=== PATIENT | female | born 1940 | race Caucasian/White ===

== ENCOUNTER 2019-07-28 22:29 | Inpatient (IN) | payer OTHER, SELFPAY ==
--- NOTE | 2019-07-28 | RAD_ITS ---
STUDY: X-RAY CHEST REASON FOR EXAM: Female, 79 years old. CHEST PAIN TECHNIQUE: Single AP portable view of the chest. COMPARISON: None. FINDINGS: Low lung volumes. No definite infiltrates. Probable mild scarring of the lung bases. No gross effusions. There is mild cardiac enlargement. Normal mediastinum and sue. Normal visualized pulmonary arteries. There is atherosclerotic tortuosity of the aortic arch and descending thoracic aorta. Normal visualized thoracic spine. There is degenerative osteoarthritis of the bilateral shoulders. There is no demonstrated abnormality of the visualized soft tissue structures of the upper abdomen. RAD/Chest 1 View (Portable) IMPRESSION: Low lung volumes. No definite acute chest disease. Electronically Signed: Donell Calderón MD at 23:21 EDT , Service support ,
[2019-07-28 22:35] VITALS: BP 165/97; PULSE 85; RESP 16; TEMP 37.1; O2SAT 93; BMI 26.4
--- NOTE | 2019-07-28 22:43 | CT_ITS ---
STUDY: CT BRAIN WITHOUT CONTRAST REASON FOR EXAM: Female, 79 years old. DROWSINESS, ALTERED MENTAL STATUS RADIATION DOSAGE (If Supplied By Facility): CTDIvol = ( 44.99 ) mGy, DLP = ( 779.24 ) mGycm TECHNIQUE: Transaxial CT imaging of the brain was performed without administration of intravenous contrast material. Individualized dose optimization techniques were used for this CT. COMPARISON: No relevant priors. FINDINGS: Normal soft tissue structures. Normal calvarium. Normal size ventricles and extra-axial spaces for the patient''s age. There are areas of decreased attenuation within the white matter tracts of the supratentorial brain, consistent with microvascular disease changes. Normal basal ganglia and thalami. Normal brainstem. Normal cerebellum. There is no intracranial hemorrhage. There are no findings of an acute ischemic infarction. Normal visualized paranasal sinuses. CT/Brain/Head without Contrast IMPRESSION: Chronic involutional changes of the brain. Electronically Signed: Kaden Luz, at 0:10 EDT Tel , Service support ,
--- NOTE | 2019-07-28 22:43 | EKG12_ITS ---
Test Reason : CP Blood Pressure : / mmHG Vent. Rate : 076 BPM Atrial Rate : 076 BPM P-R Int : 174 ms QRS Dur : 106 ms QT Int : 388 ms P-R-T Axes : 026 -03 063 degrees QTc Int : 436 ms Normal sinus rhythm with sinus arrhythmia Minimal voltage criteria for LVH, may be normal variant Nonspecific T wave abnormality Abnormal ECG Confirmed by SILVIA DOSHI, NILSON ([id number]), supervising editor trailer FEDERICO SAN ([id number] on 08/01/2019 1:08:01 PM Referred By: YORDY Confirmed By:RYAN VEGA MD
--- NOTE | 2019-07-28 22:45 | ED.VISSUMM ---
- ER Visit Summary Date of Service: 07/28/19 Chief Complaint: Chest pain, altered mental status History of Present Illness: The patient is a 79 F who presents by EMS with the complaints of chest pain. states that she was complaining of chest pain earlier. He gave her 1 of his metoprolol pills at that time. He does not know anything about her medical history but brings a pill bottle shows that she is on Remeron at night. The patient denies any pain. She is only alert to herself only. This is not normal for her cording to the . No fevers recently. Physical Examination: Vital signs reviewed. HEENT exam unremarkable. Heart is regular rate and rhythm without murmurs. Lungs are clear to auscultation. Abdomen is soft and nontender. Extremities reveal no edema. Skin exam normal. Neurologic exam shows that she is alert to herself only. She thinks it is 2000 and that she is in [place]. She has diffuse overall weakness. No lateralizing weakness or facial droop. Test Results: EKG is sinus rhythm with a rate of 76. No ST changes. Chest x-ray shows low volumes with no pneumonia. CAT scan of the head reveals chronic findings. White blood cell count normal. Hemoglobin 11.7. Sodium 135, potassium 3.3. ALT 116, AST 366. Alkaline phosphatase 412. Total bilirubin 1.4. Urinalysis has trace blood but no other findings. Carboxyhemoglobin 1.5. Right upper quadrant ultrasound shows cholelithiasis with gallbladder wall thickening and pericholecystic fluid. Emergency Department Course and Treatment: My concern is that this patient does have acute cholecystitis. She is not exquisitely tender in this area but could be causing her delirium. I spoke with Dr. Zuñiga, who will see the patient in the morning and will likely order a HIDA scan. I discussed with the hospitalist for admission. I will give her a dose of IV Zosyn. Treatment Plan: [] Disposition: Admit Impression: Acute cholecystitis, delirium This note was generated with [employer] dictation software. It may contain incorrect words, spelling, and punctuation that were not noted in review of the chart prior to signing
[2019-07-28 22:51] LABS: Absolute Lymphocyte Count 0.41 X10^3/uL (0.83-4.51); Absolute Neutrophil Count 8.1 X10^3/uL (2.0-7.7); Basophil# 0.03 X10^3/uL; Basophil% 0.3 % (0-1); Eosinophil# 0.05 X10^3/uL; Eosinophils% 0.5 % (0-5); Hemoglobin 11.7 g/dL (12.0-15.0); Lymphocyte # 0.41 X10^3/ul (4.0); Lymphocyte % 4.4 % (19-41); Mean Corp Hgb Conc 32.5 g/dL (32-36); Mean Corpuscular Hgb 28.3 pg (27.0-32.0); Mean Corpuscular Volume 87.2 fL (81-99); Mean Platelet Vol. 9.2 fl (6.2-12.0); Monocyte# 0.78 X10^3/uL; Monocyte% 8.3 % (0-10); NRBC Flagged by Analyzer 0 % (0-5); Neutrophil # 8.06 X10^3/uL (2.7-7.7); Neutrophil % 86.2 % (47-70); POSITIVE DIFFERENTIAL YES; Platelet Count 203 K/mm3 (150-450); RBC Distribution Width CV 13.8 % (11.6-14.6); RBC Distribution Width SD 43.9 fl (35.1-43.9); Red Blood Count 4.13 M/mm3 (4.2-5.4); White Blood Count 9.4 K/mm3 (4.4-11.0)
[2019-07-28 22:55] LABS: Differential Indicated SCAN CRITERIA MET
[2019-07-28 23:11] LABS: ALB/GLOB Ratio 0.9 RATIO (0.9-2.4); AST(SGOT) 366 U/L (15-37); Alanine Aminotransfer ALT/SGPT 116 U/L (13-56); Albumin, Serum 3.5 g/dL (3.2-5.0); Alkaline Phosphatase 412 U/L (45-117); Anion Gap 8 (5-15); BUN 23 mg/dL (7-18); BUN/Creat Ratio 27.6 RATIO (10-20); Calcium,Total 8.7 mg/dL (8.5-10.1); Chloride 102 mmol/L (98-107); Creatinine, Serum 0.83 mg/dL (0.55-1.02); EST Glomerular Filtration Rate 70 mL/min (>60); Est Glom Filt Rate - Afr Amer 85 mL/min (>60); Estimated Creatinine Clearance 46.21 ml/min; Globulin 3.8 g/dL (2.2-4.2); Glucose 135 mg/dL (74-106); Potassium 3.3 mmol/L (3.5-5.1); Protein, Total 7.3 g/dL (6.4-8.2); Sodium Level 135 mmol/L (136-145)
[2019-07-28 23:16] LABS: Mucous, Urine 0 SEEN /hpf (<or=2+); Squamous Epithelial Cells - UA 0 SEEN /hpf (5-10); White Blood Cells 0 SEEN /hpf (0-5)
--- NOTE | 2019-07-28 23:19 | US_ITS ---
STUDY: ABDOMINAL ULTRASOUND - RIGHT UPPER QUADRANT REASON FOR VISIT: Female, 79 years old ELEV LIVER ENZ TECHNIQUE: Ultrasound evaluation of the right upper quadrant was performed with real-time and static [place]-scale imaging. TECHNICAL QUALITY: Adequate. COMPARISON: None. FINDINGS: Liver: The liver measures 18.1 cm. There is normal echogenicity of the liver. The bile ducts are within normal limits. There is hepatic color flow. The direction of portal flow is hepatopetal. There is no demonstrated mass lesion. Gallbladder: Distended gallbladder measuring 12.5 cm in long axis. The gallbladder wall measures 4 mm. There is a negative sonographic Mcdonnell''s sign. There is trace pericholecystic fluid. There are multiple echogenic structures within the gallbladder, consistent with multiple gallstones. Common Bile Duct (C.B.D.): The common bile duct measures 6 mm. Pancreas: Normal size of the head, body of the pancreas. There is normal echogenicity of the pancreas. There is no demonstrated pancreatic mass or cyst. The pancreatic tail is not visualized. Right Kidney: Normal size of the right kidney. The right kidney measures 10.5 x 3.2 x 3.4 cm. Normal renal cortex. The right cortex measures 1.3 cm. There is no demonstrated renal mass or cyst. There is no right hydronephrosis. US/Gallbladder IMPRESSION: Cholelithiasis and mild gallbladder wall thickening and trace pericholecystic fluid however negative sonographic Mcdonnell''s sign. The gallbladder is distended. Findings are indeterminate and remain concerning for possible cholecystitis. Further evaluation with HIDA scan may be of value. Electronically Signed: Kaden Luz, at 0:05 EDT Tel , Service support ,
[2019-07-28 23:21] LABS: Platelet Estimate ADEQUATE (ADEQ); Red Cell Morphology NORM C+C NORMAL (NORM C&C)
[2019-07-28 23:28] LABS: Carboxyhemoglobin Frac (CO) 1.5 % (0.0-1.5)
[2019-07-28 23:34] LABS: Color, Urine Yellow (Yellow); Glucose, Dipstick 50 mg/dl (Normal); Ketone-Dipstick Negative (Negative); Leukocyte Esterase-Dipstick Negative /ul (Negative); Nitrite-Dipstick Negative (Negative); Occult Blood-Urine 25 /ul (Negative); Protein-Dipstick 30 mg/dl (Negative); Specific Gravity, Urine 1.015 (1.002-1.030); Urine Bilirubin Dipstick Negative (Negative); Urine Clarity Sl. Cloudy (Clear); Urine Urobilinogen Normal (Normal); Urine pH 6.5 (5.0 - 8.0)
[2019-07-28 23:41] LABS: Lactic Acid 1.6 mmol/L (0.4-1.9)
[2019-07-28 23:55] VITALS: BP 156/91; PULSE 82; RESP 17; O2SAT 92
[2019-07-29] VITALS (16 sets, daily range): BP systolic 141–177; BP diastolic 68–102; PULSE 59–89; RESP 16–24; TEMP 36.5–37.3; O2SAT 91–99; BMI 25.7
--- NOTE | 2019-07-29 00:24 | HP.PCM_ITS ---
Problem List (1) Elevated bilirubin Status: Acute (2) Elevated liver function tests Status: Acute (3) Cholecystitis Status: Suspected (4) Encephalopathy acute Status: Acute (5) Hyperglycemia Status: Acute (6) Elevated BP without diagnosis of hypertension Status: Acute (7) Normocytic anemia Status: Acute (8) Hyponatremia Status: Acute (9) Hypokalemia Status: Acute (10) Depression Status: Chronic Qualifiers: Depression Type: unspecified Qualified Code(s): F32.9 - Major depressive disorder, single episode, unspecified History of Present Illness Date of Admission: 07/29/19 Chief Complaint: Abdominal, chest pain The patient is a 79 y/o F, Orthodoxy w/ PMHx: Depression who presents to the [facility] ED on 07/29/19 with history of onset of epigastric discomfort, middle of the upper abdomen/lower chest, unclear if radiation with no dyspnea, diaphoresis with new onset confusion prompting to eventually bring her to the ED. Unclear if associated with oral intake discussions with patient and . Patient in the ED noted to be only oriented to self however during evaluation was able to give some detailed history. Patient is very vague with her discomfort, described as more of a dull ache, 2-5 out of 10 in severity when occurring with waxing and waning with no specific nausea or emesis associated nor any recent changes in her bowel movements. Patient also denies any fevers or chills. Work-up in the ED included T 98.8, heart rate 85, BP 165/97, respiratory rate 16, 93% on room air, CBC with WBC 9.4, hemoglobin 11.7, platelet 203 with left shift, VBG carboxyhemoglobin 1.5, CMP with sodium 135, potassium 3.3, BUN/c reatinine 23/0.83, glucose 135, lactic acid 1.6, total bilirubin 1.4, AST/ALT 366/116, alk phos of 412, troponin less than 0.015, urinalysis with specific gravity 1.015, protein 30, glucose 50, negative ketones, occult blood 25, negative nitrite, negative leukocyte Estrace, chest x-ray with no acute cardiopulmonary findings, CT head with no acute intracranial findings, gallbladder ultrasound with cholelithiasis and mild gallbladder wall thickening and trace pericholecystic fluid with a negative sonographic Mcdonnell sign but noted distended gallbladder with findings indeterminate and ongoing possibility of cholecystitis. In the ED patient administered aspirin therapy. Past Medical History Past Medical History (Chronic Problems): Chronic Problems Depression (Chronic) Allergies No Known Allergies Allergy (Verified 07/28/19 22:42) Home Medications: Ambulatory Orders Medication Instructions Recorded Mirtazapine 15 mg PO QHS 07/28/19 Surgical History: - - Total knee replacement. 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 Denies: Chills, Fever, Weight Change HEENT: Denies: Head Aches, Sinus Congestion, Sinus Drainage Cardiovascular: Reports: Chest Pain. Denies: Chest Pressure, Chest Tightness, Light Headedness, Orthopnea, Palpitations, Syncope Respiratory: Denies: Cough, Shortness of breath at rest, Sputum production Gastrointestinal: Reports: Abdominal Pain. Denies: Constipation, Diarrhea, Nausea, Vomiting Genitourinary: Denies: Dysuria Musculoskeletal: Reports: Back Pain, Joint Pain. Denies: Joint Tenderness Skin: Denies: Rash, Wounds Neurological: Reports: Confusion. Denies: Focal weakness, Numbness, Tingling Psychiatric: Reports: Depression. Denies: Anxiety, Homicidal Ideations, Suicidal Ideations Hematologic/ Lymphatic: Reports: Anemia. Denies: Easy Bruising, Easy Bleeding VTE Information - Inpt Only VTE Present on Admission: No VTE Mechan Device Prophylaxis: SCD's VTE Pharm Prophylaxis ordered?: Yes Patient Problems: Active and Suspected Problems Elevated bilirubin (Acute) Elevated liver function tests (Acute) Cholecystitis (Suspected) Encephalopathy acute (Acute) Hyperglycemia (Acute) Elevated BP without diagnosis of hypertension (Acute) Normocytic anemia (Acute) Hyponatremia (Acute) Hypokalemia (Acute) Subjective: Seated upright in bed, fatigued appearance, no acute obvious distress, answering some questions. Objective: Physical Examination: General: awake, alert, oriented to self and some detail but decreased from baseline, remains cooperative, seated upright in bed in no apparent distress. Skin: normal color, turgor, no icterus, cyanosis. HEENT: AT/NC, EOMI, PERRLA, dry MM, no carotid bruits or JVD noted. Lungs: CTA bilaterally, moderate effort, moderate decrease BL bases, no rales, ronchi or wheezing. Heart: Regular rate and rhythm; no gallop, rub audible. Abdomen: soft, obese, no specific TTP nor obvious epigastric or RUQ pain, no rebound or guarding, ND, normal BS, no HSM. Extremities: no cyanosis, clubbing, or edema. Neurological: patient awake, alert, oriented as noted; cognitive function per discussions with spouse not baseline intact; pupils equally reactive to light and accomodation; cranial nerves II-XII grossly normal, moving all 4 extremities, no focal deficits, strength moderately global decrease secondary to acute presentation. Psychiatric: affect appears fatigued, mildly flat, no acute evidence of dep ressive or anxiety feelings. - Physical Exam Vitals/I&O's: Vital Signs Temp Pulse Resp BP Pulse Ox 98.8 F 82 17 156/91 H 92 07/28/19 22:35 07/28/19 23:55 07/28/19 23:55 07/28/19 23:55 07/28/19 23:55 Oxygen Delivery Method Room Air Weight: 149 lb 7.574 oz Body Mass Index (BMI) 26.4 Laboratory Results 07/28/19 22:40: WBC 9.4, RBC 4.13 L, Hgb 11.7 L, Hct 36.0 L, MCV 87.2, MCH 28.3, MCHC 32.5, RDW Std Deviation 43.9, RDW Coeff of [place] 13.8, Plt Count 203, MPV 9.2, Immature Gran % (Auto) 0.300, Neut % (Auto) 86.2 H, Lymph % (Auto) 4.4 L, [place] % (Auto) 8.3, Eos % (Auto) 0.5, Baso % (Auto) 0.3, Absolute Neuts (auto) 8.1 H, Absolute Lymphs (auto) 0.41 L, Nucleated RBC % 0, Differential Comment SEE COMMENT, Platelet Estimate ADEQUATE, RBC Morphology NORM C+C 07/28/19 22:40: Sodium 135 L, Potassium 3.3 L, Chloride 102, Carbon Dioxide 25.0, Anion Gap 8, BUN 23 H, Creatinine 0.83, Estim Creat Clear Calc 46.21, Est GFR (MDRD) Af Amer 85, Est GFR (MDRD) Non-Af 70, BUN/Creatinine Ratio 27.6 H, Glucose 135 H, Calcium 8.7, Total Bilirubin 1.40 H, AST 366 H, ALT 116 H, Alkaline Phosphatase 412 H, Troponin I < 0.015, Total Protein 7.3, Albumin 3.5, Globulin 3.8, Albumin/Globulin Ratio 0.9 07/28/19 22:50: Urine Color Yellow, Urine Clarity Sl. Cloudy, Urine pH 6.5, Ur Specific [place] 1.015, Urine Protein 30 H, Urine Glucose (UA) 50 H, Urine Ketones Negative, Urine Occult Blood 25 H, Urine Nitrite Negative, Urine Bilirubin Negative, Urine Urobilinogen Normal, Ur Leukocyte Esterase Negative, Urine RBC Pending, Urine WBC Pending, Ur Squamous Epith Cells Pending, Urine Bacteria Pending, Urine Mucus Pending 07/28/19 23:05: Lactic Acid 1.6 07/28/19 23:05: VBG Carboxyhemoglobin 1.5 Current Medications Piperacillin Sod/Tazobactam (Sod 4.5 gm/ Sodium Chloride) 100 mls @ 200 mls/hr IV X1 ONE Stop: 07/29/19 00:50 Assessment/Plan All Active Problems Elevated bilirubin (Acute) Elevated liver function tests (Acute) Encephalopathy acute (Acute) Hyperglycemia (Acute) Elevated BP without diagnosis of hypertension (Acute) Normocytic anemia (Acute) Hyponatremia (Acute) Hypokalemia (Acute) The patient is a 79 y/o F, Orthodoxy w/ PMHx: Depression who presents to the [facility] ED on 07/29/19 with history of onset of epigastric discomfort, middle of the upper abdomen/lower chest, unclear if radiation with no dyspnea, diaphoresis with new onset confusion prompting to eventually bring her to the ED. Unclear if associated with oral intake discussions with patient and . 1. Acute Encephalopathy secondary to Elevated bilirubin and liver function studies with epigastric/chest discomfort and gallbladder ultrasound findings concerning for possible cholecystitis, acute: We will admit to the medical surgi shikha floor, maintain on telemetry given unclear specific etiology, trend cardiac enzymes, trend CBC as well as CMP, obtain surgical evaluation, obtain HIDA scan, maintain n.p.o. status, maintain on IV famotidine in interim, obtain hepatitis panel, initiate Zosyn therapy pending surgery evaluation, fall precautions. 2. Hypokalemia: Admission K+ 3.3, supplementation given, repeat level in AM. 3. Hyponatremia, mild: Unclear if chronic or acute, will continue to gently hydrate as given acute presentation may be mild hypokalemia, repeat CMP in a.m. 4. Hyperglycemia: Admission glucose 135, will obtain hemoglobin A1c and add Accu-Cheks with sliding scale if appropriate. 5. Elevated BP without hypertensive history: Unclear if associate with acute presentation with pain, will continue to monitor and if appropriate add oral regimen, in interim PRN IV hydralazine. 6. Normocytic anemia: Unclear if chronic or acute, admission hemoglobin 11.7, MCV normal range, will obtain iron panel, ferritin, folic acid and vitamin B12 level. 7. Depression: Will continue home mirtazapine regimen. 8. DVT prophylaxis: SCDs, Lovenox. Inpatient E&M: 39073 Init Hosp L3
[2019-07-29 00:25] LABS: Amorphous Sediment 1+; Bacteria RARE /hpf (None Seen); Red Blood Cells-Urine 0-5 SEEN /hpf (0-5)
[2019-07-29] MEDS: 0.9% Normal Saline 1,000 ML 125 ML IV ×2 (01:10→10:36)
[2019-07-29] MEDS: Famotidine 200 MG/20 ML MDV 20 MG in 0.9% Normal Saline (Pres. free 8 ML 300 MG IV ×3 (01:36→21:16)
[2019-07-29 03:25] LABS: Ammonia < 10.0 umol/L (11-32)
--- NOTE | 2019-07-29 03:59 | CT_ITS ---
STUDY: CT ABDOMEN AND PELVIS WITHOUT CONTRAST REASON FOR EXAM: Female, 79 years old. POSS CHOLECYSTITIS ON US, ABDOMINAL/CHEST PAIN RADIATION DOSAGE (If Supplied By Facility): CTDIvol = ( 21.38 ) mGy, DLP = ( 1032.88 ) mGycm TECHNIQUE: Transaxial images were obtained from the dome of the diaphragm to the symphysis pubis without oral contrast, and without intravenous contrast. Sagittal and coronal images were reconstructed. Individualized dose optimization techniques were used for this CT. COMPARISON: Abdominal ultrasound from 07/28/2019 FINDINGS: The visualized lung bases demonstrate bibasilar atelectasis. The visualized portions of the heart are within normal limits. There is mild intrahepatic biliary ductal dilatation. The gallbladder is dilated with pericholecystic fluid and multiple gallstones. The common bile duct is also dilated and demonstrates several faint internal hyperdensities, series 2 image 44. Normal spleen. Normal pancreas. Normal bilateral adrenal glands. Normal right kidney. Normal left kidney. Normal visualized stomach. Normal small intestine. There are multiple colonic diverticula consistent with diverticulosis. The appendix is visualized and appears normal. Normal abdominal aorta. Normal inferior vena cava. Normal retroperitoneum. Normal urinary bladder. Normal abdominal wall. There are diffuse degenerative changes of the visualized lumbar spine. CT/Abdomen/Pelvis W IV Cont ONLY IMPRESSION: Dilated gallbladder with multiple gallstones and small amount of pericholecystic fluid. The common bile duct is also dilated with questionable subcentimeter small stones involving the distal common bile duct, series 2 image 44. Findings remain concerning for cholecystitis and possible choledocholithiasis involving the distal common bile duct. Mild intrahepatic biliary ductal dilatation. Electronically Signed: Kaden Luz, at 5:46 EDT Tel , Service support ,
[2019-07-29] MEDS: 0.9% Saline Lock 10 ML Syringe IV ×2 (04:16→16:51)
[2019-07-29 05:10] LABS: Absolute Lymphocyte Count 0.99 X10^3/uL (0.83-4.51); Absolute Neutrophil Count 8.7 X10^3/uL (2.0-7.7); Basophil# 0.03 X10^3/uL; Basophil% 0.3 % (0-1); Eosinophil# 0.01 X10^3/uL; Eosinophils% 0.1 % (0-5); Hemoglobin 11.7 g/dL (12.0-15.0); Lymphocyte # 0.99 X10^3/ul (4.0); Lymphocyte % 9.2 % (19-41); Mean Corp Hgb Conc 32.5 g/dL (32-36); Mean Corpuscular Hgb 28.5 pg (27.0-32.0); Mean Corpuscular Volume 87.8 fL (81-99); Mean Platelet Vol. 9.1 fl (6.2-12.0); Monocyte# 0.91 X10^3/uL; Monocyte% 8.5 % (0-10); NRBC Flagged by Analyzer 0 % (0-5); Neutrophil # 8.72 X10^3/uL (2.7-7.7); Neutrophil % 81.4 % (47-70); Platelet Count 200 K/mm3 (150-450); RBC Distribution Width CV 13.9 % (11.6-14.6); RBC Distribution Width SD 44.5 fl (35.1-43.9); White Blood Count 10.7 K/mm3 (4.4-11.0)
[2019-07-29 06:18] LABS: ALB/GLOB Ratio 0.8 RATIO (0.9-2.4); AST(SGOT) 400 U/L (15-37); Alanine Aminotransfer ALT/SGPT 156 U/L (13-56); Albumin, Serum 3.2 g/dL (3.2-5.0); Alkaline Phosphatase 379 U/L (45-117); Anion Gap 7 (5-15); BUN 20 mg/dL (7-18); Calcium,Total 8.4 mg/dL (8.5-10.1); Chloride 104 mmol/L (98-107); Creatinine, Serum 0.91 mg/dL (0.55-1.02); EST Glomerular Filtration Rate 64 mL/min (>60); Est Glom Filt Rate - Afr Amer 77 mL/min (>60); Ferritin 119 ng/mL (8-252); Globulin 3.9 g/dL (2.2-4.2); Glucose 122 mg/dL (74-106); Iron 31 ug/dL (50-170); Iron Binding Capacity,Total 328 ug/dL (250-450); PERCENT IRON SATURATION 9.5 % (15.0-55.0); Potassium 3.5 mmol/L (3.5-5.1); Protein, Total 7.1 g/dL (6.4-8.2); Sodium Level 137 mmol/L (136-145)
--- NOTE | 2019-07-29 06:56 | CON.PCM_ITS ---
Problem List (1) Obstructive jaundice Status: Acute (2) Choledocholithiasis Status: Acute (3) Acute cholecystitis Status: Acute Reason for Consult Date of Consultation: 07/29/19 Reason for Consultation: Acute cholecystitis and choledocholithiasis History of Present Illness: The patient is a 79 year old F presents with epigastric and right upper quadrant pain and acute confusion. The patient has not been having any nausea vomiting only describes pain. No fevers or chills. Past Medical History Past Medical History (Chronic Problems): Chronic Problems Depression (Chronic) Allergies No Known Allergies Allergy (Verified 07/28/19 22:42) Home Medications: Ambulatory Orders Medication Instructions Recorded Mirtazapine 7.5 mg PO QHS 07/28/19 Aspirin 325 mg PO DAILY 07/29/19 Surgical History: - - Total knee replacement. 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 Denies: Constipation, Diarrhea, Nausea, Vomiting Musculoskeletal: Denies: Back Pain Skin: Denies: Rash Neurological: Reports: Confusion. Denies: Balance problems Patient Problems: Active and Suspected Problems Elevated bilirubin (Acute) Elevated liver function tests (Acute) Cholecystitis (Suspected) Encephalopathy acute (Acute) Hyperglycemia (Acute) Elevated BP without diagnosis of hypertension (Acute) Normocytic anemia (Acute) Hyponatremia (Acute) Hypokalemia (Acute) Obstructive jaundice (Acute) Choledocholithiasis (Acute) Acute cholecystitis (Acute) - Physical Exam Vitals/I&O's: Vital Signs Temp Pulse Resp BP Pulse Ox 97.9 F 88 18 141/100 H 94 07/29/19 02:02 07/29/19 02:25 07/29/19 02:25 07/29/19 02:02 07/29/19 02:25 Oxygen Delivery Method Room Air Weight: 145 lb 1.027 oz Body Mass Index (BMI) 25.7 Intake and Output for Last 24 Hours 07/27/19 07/28/19 07/29/19 23:59 23:59 23:59 Intake Total 498.0 / 498.0 Output Total 550 / 550 Balance -52.0 / -52.0 General: Cooperative, No apparent distress Neck: No JVD Lungs: Normal air movement Cardiovascular: Regular rate, Regular Rhythm Abdomen: Soft, Non-Distended, Tender Neurological: Cranial nerves II-XII grossly intact Psych/Mental Status: Normal Affect Laboratory Results 07/28/19 22:40: WBC 9.4, RBC 4.13 L, Hgb 11.7 L, Hct 36.0 L, MCV 87.2, MCH 28.3, MCHC 32.5, RDW Std Deviation 43.9, RDW Coeff of [place] 13.8, Plt Count 203, MPV 9.2, Immature Gran % (Auto) 0.300, Neut % (Auto) 86.2 H, Lymph % (Auto) 4.4 L, Noble % (Auto) 8.3, Eos % (Auto) 0.5, Baso % (Auto) 0.3, Absolute Neuts (auto) 8.1 H, Absolute Lymphs (auto) 0.41 L, Nucleated RBC % 0, Differential Comment SEE COMMENT, Platelet Estimate ADEQUATE, RBC Morphology NORM C+C 07/28/19 22:40: Sodium 135 L, Potassium 3.3 L, Chloride 102, Carbon Dioxide 25.0, Anion Gap 8, BUN 23 H, Creatinine 0.83, Estim Creat Clear Calc 46.21, Est GFR (MDRD) Af Amer 85, Est GFR (MDRD) Non-Af 70, BUN/Creatinine Ratio 27.6 H, Glucose 135 H, Calcium 8.7, Total Bilirubin 1.40 H, AST 366 H, ALT 116 H, Alkaline Phosphatase 412 H, Troponin I < 0.015, Total Protein 7.3, Albumin 3.5, Globulin 3.8, Albumin/Globulin Ratio 0.9 07/28/19 22:40: Magnesium 2.0 07/28/19 22:50: Urine Color Yellow, Urine Clarity Sl. Cloudy, Urine pH 6.5, Ur S pecific [place] 1.015, Urine Protein 30 H, Urine Glucose (UA) 50 H, Urine Ketones Negative, Urine Occult Blood 25 H, Urine Nitrite Negative, Urine Bilirubin Negative, Urine Urobilinogen Normal, Ur Leukocyte Esterase Negative, Urine RBC 0-5 SEEN, Urine WBC 0 SEEN, Ur Squamous Epith Cells 0 SEEN, Amorphous Sediment 1+, Urine Bacteria RARE, Urine Mucus 0 SEEN 07/28/19 23:05: Lactic Acid 1.6 07/28/19 23:05: VBG Carboxyhemoglobin 1.5 07/29/19 02:12: Ammonia < 10.0 L 07/29/19 02:12: Hepatitis A IgM Ab Pending, Hepatitis A Ab Total Pending, Hep Bs Antigen Pending, Hep B Core Total Ab Pending, Hep B Core IgM Ab Pending 07/29/19 02:12: Troponin I < 0.015 07/29/19 05:00: WBC 10.7, RBC 4.10 L, Hgb 11.7 L, Hct 36.0 L, MCV 87.8, MCH 28.5, MCHC 32.5, RDW Std Deviation 44.5 H, RDW Coeff of [place] 13.9, Plt Count 200, MPV 9.1, Immature Gran % (Auto) 0.500, Neut % (Auto) 81.4 H, Lymph % (Auto) 9.2 L, Noble % (Auto) 8.5, Eos % (Auto) 0.1, Baso % (Auto) 0.3, Absolute Neuts (auto) 8.7 H, Absolute Lymphs (auto) 0.99, Nucleated RBC % 0 07/29/19 05:00: Hemoglobin A1c Pending 07/29/19 05:00: Vitamin B12 Pending 07/29/19 05:00: Sodium 137, Potassium 3.5, Chloride 104, Carbon Dioxide 26.0, Anion Gap 7, BUN 20 H, Creatinine 0.91, Estim Creat Clear Calc 40.30, Est GFR (MDRD) Af Amer 77, Est GFR (MDRD) Non-Af 64, BUN/Creatinine Ratio 22.0 H, Glucose 122 H, Calcium 8.4 L, Iron 31 L, TIBC 328, Iron Saturation 9.5 L, Ferritin 119, Total Bilirubin 2.40 H, AST 400 H, ALT 156 H, Alkaline Phosphatase 379 H, Troponin I < 0.015, Total Protein 7.1, Albumin 3.2, Globulin 3.9, Albumin/Globulin Ratio 0.8 L, Folate 18.10 Clinical Impression(s) from Imaging Studies Chest X-Ray 07/28/19 00:00 IMPRESSION: Low lung volumes. No definite acute chest disease. Electronically Signed: Donell Calderón MD at 23:21 EDT , Service support , Brain CT 07/28/19 22:43 IMPRESSION: Chronic involutional changes of the brain. Electronically Signed: Kaden Luz, at 0:10 EDT Tel , Service support , Gallbladder Ultrasound 07/28/19 23:19 IMPRESSION: Cholelithiasis and mild gallbladder wall thickening and trace pericholecystic fluid however negative sonographic Mcdonnell''s sign. The gallbladder is distended. Findings are indeterminate and remain concerning for possible cholecystitis. Further evaluation with HIDA scan may be of value. Electronically Signed: Kaden Luz, at 0:05 EDT Tel , Service support , Abdomen/Pelvis CT 07/29/19 03:59 IMPRESSION: Dilated gallbladder with multiple gallstones and small amount of pericholecystic fluid. The common bile duct is also dilated with questionable subcentimeter small stones involving the distal common bile duct, series 2 image 44. Findings remain concerning for cholecystitis and possible choledocholithiasis involving the distal common bile duct. Mild intrahepatic biliary ductal dilatation. Electronically Signed: Kaden Luz, at 5:46 EDT Tel , Service support , Current Medications Acetaminophen (Tylenol) 650 mg PO Q6H PRN PRN PRN Reason: Pain Score 1-10/Temp > 100.7 F Al Hydroxide/Mg Hydroxide (Mylanta Ii) 30 ml PO Q6H PRN PRN PRN Reason: Gastric Burning Albuterol Sulfate (Ventolin Aerosols) 2.5 mg INHALATION Q2H PRN PRN PRN Reason: Shortness of Breath/Wheezing Enoxaparin Sodium (Lovenox) 40 mg SC DAILY [facility] Glucagon () 1 mg IM .X1 PRN PRN Reason: Hypoglycemia Guaifenesin (Robitussin) 20 ml PO Q4H PRN PRN PRN Reason: COUGH Hydralazine HCl (Apresoline Iv) 10 mg IV Q4H PRN PRN PRN Reason: SBP > 160 Sodium Chloride () 1,000 mls @ 125 mls/hr IV .Q8H [facility] Last Infusion: 07/29/19 05:12 Dose: 125 mls/hr Documented by: Famotidine 20 mg/ Sodium (Chloride) 10 mls @ 300 mls/hr IV Q12 [facility] Last Infusion: 07/29/19 01:38 Dose: Infused Documented by: Piperacillin Sod/Tazobactam (Sod 3.375 gm/ Sodium Chloride) 50 mls @ 12.5 mls/hr IV Q8 [facility] Last Admin: 07/29/19 05:40 Dose: 12.5 mls/hr Documented by: Dextrose (Dextrose 10%-Water) 250 mls @ 999 mls/hr IV .Q16M PRN; Protocol PRN Reason: HYPOGLYCEMIA Sodium Chloride () 250 mls @ 15 mls/hr IV .[id number] PRN PRN Reason: Saline Flush Last Infusion: 07/29/19 05:40 Dose: 0 mls/hr Documented by: Sodium Chloride () 250 mls @ 15 mls/hr IV .[id number] PRN PRN Reason: Additional IVPB Infusion Magnesium Hydroxide (Milk Of Magnesia) 30 ml PO DAILY PRN PRN PRN Reason: Constipation Melatonin (Melatonin) 3 mg PO QHS PRN PRN PRN Reason: INSOMNIA Mirtazapine (Remeron) 15 mg PO QHS [facility] Morphine Sulfate () 2 mg IV Q3H PRN PRN PRN Reason: Pain Score 6-10/10 Nitroglycerin (Nitrostat) 0.4 mg SUBLINGUAL Q5M PRN PRN Reason: CARDIAC/CHEST PAIN Ondansetron HCl (Zofran) 4 mg IV Q8H PRN PRN PRN Reason: NAUSEA/VOMITING Oxycodone HCl (Oxyir) 5 mg PO Q4H PRN PRN PRN Reason: Pain Score 4-5/10 Prochlorperazine Edisylate (Compazine Iv) 5 mg IV Q4H PRN PRN PRN Reason: Breakthrough nausea/vomiting Psyllium Hydrophilic Mucilloid (Metamucil) 1 packet PO DAILY PRN PRN PRN Reason: Constipation Senna/Docusate Sodium (Senokot-S, Breonna-Colace) 2 tablet PO BID PRN PRN PRN Reason: Constipation Sodium Chloride () 10 - 40 ml IV UD PRN PRN Reason: SALINE FLUSH Last Admin: 07/29/19 04:16 Dose: 20 ml Documented by: Throat Lozenges (Cepacol Sore Throat Lozenge) 1 lozenge MUCOUS MEM Q2H PRN PRN PRN Reason: SORE THROAT Assessment/Plan All Active Problems Elevated bilirubin (Acute) Elevated liver function tests (Acute) Encephalopathy acute (Acute) Hyperglycemia (Acute) Elevated BP without diagnosis of hypertension (Acute) Normocytic anemia (Acute) Hyponatremia (Acute) Hypokalemia (Acute) Obstructive jaundice (Acute) Choledocholithiasis (Acute) Acute cholecystitis (Acute) 79-year-old female with obstructive jaundice, acute cholecystitis, choledocholithiasis 1. Patient was admitted with elevated LFTs. LFTs have continued to rise today. CT scan was obtained which showed 2 large gallstones in the gallbladder but also several stones in the common bile duct causing obstruction and dilation of the common bile duct. I recommend ERCP today and laparoscopic cholecystectomy subsequently. I discussed this with the patient and her but they are both confused and not able to give consent. I will discuss with the son today and try to obtain informed consent for the procedure for this afternoon. 2. Continue n.p.o. and antibiotics Mauricio Zuñiga MD Pager: [facility] [address] [place] [address], [address] [place] [address] Office:
[2019-07-29 08:11] LABS: Hemoglobin A1c 6.3 % (4.2-6.3)
[2019-07-29 09:19] LABS: Vitamin B12 862 pg/mL (211-911)
--- NOTE | 2019-07-29 11:40 | CASEMGMT ---
RN NGUYEN TAX SERVICES SPECIALIST CM to room to meet with patient for initial transition planning/care coordination assessment. RN NGUYEN introduced self and role at [facility]. Pt voices understanding and consents to assessment at this time. Pt resting in bed/sleeping. @ bedside and answered the following assessment questions. oriented and able to answer questions appropriately. Care providers, pharmacy, and demographics verified/updated at this time. PCP: Dr Homer Roberts Specialists: none Preferred Pharmacy: [facility] in [place] Insurance: No insurance. Jamar Hernandez Liaison, came into room to talk w/pt and . as RN NGUYEN finishing assessment. Prescription Benefit: None Living Will/HPOA: Pt does not currently have LW/HCPOA and declines info at this time. LNOK: , Kennedy Collins. 11 children Living Arrangements: Lives in 2-story home w/basment. FFSU. Pt lives w/her , son, Ilan, and his and their 7 children. Pt's son Yaw, who is W/C bound also lives with them. Pt has difficulty w/the stairs and rarely goes up/down them. Ramp entrance into the home. Pt is independent w/ADL's and family/pt share home mgmt tasks. Transportation: Hire drivers DME: States has the following DME: BSC, walker, and cane. Has a hospital bed and W/C but does not use these. states pt stands in the tub to wash off and states does not feel like pt needs a shower chair. Shower chair encouraged for pt's safety and provided with [facility] DME warehouse information. He states no need for further DME at this time. HHC/SNF: No history of either. Denies needs for SNF or HHC. Family very supportive. wishes for pt to return home and states has no concerns with going home at time of discharge. CM to follow for any further discharge planning/needs. voices no further concerns/needs at this time. Advised him to ask for CM if any further questions/concerns/needs arise. Voices understanding. PLAN: Home w/family support and discharge plans in place. Celina JARVIS RN, CM
[2019-07-29 12:23] LABS: International Normalized Ratio 1.2; Prothrombin Time (Protime)PT. 14.8 SECONDS (11.7-14.9)
[2019-07-29 12:24] LABS: Partial Thromboplast Time 30.2 Seconds (24.1-36.2)
--- NOTE | 2019-07-29 14:14 | RAD_ITS ---
STUDY: FLUOROSCOPIC ERCP BILIARY DUCTAL SYSTEM REASON FOR EXAM: Female, 79 years old. Stone, abd pain, stent placement FLUOROSCOPY TIME (if supplied): ( 3:49 ) minutes/seconds TECHNIQUE: 5 fluoroscopic images COMPARISON: Abdomen and pelvic CT exam of July 29, 2019 FINDINGS: Fluoroscopic imaging demonstrates cannulation of a dilated common bile duct with multiple filling defects consistent with ductal stones. At the completion of the procedure a common bile duct stent is placed terminating in the lumen of the duodenum. RAD/ERCP Biliary Only IMPRESSION: Fluoroscopic demonstration of dilated common bile duct with ductal stones followed by placement of a common bile duct stent terminating in the duodenum. Electronically Signed: Tamika Betancourt MD at 15:45 EDT , Service support ,
--- NOTE | 2019-07-29 15:13 | OP.CCLET_ITS ---
07/29/2019 Homer Roberts Re : ERCP procedure for Damaris Collins Dear Armando This procedure was performed on Monday, July 29, 2019. 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 - A biliary sphincterotomy was performed. - The biliary tree was swept and sludge and pus were found. - One plastic stent was placed into the common bile duct. - Ascending cholangitis was found. - Choledocholithiasis with an obstruction was found. Partial removal was accomplished with biliary sphincterotomy; a stent was inserted. Recommendations : - [facility]. - Clear liquid diet. My findings are described in the full procedure note, which is enclosed. If I can be of further assistance, please feel free to contact me at Doctor phone number(s): , Work: . Sincerely, Mauricio Zuñiga MD 07/29/2019 3:12:26 PM This report has been signed electronically.
--- NOTE | 2019-07-29 15:13 | OP.ERCP_ITS ---
Patient Name: Damaris Collins Procedure Date: 07/29/2019 12:35 PM Date of : 1940 Age: 79 Procedure: ERCP Indications: Common bile duct stone(s) Providers: Mauricio Zuñiga MD Medicines: General Anesthesia Patient Profile: This is a 79 year old female. Refer to note in patient chart for documentation of history and physical. Complications: No immediate complications. Estimated blood loss: Minimal. Procedure: Pre-Anesthesia Assessment: - Prior to the procedure, a History and Physical was performed, and patient medications and allergies were reviewed. The patient's tolerance of previous anesthesia was also reviewed. The risks and benefits of the procedure and the sedation options and risks were discussed with the patient. All questions were answered, and informed consent was obtained. Prior Anticoagulants: The patient has taken no previous anticoagulant or antiplatelet agents. After reviewing the risks and benefits, the patient was deemed in satisfactory condition to undergo the procedure. After obtaining informed consent, the scope was passed under direct vision. Throughout the procedure, the patient's blood pressure, pulse, and oxygen saturations were monitored continuously. The duodenoscope was introduced through the mouth, and advanced to the duodenum and used to inject contrast into the bile duct. The patient tolerated the procedure well. The ERCP was performed with difficulty due to challenging cannulation because of peridiverticular papilla. 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 A 0.035 inch x 260 cm straight Dreamwire was passed into the biliary tree. The sphincterotome was passed over the guidewire and the bile duct was then deeply cannulated. Contrast was injected. Biliary sphincterotomy was made with a monofilament sphincterotome using ERBE electrocautery. There was no post-sphincterotomy bleeding. The biliary tree was swept with a 12 mm balloon starting at the bifurcation. Sludge was swept from the duct. Pus was swept from the duct. One 10 Fr by 5 cm plastic stent with a single external flap and a single internal flap was placed into the common bile duct. Pus flowed through the stent. The stent was in good position. 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 - A biliary sphincterotomy was performed. - The biliary tree was swept and sludge and pus were found. - One plastic stent was placed into the common bile duct. - Ascending cholangitis was found. - Choledocholithiasis with an obstruction was found. Partial removal was accomplished with biliary sphincterotomy; a stent was inserted. Recommendation: - [facility]. - Clear liquid diet. Procedure Code(s): --- Professional --- 67807, Endoscopic retrograde cholangiopancreatography (ERCP); with placement of endoscopic stent into biliary or pancreatic duct, including pre- and post-dilation and guide wire passage, when performed, including sphincterotomy, when performed, each stent 19642, 51, Endoscopic retrograde cholangiopancreatography (ERCP); with removal of calculi/debris from biliary/pancreatic duct(s) Diagnosis Code(s): --- Professional --- K80.31, Calculus of bile duct with cholangitis, unspecified, with obstruction K80.30, Calculus of bile duct with cholangitis, unspecified, without obstruction K83.0, Cholangitis CPT copyright 2017 [employer]. All rights reserved. The codes documented in this report are preliminary and upon garment presser review may be revised to meet current compliance requirements. Mauricio Zuñiga MD 07/29/2019 3:12:26 PM This report has been signed electronically. Number of Addenda: 0 Note Initiated On: 07/29/2019 12:35 PM
--- NOTE | 2019-07-29 17:08 | PCM.HOSP.N ---
Hospitalist Note Patient was seen and examined briefly today, she underwent an ERCP today with sphincterotomy and stent placement in the common bile duct, sludge was removed from the common bile duct and there is also noted to be pus coming from the common bile duct- general surgery called me to go over her medical plan, patient has cholecystitis and cholangitis and general surgery recommends a cholecystectomy tomorrow. Patient will remain on antibiotics and will receive fluids. She will still be n.p.o.
[2019-07-29] MEDS: Acetaminophen 325 MG Tablet 650 MG PO (21:17)
[2019-07-29] MEDS: Mirtazapine 15 MG Tablet PO (21:17)
[2019-07-30] VITALS (8 sets, daily range): BP systolic 143–177; BP diastolic 64–90; PULSE 71–74; RESP 18; TEMP 36.7–37.2; O2SAT 92–96
[2019-07-30] MEDS: 0.9% Saline Lock 10 ML Syringe IV ×3 (01:24→20:46)
[2019-07-30] MEDS: 0.9% Normal Saline 1,000 ML 125 ML IV ×3 (01:24→20:46)
[2019-07-30] MEDS: hydrALAZINE 20 MG/ML Vial 10 MG IV (01:30)
[2019-07-30 05:06] LABS: HEPATITIS B SURFACE AG Negative (Negative); Hepatitis A AB, Total Negative (Negative); Hepatitis A IgM Antibody Negative (Negative); Hepatitis B Core AB IgM Negative (Negative); Hepatitis B Core Ab Total Negative (Negative); Hepatitis C Ab <0.1 s/co ratio (0.0-0.9)
[2019-07-30 07:12] LABS: Absolute Lymphocyte Count 1.64 X10^3/uL (0.83-4.51); Basophil# 0.04 X10^3/uL; Basophil% 0.5 % (0-1); Eosinophil# 0.11 X10^3/uL; Eosinophils% 1.3 % (0-5); Hematocrit 35.2 % (37-47); Hemoglobin 11.2 g/dL (12.0-15.0); Lymphocyte # 1.64 X10^3/ul (4.0); Lymphocyte % 19.2 % (19-41); Mean Corp Hgb Conc 31.8 g/dL (32-36); Mean Corpuscular Hgb 28.6 pg (27.0-32.0); Mean Corpuscular Volume 89.8 fL (81-99); Mean Platelet Vol. 9.9 fl (6.2-12.0); Monocyte# 0.66 X10^3/uL; Monocyte% 7.7 % (0-10); NRBC Flagged by Analyzer 0 % (0-5); Neutrophil # 6.04 X10^3/uL (2.7-7.7); Neutrophil % 70.9 % (47-70); Platelet Count 195 K/mm3 (150-450); RBC Distribution Width CV 14.5 % (11.6-14.6); RBC Distribution Width SD 47.1 fl (35.1-43.9); Red Blood Count 3.92 M/mm3 (4.2-5.4); White Blood Count 8.5 K/mm3 (4.4-11.0)
[2019-07-30 07:39] LABS: ALB/GLOB Ratio 0.8 RATIO (0.9-2.4); AST(SGOT) 199 U/L (15-37); Alanine Aminotransfer ALT/SGPT 105 U/L (13-56); Albumin, Serum 2.8 g/dL (3.2-5.0); Alkaline Phosphatase 323 U/L (45-117); Anion Gap 8 (5-15); BUN 14 mg/dL (7-18); BUN/Creat Ratio 19.2 RATIO (10-20); Calcium,Total 8.3 mg/dL (8.5-10.1); Chloride 115 mmol/L (98-107); Creatinine, Serum 0.73 mg/dL (0.55-1.02); EST Glomerular Filtration Rate 82 mL/min (>60); Est Glom Filt Rate - Afr Amer 99 mL/min (>60); Estimated Creatinine Clearance 38.35 ml/min; Globulin 3.5 g/dL (2.2-4.2); Glucose 59 mg/dL (74-106); Potassium 2.8 mmol/L (3.5-5.1); Protein, Total 6.3 g/dL (6.4-8.2); Sodium Level 145 mmol/L (136-145)
--- NOTE | 2019-07-30 09:02 | PCM.PN.SRG ---
Patient Problems: Active and Suspected Problems Elevated bilirubin (Acute) Elevated liver function tests (Acute) Cholecystitis (Suspected) Encephalopathy acute (Acute) Hyperglycemia (Acute) Elevated BP without diagnosis of hypertension (Acute) Normocytic anemia (Acute) Hyponatremia (Acute) Hypokalemia (Acute) Obstructive jaundice (Acute) Choledocholithiasis (Acute) Acute cholecystitis (Acute) Subjective: Patient is not complaining of any abdominal pain whatsoever. She feels hungry. Objective: Her abdomen is completely soft nontender nondistended normal active bowel sounds - Physical Exam Vitals/I&O's: Vital Signs Temp Pulse Resp BP Pulse Ox 98.9 F 74 18 143/76 H 95 07/30/19 07:26 07/30/19 07:26 07/30/19 07:26 07/30/19 07:26 07/30/19 07:26 Oxygen Delivery Method Room Air Weight: 145 lb 1.027 oz Body Mass Index (BMI) 25.7 Intake and Output for Last 24 Hours 07/28/19 07/29/19 07/30/19 23:59 23:59 23:59 Intake Total 2494.75 / 2694.75 298.75 / 298.75 Output Total 850 / 1100 1000 / 1000 Balance 1644.75 / 1594.75 -701.25 / -701.25 Laboratory Results 07/29/19 05:00: Vitamin B12 862 07/29/19 11:59: PT 14.8, INR 1.2, APTT 30.2 07/30/19 06:35: WBC 8.5, RBC 3.92 L, Hgb 11.2 L, Hct 35.2 L, MCV 89.8, MCH 28.6, MCHC 31.8 L, RDW Std Deviation 47.1 H, RDW Coeff of [place] 14.5, Plt Count 195, MPV 9.9, Immature Gran % (Auto) 0.400, Neut % (Auto) 70.9 H, Lymph % (Auto) 19.2, [place] % (Auto) 7.7, Eos % (Auto) 1.3, Baso % (Auto) 0.5, Absolute Neuts (auto) 6.0, Absolute Lymphs (auto) 1.64, Nucleated RBC % 0 07/30/19 06:35: Sodium 145, Potassium 2.8 L, Chloride 115 H, Carbon Dioxide 22.0, Anion Gap 8, BUN 14, Creatinine 0.73, Estim Creat Clear Calc 38.35, Est GFR (MDRD) Af Amer 99, Est GFR (MDRD) Non-Af 82, BUN/Creatinine Ratio 19.2, Glucose 59 L, Calcium 8.3 L, Total Bilirubin 3.50 H, AST 199 H, ALT 105 H, Alkaline Phosphatase 323 H, Total Protein 6.3 L, Albumin 2.8 L, Globulin 3.5, Albumin/Globulin Ratio 0.8 L Current Medications Acetaminophen (Tylenol) 650 mg PO Q6H PRN PRN PRN Reason: Pain Score 1-10/Temp > 100.7 F Last Admin: 07/29/19 21:17 Dose: 650 mg Documented by: Al Hydroxide/Mg Hydroxide (Mylanta Ii) 30 ml PO Q6H PRN PRN PRN Reason: Gastric Burning Albuterol Sulfate (Ventolin Aerosols) 2.5 mg INHALATION Q2H PRN PRN PRN Reason: Shortness of Breath/Wheezing Glucagon () 1 mg IM .X1 PRN PRN Reason: Hypoglycemia Guaifenesin (Robitussin) 20 ml PO Q4H PRN PRN PRN Reason: COUGH Hydralazine HCl (Apresoline Iv) 10 mg IV Q4H PRN PRN PRN Reason: SBP > 160 Last Admin: 07/30/19 01:30 Dose: 10 mg Documented by: Sodium Chloride () 1,000 mls @ 125 mls/hr IV .Q8H [facility] Last Admin: 07/30/19 01:24 Dose: 125 mls/hr Documented by: Famotidine 20 mg/ Sodium (Chloride) 10 mls @ 300 mls/hr IV Q12 [facility] Last Infusion: 07/29/19 21:18 Dose: Infused Documented by: Piperacillin Sod/Tazobactam (Sod 3.375 gm/ Sodium Chloride) 50 mls @ 12.5 mls/hr IV Q8 [facility] Last Admin: 07/30/19 06:21 Dose: 12.5 mls/hr Documented by: Dextrose (Dextrose 10%-Water) 250 mls @ 999 mls/hr IV .Q16M PRN; Protocol PRN Reason: HYPOGLYCEMIA Sodium Chloride () 250 mls @ 15 mls/hr IV .[id number] PRN PRN Reason: Saline Flush Last Infusion: 07/30/19 06:20 Dose: 0 mls/hr Documented by: Sodium Chloride () 250 mls @ 15 mls/hr IV .[id number] PRN PRN Reason: Additional IVPB Infusion Magnesium Hydroxide (Milk Of Magnesia) 30 ml PO DAILY PRN PRN PRN Reason: Constipation Melatonin (Melatonin) 3 mg PO QHS PRN PRN PRN Reason: INSOMNIA Mirtazapine (Remeron) 15 mg PO QHS [facility] Last Admin: 07/29/19 21:17 Dose: 15 mg Documented by: Morphine Sulfate () 2 mg IV Q3H PRN PRN PRN Reason: Pain Score 6-10/10 Nitroglycerin (Nitrostat) 0.4 mg SUBLINGUAL Q5M PRN PRN Reason: CARDIAC/CHEST PAIN Ondansetron HCl (Zofran) 4 mg IV Q8H PRN PRN PRN Reason: NAUSEA/VOMITING Oxycodone HCl (Oxyir) 5 mg PO Q4H PRN PRN PRN Reason: Pain Score 4-5/10 Prochlorperazine Edisylate (Compazine Iv) 5 mg IV Q4H PRN PRN PRN Reason: Breakthrough nausea/vomiting Psyllium Hydrophilic Mucilloid (Metamucil) 1 packet PO DAILY PRN PRN PRN Reason: Constipation Senna/Docusate Sodium (Senokot-S, Breonna-Colace) 2 tablet PO BID PRN PRN PRN Reason: Constipation Sodium Chloride () 10 - 40 ml IV UD PRN PRN Reason: SALINE FLUSH Last Admin: 07/30/19 01:24 Dose: 10 ml Documented by: Throat Lozenges (Cepacol Sore Throat Lozenge) 1 lozenge MUCOUS MEM Q2H PRN PRN PRN Reason: SORE THROAT Medical Necessity - Tobacco Use Smoking Status: Never smoker Tobacco Use: Non-smoker Assessment/Plan All Active Problems Elevated bilirubin (Acute) Elevated liver function tests (Acute) Encephalopathy acute (Acute) Hyperglycemia (Acute) Elevated BP without diagnosis of hypertension (Acute) Normocytic anemia (Acute) Hyponatremia (Acute) Hypokalemia (Acute) Obstructive jaundice (Acute) Choledocholithiasis (Acute) Acute cholecystitis (Acute) Assessment cholangitis Plan at this point I think is best we just allow the patient to get better from her cholangitis prior to taking her to surgery. She is more likely going to need to have her gallbladder taken out but at the present time I think it is best with just the hip she can continue to improve prior to the surgery.
--- NOTE | 2019-07-30 09:52 | PN_ITS ---
Patient Problems: Active and Suspected Problems Elevated bilirubin (Acute) Elevated liver function tests (Acute) Cholecystitis (Suspected) Encephalopathy acute (Acute) Hyperglycemia (Acute) Elevated BP without diagnosis of hypertension (Acute) Normocytic anemia (Acute) Hyponatremia (Acute) Hypokalemia (Acute) Obstructive jaundice (Acute) Choledocholithiasis (Acute) Acute cholecystitis (Acute) Subjective: Patient seen and examined this morning. She had an uneventful night and had no complaints. Abdominal pain has improved and she denies any fever or chills, nausea vomiting. Review of systems otherwise negative. Labs and vitals reviewed. She has remained hemodynamically stable. Potassium is 2.8 today. Bilirubin has trended up to 3.5 though AST and ALT have trended down as well as ALP. WBC is 8.5. Vitals/I&O's: Vital Signs Temp Pulse Resp BP Pulse Ox 98.9 F 74 18 143/76 H 95 07/30/19 07:26 07/30/19 07:26 07/30/19 07:26 07/30/19 07:26 07/30/19 07:26 Oxygen Delivery Method Room Air Weight: 145 lb 1.027 oz Body Mass Index (BMI) 25.7 Intake and Output for Last 24 Hours 07/28/19 07/29/19 07/30/19 23:59 23:59 23:59 Intake Total 2494.75 / 2694.75 298.75 / 298.75 Output Total 850 / 1100 1000 / 1000 Balance 1644.75 / 1594.75 -701.25 / -701.25 General: Alert, Oriented x3, Cooperative, No apparent distress HEENT: Atraumatic, PERRLA, EOMI, Normocephalic Oral: Dry Mucosa Neck: Supple, No JVD, Negative Carotid Bruits Lungs: Clear to auscultation, Normal air movement, No rhonchi, No wheeze, No rales Cardiovascular: Regular rate, Regular Rhythm, Normal S1, Normal S2, No murmurs Abdomen: Bowel Sounds Present, Soft, Non Tender, Non-Distended, No Hepato- splenomegaly, - - Mcdonnell's sign is negative. Extremities: No clubbing, No cyanosis, No edema, Capillary Refill Less than 3 Seconds Skin: No rashes, No breakdown Musculoskeletal: No Tenderness to Palpation of Joints or Extremities Lymphatic: No Cervical, Supraclavicular, or Inguinal Adenopathy Neurological: Cranial nerves II-XII grossly intact, Neuro grossly intact, Motor Exam 5/5 strength throughout Psych/Mental Status: Normal Affect, Appropriate, Alert and oriented to time, place, person, mood and affect Laboratory Results 07/29/19 11:59: PT 14.8, INR 1.2, APTT 30.2 07/30/19 06:35: WBC 8.5, RBC 3.92 L, Hgb 11.2 L, Hct 35.2 L, MCV 89.8, MCH 28.6, MCHC 31.8 L, RDW Std Deviation 47.1 H, RDW Coeff of [place] 14.5, Plt Count 195, MPV 9.9, Immature Gran % (Auto) 0.400, Neut % (Auto) 70.9 H, Lymph % (Auto) 19.2, [place] % (Auto) 7.7, Eos % (Auto) 1.3, Baso % (Auto) 0.5, Absolute Neuts (auto) 6.0, Absolute Lymphs (auto) 1.64, Nucleated RBC % 0 07/30/19 06:35: Sodium 145, Potassium 2.8 L, Chloride 115 H, Carbon Dioxide 22.0, Anion Gap 8, BUN 14, Creatinine 0.73, Estim Creat Clear Calc 38.35, Est GFR (MDRD) Af Amer 99, Est GFR (MDRD) Non-Af 82, BUN/Creatinine Ratio 19.2, Glucose 59 L, Calcium 8.3 L, Total Bilirubin 3.50 H, AST 199 H, ALT 105 H, Alkaline Phosphatase 323 H, Total Protein 6.3 L, Albumin 2.8 L, Globulin 3.5, Albumin/Globulin Ratio 0.8 L Diagnostic Data Chest X-Ray 07/28/19 00:00 IMPRESSION: Low lung volumes. No definite acute chest disease. Electronically Signed: Donell Calderón MD at 23:21 EDT , Service support , Brain CT 07/28/19 22:43 IMPRESSION: Chronic involutional changes of the brain. Electronically Signed: Kaden Luz at 0:10 EDT Tel , Service support , Gallbladder Ultrasound 07/28/19 23:19 IMPRESSION: Cholelithiasis and mild gallbladder wall thickening and trace pericholecystic fluid however negative sonographic Mcdonnell''s sign. The gallbladder is distended. Findings are indeterminate and remain concerning for possible cholecystitis. Further evaluation with HIDA scan may be of value. Electronically Signed: Kaden Luz, at 0:05 EDT Tel , Service support , Abdomen/Pelvis CT 07/29/19 03:59 IMPRESSION: Dilated gallbladder with multiple gallstones and small amount of pericholecystic fluid. The common bile duct is also dilated with questionable subcentimeter small stones involving the distal common bile duct, series 2 image 44. Findings remain concerning for cholecystitis and possible choledocholithiasis involving the distal common bile duct. Mild intrahepatic biliary ductal dilatation. Electronically Signed: Kaden Luz, at 5:46 EDT Tel , Service support , ERCP X-Ray 07/29/19 14:14 IMPRESSION: Fluoroscopic demonstration of dilated common bile duct with ductal stones followed by placement of a common bile duct stent terminating in the duodenum. Electronically Signed: Tamika Betancourt MD at 15:45 EDT , Service support , Current Medications Acetaminophen (Tylenol) 650 mg PO Q6H PRN PRN PRN Reason: Pain Score 1-10/Temp > 100.7 F Last Admin: 07/29/19 21:17 Dose: 650 mg Documented by: Al Hydroxide/Mg Hydroxide (Mylanta Ii) 30 ml PO Q6H PRN PRN PRN Reason: Gastric Burning Albuterol Sulfate (Ventolin Aerosols) 2.5 mg INHALATION Q2H PRN PRN PRN Reason: Shortness of Breath/Wheezing Glucagon () 1 mg IM .X1 PRN PRN Reason: Hypoglycemia Guaifenesin (Robitussin) 20 ml PO Q4H PRN PRN PRN Reason: COUGH Hydralazine HCl (Apresoline Iv) 10 mg IV Q4H PRN PRN PRN Reason: SBP > 160 Last Admin: 07/30/19 01:30 Dose: 10 mg Documented by: Sodium Chloride () 1,000 mls @ 125 mls/hr IV .Q8H [facility] [place] Last Admin: 07/30/19 01:24 Dose: 125 mls/hr Documented by: Famotidine 20 mg/ Sodium (Chloride) 10 mls @ 300 mls/hr IV Q12 [facility] [place] Last Infusion: 07/29/19 21:18 Dose: Infused Documented by: Piperacillin Sod/Tazobactam (Sod 3.375 gm/ Sodium Chloride) 50 mls @ 12.5 mls/hr IV Q8 [facility] [place] Last Admin: 07/30/19 06:21 Dose: 12.5 mls/hr Documented by: Dextrose (Dextrose 10%-Water) 250 mls @ 999 mls/hr IV .Q16M PRN; Protocol PRN Reason: HYPOGLYCEMIA Sodium Chloride () 250 mls @ 15 mls/hr IV .[id number] PRN PRN Reason: Saline Flush Last Infusion: 07/30/19 06:20 Dose: 0 mls/hr Documented by: Sodium Chloride () 250 mls @ 15 mls/hr IV .[id number] PRN PRN Reason: Additional IVPB Infusion Magnesium Hydroxide (Milk Of Magnesia) 30 ml PO DAILY PRN PRN PRN Reason: Constipation Melatonin (Melatonin) 3 mg PO QHS PRN PRN PRN Reason: INSOMNIA Mirtazapine (Remeron) 15 mg PO QHS [facility] [place] Last Admin: 07/29/19 21:17 Dose: 15 mg Documented by: Morphine Sulfate () 2 mg IV Q3H PRN PRN PRN Reason: Pain Score 6-10/10 Nitroglycerin (Nitrostat) 0.4 mg SUBLINGUAL Q5M PRN PRN Reason: CARDIAC/CHEST PAIN Ondansetron HCl (Zofran) 4 mg IV Q8H PRN PRN PRN Reason: NAUSEA/VOMITING Oxycodone HCl (Oxyir) 5 mg PO Q4H PRN PRN PRN Reason: Pain Score 4-5/10 Prochlorperazine Edisylate (Compazine Iv) 5 mg IV Q4H PRN PRN PRN Reason: Breakthrough nausea/vomiting Psyllium Hydrophilic Mucilloid (Metamucil) 1 packet PO DAILY PRN PRN PRN Reason: Constipation Senna/Docusate Sodium (Senokot-S, Breonna-Colace) 2 tablet PO BID PRN PRN PRN Reason: Constipation Sodium Chloride () 10 - 40 ml IV UD PRN PRN Reason: SALINE FLUSH Last Admin: 07/30/19 01:24 Dose: 10 ml Documented by: Throat Lozenges (Cepacol Sore Throat Lozenge) 1 lozenge MUCOUS MEM Q2H PRN PRN PRN Reason: SORE THROAT STROKE Vital Signs/Narrative: Vital Signs Temp Pulse Resp BP Pulse Ox 07/30/19 07:26 98.9 F 74 18 143/76 H 95 07/30/19 07:09 93 Medical Necessity - Tobacco Use Smoking Status: Never smoker Tobacco Use: Non-smoker Assessment/Plan All Active Problems Elevated bilirubin (Acute) Elevated liver function tests (Acute) Encephalopathy acute (Acute) Hyperglycemia (Acute) Elevated BP without diagnosis of hypertension (Acute) Normocytic anemia (Acute) Hyponatremia (Acute) Hypokalemia (Acute) Obstructive jaundice (Acute) Choledocholithiasis (Acute) Acute cholecystitis (Acute) 1. Acute cholecystitis * bilirubin has trended up, though AST,ALT and ALP are trending down' * had ERCP yesterday which showed dilated common bile duct with ductal stones followed by placement of a common bile duct stent terminating in duodenum * abdominal pain is much improved today * on IV zosyn; surgery wants to defer laparoscopic cholecystectomy, and think she may need to get it done at a later time. * started on clear liquid diet * 2, Hypokalemia: K is 2.8. Will replace and monitor 4. Hyponatremia: resolved. 5. Depression: on mirtazapine DVT prophylaxis: SCDs Inpatient E&M: [id number] Subs Hosp L2
[2019-07-30] MEDS: Famotidine 200 MG/20 ML MDV 20 MG in 0.9% Normal Saline (Pres. free 8 ML 300 MG IV ×2 (10:19→20:46)
[2019-07-30 11:04] LABS: Amylase 1042 U/L (25-115); Lipase 8442 U/L (73-393)
[2019-07-30] MEDS: Potassium Chloride 10mEq/100mL 10 MEQ/100 ML IV.SOLN. 100 MEQ IV BOLUS ×4 (11:35→15:35)
--- NOTE | 2019-07-30 13:16 | CASEMGMT ---
Social Work Consult: Self-Pay Informant: Self-Referral Met with patient and patient spouse about self-pay status. Patient spouse stating that Jamar Hernandez Liaison has already met with patient and patient family and there are no further questions/concerns. Brandie Walker MSW, ALISSA
[2019-07-30 15:12] LABS: Hep B Surface Antibodies Non Reactive (.)
[2019-07-30] MEDS: Mirtazapine 15 MG Tablet PO (20:46)
[2019-07-31 03:24] VITALS: BP 172/90; PULSE 78; RESP 18; TEMP 36.9; O2SAT 96
[2019-07-31] MEDS: 0.9% Normal Saline 1,000 ML 125 ML IV (05:02)
[2019-07-31 06:18] LABS: Absolute Lymphocyte Count 1.63 X10^3/uL (0.83-4.51); Absolute Neutrophil Count 4.5 X10^3/uL (2.0-7.7); Basophil# 0.06 X10^3/uL; Basophil% 0.8 % (0-1); Eosinophil# 0.21 X10^3/uL; Hematocrit 34.4 % (37-47); Hemoglobin 11.2 g/dL (12.0-15.0); Lymphocyte # 1.63 X10^3/ul (4.0); Lymphocyte % 23.1 % (19-41); Mean Corp Hgb Conc 32.6 g/dL (32-36); Mean Corpuscular Hgb 28.8 pg (27.0-32.0); Mean Corpuscular Volume 88.4 fL (81-99); Mean Platelet Vol. 9.3 fl (6.2-12.0); Monocyte# 0.67 X10^3/uL; Monocyte% 9.5 % (0-10); NRBC Flagged by Analyzer 0 % (0-5); Neutrophil # 4.46 X10^3/uL (2.7-7.7); Platelet Count 198 K/mm3 (150-450); RBC Distribution Width CV 14.7 % (11.6-14.6); RBC Distribution Width SD 47.2 fl (35.1-43.9); Red Blood Count 3.89 M/mm3 (4.2-5.4); White Blood Count 7.1 K/mm3 (4.4-11.0)
[2019-07-31 06:39] LABS: Anion Gap 6 (5-15); BUN 9 mg/dL (7-18); BUN/Creat Ratio 13.9 RATIO (10-20); Calcium,Total 8.4 mg/dL (8.5-10.1); Chloride 112 mmol/L (98-107); Creatinine, Serum 0.65 mg/dL (0.55-1.02); EST Glomerular Filtration Rate 94 mL/min (>60); Est Glom Filt Rate - Afr Amer 114 mL/min (>60); Estimated Creatinine Clearance 38.35 ml/min; Glucose 86 mg/dL (74-106); Potassium 3.1 mmol/L (3.5-5.1); Sodium Level 143 mmol/L (136-145)
[2019-07-31 07:42] LABS: Magnesium 1.8 mg/dL (1.6-2.6)
[2019-07-31 08:07] VITALS: O2SAT 95
[2019-07-31 09:24] VITALS: BP 145/70; PULSE 90; RESP 20; TEMP 37.1; O2SAT 93
[2019-07-31] MEDS: amLODIPine 10 MG Tablet PO (09:49)
[2019-07-31] MEDS: 0.9% Saline Lock 10 ML Syringe IV ×3 (09:49→21:10)
[2019-07-31] MEDS: Famotidine 200 MG/20 ML MDV 20 MG in 0.9% Normal Saline (Pres. free 8 ML 300 MG IV ×2 (09:50→21:10)
--- NOTE | 2019-07-31 09:54 | PN.SURG_ITS ---
Patient Problems: Active and Suspected Problems Elevated bilirubin (Acute) Elevated liver function tests (Acute) Cholecystitis (Suspected) Encephalopathy acute (Acute) Hyperglycemia (Acute) Elevated BP without diagnosis of hypertension (Acute) Normocytic anemia (Acute) Hyponatremia (Acute) Hypokalemia (Acute) Obstructive jaundice (Acute) Choledocholithiasis (Acute) Acute cholecystitis (Acute) Subjective: Patient is not complaining of any abdominal pain this morning. Objective: Abdomen is soft however she does look slightly yellow - Physical Exam Vitals/I&O's: Vital Signs Temp Pulse Resp BP Pulse Ox 98.7 F 90 20 H 145/70 H 93 07/31/19 09:24 07/31/19 09:24 07/31/19 09:24 07/31/19 09:24 07/31/19 09:24 Oxygen Delivery Method Room Air Weight: 145 lb 1.027 oz Body Mass Index (BMI) 25.7 Intake and Output for Last 24 Hours 07/29/19 07/30/19 07/31/19 23:59 23:59 23:59 Intake Total 2494.75 / 2694.75 4333.75 / 4333.75 1450 / 1450 Output Total 850 / 1100 3000 / 3000 1900 / 1900 Balance 1644.75 / 1594.75 1333.75 / 1333.75 -450 / -450 Laboratory Results 07/29/19 02:12: Hepatitis A IgM Ab Negative, Hepatitis A Ab Total Negative, Hep Bs Antigen Negative, Hep B Core Total Ab Negative, Hep B Core IgM Ab Negative, Hepatitis C Ab Confirm <0.1, Hep C Confirm Com 1 Comment 07/30/19 06:35: Amylase 1042 H, Lipase 8442 H 07/31/19 06:00: WBC 7.1, RBC 3.89 L, Hgb 11.2 L, Hct 34.4 L, MCV 88.4, MCH 28.8, MCHC 32.6, RDW Std Deviation 47.2 H, RDW Coeff of [place] 14.7 H, Plt Count 198, MPV 9.3, Immature Gran % (Auto) 0.600, Neut % (Auto) 63.0, Lymph % (Auto) 23.1, [place] % (Auto) 9.5, Eos % (Auto) 3.0, Baso % (Auto) 0.8, Absolute Neuts (auto) 4.5, Absolute Lymphs (auto) 1.63, Nucleated RBC % 0 07/31/19 06:00: Sodium 143, Potassium 3.1 L, Chloride 112 H, Carbon Dioxide 25.0, Anion Gap 6, BUN 9, Creatinine 0.65, Estim Creat Clear Calc 38.35, Est GFR (MDRD) Af Amer 114, Est GFR (MDRD) Non-Af 94, BUN/Creatinine Ratio 13.9, Glucose 86, Calcium 8.4 L 07/31/19 06:00: Magnesium 1.8 Current Medications Acetaminophen (Tylenol) 650 mg PO Q6H PRN PRN PRN Reason: Pain Score 1-10/Temp > 100.7 F Last Admin: 07/29/19 21:17 Dose: 650 mg Documented by: Al Hydroxide/Mg Hydroxide (Mylanta Ii) 30 ml PO Q6H PRN PRN PRN Reason: Gastric Burning Albuterol Sulfate (Ventolin Aerosols) 2.5 mg INHALATION Q2H PRN PRN PRN Reason: Shortness of Breath/Wheezing Amlodipine Besylate (Norvasc) 10 mg PO DAILY [facility] Last Admin: 07/31/19 09:49 Dose: 10 mg Documented by: Glucagon () 1 mg IM .X1 PRN PRN Reason: Hypoglycemia Guaifenesin (Robitussin) 20 ml PO Q4H PRN PRN PRN Reason: COUGH Hydralazine HCl (Apresoline Iv) 10 mg IV Q4H PRN PRN PRN Reason: SBP > 160 Last Admin: 07/30/19 01:30 Dose: 10 mg Documented by: Sodium Chloride () 1,000 mls @ 125 mls/hr IV .Q8H [facility] Last Admin: 07/31/19 05:02 Dose: 125 mls/hr Documented by: Famotidine 20 mg/ Sodium (Chloride) 10 mls @ 300 mls/hr IV Q12 [facility] Last Admin: 07/31/19 09:50 Dose: 300 mls/hr Documented by: Piperacillin Sod/Tazobactam (Sod 3.375 gm/ Sodium Chloride) 50 mls @ 12.5 mls/hr IV Q8 [facility] Last Admin: 07/31/19 05:02 Dose: 12.5 mls/hr Documented by: Dextrose (Dextrose 10%-Water) 250 mls @ 999 mls/hr IV .Q16M PRN; Protocol PRN Reason: HYPOGLYCEMIA Sodium Chloride () 250 mls @ 15 mls/hr IV .[id number] PRN PRN Reason: Saline Flush Last Infusion: 07/30/19 06:20 Dose: 0 mls/hr Documented by: Sodium Chloride () 250 mls @ 15 mls/hr IV .[id number] PRN PRN Reason: Additional IVPB Infusion Magnesium Hydroxide (Milk Of Magnesia) 30 ml PO DAILY PRN PRN PRN Reason: Constipation Melatonin (Melatonin) 3 mg PO QHS PRN PRN PRN Reason: INSOMNIA Mirtazapine (Remeron) 15 mg PO QHS [facility] Last Admin: 07/30/19 20:46 Dose: 15 mg Documented by: Morphine Sulfate () 2 mg IV Q3H PRN PRN PRN Reason: Pain Score 6-10/10 Nitroglycerin (Nitrostat) 0.4 mg SUBLINGUAL Q5M PRN PRN Reason: CARDIAC/CHEST PAIN Ondansetron HCl (Zofran) 4 mg IV Q8H PRN PRN PRN Reason: NAUSEA/VOMITING Oxycodone HCl (Oxyir) 5 mg PO Q4H PRN PRN PRN Reason: Pain Score 4-5/10 Prochlorperazine Edisylate (Compazine Iv) 5 mg IV Q4H PRN PRN PRN Reason: Breakthrough nausea/vomiting Psyllium Hydrophilic Mucilloid (Metamucil) 1 packet PO DAILY PRN PRN PRN Reason: Constipation Senna/Docusate Sodium (Senokot-S, Breonna-Colace) 2 tablet PO BID PRN PRN PRN Reason: Constipation Sodium Chloride () 10 - 40 ml IV UD PRN PRN Reason: SALINE FLUSH Last Admin: 07/31/19 09:49 Dose: 10 ml Documented by: Throat Lozenges (Cepacol Sore Throat Lozenge) 1 lozenge MUCOUS MEM Q2H PRN PRN PRN Reason: SORE THROAT Medical Necessity - Tobacco Use Smoking Status: Never smoker Tobacco Use: Non-smoker Assessment/Plan All Active Problems Elevated bilirubin (Acute) Elevated liver function tests (Acute) Encephalopathy acute (Acute) Hyperglycemia (Acute) Elevated BP without diagnosis of hypertension (Acute) Normocytic anemia (Acute) Hyponatremia (Acute) Hypokalemia (Acute) Obstructive jaundice (Acute) Choledocholithiasis (Acute) Acute cholecystitis (Acute) We will need to check her liver function test today. If we show some form of improvement I anticipate hopefully being able to discharge her tomorrow. I believe it would be best for her to have her duct cleared completely prior to her undergoing a laparoscopic cholecystectomy so that she would only need to have one abdominal procedure.
[2019-07-31 10:22] LABS: AST(SGOT) 116 U/L (15-37); Alanine Aminotransfer ALT/SGPT 81 U/L (13-56); Albumin, Serum 2.8 g/dL (3.2-5.0); Alkaline Phosphatase 298 U/L (45-117); Bilirubin, Direct 0.76 mg/dL (0.00-0.30); Globulin 3.7 g/dL (2.2-4.2); Protein, Total 6.5 g/dL (6.4-8.2)
--- NOTE | 2019-07-31 13:10 | PCM.PN.HOSP ---
Patient Problems: Active and Suspected Problems Elevated bilirubin (Acute) Elevated liver function tests (Acute) Cholecystitis (Suspected) Encephalopathy acute (Acute) Hyperglycemia (Acute) Elevated BP without diagnosis of hypertension (Acute) Normocytic anemia (Acute) Hyponatremia (Acute) Hypokalemia (Acute) Obstructive jaundice (Acute) Choledocholithiasis (Acute) Acute cholecystitis (Acute) Subjective: Patient seen and examined. She feels better today. Pain has resolved. She denies any nausea, vomiting, fever or chills or abdominal pain. Review of systems is otherwise negative. labs and vitals reviewed. Vitals/I&O's: Vital Signs Temp Pulse Resp BP Pulse Ox 98.7 F 90 20 H 145/70 H 93 07/31/19 09:24 07/31/19 09:24 07/31/19 09:24 07/31/19 09:24 07/31/19 09:24 Oxygen Delivery Method Room Air Weight: 145 lb 1.027 oz Body Mass Index (BMI) 25.7 Intake and Output for Last 24 Hours 07/29/19 07/30/19 07/31/19 23:59 23:59 23:59 Intake Total 2494.75 / 2694.75 4333.75 / 4333.75 2316.25 / 2316.25 Output Total 850 / 1100 3000 / 3000 1900 / 1900 Balance 1644.75 / 1594.75 1333.75 / 1333.75 416.25 / 416.25 General: Alert, Oriented x3, Cooperative, No apparent distress HEENT: Atraumatic, PERRLA, EOMI, Normocephalic Oral: Dry Mucosa Neck: Supple, No JVD, Negative Carotid Bruits Lungs: Clear to auscultation, Normal air movement, No rhonchi, No wheeze, No rales Cardiovascular: Regular rate, Regular Rhythm, Normal S1, Normal S2, No murmurs Abdomen: Bowel Sounds Present, Soft, Non Tender, Non-Distended, No Hepato-splenomegaly, Extremities: No clubbing, No cyanosis, No edema, Capillary Refill Less than 3 Seconds Skin: No rashes, No breakdown Musculoskeletal: No Tenderness to Palpation of Joints or Extremities Lymphatic: No Cervical, Supraclavicular, or Inguinal Adenopathy Neurological: Cranial nerves II-XII grossly intact, Neuro grossly intact, Motor Exam 5/5 strength throughout Psych/Mental Status: Normal Affect, Appropriate, Alert and oriented to time, place, person, mood and affect Laboratory Results 07/29/19 02:12: Hepatitis A IgM Ab Negative, Hepatitis A Ab Total Negative, Hep Bs Antigen Negative, Hep B Core Total Ab Negative, Hep B Core IgM Ab Negative, Hepatitis C Ab Confirm <0.1, Hep C Confirm Com 1 Comment 07/31/19 06:00: WBC 7.1, RBC 3.89 L, Hgb 11.2 L, Hct 34.4 L, MCV 88.4, MCH 28.8, MCHC 32.6, RDW Std Deviation 47.2 H, RDW Coeff of [place] 14.7 H, Plt Count 198, MPV 9.3, Immature Gran % (Auto) 0.600, Neut % (Auto) 63.0, Lymph % (Auto) 23.1, [place] % (Auto) 9.5, Eos % (Auto) 3.0, Baso % (Auto) 0.8, Absolute Neuts (auto) 4.5, Absolute Lymphs (auto) 1.63, Nucleated RBC % 0 07/31/19 06:00: Sodium 143, Potassium 3.1 L, Chloride 112 H, Carbon Dioxide 25.0, Anion Gap 6, BUN 9, Creatinine 0.65, Estim Creat Clear Calc 38.35, Est GFR (MDRD) Af Amer 114, Est GFR (MDRD) Non-Af 94, BUN/Creatinine Ratio 13.9, Glucose 86, Calcium 8.4 L 07/31/19 06:00: Magnesium 1.8 07/31/19 06:00: Total Bilirubin 1.30 H, Direct Bilirubin 0.76 H, AST 116 H, ALT 81 H, Alkaline Phosphatase 298 H, Total Protein 6.5, Albumin 2.8 L, Globulin 3.7 Current Medications Acetaminophen (Tylenol) 650 mg PO Q6H PRN PRN PRN Reason: Pain Score 1-10/Temp > 100.7 F Last Admin: 07/29/19 21:17 Dose: 650 mg Documented by: Al Hydroxide/Mg Hydroxide (Mylanta Ii) 30 ml PO Q6H PRN PRN PRN Reason: Gastric Burning Albuterol Sulfate (Ventolin Aerosols) 2.5 mg INHALATION Q2H PRN PRN PRN Reason: Shortness of Breath/Wheezing Amlodipine Besylate (Norvasc) 10 mg PO DAILY [facility] Last Admin: 07/31/19 09:49 Dose: 10 mg Documented by: Glucagon () 1 mg IM .X1 PRN PRN Reason: Hypoglycemia Guaifenesin (Robitussin) 20 ml PO Q4H PRN PRN PRN Reason: COUGH Hydralazine HCl (Apresoline Iv) 10 mg IV Q4H PRN PRN PRN Reason: SBP > 160 Last Admin: 07/30/19 01:30 Dose: 10 mg Documented by: Famotidine 20 mg/ Sodium (Chloride) 10 mls @ 300 mls/hr IV Q12 [facility] Last Infusion: 07/31/19 09:52 Dose: Infused Documented by: Piperacillin Sod/Tazobactam (Sod 3.375 gm/ Sodium Chloride) 50 mls @ 12.5 mls/hr IV Q8 [facility] Last Infusion: 07/31/19 09:02 Dose: Infused Documented by: Dextrose (Dextrose 10%-Water) 250 mls @ 999 mls/hr IV .Q16M PRN; Protocol PRN Reason: HYPOGLYCEMIA Sodium Chloride () 250 mls @ 15 mls/hr IV .[id number] PRN PRN Reason: Saline Flush Last Infusion: 07/31/19 11:30 Dose: Infused Documented by: Sodium Chloride () 250 mls @ 15 mls/hr IV .[id number] PRN PRN Reason: Additional IVPB Infusion Magnesium Hydroxide (Milk Of Magnesia) 30 ml PO DAILY PRN PRN PRN Reason: Constipation Melatonin (Melatonin) 3 mg PO QHS PRN PRN PRN Reason: INSOMNIA Mirtazapine (Remeron) 15 mg PO QHS [facility] Last Admin: 07/30/19 20:46 Dose: 15 mg Documented by: Morphine Sulfate () 2 mg IV Q3H PRN PRN PRN Reason: Pain Score 6-10/10 Nitroglycerin (Nitrostat) 0.4 mg SUBLINGUAL Q5M PRN PRN Reason: CARDIAC/CHEST PAIN Ondansetron HCl (Zofran) 4 mg IV Q8H PRN PRN PRN Reason: NAUSEA/VOMITING Oxycodone HCl (Oxyir) 5 mg PO Q4H PRN PRN PRN Reason: Pain Score 4-5/10 Prochlorperazine Edisylate (Compazine Iv) 5 mg IV Q4H PRN PRN PRN Reason: Breakthrough nausea/vomiting Psyllium Hydrophilic Mucilloid (Metamucil) 1 packet PO DAILY PRN PRN PRN Reason: Constipation Senna/Docusate Sodium (Senokot-S, Breonna-Colace) 2 tablet PO BID PRN PRN PRN Reason: Constipation Sodium Chloride () 10 - 40 ml IV UD PRN PRN Reason: SALINE FLUSH Last Admin: 07/31/19 09:49 Dose: 10 ml Documented by: Throat Lozenges (Cepacol Sore Throat Lozenge) 1 lozenge MUCOUS MEM Q2H PRN PRN PRN Reason: SORE THROAT STROKE Vital Signs/Narrative: Vital Signs Temp Pulse Resp BP Pulse Ox 07/31/19 09:24 98.7 F 90 20 H 145/70 H 93 Medical Necessity - Tobacco Use Smoking Status: Never smoker Tobacco Use: Non-smoker Assessment/Plan All Active Problems Elevated bilirubin (Acute) Elevated liver function tests (Acute) Encephalopathy acute (Acute) Hyperglycemia (Acute) Elevated BP without diagnosis of hypertension (Acute) Normocytic anemia (Acute) Hyponatremia (Acute) Hypokalemia (Acute) Obstructive jaundice (Acute) Choledocholithiasis (Acute) Acute cholecystitis (Acute) 1. Acute cholecystitis Bilirubin is trended down to 1.3 with AST and ALT also trending down. had ERCP which showed dilated common bile duct with ductal stones followed by placement of a common bile duct stent terminating in duodenum Abdominal pain has resolved her belly is soft. on IV zosyn; wbc is 7.1 Per general surgery, patient will benefit from interval cholecystectomy in order for her duct to be cleared completely prior to her undergoing a laparoscopic cholecystectomy 2, Hypokalemia: K is 3.1. Will replace and monitor 5. Depression: on mirtazapine DVT prophylaxis: SCDs Disposition: Patient says she did not feel ready to go home today and prefers to be discharged tomorrow. Plan is to discharge patient home with oral antibiotics x 1 week tomorrow. Inpatient E&M: [id number] [facility] Hosp L2
[2019-07-31 14:49] VITALS: BP 173/88; PULSE 86; RESP 18; TEMP 36.9; O2SAT 97
[2019-07-31 14:52] VITALS: BP 173/88; PULSE 86
[2019-07-31] MEDS: hydrALAZINE 20 MG/ML Vial 10 MG IV (14:52)
[2019-07-31 19:38] VITALS: BP 116/83; PULSE 92; RESP 17; TEMP 37.2; O2SAT 97
[2019-07-31] MEDS: Mirtazapine 15 MG Tablet PO (21:10)
[2019-08-01 02:36] VITALS: BP 139/84; PULSE 65; RESP 17; TEMP 36.8; O2SAT 94
[2019-08-01 05:35] LABS: Absolute Lymphocyte Count 1.49 X10^3/uL (0.83-4.51); Absolute Neutrophil Count 3.7 X10^3/uL (2.0-7.7); Basophil# 0.06 X10^3/uL; Eosinophil# 0.31 X10^3/uL; Hematocrit 37.5 % (37-47); Hemoglobin 12.1 g/dL (12.0-15.0); Lymphocyte # 1.49 X10^3/ul (4.0); Lymphocyte % 23.9 % (19-41); Mean Corp Hgb Conc 32.3 g/dL (32-36); Mean Corpuscular Hgb 28.6 pg (27.0-32.0); Mean Corpuscular Volume 88.7 fL (81-99); Mean Platelet Vol. 9.2 fl (6.2-12.0); Monocyte# 0.68 X10^3/uL; Monocyte% 10.9 % (0-10); NRBC Flagged by Analyzer 0 % (0-5); Neutrophil # 3.67 X10^3/uL (2.7-7.7); Neutrophil % 58.7 % (47-70); Platelet Count 220 K/mm3 (150-450); RBC Distribution Width CV 14.6 % (11.6-14.6); RBC Distribution Width SD 47.4 fl (35.1-43.9); Red Blood Count 4.23 M/mm3 (4.2-5.4); White Blood Count 6.2 K/mm3 (4.4-11.0)
[2019-08-01 06:00] LABS: Anion Gap 5 (5-15); BUN 11 mg/dL (7-18); BUN/Creat Ratio 14.6 RATIO (10-20); Calcium,Total 8.9 mg/dL (8.5-10.1); Chloride 111 mmol/L (98-107); Creatinine, Serum 0.76 mg/dL (0.55-1.02); EST Glomerular Filtration Rate 79 mL/min (>60); Est Glom Filt Rate - Afr Amer 95 mL/min (>60); Estimated Creatinine Clearance 38.35 ml/min; Glucose 88 mg/dL (74-106); Potassium 3.4 mmol/L (3.5-5.1); Sodium Level 142 mmol/L (136-145)
[2019-08-01 07:32] VITALS: O2SAT 94
[2019-08-01 09:23] VITALS: BP 109/72; PULSE 68; RESP 16; TEMP 37.1; O2SAT 97
[2019-08-01] MEDS: Famotidine 20 MG Tablet PO (09:33)
[2019-08-01] MEDS: Magnesium Hydroxide 30 ML UDC PO (09:38)
--- NOTE | 2019-08-01 09:45 | DCINST_ITS ---
- Discharge Diagnoses Current Active Problems: Current Active and Chronic Problems Elevated bilirubin (Acute) Elevated liver function tests (Acute) Encephalopathy acute (Acute) Hyperglycemia (Acute) Elevated BP without diagnosis of hypertension (Acute) Normocytic anemia (Acute) Hyponatremia (Acute) Hypokalemia (Acute) Depression (Chronic) Obstructive jaundice (Acute) Choledocholithiasis (Acute) Acute cholecystitis (Acute) Reason(s) for Visit for Discharge Instructions: Abdominal pain, confusion You will use the following diet at home:: Regular Your food should be the consistency of: Regular Your liquids should be the consistency of: Regular/Thin Discharge Activity: Return to Normal Activity Additional Instructions: Continue to take all your medications as prescribed. You are encouraged to remain active. Physical therapy recommended you use a straight cane, bedside commode and a wheeled walker. Follow-up with Dr. Zuñiga in 1 week. Allergies/Adverse Reactions: Allergies No Known Allergies Allergy (Verified 07/28/19 22:42) Medications to take at Discharge Mirtazapine 7.5 mg PO QHS 07/28/19 Aspirin 325 mg PO DAILY 07/29/19 Acetaminophen [Tylenol Tablet] 650 mg PO Q6H PRN PRN tablet 08/01/19 Amlodipine [Norvasc] 10 mg PO DAILY 30 Days #30 tab 08/01/19 Amoxicillin/Potassium Clav [Augmentin 875-125 Tablet] 1 ea PO BID 7 Days #14 tab 08/01/19 Primary Care Physician: Homer Roberts DO [Primary Care Provider] - Please follow up with your Primary Care Physician in: within 1-2 weeks Test Results: Test results from this visit will be discussed in further detail at your follow- up appointment, if applicable. Please Follow Up With: Mauricio Zuñiga MD When: in 1 week Proposed Discharge Date: 08/01/19
[2019-08-01 09:48] LABS: Magnesium 1.9 mg/dL (1.6-2.6)
--- NOTE | 2019-08-01 09:53 | PCM.DC.SUM ---
Discharge Date and Diagnosis - Problem List Patient Problems: Active and Suspected Problems Ascending cholangitis (Acute) Date of Admission: 07/29/19 Date of Discharge: 08/01/19 - Primary Discharge Diagnosis Active and Suspected Problems Acute ascending cholangitis Acute cholecystitis Choledocholithiasis Hypokalemia Hyponatremia - Secondary Discharge Diagnosis Chronic Problems Depression (Chronic) Hospital Course and Treatment Imaging Results: Clinical Impression(s) from Imaging Studies Chest X-Ray 07/28/19 00:00 IMPRESSION: Low lung volumes. No definite acute chest disease. Electronically Signed: Donell Calderón MD at 23:21 EDT , Service support , Brain CT 07/28/19 22:43 IMPRESSION: Chronic involutional changes of the brain. Electronically Signed: Kaden Luz, at 0:10 EDT Tel , Service support , Gallbladder Ultrasound 07/28/19 23:19 IMPRESSION: Cholelithiasis and mild gallbladder wall thickening and trace pericholecystic fluid however negative sonographic Mcdonnell''s sign. The gallbladder is distended. Findings are indeterminate and remain concerning for possible cholecystitis. Further evaluation with HIDA scan may be of value. Electronically Signed: Kaden Luz, at 0:05 EDT Tel , Service support , Abdomen/Pelvis CT 07/29/19 03:59 IMPRESSION: Dilated gallbladder with multiple gallstones and small amount of pericholecystic fluid. The common bile duct is also dilated with questionable subcentimeter small stones involving the distal common bile duct, series 2 image 44. Findings remain concerning for cholecystitis and possible choledocholithiasis involving the distal common bile duct. Mild intrahepatic biliary ductal dilatation. Electronically Signed: Kaden Luz, at 5:46 EDT Tel , Service support , ERCP X-Ray 07/29/19 14:14 IMPRESSION: Fluoroscopic demonstration of dilated common bile duct with ductal stones followed by placement of a common bile duct stent terminating in the duodenum. Electronically Signed: Tamika Betancourt MD at 15:45 EDT , Service support , General surgery Operations: ERCP Procedures: None Summary of Care Provided: The patient is a 79 year old F with past medical history of depression who was admitted with abdominal pain and confusion. Patient was found to have elevated gallbladder with multiple gallstones and small amount of pericholecystic. Common bile duct was dilated with small stones involving the distal common bile duct. There was also intrahepatic biliary duct dilatation. Admitting CT scan of the brain chronic involutional changes. Chest x-ray showed no acute abnormality. Her liver function test was elevated on admission. General surgery was consulted and patient underwent ERCP on 07/29/19. 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 Biliary sphincterectomy was made. Sludge, stones and pus was swept down from the biliary duct. Partial removal of gallstones were done. A plastic stent was put into the common bile duct. Patient was continued on IV antibiotics - Zosyn. She was monitored with no acute events. Postprocedure, patient had no more abdominal pain. She continued to be stable. Her electrolytes were replaced. She was discharged on 1 week of Augmentin. She will follow-up with Dr. Zuñiga in 1 week for repeat ERCP. she will need repeat blood work during that visit. He was seen by PT and OT. They refused home health. They were referred to an [facility] cardiac treatment supply facility. Patient was recommended to have a cane, bedside commode and wheeled walker. This was communicated to the patient. Patient Problems: Active and Suspected Problems Ascending cholangitis (Acute) Subjective: On the day of discharge, patient was seen and examined. Denied any new complaints. Objective: Physical exam: General: Alert, Oriented x3, Cooperative, No apparent distress HEENT: Atraumatic, PERRLA, EOMI, Normocephalic Oral: Dry Mucosa Neck: Supple, No JVD, Negative Carotid Bruits Lungs: Clear to auscultation, Normal air movement, No rhonchi, No wheeze, No rales Cardiovascular: Regular rate, Regular Rhythm, Normal S1, Normal S2, No murmurs Abdomen: Bowel Sounds Present, Soft, Non Tender, Non-Distended, No Hepato-splenomegaly, - - Mcdonnell's sign is negative. Extremities: No clubbing, No cyanosis, No edema, Capillary Refill Less than 3 Seconds Skin: No rashes, No breakdown Musculoskeletal: No Tenderness to Palpation of Joints or Extremities Lymphatic: No Cervical, Supraclavicular, or Inguinal Adenopathy Neurological: Cranial nerves II-XII grossly intact, Neuro grossly intact, Motor Exam 5/5 strength throughout Psych/Mental Status: Normal Affect, Appropriate, Alert and oriented to time, place, person, mood and affect - Physical Exam Vitals/I&O's: Vital Signs Temp Pulse Resp BP Pulse Ox 98.7 F 68 16 109/72 97 08/01/19 09:23 08/01/19 09:23 08/01/19 09:23 08/01/19 09:23 08/01/19 09:23 Oxygen Delivery Method Room Air Weight: 65.8 kg Body Mass Index (BMI) 25.7 Intake and Output for Last 24 Hours 07/30/19 07/31/19 08/01/19 23:59 23:59 23:59 Intake Total 4333.75 / 4333.75 3036.25 / 3036.25 670 / 670 Output Total 3000 / 3000 2750 / 2750 1250 / 1250 Balance 1333.75 / 1333.75 286.25 / 286.25 -580 / -580 Laboratory Results 07/31/19 06:00: Total Bilirubin 1.30 H, Direct Bilirubin 0.76 H, AST 116 H, ALT 81 H, Alkaline Phosphatase 298 H, Total Protein 6.5, Albumin 2.8 L, Globulin 3.7 08/01/19 05:26: WBC 6.2, RBC 4.23, Hgb 12.1, Hct 37.5, MCV 88.7, MCH 28.6, MCHC 32.3, RDW Std Deviation 47.4 H, RDW Coeff of [place] 14.6, Plt Count 220, MPV 9.2, Immature Gran % (Auto) 0.500, Neut % (Auto) 58.7, Lymph % (Auto) 23.9, [place] % (Auto) 10.9 H, Eos % (Auto) 5.0, Baso % (Auto) 1.0, Absolute Neuts (auto) 3.7, Absolute Lymphs (auto) 1.49, Nucleated RBC % 0 08/01/19 05:26: Sodium 142, Potassium 3.4 L, Chloride 111 H, Carbon Dioxide 26.0, Anion Gap 5, BUN 11, Creatinine 0.76, Estim Creat Clear Calc 38.35, Est GFR (MDRD) Af Amer 95, Est GFR (MDRD) Non-Af 79, BUN/Creatinine Ratio 14.6, Glucose 88, Calcium 8.9 08/01/19 05:26: Magnesium 1.9 Current Medications Acetaminophen (Tylenol) 650 mg PO Q6H PRN PRN PRN Reason: Pain Score 1-10/Temp > 100.7 F Last Admin: 07/29/19 21:17 Dose: 650 mg Documented by: Al Hydroxide/Mg Hydroxide (Mylanta Ii) 30 ml PO Q6H PRN PRN PRN Reason: Gastric Burning Albuterol Sulfate (Ventolin Aerosols) 2.5 mg INHALATION Q2H PRN PRN PRN Reason: Shortness of Breath/Wheezing Amlodipine Besylate (Norvasc) 10 mg PO DAILY [facility] Last Admin: 07/31/19 09:49 Dose: 10 mg Documented by: Famotidine (Pepcid) 20 mg PO DAILY [facility] Last Admin: 08/01/19 09:33 Dose: 20 mg Documented by: Glucagon () 1 mg IM .X1 PRN PRN Reason: Hypoglycemia Guaifenesin (Robitussin) 20 ml PO Q4H PRN PRN PRN Reason: COUGH Hydralazine HCl (Apresoline Iv) 10 mg IV Q4H PRN PRN PRN Reason: SBP > 160 Last Admin: 07/31/19 14:52 Dose: 10 mg Documented by: Piperacillin Sod/Tazobactam (Sod 3.375 gm/ Sodium Chloride) 50 mls @ 12.5 mls/hr IV Q8 [facility] Last Admin: 08/01/19 05:37 Dose: 12.5 mls/hr Documented by: Dextrose (Dextrose 10%-Water) 250 mls @ 999 mls/hr IV .Q16M PRN; Protocol PRN Reason: HYPOGLYCEMIA Sodium Chloride () 250 mls @ 15 mls/hr IV .[id number] PRN PRN Reason: Saline Flush Last Infusion: 07/31/19 11:30 Dose: Infused Documented by: Sodium Chloride () 250 mls @ 15 mls/hr IV .[id number] PRN PRN Reason: Additional IVPB Infusion Magnesium Hydroxide (Milk Of Magnesia) 30 ml PO DAILY PRN PRN PRN Reason: Constipation Last Admin: 08/01/19 09:38 Dose: 30 ml Documented by: Melatonin (Melatonin) 3 mg PO QHS PRN PRN PRN Reason: INSOMNIA Mirtazapine (Remeron) 15 mg PO QHS MARIBEL Last Admin: 07/31/19 21:10 Dose: 15 mg Documented by: Morphine Sulfate () 2 mg IV Q3H PRN PRN PRN Reason: Pain Score 6-10/10 Nitroglycerin (Nitrostat) 0.4 mg SUBLINGUAL Q5M PRN PRN Reason: CARDIAC/CHEST PAIN Ondansetron HCl (Zofran) 4 mg IV Q8H PRN PRN PRN Reason: NAUSEA/VOMITING Oxycodone HCl (Oxyir) 5 mg PO Q4H PRN PRN PRN Reason: Pain Score 4-5/10 Prochlorperazine Edisylate (Compazine Iv) 5 mg IV Q4H PRN PRN PRN Reason: Breakthrough nausea/vomiting Psyllium Hydrophilic Mucilloid (Metamucil) 1 packet PO DAILY PRN PRN PRN Reason: Constipation Senna/Docusate Sodium (Senokot-S, Breonna-Colace) 2 tablet PO BID PRN PRN PRN Reason: Constipation Sodium Chloride () 10 - 40 ml IV UD PRN PRN Reason: SALINE FLUSH Last Admin: 07/31/19 21:10 Dose: 10 ml Documented by: Throat Lozenges (Cepacol Sore Throat Lozenge) 1 lozenge MUCOUS MEM Q2H PRN PRN PRN Reason: SORE THROAT Discharge Diet: No Restrictions Discharge Activity: Return to Normal Activity Home Medications: Medications to take at Discharge Mirtazapine 7.5 mg PO QHS 07/28/19 Aspirin 325 mg PO DAILY 07/29/19 Acetaminophen [Tylenol Tablet] 650 mg PO Q6H PRN PRN tab 08/01/19 Amlodipine [Norvasc] 10 mg PO DAILY 30 Days #30 tab 08/01/19 Amoxicillin/Potassium Clav [Augmentin 875-125 Tablet] 1 ea PO BID 7 Days #14 tab 08/01/19 Following Prescrptions Were Given to Patient: Amoxicillin/Potassium Clav [Augmentin 875-125 Tablet] 1 ea PO BID 7 Days #14 tab Transmission Status: Received by [facility] Amlodipine [Norvasc] 10 mg PO DAILY 30 Days #30 tab Transmission Status: Received by [facility] Primary Care Physician: Homer Roberts DO [Primary Care Provider] - Please follow up with your Primary Care Physician in: within 1-2 weeks Please Follow Up With: Mauricio Zuñiga MD When: in 1 week Disposition: Home Minutes spent on discharge:: 40 Patient Condition:: Stable Medical Necessity - Tobacco Use Smoking Status: Never smoker Tobacco Use: Non-smoker Meaningful Use Info Meaningful Use Diagnoses (Choose all that apply): None applicable Inpatient E&M: [id number] [facility]
--- NOTE | 2019-08-01 09:59 | PN.SURG_ITS ---
Patient Problems: Active and Suspected Problems Ascending cholangitis (Acute) Elevated liver function tests (Acute) Encephalopathy acute (Acute) Hyperglycemia (Acute) Elevated BP without diagnosis of hypertension (Acute) Normocytic anemia (Acute) Hyponatremia (Acute) Hypokalemia (Acute) Obstructive jaundice (Acute) Choledocholithiasis (Acute) Subjective: Patient evaluated resting comfortably in the chair. She denies nausea, vomiting. She is tolerating a diet. She denies abdominal pain. - Physical Exam Vitals/I&O's: Vital Signs Temp Pulse Resp BP Pulse Ox 98.7 F 68 16 109/72 97 08/01/19 09:23 08/01/19 09:23 08/01/19 09:23 08/01/19 09:23 08/01/19 09:23 Oxygen Delivery Method Room Air Weight: 145 lb 1.027 oz Body Mass Index (BMI) 25.7 Intake and Output for Last 24 Hours 07/30/19 07/31/19 08/01/19 23:59 23:59 23:59 Intake Total 4333.75 / 4333.75 3036.25 / 3036.25 670 / 670 Output Total 3000 / 3000 2750 / 2750 1250 / 1250 Balance 1333.75 / 1333.75 286.25 / 286.25 -580 / -580 General: Alert, Oriented x3, Cooperative Abdomen: Bowel Sounds Present, Soft, Non Tender Laboratory Results 07/31/19 06:00: Total Bilirubin 1.30 H, Direct Bilirubin 0.76 H, AST 116 H, ALT 81 H, Alkaline Phosphatase 298 H, Total Protein 6.5, Albumin 2.8 L, Globulin 3.7 08/01/19 05:26: WBC 6.2, RBC 4.23, Hgb 12.1, Hct 37.5, MCV 88.7, MCH 28.6, MCHC 32.3, RDW Std Deviation 47.4 H, RDW Coeff of [place] 14.6, Plt Count 220, MPV 9.2, Immature Gran % (Auto) 0.500, Neut % (Auto) 58.7, Lymph % (Auto) 23.9, [place] % (Auto) 10.9 H, Eos % (Auto) 5.0, Baso % (Auto) 1.0, Absolute Neuts (auto) 3.7, Absolute Lymphs (auto) 1.49, Nucleated RBC % 0 08/01/19 05:26: Sodium 142, Potassium 3.4 L, Chloride 111 H, Carbon Dioxide 26.0, Anion Gap 5, BUN 11, Creatinine 0.76, Estim Creat Clear Calc 38.35, Est GFR (MDRD) Af Amer 95, Est GFR (MDRD) Non-Af 79, BUN/Creatinine Ratio 14.6, Glucose 88, Calcium 8.9 08/01/19 05:26: Magnesium 1.9 Current Medications Acetaminophen (Tylenol) 650 mg PO Q6H PRN PRN PRN Reason: Pain Score 1-10/Temp > 100.7 F Last Admin: 07/29/19 21:17 Dose: 650 mg Documented by: Al Hydroxide/Mg Hydroxide (Mylanta Ii) 30 ml PO Q6H PRN PRN PRN Reason: Gastric Burning Albuterol Sulfate (Ventolin Aerosols) 2.5 mg INHALATION Q2H PRN PRN PRN Reason: Shortness of Breath/Wheezing Amlodipine Besylate (Norvasc) 10 mg PO DAILY [facility] Last Admin: 07/31/19 09:49 Dose: 10 mg Documented by: Famotidine (Pepcid) 20 mg PO DAILY [facility] Last Admin: 08/01/19 09:33 Dose: 20 mg Documented by: Glucagon () 1 mg IM .X1 PRN PRN Reason: Hypoglycemia Guaifenesin (Robitussin) 20 ml PO Q4H PRN PRN PRN Reason: COUGH Hydralazine HCl (Apresoline Iv) 10 mg IV Q4H PRN PRN PRN Reason: SBP > 160 Last Admin: 07/31/19 14:52 Dose: 10 mg Documented by: Piperacillin Sod/Tazobactam (Sod 3.375 gm/ Sodium Chloride) 50 mls @ 12.5 mls/hr IV Q8 [facility] Last Admin: 08/01/19 05:37 Dose: 12.5 mls/hr Documented by: Dextrose (Dextrose 10%-Water) 250 mls @ 999 mls/hr IV .Q16M PRN; Protocol PRN Reason: HYPOGLYCEMIA Sodium Chloride () 250 mls @ 15 mls/hr IV .[id number] PRN PRN Reason: Saline Flush Last Infusion: 07/31/19 11:30 Dose: Infused Documented by: Sodium Chloride () 250 mls @ 15 mls/hr IV .[id number] PRN PRN Reason: Additional IVPB Infusion Magnesium Hydroxide (Milk Of Magnesia) 30 ml PO DAILY PRN PRN PRN Reason: Constipation Last Admin: 08/01/19 09:38 Dose: 30 ml Documented by: Melatonin (Melatonin) 3 mg PO QHS PRN PRN PRN Reason: INSOMNIA Mirtazapine (Remeron) 15 mg PO QHS [facility] Last Admin: 07/31/19 21:10 Dose: 15 mg Documented by: Morphine Sulfate () 2 mg IV Q3H PRN PRN PRN Reason: Pain Score 6-10/10 Nitroglycerin (Nitrostat) 0.4 mg SUBLINGUAL Q5M PRN PRN Reason: CARDIAC/CHEST PAIN Ondansetron HCl (Zofran) 4 mg IV Q8H PRN PRN PRN Reason: NAUSEA/VOMITING Oxycodone HCl (Oxyir) 5 mg PO Q4H PRN PRN PRN Reason: Pain Score 4-5/10 Prochlorperazine Edisylate (Compazine Iv) 5 mg IV Q4H PRN PRN PRN Reason: Breakthrough nausea/vomiting Psyllium Hydrophilic Mucilloid (Metamucil) 1 packet PO DAILY PRN PRN PRN Reason: Constipation Senna/Docusate Sodium (Senokot-S, Breonna-Colace) 2 tablet PO BID PRN PRN PRN Reason: Constipation Sodium Chloride () 10 - 40 ml IV UD PRN PRN Reason: SALINE FLUSH Last Admin: 07/31/19 21:10 Dose: 10 ml Documented by: Throat Lozenges (Cepacol Sore Throat Lozenge) 1 lozenge MUCOUS MEM Q2H PRN PRN PRN Reason: SORE THROAT Medical Necessity - Tobacco Use Smoking Status: Never smoker Tobacco Use: Non-smoker Assessment/Plan All Active Problems Ascending cholangitis (Acute) Elevated bilirubin (Acute) Elevated liver function tests (Acute) Encephalopathy acute (Acute) Hyperglycemia (Acute) Elevated BP without diagnosis of hypertension (Acute) Normocytic anemia (Acute) Hyponatremia (Acute) Hypokalemia (Acute) Obstructive jaundice (Acute) Choledocholithiasis (Acute) Acute cholecystitis (Acute) I am following this patient in conjunction with Dr. Samayoa S/p ERCP Follow-up with Dr. Zuñiga in 1 week to discuss future plan Ready for discharge Inpatient E&M: [id number] Subs Hosp L1 - No charge
[2019-08-01 11:10] VITALS: BP 144/87
[2019-08-01] MEDS: amLODIPine 10 MG Tablet PO (11:21)
--- NOTE | 2019-08-01 12:02 | NURSING ---
out to nurses' station- requesting transport home with hospital van for pt and himself. Scheduled time for 1330 for transport home.
[2019-08-01 13:02] VITALS: BP 148/99; PULSE 88; RESP 18; TEMP 36.6; O2SAT 99
== END 2019-08-01 13:28 | disposition home or self-care (01) | DRG 445 ==
LOC: ED 07-29 00:28 → MS3 07-29 00:35
PROVIDERS: Anesthesiology; Internal Medicine; Student in an Organized Health Care Education/Training Program; Surgery; Admitting Provider Family Medicine; Emergency Provider Emergency Medicine; PCP Family Medicine; Visit Provider Internal Medicine
PROC: 0FC98ZZ Extirpation of Matter from Common Bile Duct, Via Natural or Artificial Opening Endoscopic (ICD-10-PCS; CPT 43260; principal; 2019-07-29 13:00)
DX: K80.63 Calculus of gallbladder and bile duct with acute cholecystitis with obstruction (principal); E87.1 Hypo-osmolality and hyponatremia; G93.40 Encephalopathy, unspecified; E87.6 Hypokalemia; D64.9 Anemia, unspecified; F32.9 Major depressive disorder, single episode, unspecified; R03.0 Elevated blood-pressure reading, without diagnosis of hypertension
CPT/HCPCS: 36415; 70450; 71045; 74177; 74328; 76000; 76705; 80048; 80053; 80076; 81001; 82140; 82150; 82375; 82607; 82728; 82746; 83036; 83540; 83550; 83605; 83690; 83735; 84484; 85025; 85610; 85730; 86704; 86705; 86706; 86708; 86709; 86803; 87340; 93005; 97116; 97162; 97166; 97530; 97535; 99251; 99285; J1756; J7030; J7040; J7050; P9612; Q9967; A4216; G0463; J1610; J2405; J3490

== ENCOUNTER 2019-09-21 11:22 | Day surgery (SDC) | payer OTHER, SELFPAY ==
[2019-07-29 12:43] VITALS: BMI 25.7
[2019-09-21 11:55] VITALS: BMI 25.7
[2019-09-21 12:03] VITALS: BP 131/73; PULSE 73; RESP 16; TEMP 36.7; O2SAT 95; BMI 27.7
[2019-09-21] MEDS: Lactated Ringers 1,000 ML 100 ML IV (12:13)
--- NOTE | 2019-09-21 14:08 | US_ITS ---
STUDY: ABDOMINAL ULTRASOUND - RIGHT UPPER QUADRANT REASON FOR VISIT: Female, 79 years old cholelithiasis TECHNIQUE: Ultrasound evaluation of the right upper quadrant was performed with real-time and static [place]-scale imaging. TECHNICAL QUALITY: Adequate. COMPARISON: Comparison is made with prior examination dated July 28, 2019. FINDINGS: Liver: The liver measures 13.0 cm. There is normal echogenicity of the liver. Scattered calcified hepatic granulomas. The bile ducts are within normal limits. There is hepatic color flow. The direction of portal flow is hepatopetal. There is no demonstrated mass lesion. Gallbladder: Normal distended gallbladder. The gallbladder wall is slightly thickened and measures 3.2 mm. There is a negative sonographic Mcdonnell''s sign. There is no pericholecystic fluid. There are multiple echogenic structures within the gallbladder, consistent with multiple gallstones. Common Bile Duct (C.B.D.): The common bile duct measures 2.6 mm. Pancreas: Normal size of the head, body of the pancreas. The tail portion is obscured due to overlying bowel gas. There is normal echogenicity of the pancreas. There is no demonstrated pancreatic mass or cyst. Right Kidney: Normal size of the right kidney. The right kidney measures 10.2 cm x 5.6 cm x 3.6 cm. Normal renal cortex. The right cortex measures 1.4 cm. There is no demonstrated renal mass or cyst. Mildly dilated renal pelvis. US/Gallbladder IMPRESSION: Slightly thickened gallbladder wall with multiple gallstones. Electronically Signed: Reed Berry, at 15:19 EDT , Service support ,
--- NOTE | 2019-09-21 14:26 | PN_ITS ---
Progress Note Patient is now refusing ERCP. After I discussed ERCP with stent exchange to her and her and her decided that he would want a repeat ultrasound before proceeding with any operation as they believe that the gallstones have dissolved. They said they performed a medical treatment and that the gallstones should be gone. I discussed with them that this is very unlikely and it was much more likely that the gallstones are still there and her stent may be occluded and she would need stent exchange to prevent cholangitis. I also discussed the need for a laparoscopic cholecystectomy. They said they would not proceed with either operation until ultrasound showed the evidence of gallstones. I did discuss the risk of cholangitis as well as stent obstruction. The patient's were adamant that they not proceed with stent exchange today. They requested stent removal but I told him I did not feel comfortable removing the stent completely as there were likely still gallstones in the gallbladder that could cause repeat obstruction. Patient will be sent downstairs for ultrasound and will have to reschedule cholecystectomy with cholangiogram and subsequent ERCP with stent removal. Mauricio Zuñiga MD Pager: [facility] [address] [place] [address], [address] [place] [address] Office: [facility] Vital Signs/Narrative: Vital Signs Temp Pulse Resp BP Pulse Ox 09/21/19 12:03 98.0 F 73 16 131/73 H 95
== END 2019-09-21 16:19 | disposition home or self-care (01) ==
LOC: EN 11:27 → AC 11:27
PROVIDERS: PCP Family Medicine; Referring Provider Family Medicine; Visit Provider Surgery
DX: K80.20 Calculus of gallbladder without cholecystitis without obstruction (principal)
CPT/HCPCS: 76705; J7120; J2405

== ENCOUNTER → 2019-11-10 13:16 | Outpatient (CLI) | payer OTHER, SELFPAY | PROVIDERS: PCP Family Medicine; Visit Provider Surgery | DX: Z00.00 Encounter for general adult medical examination without abnormal findings (principal) ==

== ENCOUNTER 2022-03-03 11:20 | Emergency (ER) | payer OTHER, SELFPAY ==
[2022-03-03 11:21] VITALS: BP 151/81; PULSE 79; RESP 16; TEMP 36.6; O2SAT 98; BMI 29.8
--- NOTE | 2022-03-03 11:36 | RAD_ITS ---
STUDY: X-RAY - PELVIS REASON FOR EXAM: Female, 81 years old. Chronic low back pain. TECHNIQUE: One view of the pelvis was obtained. COMPARISON: None. FINDINGS: There is a non-specific bowel gas pattern. There are multiple calcified phleboliths. There is narrowing with cortical sclerosis and osteophyte formation of the sacroiliac joint consistent with degenerative osteoarthritic changes. Normal visualized bilateral superior and inferior pubic rami. There is widening of the symphysis pubis. Normal ischial tuberosities. Normal visualized right femoral head. Normal right acetabulum. There is moderate articular joint space narrowing of the right hip. Normal visualized left femoral head. Normal left acetabulum. There is moderate articular joint space narrowing of the left hip. RAD/Pelvis 1 or 2 Views IMPRESSION: Degenerative changes. No acute abnormality is seen. Electronically Signed: Reed Berry MD at 12:40 EDT ,
--- NOTE | 2022-03-03 11:39 | EX.ED.DYSGE1 ---
HPI History of Present Illness Chief Complaint: Back Informant: patient Onset/Context/Timing Onset: Month(s) Current Severity: Moderate Maximum Severity: Moderate Narrative Narrative: Patient presents with left low back pain that wraps around her left hip. Pain is been ongoing for months and started shortly after a fall. She reportedly saw her physician on Thursday who started her on prednisone and tramadol. She now has an upset stomach from these medications and feels the pain is not improved. Imaging studies were not performed. [facility] Medical History Depression Home Medications acetaminophen 500 mg tablet 1,000 mg PO Q6H PRN Pain 03/03/22 [History Last Taken Unknown] amlodipine 2.5 mg tablet 2.5 mg PO DAILY 03/03/22 [History Last Taken Unknown] furosemide 20 mg tablet (Lasix) 10 mg PO DAILY 03/03/22 [History Last Taken Unknown] prednisolone 5 mg tablet 5 mg PO DAILY 03/03/22 [History Last Taken Unknown] tramadol 50 mg tablet 50 mg PO Q8H PRN Pain 03/03/22 [History Last Taken Unknown] Allergy/AdvReac Type Severity Reaction Status Date / Time No Known Allergies Allergy Verified 09/21/19 11:53 Social History Smoking Status: Never smoker ROS ROS ED Constitutional Constitutional ED: Denies chills or fever(s) Eyes Eyes: Denies change in vision or discharge from eye(s) ENT ENT ED: Denies discharge from eye(s), rhinorrhea or sore throat Cardiovascular Cardiovascular: Denies chest pain or palpitations Respiratory/Chest Respiratory/Chest: Denies cough or dyspnea Gastrointestinal Gastrointestinal: Denies abdominal pain, diarrhea, nausea or vomiting Genitourinary Genitourinary ED: Denies difficulty urinating or dysuria Musculoskeletal Musculoskeletal: Reports back pain and extremity pain Integumentary Denies Abrasions or rash Neurologic Neurologic: Denies headache(s) or weakness Psychiatric Psychiatric: Denies anxiety or depression Allergic/Immunologic Allergic/Immunologic ED: Denies lip swelling or urticaria EXAM Physical Exam Const Vital Signs: 03/03/22 11:21 03/03/22 13:24 Temperature 97.9 F Temperature Source Oral Pulse Rate 79 90 Respiratory Rate 16 18 Blood Pressure 151/81 H 150/87 H Blood Pressure Mean 104 108 Pulse Ox 98 99 Oxygen Delivery Method Room Air Room Air Positive well nourished and well developed General Appearance ED: well developed HEENT Reports normocephalic and head/scalp atraumatic Eyes PERRL and EOMs intact bilaterally Neck supple Chest Wall inspection of chest normal and palpation of chest normal Resp normal respiratory effort and clear to auscultation bilaterally Cardio regular rate and regular rhythm GI normal to inspection, nondistended, normoactive bowel sounds Palpation: soft Back/Spine no CVA tenderness Back/Spine Narrative: Tenderness palpation left lower lumbar paraspinal muscles and left SI joint. Extremity normal to inspection Extremity Narrative: No pain with logroll of the left leg. No reproducible tenderness to palpation over the hip. Neuro oriented x3 and no sensory deficits noted Sensorium / Orientation: alert Psych mental status grossly normal Skin no rashes or lesions noted MDM MDM MDM Narrative Medical decision making narrative: Patient was given Lidoderm patch and p.o. Zofran. X-rays of the lumbar spine and pelvis obtained. Radiography Diagnostic Testing: Clinical Impression(s) from Imaging Studies Pelvis X-Ray 03/03/22 11:36 IMPRESSION: Degenerative changes. No acute abnormality is seen. Electronically Signed: Reed Berry MD at 12:40 EDT , Lumbar Spine X-Ray 03/03/22 12:15 IMPRESSION: Degenerative changes of the spine, as detailed above. Multilevel loss of height of the lumbar vertebrae as described. Anterior listhesis of L4 on L5. CBD stent is seen. Electronically Signed: Reed Berry MD at 12:39 EDT , Treatment and Re-Evaluation Narrative: X-rays per my interpretation reveal arthritic changes with no acute fractures. Radiology interpretation is reviewed. Repeat evaluation patient sitting at bedside chair eating. She is in no acute distress. Her doctor already put her on a prednisone taper as well as tramadol for pain. This is making her nauseated and I did encourage family to be sure to give it to her with food. Lidoderm patch was placed on her back. I advised family they can get these [id number]. Return instructions provided. Discharge Plan Triage Chief Complaint: Back ED Provider: Mireya Zurita Dx/Rx/DC Orders Clinical Impression: Musculoskeletal back pain Instructions: ED Back Pain (Acute or Chronic) Prescriptions: No Action amlodipine 2.5 mg Tablet 2.5 mg PO DAILY tramadol 50 mg Tablet 50 mg PO Q8H PRN (Reason: Pain) acetaminophen [Tylenol Ex Str Arthritis Pain] 500 mg Tablet 1,000 mg PO Q6H PRN (Reason: Pain) prednisolone 5 mg Tablet 5 mg PO DAILY furosemide [Lasix] 20 mg Tablet 10 mg PO DAILY Primary Care Provider: Homer Roberts Referrals: Homer Roberts DO [Primary Care Provider] - Activity Restrictions/Additional Instructions: You can get Lidoderm patches [id number] to place on the affected area to help with pain. Disposition Disposition: Home, Self Care
[2022-03-03] MEDS: Ondansetron ODT 4 MG Tablet PO (11:58)
[2022-03-03] MEDS: Lidocaine 5% Patch 1 PATCH TOPICAL (11:58)
--- NOTE | 2022-03-03 12:15 | RAD_ITS ---
STUDY: X-RAY - LUMBAR SPINE REASON FOR EXAM: Female, 81 years old. Pain TECHNIQUE: 2 view(s) of the lumbar spine were obtained. COMPARISON: None FINDINGS: There is an exaggerated lumbar lordosis. There is no substantial scoliosis. Grade 1 anterolisthesis of L4 on L5. There is multilevel endplate spondylosis of the lumbar vertebrae. There is multi-level degenerative disc disease with multi-level disc space narrowing. Loss of height of the T11, T12-L1, L2-L3 and L4 vertebral bodies. There is atherosclerotic calcification of the abdominal aorta without a demonstrated aneurysm. The common bile duct stent is seen. RAD/Lumbar Spine 2 or 3 Views IMPRESSION: Degenerative changes of the spine, as detailed above. Multilevel loss of height of the lumbar vertebrae as described. Anterior listhesis of L4 on L5. CBD stent is seen. Electronically Signed: Reed Berry MD at 12:39 EDT ,
[2022-03-03 13:24] VITALS: BP 150/87; PULSE 90; RESP 18; O2SAT 99
== END 2022-03-03 14:30 | disposition home or self-care (01) ==
PROVIDERS: Emergency Provider Emergency Medicine; PCP Family Medicine; Visit Provider Emergency Medicine
DX: M54.50 Low back pain, unspecified (principal); K30 Functional dyspepsia; Z79.52 Long term (current) use of systemic steroids
CPT/HCPCS: 72100; 72170; 99284

== ENCOUNTER 2022-11-01 18:18 | Inpatient (IN) | payer OTHER, SELFPAY ==
[2022-11-01] VITALS (10 sets, daily range): BP systolic 97–138; BP diastolic 64–110; PULSE 79–118; RESP 16–23; TEMP 36.6–38.2; O2SAT 88–98; BMI 28.6; BMI 28.0
--- NOTE | 2022-11-01 18:29 | EKG12_ITS ---
Test Reason : TACHYCARDIA Blood Pressure : / mmHG Vent. Rate : 110 BPM Atrial Rate : 110 BPM P-R Int : 174 ms QRS Dur : 076 ms QT Int : 338 ms P-R-T Axes : 049 -11 010 degrees QTc Int : 457 ms Sinus tachycardia Minimal voltage criteria for LVH, may be normal variant ( R in aVL ) Inferior infarct , age undetermined Abnormal ECG Confirmed by SILVIA DOSHI, NILSON ([id number]), editor house organ MARLENY CALDERÓN ([id number]) on 11/03/2022 11:01:19 A M Referred By: Confirmed By:RYAN VEGA MD
--- NOTE | 2022-11-01 18:38 | CT_ITS ---
STUDY: CTA CHEST REASON FOR EXAM: Female, 82 years old. SOB, hypoxia, chest pain RADIATION DOSAGE (If Supplied By Facility): CTDIvol = ( 24.64 ) mGy, DLP = ( 1642.19 ) mGycm TECHNIQUE: The examination was performed with the intravenous administration of IV 75mL Isovue-370. Post-processing of the angiographic images was performed, with multiplanar reformation and 3D reconstruction. Individualized dose optimization techniques were used for this CT. COMPARISON: None. FINDINGS: Normal enhancement of the main pulmonary artery and right and left pulmonary arteries. Normal enhancement of the bilateral peripheral pulmonary arteries. There is no demonstrated pulmonary embolism. There is atherosclerotic calcification of the aortic arch with tortuosity. There is no demonstrated aortic dissection. There is cardiomegaly. There are calcifications of the coronary arteries. Normal mediastinum. Normal hilar regions. Normal visualized trachea and bronchi. The lungs are under expanded. Bilateral lower lobe peribronchial consolidation. No cavitating process. Motion artifact limits exam. Granuloma left upper lobe. Normal pleura. Normal chest wall structures. Upper abdomen described on abdomen/pelvis CT report. Degenerative changes of the thoracic spine with exaggerated thoracic kyphosis. Chronic compression fracture of T10. CT/CTA Chest W/WO Contrast IMPRESSION: 1. No central or segmental pulmonary embolism. 2. Bilateral lower lobe peribronchial pneumonia or atelectasis. Electronically Signed: Dustin Ojeda ([place]), at 19:42 EDT ,
--- NOTE | 2022-11-01 18:40 | CT_ITS ---
STUDY: CT ABDOMEN AND PELVIS WITH CONTRAST REASON FOR EXAM: Female, 82 years old. abdominal pain RADIATION DOSAGE (If Supplied By Facility): CTDIvol = ( 24.64 ) mGy, DLP = ( 1642.19 ) mGycm TECHNIQUE: Transaxial images were obtained from the dome of the diaphragm to the symphysis pubis without oral contrast. IV 75mL Isovue-370 was administered. Sagittal and coronal images were reconstructed. Individualized dose optimization techniques were used for this CT. COMPARISON: CT 07/29/2019 FINDINGS: Lung bases described on CTA chest. No hepatic masses. Gallbladder is distended with increasing gallbladder wall thickening and pericholecystic fluid as compared to prior CT. A biliary stent extends from the right intrahepatic bile duct to the lower common duct near the ampulla. There is mild intrahepatic bile duct dilation and air. There is a benign calcified granuloma of the spleen. Normal pancreas. Normal bilateral adrenal glands. Normal right kidney. Normal left kidney. Normal visualized stomach. No dilated loops of small bowel. There are multiple colonic diverticula consistent with diverticulosis. There is non-visualization of the appendix. There is diffuse atherosclerotic calcification of the abdominal aorta, without a demonstrated aneurysm. Normal inferior vena cava. Normal retroperitoneum. Normal urinary bladder. Uterus is atrophic. Normal abdominal wall. Degenerative changes of the lumbar spine with compression fractures of L1, L2, L3 and L4, new since prior CT. Chronic T10 compression fracture stable. Pelvic fractures appear healed but new since 2019. CT/Abdomen/Pelvis W IV Cont ONLY IMPRESSION: 1. Gallbladder wall thickening, gallstone and pericholecystic fluid likely representing acute cholecystitis. 2. Biliary stent appears to terminate above the ampulla and the lower common duct. Mild intrahepatic bile duct dilation. 3. Multiple new lumbar spine fractures. Electronically Signed: Dustin Ojeda ([place]), at 19:46 EDT ,
[2022-11-01 18:41] LABS: Absolute Lymphocyte Count 0.42 X10^3/uL (0.83-4.51); Absolute Neutrophil Count 15.6 X10^3/uL (2.0-7.7); Basophil# 0.04 X10^3/uL; Basophil% 0.2 % (0-1); Hematocrit 37.3 % (37-47); Lymphocyte # 0.42 X10^3/ul (0.83-4.51); Lymphocyte % 2.5 % (19-41); Mean Corp Hgb Conc 32.2 g/dL (32-36); Mean Corpuscular Hgb 25.9 pg (27.0-32.0); Mean Corpuscular Volume 80.4 fL (81-99); Mean Platelet Vol. 8.7 fl (6.2-12.0); Monocyte# 0.65 X10^3/uL; Monocyte% 3.9 % (0-10); NRBC Flagged by Analyzer 0 % (0-5); Neutrophil # 15.63 X10^3/uL (2.7-7.7); Neutrophil % 92.6 % (47-70); POSITIVE DIFFERENTIAL YES; Platelet Count 327 K/mm3 (150-450); RBC Distribution Width CV 18.6 % (11.6-14.6); RBC Distribution Width SD 54.5 fl (35.1-43.9); Red Blood Count 4.64 M/mm3 (4.2-5.4); White Blood Count 16.9 K/mm3 (4.4-11.0)
--- NOTE | 2022-11-01 18:42 | EX.ED.DYSGE1 ---
HPI <JESSE Friend - Last Filed: 11/01/22 20:27> History of Present Illness Chief Complaint: Shortness of Breath Narrative Narrative: Patient presenting today with her due to chills, weakness, and feeling shaky that started this morning. Patient had 2 episodes of vomiting and reports pain to her generalized abdomen, midsternal chest, and back. She lives with her son who currently has the flu. She reports she feels short of breath. She is unsure if she has had a fever, she denies any hematemesis, blood in the stool, urinary symptoms. PMH includes hypertension. PFSH <JESSE Friend - Last Filed: 11/01/22 20:27> PFSH Medical History Depression Home Medications amlodipine 2.5 mg tablet 2.5 mg PO DAILY blood pressure 03/03/22 [History Last Taken 11/01/22 09:00] tramadol 50 mg tablet 50 mg PO Q8H PRN Pain 03/03/22 [History Last Taken Unknown] Allergy/AdvReac Type Severity Reaction Status Date / Time No Known Allergies Allergy Verified 09/21/19 11:53 Social History Smoking Status: Never smoker ROS <JESSE Friend - Last Filed: 11/01/22 20:27> ROS ED Constitutional Constitutional ED: Reports chills and fever(s) Cardiovascular Cardiovascular: Reports chest pain Respiratory/Chest Respiratory/Chest: Reports dyspnea and dyspnea on exertion; Denies cough Gastrointestinal Gastrointestinal: Reports abdominal pain, nausea and vomiting Genitourinary Genitourinary ED: Denies dysuria, hematuria or urinary urgency Musculoskeletal Musculoskeletal: Reports back pain; Denies arthralgias or myalgias Integumentary Denies abscess, Abrasions or rash Neurologic Neurologic: Reports weakness EXAM <JESSE Friend - Last Filed: 11/01/22 20:27> Physical Exam Const Vital Signs: 11/01/22 18:20 11/01/22 18:28 11/01/22 18:29 Temperature 100.7 F H 100.7 F H Temperature Source Oral Oral Pulse Rate 118 H 112 H Respiratory Rate 21 H Respiratory Effort Short of Breath Respiratory Pattern Tachypnea Blood Pressure 134/110 H 134/110 H Blood Pressure Mean 118 118 Pulse Ox 88 91 Oxygen Delivery Method Room Air Room Air Nasal Cannula Oxygen Flow Rate (L/min) 4 11/01/22 18:30 11/01/22 19:26 11/01/22 20:00 Temperature 98.8 F 98.3 F Temperature Source Oral Oral Pulse Rate 94 94 Respiratory Rate 20 H 19 H Respiratory Effort Respiratory Pattern Blood Pressure 97/64 134/75 H 136/87 H Blood Pressure Mean 75 94 103 Pulse Ox 92 97 97 Oxygen Delivery Method Nasal Cannula Nasal Cannula Nasal Cannula Oxygen Flow Rate (L/min) 4 4 4 Positive well nourished and well developed General Appearance ED: well developed HEENT Reports normocephalic and head/scalp atraumatic Mouth ED: Yes moist mucous membranes normal Eyes PERRL and EOMs intact bilaterally Neck full ROM and supple Chest Wall inspection of chest normal Resp Resp Narrative: Tachypneic. Auscultation examination is limited as patient is having a hard time sitting up in the bed. Cardio regular rhythm Rate: tachycardic GI non-distended and no masses GI Narrative: Generalized abdominal tenderness palpation, no rigidity or guarding, no pulsatile mass. Palpation: soft Back/Spine normal ROM and normal to inspection Extremity normal to inspection and full ROM Neuro oriented x3, CN's II-XII intact bilaterally, moves all extremities, no focal motor deficits and no sensory deficits noted Sensorium / Orientation: awake and alert Psych mental status grossly normal and thought process normal Skin no rashes or lesions noted and no wounds <Dr. Santana Velasquez, DO - Last Filed: 11/02/22 02:06> Physical Exam Const Vital Signs: 11/01/22 18:20 11/01/22 18:28 11/01/22 18:29 Temperature 100.7 F H 100.7 F H Temperature Source Oral Oral Pulse Rate 118 H 112 H Respiratory Rate 21 H Respiratory Effort Short of Breath Respiratory Pattern Tachypnea Blood Pressure 134/110 H 134/110 H Blood Pressure Mean 118 118 Pulse Ox 88 91 Oxygen Delivery Method Room Air Room Air Nasal Cannula Oxygen Flow Rate (L/min) 4 11/01/22 18:30 11/01/22 19:26 11/01/22 20:00 Temperature 98.8 F 98.3 F Temperature Source Oral Oral Pulse Rate 94 94 Respiratory Rate 20 H 19 H Respiratory Effort Respiratory Pattern Blood Pressure 97/64 134/75 H 136/87 H Blood Pressure Mean 75 94 103 Pulse Ox 92 97 97 Oxygen Delivery Method Nasal Cannula Nasal Cannula Nasal Cannula Oxygen Flow Rate (L/min) 4 4 4 [facility] <JESSE Friend - Last Filed: 11/01/22 20:27> [facility] Narrative Medical decision making narrative: Patient presenting today with her . They are both very vague when providing history, I had to really pry out what is going on with the patient. She arrived here tachycardic, tachypneic, febrile, hypoxic, with a stable BP. She was 88% on room air and is now is 92% with 4 L O2. reports that she has been feeling chilled all day, weak, and has been shaky. She had 2 episodes of vomiting and vague complaints of midsternal chest pain, back pain, and abdominal pain. She does have abdominal tenderness to palpation that is generalized. No prior history of blood clots, but she is not on any blood thinners. Given her new hypoxia, CTA of the chest will be obtained to rule out PE and infiltrate, CT of the abdomen and pelvis will be obtained to rule out pancreatitis, appendicitis, diverticulitis, SBO, cholecystitis. She does have a history of cholecystitis and I reviewed prior records that show she had an ERCP with stent placement in 2019, she never had her gallbladder removed. She has been given IV fluids. Labs obtained to rule out leukocytosis, anemia, electrolyte abnormality, hepatobiliary etiology, pancreatitis, ACS. Patient has leukocytosis, hyponatremia, slight hypokalemia. Patient does meet sepsis criteria. Blood cultures were obtained. Patient was started on Levaquin. CT scan of the abdomen pelvis suggests cholecystitis, her bilirubin and LFTs are unremarkable. CTA negative for PE but suggests either atelectasis or infiltrate bilaterally. I have spoke to general surgeon Dr. Parker who reports that she would see patient tomorrow for surgery. She recommended starting patient on Zosyn. I have spoke to hospitalist and he stated he would start her on Zosyn on the floor since we just started her on Levaquin. She will be admitted in stable condition. Patient is comfortable with plan. Lab Data Attestation: I reviewed the patient's lab results. Lab results narrative: WBC 16.9, sodium 130, potassium 3.3, alkaline phosphatase 131, UA negative for UTI Labs: Laboratory Results - last 24 hr 11/01/22 11/01/22 11/01/22 18:30 18:30 18:30 WBC 16.9 H RBC 4.64 Hgb 12.0 Hct 37.3 MCV 80.4 L MCH 25.9 L MCHC 32.2 RDW Std Deviation 54.5 H RDW Coeff of [place] 18.6 H Plt Count 327 MPV 8.7 Immature Gran % (Auto) 0.800 Neut % (Auto) 92.6 H Lymph % (Auto) 2.5 L [place] % (Auto) 3.9 Eos % (Auto) 0.0 Baso % (Auto) 0.2 Absolute Neuts (auto) 15.6 H Absolute Lymphs (auto) 0.42 L Nucleated RBC % 0 Differential Comment SCANNED Sodium 130 L Potassium 3.3 L Chloride 96 L Carbon Dioxide 25.0 Anion Gap 9 BUN 13 Creatinine 0.73 Estim Creat Clear Calc 31.69 Est GFR (MDRD) Af Amer 98 Est GFR (MDRD) Non-Af 81 BUN/Creatinine Ratio 17.8 Glucose 220 H Lactic Acid 2.0 Calcium 8.4 L Total Bilirubin 0.50 AST 30 ALT 15 Alkaline Phosphatase 131 H Troponin I High Sens 8 Total Protein 7.4 Albumin 3.1 L Globulin 4.3 H Albumin/Globulin Ratio 0.7 L Lipase 27 Urine Color Urine Clarity Urine pH Ur Specific [place] Urine Protein Urine Glucose (UA) Urine Ketones Urine Occult Blood Urine Nitrite Urine Bilirubin Urine Urobilinogen Ur Leukocyte Esterase Urine RBC Urine WBC Ur Squamous Epith Cells Urine Bacteria Urine Mucus 11/01/22 18:53 WBC RBC Hgb Hct MCV MCH MCHC RDW Std Deviation RDW Coeff of [place] Plt Count MPV Immature Gran % (Auto) Neut % (Auto) Lymph % (Auto) [place] % (Auto) Eos % (Auto) Baso % (Auto) Absolute Neuts (auto) Absolute Lymphs (auto) Nucleated RBC % Differential Comment Sodium Potassium Chloride Carbon Dioxide Anion Gap BUN Creatinine Estim Creat Clear Calc Est GFR (MDRD) Af Amer Est GFR (MDRD) Non-Af BUN/Creatinine Ratio Glucose Lactic Acid Calcium Total Bilirubin AST ALT Alkaline Phosphatase Troponin I High Sens Total Protein Albumin Globulin Albumin/Globulin Ratio Lipase Urine Color Yellow Urine Clarity Clear Urine pH 7.0 Ur Specific [place] 1.010 Urine Protein 500 H Urine Glucose (UA) 50 H Urine Ketones Negative Urine Occult Blood 10 H Urine Nitrite Negative Urine Bilirubin 1 H Urine Urobilinogen Normal Ur Leukocyte Esterase Negative Urine RBC 0 SEEN Urine WBC 0-5 SEEN Ur Squamous Epith Cells 0 SEEN Urine Bacteria 0 SEEN Urine Mucus 0 SEEN Radiography Diagnostic Testing: Clinical Impression(s) from Imaging Studies Chest CTA 11/01/22 18:38 IMPRESSION: 1. No central or segmental pulmonary embolism. 2. Bilateral lower lobe peribronchial pneumonia or atelectasis. Electronically Signed: Chan (Brooks) Rusty, at 19:42 EDT , Abdomen/Pelvis CT 11/01/22 18:40 IMPRESSION: 1. Gallbladder wall thickening, gallstone and pericholecystic fluid likely representing acute cholecystitis. 2. Biliary stent appears to terminate above the ampulla and the lower common duct. Mild intrahepatic bile duct dilation. 3. Multiple new lumbar spine fractures. Electronically Signed: Dustin ClarkVizcainoBriseida Ojeda, at 19:46 EDT , EKG Initial EKG: Comments: Sinus tachycardia, 110 bpm, no ST elevation, reviewed and interpreted by attending ED physician <Dr. Santana Velasquez, DO - Last Filed: 11/02/22 02:06> [facility] Narrative Medical decision making narrative: Patient presenting today with her . They are both very vague when providing history, I had to really pry out what is going on with the patient. She arrived here tachycardic, tachypneic, febrile, hypoxic, with a stable BP. She was 88% on room air and is now is 92% with 4 L O2. reports that she has been feeling chilled all day, weak, and has been shaky. She had 2 episodes of vomiting and vague complaints of midsternal chest pain, back pain, and abdominal pain. She does have abdominal tenderness to palpation that is generalized. No prior history of blood clots, but she is not on any blood thinners. Given her new hypoxia, CTA of the chest will be obtained to rule out PE and infiltrate, CT of the abdomen and pelvis will be obtained to rule out pancreatitis, appendicitis, diverticulitis, SBO, cholecystitis. She does have a history of cholecystitis and I reviewed prior records that show she had an ERCP with stent placement in 2019, she never had her gallbladder removed. She has been given IV fluids. Labs obtained to rule out leukocytosis, anemia, electrolyte abnormality, hepatobiliary etiology, pancreatitis, ACS. Patient has leukocytosis, hyponatremia, slight hypokalemia. Patient does meet sepsis criteria. Blood cultures were obtained. Patient was started on Levaquin. CT scan of the abdomen pelvis suggests cholecystitis, her bilirubin and LFTs are unremarkable. CTA negative for PE but suggests either atelectasis or infiltrate bilaterally. I have spoke to general surgeon Dr. Parker who reports that she would see patient tomorrow for surgery. She recommended starting patient on Zosyn. I have spoke to hospitalist Dr Murray and he stated he would start her on Zosyn on the floor since we just started her on Levaquin. She will be admitted in stable condition. Patient is comfortable with plan. Lab Data Labs: Laboratory Results - last 24 hr 11/01/22 11/01/22 11/01/22 18:30 18:30 18:30 WBC 16.9 H RBC 4.64 Hgb 12.0 Hct 37.3 MCV 80.4 L MCH 25.9 L MCHC 32.2 RDW Std Deviation 54.5 H RDW Coeff of [place] 18.6 H Plt Count 327 MPV 8.7 Immature Gran % (Auto) 0.800 Neut % (Auto) 92.6 H Lymph % (Auto) 2.5 L [place] % (Auto) 3.9 Eos % (Auto) 0.0 Baso % (Auto) 0.2 Absolute Neuts (auto) 15.6 H Absolute Lymphs (auto) 0.42 L Nucleated RBC % 0 Differential Comment SCANNED Sodium 130 L Potassium 3.3 L Chloride 96 L Carbon Dioxide 25.0 Anion Gap 9 BUN 13 Creatinine 0.73 Estim Creat Clear Calc 31.69 Est GFR (MDRD) Af Amer 98 Est GFR (MDRD) Non-Af 81 BUN/Creatinine Ratio 17.8 Glucose 220 H Lactic Acid 2.0 Calcium 8.4 L Total Bilirubin 0.50 AST 30 ALT 15 Alkaline Phosphatase 131 H Troponin I High Sens 8 Total Protein 7.4 Albumin 3.1 L Globulin 4.3 H Albumin/Globulin Ratio 0.7 L Lipase 27 Urine Color Urine Clarity Urine pH Ur Specific [place] Urine Protein Urine Glucose (UA) Urine Ketones Urine Occult Blood Urine Nitrite Urine Bilirubin Urine Urobilinogen Ur Leukocyte Esterase Urine RBC Urine WBC Ur Squamous Epith Cells Urine Bacteria Urine Mucus 11/01/22 18:53 WBC RBC Hgb Hct MCV MCH MCHC RDW Std Deviation RDW Coeff of [place] Plt Count MPV Immature Gran % (Auto) Neut % (Auto) Lymph % (Auto) [place] % (Auto) Eos % (Auto) Baso % (Auto) Absolute Neuts (auto) Absolute Lymphs (auto) Nucleated RBC % Differential Comment Sodium Potassium Chloride Carbon Dioxide Anion Gap BUN Creatinine Estim Creat Clear Calc Est GFR (MDRD) Af Amer Est GFR (MDRD) Non-Af BUN/Creatinine Ratio Glucose Lactic Acid Calcium Total Bilirubin AST ALT Alkaline Phosphatase Troponin I High Sens Total Protein Albumin Globulin Albumin/Globulin Ratio Lipase Urine Color Yellow Urine Clarity Clear Urine pH 7.0 Ur Specific [place] 1.010 Urine Protein 500 H Urine Glucose (UA) 50 H Urine Ketones Negative Urine Occult Blood 10 H Urine Nitrite Negative Urine Bilirubin 1 H Urine Urobilinogen Normal Ur Leukocyte Esterase Negative Urine RBC 0 SEEN Urine WBC 0-5 SEEN Ur Squamous Epith Cells 0 SEEN Urine Bacteria 0 SEEN Urine Mucus 0 SEEN Radiography Diagnostic Testing: Clinical Impression(s) from Imaging Studies Chest CTA 11/01/22 18:38 IMPRESSION: 1. No central or segmental pulmonary embolism. 2. Bilateral lower lobe peribronchial pneumonia or atelectasis. Electronically Signed: Dustin Ojeda (Brooks), at 19:42 EDT Reading Location ID and State: [facility] / [place] , Service support , Abdomen/Pelvis CT 11/01/22 18:40 IMPRESSION: 1. Gallbladder wall thickening, gallstone and pericholecystic fluid likely representing acute cholecystitis. 2. Biliary stent appears to terminate above the ampulla and the lower common duct. Mild intrahepatic bile duct dilation. 3. Multiple new lumbar spine fractures. Electronically Signed: Dustin Ojeda (Brooks), at 19:46 EDT , Treatment and Re-Evaluation :: I, Dr Velasquez, have reviewed the above progress note and course of action in the ER; agree with the above. I have personally seen and evaluated this patient, gone over history and physical, and discussed disposition and treatment plan with the patient. <Dr. Santana Velasquez, DO - Last Filed: 11/02/22 02:06> Critical Care Time Critical care time (excluding procedures): 30-74 minutes (Critical care time 35 minutes exclusive from separate billable procedures that were performed. The following was considered in the determination of critical care but not limited to the level of medical decision making, intensive cardiac and/or respiratory monitoring, frequent vital sign monitoring, ) Discharge Plan Dx/Rx/DC Orders Clinical Impression: Sepsis, Acute cholecystitis, Pneumonia, Hypoxia, Acute hyponatremia, Acute hypokalemia Disposition Disposition: Acute Care Hospital [facility] Discharge Date/Time: 11/01/22 21:55
[2022-11-01 18:59] LABS: Bacteria 0 SEEN /hpf (None Seen); Mucous, Urine 0 SEEN /hpf (<or=2+); Red Blood Cells-Urine 0 SEEN /hpf (0-5); Squamous Epithelial Cells - UA 0 SEEN /hpf (5-10)
[2022-11-01 19:01] LABS: Color, Urine Yellow (Yellow); Glucose, Dipstick 50 mg/dl (Normal); Ketone-Dipstick Negative (Negative); Leukocyte Esterase-Dipstick Negative /ul (Negative); Nitrite-Dipstick Negative (Negative); Occult Blood-Urine 10 /ul (Negative); Protein-Dipstick 500 mg/dl (Negative); Urine Clarity Clear (Clear); Urine Urobilinogen Normal (Normal)
[2022-11-01 19:01] LABS: ALB/GLOB Ratio 0.7 RATIO (0.9-2.4); AST(SGOT) 30 U/L (15-37); Alanine Aminotransfer ALT/SGPT 15 U/L (13-56); Albumin, Serum 3.1 g/dL (3.2-5.0); Alkaline Phosphatase 131 U/L (45-117); Anion Gap 9 (5-15); BUN 13 mg/dL (7-18); BUN/Creat Ratio 17.8 RATIO (10-20); Calcium,Total 8.4 mg/dL (8.5-10.1); Chloride 96 mmol/L (98-107); Creatinine, Serum 0.73 mg/dL (0.55-1.02); Differential Indicated SCAN CRITERIA MET; EST Glomerular Filtration Rate 81 mL/min (>60); Est Glom Filt Rate - Afr Amer 98 mL/min (>60); Estimated Creatinine Clearance 31.69 ml/min; Globulin 4.3 g/dL (2.2-4.2); Glucose 220 mg/dL (74-106); Lipase 27 U/L (13-75); Potassium 3.3 mmol/L (3.5-5.1); Protein, Total 7.4 g/dL (6.4-8.2); Sodium Level 130 mmol/L (136-145); Troponin-I HS (w/2H Reflex) 8 pg/mL (3.0-54.0)
[2022-11-01] MEDS: 0.9% Normal Saline 1,000 ML 1000 ML IV (19:05)
[2022-11-01 19:13] LABS: Urine Bilirubin Dipstick 1 mg/dL (Negative); White Blood Cells 0-5 SEEN /hpf (0-5)
[2022-11-01 19:29] LABS: Differential Comment SCANNED
[2022-11-01] MEDS: levoFLOXacin IV 750 MG/150 ML BAG 100 MG IV (20:06)
--- NOTE | 2022-11-01 20:25 | PCM.HP.STD ---
HPI - General General Date of Admission: 11/01/22 Date of Service: 11/01/22 Chief Complaint: Chills, diaphoresis, mid abdominal pain, shortness of breath HPI Narrative AGUILA MONTEJO, is a 82 F who presents to the emergency room at [facility] for evaluation of shortness of breath which started today, patient is a poor informant, according to the patient and her , she has been having chills and diaphoresis at home along with some shortness of breath, she is also had some mid abdominal pain along with a couple of episodes of nausea and vomiting. Patient denies any sputum production. Work-up in the emergency room included labs which showed an elevated white blood cell count at 16.9, chemistry profile showed a decreased sodium at 130, potassium was 3.3, glucose was 220, and alkaline phosphatase was 131. Urinalysis was unremarkable, CT of the chest showed bilateral lower lobe peribronchial pneumonia or atelectasis, CT of the abdomen and pelvis showed gallbladder wall thickening, gallstone, and pericholecystic fluid representing acute cholecystitis. There is a biliary stent noted to be in place, there is noted to be mild intrahepatic bile duct dilatation. In addition, multiple new lumbar spine fractures were noted on the x-ray as compared with lumbar spine x-rays done in 2021. Patient required oxygen at 4 L/min via nasal cannula to maintain her pulse ox above 90%. The case was discussed with general surgery, they agreed to see the patient in consultation, patient was given IV Levaquin in the emergency room, surgery requested the patient be placed on Zosyn. Patient's COVID 19 antigen was negative, patient's influenza test was also negative. Patient will be admitted to [place] [address] for pneumonia, hypoxia, and cholecystitis. [facility] Medical History Depression Home Medications amlodipine 2.5 mg tablet 2.5 mg PO DAILY 03/03/22 [History Last Taken Unknown] tramadol 50 mg tablet 50 mg PO Q8H PRN Pain 03/03/22 [History Last Taken Unknown] Allergy/AdvReac Type Severity Reaction Status Date / Time No Known Allergies Allergy Verified 09/21/19 11:53 Social History Smoking Status: Never smoker ROS Constitutional Constitutional: Reports chills and malaise; Denies anorexia, change in weight, fever(s), night sweats or weakness Eyes Eyes: Denies blurry vision, change in vision, discharge from eye(s) or eye pain Cardiovascular Cardiovascular: Reports dyspnea on exertion; Denies chest pain, claudication, edema or palpitations Respiratory/Chest Respiratory/Chest: Reports dyspnea, shortness of breath at rest and shortness of breath with exertion; Denies cough or hemoptysis Gastrointestinal Gastrointestinal: Reports abdominal pain, nausea and vomiting; Denies constipation, diarrhea, hematemesis, hematochezia or melena Genitourinary Genitourinary: Denies dysuria, hematuria, urinary frequency, urinary hesitancy, urinary incontinence or urinary urgency Musculoskeletal Musculoskeletal: Denies back pain, joint pain, joint stiffness, joint swelling, myalgias or neck pain Neurologic Neurologic: Denies abnormal gait, abnormal speech, dizziness, focal weakness, headache(s), loss of vision, numbness, other visual disturbances, paresthesias, syncope or tingling Psychiatric Psychiatric: Denies anxiety, cognitive impairment, depression, irritability, mood swings or suicidal ideation Endocrine Endocrinology: Denies change in body appearance, cold intolerance, excessive sweating, heat intolerance, polydipsia or polyuria Hematologic/Lymphatic Hematologic/Lymphatic: Denies none, anemia, easy bleeding, easy bruising or lymphadenopathy Allergic/Immunologic Allergic/Immunologic: Denies rhinitis, urticaria, eczemia or asthma Vital Signs Vital Signs Vital Signs: 11/01/22 18:20 11/01/22 18:28 11/01/22 18:29 Temperature 100.7 F H 100.7 F H Temperature Source Oral Oral Pulse Rate 118 H 112 H Respiratory Rate 21 H Respiratory Effort Short of Breath Respiratory Pattern Tachypnea Blood Pressure 134/110 H 134/110 H Blood Pressure Mean 118 118 Pulse Ox 88 91 Oxygen Delivery Method Room Air Room Air Nasal Cannula Oxygen Flow Rate (L/min) 4 11/01/22 18:30 11/01/22 19:26 11/01/22 20:00 Temperature 98.8 F 98.3 F Temperature Source Oral Oral Pulse Rate 94 94 Respiratory Rate 20 H 19 H Respiratory Effort Respiratory Pattern Blood Pressure 97/64 134/75 H 136/87 H Blood Pressure Mean 75 94 103 Pulse Ox 92 97 97 Oxygen Delivery Method Nasal Cannula Nasal Cannula Nasal Cannula Oxygen Flow Rate (L/min) 4 4 4 Weight Weight: 66.6 kg Body Mass Index (BMI) 28.6 Physical Exam Const alert, oriented x3, no apparent distress and average body habitus General Appearance: cooperative, well kempt and well developed Orientation / Consciousness: awake, oriented to person, oriented to place and oriented to time HEENT normocephalic, head/scalp atraumatic, hearing grossly normal bilaterally and moist oral mucous membranes Eyes PERRL, EOMs intact bilaterally and conjunctivae normal Neck supple, no JVD, thyroid normal and no carotid bruits General: trachea midline Resp normal respiratory effort, no retractions and no use of accessory muscles Resp Narrative: Breath sounds were diminished bilaterally Auscultation: Negative for rales, rhonchi or wheezes Cardio regular rate, regular rhythm, S1 normal heart sound, S2 normal heart sound, no murmurs, no rub and no gallops GI soft to palpation and non-distended GI Narrative: There is mild abdominal tenderness to palpation in the epigastric area in the right upper quadrant Extremity no clubbing, cyanosis or edema Skin no rashes or lesions noted General Skin Exam: no breakdown Neuro oriented x3, CN's II-XII intact bilaterally, moves all extremities, no focal motor deficits and no sensory deficits noted Sensorium / Orientation: awake, alert, oriented to person, oriented to place and oriented to time Speech: speech normal Psych affect normal Results Lab / Micro Data Result Diagrams: 11/01/22 18:30 11/01/22 18:30 Labs: Laboratory Results - last 24 hr 11/01/22 18:30: WBC 16.9 H, RBC 4.64, Hgb 12.0, Hct 37.3, MCV 80.4 L, MCH 25.9 L, MCHC 32.2, RDW Std Deviation 54.5 H, RDW Coeff of [place] 18.6 H, Plt Count 327, MPV 8.7, Immature Gran % (Auto) 0.800, Neut % (Auto) 92.6 H, Lymph % (Auto) 2.5 L, [place] % (Auto) 3.9, Eos % (Auto) 0.0, Baso % (Auto) 0.2, Absolute Neuts (auto) 15.6 H, Absolute Lymphs (auto) 0.42 L, Nucleated RBC % 0, Differential Comment SCANNED 11/01/22 18:30: Sodium 130 L, Potassium 3.3 L, Chloride 96 L, Carbon Dioxide 25.0, Anion Gap 9, BUN 13, Creatinine 0.73, Estim Creat Clear Calc 31.69, Est GFR (MDRD) Af Amer 98, Est GFR (MDRD) Non-Af 81, BUN/Creatinine Ratio 17.8, Glucose 220 H, Calcium 8.4 L, Total Bilirubin 0.50, AST 30, ALT 15, Alkaline Phosphatase 131 H, Troponin I High Sens 8, Total Protein 7.4, Albumin 3.1 L, Globulin 4.3 H, Albumin/Globulin Ratio 0.7 L, Lipase 27 11/01/22 18:30: Lactic Acid 2.0 11/01/22 18:53: Urine Color Yellow, Urine Clarity Clear, Urine pH 7.0, Ur Specific [place] 1.010, Urine Protein 500 H, Urine Glucose (UA) 50 H, Urine Ketones Negative, Urine Occult Blood 10 H, Urine Nitrite Negative, Urine Bilirubin 1 H, Urine Urobilinogen Normal, Ur Leukocyte Esterase Negative, Urine RBC 0 SEEN, Urine WBC 0-5 SEEN, Ur Squamous Epith Cells 0 SEEN, Urine Bacteria 0 SEEN, Urine Mucus 0 SEEN Micro: Microbiology 11/01/22 18:30 Nasal Secretion SARS-CoV-2 & FLU Antigen (Rapid) - Final Radiology Impression Chest CTA 11/01/22 18:38 IMPRESSION: 1. No central or segmental pulmonary embolism. 2. Bilateral lower lobe peribronchial pneumonia or atelectasis. Electronically Signed: Dustin Ojeda (Brooks), at 19:42 EDT , Abdomen/Pelvis CT 11/01/22 18:40 IMPRESSION: 1. Gallbladder wall thickening, gallstone and pericholecystic fluid likely representing acute cholecystitis. 2. Biliary stent appears to terminate above the ampulla and the lower common duct. Mild intrahepatic bile duct dilation. 3. Multiple new lumbar spine fractures. Electronically Signed: Dustin Ojeda (Brooks), at 19:46 EDT , Assessment & Plan Assessment/Plan (1) Acute cholecystitis: PLAN: Plan 1. Bilateral community-acquired pneumonia-patient will be admitted to [facility], she will be given IV Zosyn, blood cultures were obtained in the emergency room, patient will be given aerosol treatments, sputum culture will be ordered, viral panel will be ordered #2 hypoxia secondary to #1-patient's pulse ox will be monitored, she will be given aerosol treatments #3 possible cholecystitis-patient will be seen in consultation by general surgery, patient's alkaline phosphatase is minimally elevated, repeat liver enzymes will be obtained tomorrow #4 essential hypertension-patient is on amlodipine chronically #5 osteoporosis-patient has a history of compression fractures of the lumbar spine #6 hyponatremia-etiology unclear, labs will be repeated tomorrow #7 hyperglycemia-etiology unclear, it does not appear the patient has a history of diabetes, labs will be repeated tomorrow Total clinical time spent by myself addressing patient's medical issues, reviewing all of her data, and collaborating with patient's care team: 75-minutes Charges/Coding Visit Charges Inpatient E&M: 00804 Init Hosp L3
[2022-11-01 20:38] LABS: Reflex Troponin-HS? (from REC) Y
--- NOTE | 2022-11-01 21:10 | CON.PCM.SX_ITS ---
Assessment & Plan Assessment/Plan (1) Acute cholecystitis: (2) Pneumonia: PLAN: Plan Did discuss with her and the patient that her gallstones are still present as there was concern back in September 2019 that they did something to get their gallstones dissolved however that ultrasound of September 2019 also showed 2 gallstones. Discussed with patient that her gallbladder does have more pericholecystic fluid and inflammation around it however it does not appear that the 2 large stones are currently stuck at the neck of the gallbladder. Would normally recommend cholecystectomy however patient currently states she does not want any surgery but also with patient's bilateral pneumonia patient would be at high risk for surgery. Patient may do better getting cholecystostomy tube by IR on Thursday. Patient be admitted to medicine and kept on IV antibiotics. We will continue to follow and talk with patient and her family about interventions for the gallbladder. Liliam Parker M.D. Pager: [phone] [facility] [address] [place] [address], [facility], [address] [place] [address] Office: [phone] HPI Consult Data Date of Consult: 11/02/22 HPI Narrative HPI Narrative: AGUILA MONTEJO, is a 82 F who presents to the ER due to shortness of breath and abdominal pain. Patient is a poor historian and quite somnolent during interview but will wake up occasionally to answer some questions. Patient's has been stated that she was having some back/abdominal pain starting yesterday and was having nausea and vomiting today. Patient currently denies much abdominal pain states it is better than previous. Patient had CTA of the chest showed bilateral pneumonia no PE, CT abdomen pelvis showed distended gallbladder with gallstones and pericholecystic fluid. Patient previously had cholangitis in July 2021 and had an ERCP with stent placement by Dr. Zuñiga patient refused to have stent removed after 2 months and did not show back up for appointment. Gallbladder was not removed at that time. Patient has a white blood count of 16.9 currently. When asked about surgery patient said no she did not want any surgery. [facility] Medical History Depression Home Medications amlodipine 2.5 mg tablet 2.5 mg PO DAILY blood pressure 03/03/22 [History Last Taken 11/01/22 09:00] tramadol 50 mg tablet 50 mg PO Q8H PRN Pain 03/03/22 [History Last Taken Unkn own] Allergy/AdvReac Type Severity Reaction Status Date / Time No Known Allergies Allergy Verified 09/21/19 11:53 Social History Smoking Status: Never smoker ROS Constitutional Constitutional: Reports anorexia Eyes Eyes: Denies loss of central vision ENT HEENT: Denies dysphagia Cardiovascular Cardiovascular: Reports dyspnea Respiratory/Chest Respiratory/Chest: Reports dyspnea; Denies productive cough or wheezing Gastrointestinal Gastrointestinal: Reports abdominal pain, nausea and vomiting Genitourinary Genitourinary: Denies hematuria Musculoskeletal Musculoskeletal: Reports back pain; Denies joint swelling Integumentary Integumentary: Denies jaundice Neurologic Neurologic: Denies focal weakness Psychiatric Psychiatric: Denies anxiety Hematologic/Lymphatic Hematologic/Lymphatic: Denies easy bleeding Physical Exam Const Constitutional Narrative: Somnolent will answer some questions and open her eyes HEENT normocephalic Resp Resp Narrative: Patient is on 4 to 5 L nasal cannula Cardio Rate: regular rate GI soft to palpation Inspection: Negative for abdominal distention Palpation: tender epigastric and RUQ; Negative for guarding Extremity normal to inspection Skin no rashes or lesions noted Lab / Micro Data Result Diagrams: 11/02/22 06:13 11/02/22 06:13 Labs: Laboratory Results - last 24 hr 11/01/22 18:30: WBC 16.9 H, RBC 4.64, Hgb 12.0, Hct 37.3, MCV 80.4 L, MCH 25.9 L , MCHC 32.2, RDW Std Deviation 54.5 H, RDW Coeff of [place] 18.6 H, Plt Count 327, MPV 8.7, Immature Gran % (Auto) 0.800, Neut % (Auto) 92.6 H, Lymph % (Auto) 2.5 L, [place] % (Auto) 3.9, Eos % (Auto) 0.0, Baso % (Auto) 0.2, Absolute Neuts (auto) 15.6 H, Absolute Lymphs (auto) 0.42 L, Nucleated RBC % 0, Differential Comment SCANNED 11/01/22 18:30: Sodium 130 L, Potassium 3.3 L, Chloride 96 L, Carbon Dioxide 25.0, Anion Gap 9, BUN 13, Creatinine 0.73, Estim Creat Clear Calc 31.69, Est GFR (MDRD) Af Amer 98, Est GFR (MDRD) Non-Af 81, BUN/Creatinine Ratio 17.8, Glucose 220 H, Calcium 8.4 L, Total Bilirubin 0.50, AST 30, ALT 15, Alkaline Phosphatase 131 H, Troponin I High Sens 8, Total Protein 7.4, Albumin 3.1 L, Globulin 4.3 H, Albumin/Globulin Ratio 0.7 L, Lipase 27 11/01/22 18:30: Lactic Acid 2.0 11/01/22 18:53: Urine Color Yellow, Urine Clarity Clear, Urine pH 7.0, Ur Specific [place] 1.010, Urine Protein 500 H, Urine Glucose (UA) 50 H, Urine Ketones Negative, Urine Occult Blood 10 H, Urine Nitrite Negative, Urine Bilirubin 1 H, Urine Urobilinogen Normal, Ur Leukocyte Esterase Negative, Urine RBC 0 SEEN, Urine WBC 0-5 SEEN, Ur Squamous Epith Cells 0 SEEN, Urine Bacteria 0 SEEN, Urine Mucus 0 SEEN Micro: Microbiology 11/01/22 18:30 Nasal Secretion SARS-CoV-2 & FLU Antigen (Rapid) - Final Radiology Impression Chest CTA 11/01/22 18:38 IMPRESSION: 1. No central or segmental pulmonary embolism. 2. Bilateral lower lobe peribronchial pneumonia or atelectasis. Electronically Signed: Dustin Ojeda (Brooks), at 19:42 EDT , Abdomen/Pelvis CT 11/01/22 18:40 IMPRESSION: 1. Gallbladder wall thickening, gallstone and pericholecystic fluid likely representing acute cholecystitis. 2. Biliary stent appears to terminate above the ampulla and the lower common duct. Mild intrahepatic bile duct dilation. 3. Multiple new lumbar spine fractures. Electronically Signed: Dustin Ojeda (Brooks), at 19:46 EDT , Charges/Coding Visit Charges Inpatient E&M: 63434 Init Hosp L3
[2022-11-01 21:29] LABS: Troponin-I HS 31 pg/mL (3.0-54.0)
[2022-11-01 22:37] LABS: Reflex Lactate? Y
[2022-11-01 23:59] LABS: Lactic Acid 1.5 mmol/L (0.4-1.9)
[2022-11-02] MEDS: Heparin Injection (Vial) 5,000 UNIT/ML VIAL 5000 UNIT SC ×3 (00:43→22:14)
[2022-11-02] MEDS: Potassium Chloride Oral Tablet 20 MEQ PO (00:44)
[2022-11-02 03:25] VITALS: BP 125/65; PULSE 79; RESP 20; TEMP 36.8; O2SAT 97
[2022-11-02 03:38] VITALS: RESP 20
[2022-11-02] MEDS: 0.9% Saline Lock 10 ML Syringe IV (06:04)
[2022-11-02 07:09] LABS: Absolute Lymphocyte Count 2.34 X10^3/uL (0.83-4.51); Absolute Neutrophil Count 9.2 X10^3/uL (2.0-7.7); Basophil# 0.03 X10^3/uL; Basophil% 0.2 % (0-1); Eosinophil# 0.02 X10^3/uL; Eosinophils% 0.2 % (0-5); Hematocrit 32.4 % (37-47); Hemoglobin 10.3 g/dL (12.0-15.0); Lymphocyte # 2.34 X10^3/ul (0.83-4.51); Lymphocyte % 18.4 % (19-41); Mean Corp Hgb Conc 31.8 g/dL (32-36); Mean Corpuscular Hgb 25.9 pg (27.0-32.0); Mean Corpuscular Volume 81.6 fL (81-99); Mean Platelet Vol. 8.8 fl (6.2-12.0); Monocyte# 1.09 X10^3/uL; Monocyte% 8.6 % (0-10); NRBC Flagged by Analyzer 0 % (0-5); Neutrophil # 9.17 X10^3/uL (2.7-7.7); Neutrophil % 72.1 % (47-70); Platelet Count 302 K/mm3 (150-450); RBC Distribution Width CV 18.8 % (11.6-14.6); RBC Distribution Width SD 56.4 fl (35.1-43.9); Red Blood Count 3.97 M/mm3 (4.2-5.4); White Blood Count 12.7 K/mm3 (4.4-11.0)
[2022-11-02 07:33] LABS: ALB/GLOB Ratio 0.7 RATIO (0.9-2.4); AST(SGOT) 34 U/L (15-37); Alanine Aminotransfer ALT/SGPT 14 U/L (13-56); Albumin, Serum 2.5 g/dL (3.2-5.0); Alkaline Phosphatase 104 U/L (45-117); Anion Gap 6 (5-15); BUN 10 mg/dL (7-18); BUN/Creat Ratio 18.8 RATIO (10-20); Calcium,Total 8.1 mg/dL (8.5-10.1); Chloride 106 mmol/L (98-107); Creatinine, Serum 0.53 mg/dL (0.55-1.02); EST Glomerular Filtration Rate 117 mL/min (>60); Est Glom Filt Rate - Afr Amer 142 mL/min (>60); Estimated Creatinine Clearance 31.69 ml/min; Globulin 3.7 g/dL (2.2-4.2); Glucose 86 mg/dL (74-106); Potassium 3.3 mmol/L (3.5-5.1); Protein, Total 6.2 g/dL (6.4-8.2); Sodium Level 136 mmol/L (136-145)
[2022-11-02 07:44] VITALS: O2SAT 96
--- NOTE | 2022-11-02 07:52 | PCM.PN.SRG ---
Subjective Subjective Patient denies abdominal pain when asked, denies nausea or vomiting Objective Data Objective Data Vital Signs: Vital Signs Temp Pulse Resp BP Pulse Ox O2 Del Method O2 Flow Rate 98.2 F 79 20 H 125/65 H 96 Nasal Cannula 2 11/02/22 03:25 11/02/22 03:25 11/02/22 03:38 11/02/22 03:25 11/02/22 07:44 11/02/22 07:44 11/02/22 07:44 Oxygen Flow Rate (L/min) 2 Oxygen Delivery Method Nasal Cannula Weight: 143 lb 8 oz Body Mass Index (BMI) 28.0 Intake & Output: Intake and Output for Last 24 Hours 10/31/22 11/01/22 11/02/22 23:59 23:59 23:59 Intake Total 1650 / 1650 50 / 50 Output Total 500 / 500 Balance 1650 / 1350 -450 / -450 Lab / Micro Data Result Diagrams: 11/02/22 06:13 11/02/22 06:13 Labs: Laboratory Results - last 24 hr 11/01/22 18:30: WBC 16.9 H, RBC 4.64, Hgb 12.0, Hct 37.3, MCV 80.4 L, MCH 25.9 L, MCHC 32.2, RDW Std Deviation 54.5 H, RDW Coeff of [place] 18.6 H, Plt Count 327, MPV 8.7, Immature Gran % (Auto) 0.800, Neut % (Auto) 92.6 H, Lymph % (Auto) 2.5 L, [place] % (Auto) 3.9, Eos % (Auto) 0.0, Baso % (Auto) 0.2, Absolute Neuts (auto) 15.6 H, Absolute Lymphs (auto) 0.42 L, Nucleated RBC % 0, Differential Comment SCANNED 11/01/22 18:30: Sodium 130 L, Potassium 3.3 L, Chloride 96 L, Carbon Dioxide 25.0, Anion Gap 9, BUN 13, Creatinine 0.73, Estim Creat Clear Calc 31.69, Est GFR (MDRD) Af Amer 98, Est GFR (MDRD) Non-Af 81, BUN/Creatinine Ratio 17.8, Glucose 220 H, Calcium 8.4 L, Total Bilirubin 0.50, AST 30, ALT 15, Alkaline Phosphatase 131 H, Troponin I High Sens 8, Total Protein 7.4, Albumin 3.1 L, Globulin 4.3 H, Albumin/Globulin Ratio 0.7 L, Lipase 27 11/01/22 18:30: Lactic Acid 2.0 11/01/22 18:53: Urine Color Yellow, Urine Clarity Clear, Urine pH 7.0, Ur Specific [place] 1.010, Urine Protein 500 H, Urine Glucose (UA) 50 H, Urine Ketones Negative, Urine Occult Blood 10 H, Urine Nitrite Negative, Urine Bilirubin 1 H, Urine Urobilinogen Normal, Ur Leukocyte Esterase Negative, Urine RBC 0 SEEN, Urine WBC 0-5 SEEN, Ur Squamous Epith Cells 0 SEEN, Urine Bacteria 0 SEEN, Urine Mucus 0 SEEN 11/01/22 21:10: Troponin I High Sens 31 11/01/22 23:20: Lactic Acid 1.5 11/02/22 06:13: WBC 12.7 H, RBC 3.97 L, Hgb 10.3 L, Hct 32.4 L, MCV 81.6, MCH 25.9 L, MCHC 31.8 L, RDW Std Deviation 56.4 H, RDW Coeff of [place] 18.8 H, Plt Count 302, MPV 8.8, Immature Gran % (Auto) 0.500, Neut % (Auto) 72.1 H, Lymph % (Auto) 18.4 L, [place] % (Auto) 8.6, Eos % (Auto) 0.2, Baso % (Auto) 0.2, Absolute Neuts (auto) 9.2 H, Absolute Lymphs (auto) 2.34, Nucleated RBC % 0 11/02/22 06:13: Sodium 136, Potassium 3.3 L, Chloride 106, Carbon Dioxide 24.0, Anion Gap 6, BUN 10, Creatinine 0.53 L, Estim Creat Clear Calc 31.69, Est GFR (MDRD) Af Amer 142, Est GFR (MDRD) Non-Af 117, BUN/Creatinine Ratio 18.8, Glucose 86, Calcium 8.1 L, Total Bilirubin 0.50, AST 34, ALT 14, Alkaline Phosphatase 104, Total Protein 6.2 L, Albumin 2.5 L, Globulin 3.7, Albumin/Globulin Ratio 0.7 L Micro: Microbiology 11/01/22 23:35 Mucosa - Nose Respiratory Panel (PCR) - Final 11/01/22 18:30 Nasal Secretion SARS-CoV-2 & FLU Antigen (Rapid) - Final Radiography Diagnostic Testing: Radiology Impression Chest CTA 11/01/22 18:38 IMPRESSION: 1. No central or segmental pulmonary embolism. 2. Bilateral lower lobe peribronchial pneumonia or atelectasis. Electronically Signed: Dustin Ojeda (Brooks), at 19:42 EDT , Abdomen/Pelvis CT 11/01/22 18:40 IMPRESSION: 1. Gallbladder wall thickening, gallstone and pericholecystic fluid likely representing acute cholecystitis. 2. Biliary stent appears to terminate above the ampulla and the lower common duct. Mild intrahepatic bile duct dilation. 3. Multiple new lumbar spine fractures. Electronically Signed: Dustin Ojeda (Brooks), at 19:46 EDT , Physical Exam Const no apparent distress Resp normal respiratory effort Resp Narrative: 2 L nasal cannula Cardio regular rate GI soft to palpation Inspection: Negative for abdominal distention Palpation: tender RUQ Assessment & Plan Assessment/Plan (1) Acute cholecystitis: (2) Pneumonia: PLAN: Plan Again discussed with the patient and her , patient may be better off with cholecystostomy tube currently to allow her breathing to improve and also her gallbladder has been inflamed for quite a while as it was inflamed in 2019. Patient still unsure if she would ever want surgery as well for her gallbladder. Patient still has her biliary stent which I discussed that should have be also removed, but pt didn't f/u after refusing ERCP in September 2019. Continue IV Arvind Parker M.D. Pager: [phone] [facility] [address] [place] [address], [facility], [address] [place] [address] Office: [phone] Charges/Coding Visit Charges Inpatient E&M: 56282 Subs Hosp L2
[2022-11-02] MEDS: amLODIPine 2.5 MG Tablet PO (08:52)
[2022-11-02 08:58] VITALS: BP 98/60; PULSE 80; RESP 18; TEMP 36.8; O2SAT 95
[2022-11-02] MEDS: 0.9% Normal Saline 1,000 ML 100 ML IV ×2 (09:53→19:55)
--- NOTE | 2022-11-02 12:09 | PN_ITS ---
Subjective Subjective Patient seen and examined. She was comfortably eating breakfast. Her and sons were by her bedside. She had no active complaints. She denied any fever, chills, cough, chest pain, palpitations, dizziness, nausea, vomiting or diarrhea. Review of systems is otherwise negative. Objective Data Objective Data Vital Signs: Vital Signs Temp Pulse Resp BP Pulse Ox O2 Del Method O2 Flow Rate 98.2 F 80 18 98/60 95 Nasal Cannula 2 11/02/22 08:58 11/02/22 08:58 11/02/22 08:58 11/02/22 08:58 11/02/22 08:58 11/02/22 09:02 11/02/22 09:02 Oxygen Flow Rate (L/min) 2 Oxygen Delivery Method Nasal Cannula Weight: 143 lb 8 oz Body Mass Index (BMI) 28.0 Intake & Output: Intake and Output for Last 24 Hours 10/31/22 11/01/22 11/02/22 23:59 23:59 23:59 Intake Total 1650 / 1650 100 / 100 Output Total 500 / 500 Balance 1650 / 1350 -400 / -400 Lab / Micro Data Result Diagrams: 11/02/22 06:13 11/02/22 06:13 Labs: Laboratory Results - last 24 hr 11/01/22 18:30: WBC 16.9 H, RBC 4.64, Hgb 12.0, Hct 37.3, MCV 80.4 L, MCH 25.9 L , MCHC 32.2, RDW Std Deviation 54.5 H, RDW Coeff of [place] 18.6 H, Plt Count 327, MPV 8.7, Immature Gran % (Auto) 0.800, Neut % (Auto) 92.6 H, Lymph % (Auto) 2.5 L, [place] % (Auto) 3.9, Eos % (Auto) 0.0, Baso % (Auto) 0.2, Absolute Neuts (auto) 15.6 H, Absolute Lymphs (auto) 0.42 L, Nucleated RBC % 0, Differential Comment SCANNED 11/01/22 18:30: Sodium 130 L, Potassium 3.3 L, Chloride 96 L, Carbon Dioxide 25.0, Anion Gap 9, BUN 13, Creatinine 0.73, Estim Creat Clear Calc 31.69, Est GFR (MDRD) Af Amer 98, Est GFR (MDRD) Non-Af 81, BUN/Creatinine Ratio 17.8, Glucose 220 H, Calcium 8.4 L, Total Bilirubin 0.50, AST 30, ALT 15, Alkaline Phosphatase 131 H, Troponin I High Sens 8, Total Protein 7.4, Albumin 3.1 L, Globulin 4.3 H, Albumin/Globulin Ratio 0.7 L, Lipase 27 11/01/22 18:30: Lactic Acid 2.0 11/01/22 18:53: Urine Color Yellow, Urine Clarity Clear, Urine pH 7.0, Ur Specific [place] 1.010, Urine Protein 500 H, Urine Glucose (UA) 50 H, Urine Ketones Negative, Urine Occult Blood 10 H, Urine Nitrite Negative, Urine Bilirubin 1 H, Urine Urobilinogen Normal, Ur Leukocyte Esterase Negative, Urine RBC 0 SEEN, Urine WBC 0-5 SEEN, Ur Squamous Epith Cells 0 SEEN, Urine Bacteria 0 SEEN, Urine Mucus 0 SEEN 11/01/22 21:10: Troponin I High Sens 31 11/01/22 23:20: Lactic Acid 1.5 11/02/22 06:13: WBC 12.7 H, RBC 3.97 L, Hgb 10.3 L, Hct 32.4 L, MCV 81.6, MCH 25.9 L, MCHC 31.8 L, RDW Std Deviation 56.4 H, RDW Coeff of [place] 18.8 H, Plt C ount 302, MPV 8.8, Immature Gran % (Auto) 0.500, Neut % (Auto) 72.1 H, Lymph % (Auto) 18.4 L, [place] % (Auto) 8.6, Eos % (Auto) 0.2, Baso % (Auto) 0.2, Absolute Neuts (auto) 9.2 H, Absolute Lymphs (auto) 2.34, Nucleated RBC % 0 11/02/22 06:13: Sodium 136, Potassium 3.3 L, Chloride 106, Carbon Dioxide 24.0, Anion Gap 6, BUN 10, Creatinine 0.53 L, Estim Creat Clear Calc 31.69, Est GFR (MDRD) Af Amer 142, Est GFR (MDRD) Non-Af 117, BUN/Creatinine Ratio 18.8, Gluc ose 86, Calcium 8.1 L, Total Bilirubin 0.50, AST 34, ALT 14, Alkaline Phospha tase 104, Total Protein 6.2 L, Albumin 2.5 L, Globulin 3.7, Albumin/Globulin Ratio 0.7 L Micro: Microbiology 11/01/22 23:35 Mucosa - Nose Respiratory Panel (PCR) - Final 11/01/22 18:30 Nasal Secretion SARS-CoV-2 & FLU Antigen (Rapid) - Final Radiography Diagnostic Testing: Radiology Impression Chest CTA 11/01/22 18:38 IMPRESSION: 1. No central or segmental pulmonary embolism. 2. Bilateral lower lobe peribronchial pneumonia or atelectasis. Electronically Signed: Dustin DownsBriseida Ojeda, at 19:42 EDT , Abdomen/Pelvis CT 11/01/22 18:40 IMPRESSION: 1. Gallbladder wall thickening, gallstone and pericholecystic fluid likely representing acute cholecystitis. 2. Biliary stent appears to terminate above the ampulla and the lower common duct. Mild intrahepatic bile duct dilation. 3. Multiple new lumbar spine fractures. Electronically Signed: Dustin EduardoCarrilloBriseida Ojeda, at 19:46 EDT , Physical Exam Const alert, oriented x3 and no apparent distress General Appearance: cooperative and well developed HEENT normocephalic, head/scalp atraumatic and moist oral mucous membranes Eyes PERRL and EOMs intact bilaterally Neck supple Lymph Lymphatic: no lymphadenopathy noted and no lymphedema noted Resp normal respiratory effort, normal air movement and clear to auscultation bilaterally Cardio regular rate, regular rhythm, S1 normal heart sound and S2 normal heart sound GI normal to inspection, nondistended, normoactive bowel sounds, soft to palpation, non-tender and non-distended Extremity normal capillary refill, no clubbing, cyanosis or edema and no calf tenderness Skin General Skin Exam: no breakdown Neuro CN's II-XII intact bilaterally, no focal motor deficits, no sensory deficits noted and deep tendon reflexes 2+ bilaterally Psych thought process normal and cooperative Appearance: appropriate Assessment & Plan Assessment/Plan (1) Acute cholecystitis: (2) Pneumonia: (3) Hypoxia: PLAN: Plan #Acute cholecystitis * Denies any abdominal pain * See the of the abdomen and pelvis showed bilateral lower lobe showed gallbladder wall thickening, gallstone and pericholecystic fluid representing acute cholecystitis. She does have a biliary stent in place. * General surgery on board. For cholecystostomy tube insertion tomorrow. Patient does not want surgery and she is also deemed as a poor surgical candidate. * On IV Zosyn #Hypoxia due to community-acquired pneumonia * Was admitted with some shortness of breath. CT of the chest showed bilateral lower lobe peribronchial pneumonia or atelectasis * On IV Zosyn. COVID and influenza test were negative. * Titrate oxygen to maintain saturation above 90%. * #Benign essential hypertension: On amlodipine #Compression fractures of the lumbar spine due to osteoporosis. Stable #Hypokalemia: Potassium is 3.3. Will replace and trend. DVT prophylaxis: Heparin Charges/Coding Visit Charges Inpatient E&M: 30500 Subs Hosp L2
[2022-11-02 15:00] VITALS: BP 102/60; PULSE 84; RESP 18; TEMP 36.8; O2SAT 93
[2022-11-02 22:00] VITALS: BP 153/88; PULSE 80; RESP 18; TEMP 36.4; O2SAT 94
[2022-11-03] VITALS (19 sets, daily range): BP systolic 117–194; BP diastolic 70–137; PULSE 65–100; RESP 16–28; TEMP 36.6–37.3; O2SAT 30–98
[2022-11-03] MEDS: 0.9% Normal Saline 1,000 ML 100 ML IV ×2 (05:49→21:38)
[2022-11-03 05:54] LABS: Absolute Lymphocyte Count 2.02 X10^3/uL (0.83-4.51); Absolute Neutrophil Count 4.9 X10^3/uL (2.0-7.7); Basophil# 0.05 X10^3/uL; Basophil% 0.6 % (0-1); Eosinophil# 0.07 X10^3/uL; Eosinophils% 0.9 % (0-5); Hematocrit 31.7 % (37-47); Lymphocyte # 2.02 X10^3/ul (0.83-4.51); Lymphocyte % 25.1 % (19-41); Mean Corp Hgb Conc 31.5 g/dL (32-36); Mean Corpuscular Hgb 26.1 pg (27.0-32.0); Mean Corpuscular Volume 82.8 fL (81-99); Mean Platelet Vol. 8.8 fl (6.2-12.0); Monocyte# 0.95 X10^3/uL; Monocyte% 11.8 % (0-10); NRBC Flagged by Analyzer 0 % (0-5); Neutrophil # 4.92 X10^3/uL (2.7-7.7); Neutrophil % 61.2 % (47-70); Platelet Count 288 K/mm3 (150-450); RBC Distribution Width CV 19.2 % (11.6-14.6); RBC Distribution Width SD 58.1 fl (35.1-43.9); Red Blood Count 3.83 M/mm3 (4.2-5.4)
[2022-11-03 06:21] LABS: Anion Gap 4 (5-15); BUN 7 mg/dL (7-18); BUN/Creat Ratio 13.3 RATIO (10-20); Calcium,Total 8.4 mg/dL (8.5-10.1); Chloride 111 mmol/L (98-107); Creatinine, Serum 0.52 mg/dL (0.55-1.02); EST Glomerular Filtration Rate 119 mL/min (>60); Est Glom Filt Rate - Afr Amer 144 mL/min (>60); Estimated Creatinine Clearance 31.69 ml/min; Glucose 93 mg/dL (74-106); Sodium Level 140 mmol/L (136-145)
--- NOTE | 2022-11-03 08:01 | CT_ITS ---
PROCEDURE: CT-guided percutaneous cholecystostomy DATE: 11/03/2022 INDICATION: 82-year-old female with concerns for acute cholecystitis. PHYSICIAN: Carter Armstrong D.O. MEDICATIONS: 10 cc of 2% lidocaine was administered subcutaneously for local anesthesia. 1 mg of Versed and 50 mcg of fentanyl were utilized for sedation. Sedation start time: 1355. Sedation stop time: 1457. RADIATION DOSAGE (if supplied): Total exam DLP: 1277.64 FINDINGS: The risks, benefits, and alternatives to the procedure were explained to the patient. The specific risks of bleeding, and infection were detailed and accepted. Witnessed informed consent was obtained. The patient was placed in a supine position in the CT scanner. An initial machine slat basket maker CT was performed to evaluate for approach of the gallbladder. A suitable approach was selected in the right hepatic lobe. The skin surface was prepared in the usual sterile fashion. 10 cc of local lidocaine was injected utilizing a 25-gauge injection needle and 22-gauge spinal needle for deeper numbing. A 21-gauge introducer needle was then advanced into the gallbladder utilizing CT fluoroscopic guidance. 2 to 3 cc of brownish-yellow pus was aspirated. A 0.038 guidewire was then placed into the gallbladder. A 4 [place]ian coaxial introducer was placed over the guidewire. The 0.038 guidewire was replaced with a 0.018 guidewire. The tract was then dilated with a 7 [place] dilator. Finally, an 8 [place] pigtail catheter was placed and approximately 18 cc of brownish-yellow pus was aspirated. The pigtail was then attached to a drainage balloon and secured. During the procedure, periodic CT fluoroscopic guidance was utilized to ensure positioning within the gallbladder lumen. There were no complications. The patient tolerated the procedure well and remained in stable condition throughout the procedure. The patient was monitored in the nursing observation area and returned to the floor in stable condition. CT/CT Guidance Abscess Drg w/Cath IMPRESSION: Successful CT-guided percutaneous cholecystostomy. Electronically Signed: Carter Armstrong DO at 16:39 EDT ,
[2022-11-03 08:36] LABS: International Normalized Ratio 1.1; Partial Thromboplast Time 34.2 Seconds (24.1-36.2); Prothrombin Time (Protime)PT. 14.6 SECONDS (11.7-14.9)
--- NOTE | 2022-11-03 08:47 | PCM.PN.SRG ---
Subjective Subjective Patient is an 82 y/o F I am following for acute on chronic cholecystitis. Patient evaluated resting comfortably in bed. She denies abdominal pain, fever, nausea, vomiting. Objective Data Objective Data Vital Signs: Vital Signs Temp Pulse Resp BP Pulse Ox O2 Del Method O2 Flow Rate 97.8 F 73 18 132/70 H 95 Room Air 2 11/03/22 04:00 11/03/22 04:00 11/03/22 04:00 11/03/22 04:00 11/03/22 04:00 11/03/22 04:00 11/02/22 22:00 Oxygen Flow Rate (L/min) 2 Oxygen Delivery Method Room Air Weight: 143 lb 8 oz Body Mass Index (BMI) 28.0 Intake & Output: Intake and Output for Last 24 Hours 11/01/22 11/02/22 11/03/22 23:59 23:59 23:59 Intake Total 1650 / 1650 1400 / 1550 1290 / 1290 Output Total 1025 / 1725 1900 / 1900 Balance 1650 / 1350 375 / -175 -610 / -610 Lab / Micro Data Result Diagrams: 11/03/22 05:38 11/03/22 05:38 Labs: Laboratory Results - last 24 hr 11/03/22 05:38: WBC 8.0, RBC 3.83 L, Hgb 10.0 L, Hct 31.7 L, MCV 82.8, MCH 26.1 L, MCHC 31.5 L, RDW Std Deviation 58.1 H, RDW Coeff of [place] 19.2 H, Plt Count 288, MPV 8.8, Immature Gran % (Auto) 0.400, Neut % (Auto) 61.2, Lymph % (Auto) 25.1, [place] % (Auto) 11.8 H, Eos % (Auto) 0.9, Baso % (Auto) 0.6, Absolute Neuts (auto) 4.9, Absolute Lymphs (auto) 2.02, Nucleated RBC % 0 11/03/22 05:38: Sodium 140, Potassium 3.0 L, Chloride 111 H, Carbon Dioxide 25.0, Anion Gap 4 L, BUN 7, Creatinine 0.52 L, Estim Creat Clear Calc 31.69, Est GFR (MDRD) Af Amer 144, Est GFR (MDRD) Non-Af 119, BUN/Creatinine Ratio 13.3, Glucose 93, Calcium 8.4 L 11/03/22 08:20: PT 14.6, INR 1.1, APTT 34.2 Micro: Microbiology 11/01/22 23:35 Mucosa - Nose Respiratory Panel (PCR) - Final 11/01/22 18:30 Nasal Secretion SARS-CoV-2 & FLU Antigen (Rapid) - Final Physical Exam GI normal to inspection, nondistended, normoactive bowel sounds Assessment & Plan Assessment/Plan (1) Acute cholecystitis: PLAN: Patient stable at this time Plan for javier tube placement tomorrow at 09:[address] Armstrong in radiology Patient to be NPO after midnight Charges/Coding Visit Charges Inpatient E&M: 73880 Subs Hosp L1
--- NOTE | 2022-11-03 11:00 | PN.HOSP_ITS ---
Subjective Subjective Doing well, no issues overnight. Still has a little bit of right upper quadrant tenderness Objective Data Objective Data Vital Signs: Vital Signs Temp Pulse Resp BP Pulse Ox O2 Del Method O2 Flow Rate 98.9 F 79 16 121/76 H 95 Room Air 2 11/03/22 10:39 11/03/22 10:39 11/03/22 10:39 11/03/22 10:39 11/03/22 10:39 11/03/22 10:41 11/02/22 22:00 Oxygen Flow Rate (L/min) 2 Oxygen Delivery Method Room Air Weight: 143 lb 8 oz Body Mass Index (BMI) 28.0 Intake & Output: Intake and Output for Last 24 Hours 11/02/22 11/03/22 11/04/22 03:59 03:59 03:59 Intake Total 1650 / 1650 1600 / 1600 1090 / 1090 Output Total 300 / 300 1425 / 1425 1200 / 1200 Balance 1350 / 1350 175 / 175 -110 / -110 Lab / Micro Data Result Diagrams: 11/03/22 05:38 11/03/22 05:38 Labs: Laboratory Results - last 24 hr 11/03/22 05:38: WBC 8.0, RBC 3.83 L, Hgb 10.0 L, Hct 31.7 L, MCV 82.8, MCH 26.1 L, MCHC 31.5 L, RDW Std Deviation 58.1 H, RDW Coeff of [place] 19.2 H, Plt Count 288, MPV 8.8, Immature Gran % (Auto) 0.400, Neut % (Auto) 61.2, Lymph % (Auto) 25.1, [place] % (Auto) 11.8 H, Eos % (Auto) 0.9, Baso % (Auto) 0.6, Absolute Neuts (auto) 4.9, Absolute Lymphs (auto) 2.02, Nucleated RBC % 0 11/03/22 05:38: Sodium 140, Potassium 3.0 L, Chloride 111 H, Carbon Dioxide 25.0, Anion Gap 4 L, BUN 7, Creatinine 0.52 L, Estim Creat Clear Calc 31.69, Est GFR (MDRD) Af Amer 144, Est GFR (MDRD) Non-Af 119, BUN/Creatinine Ratio 13.3, Glucose 93, Calcium 8.4 L 11/03/22 08:20: PT 14.6, INR 1.1, APTT 34.2 Micro: Microbiology 11/01/22 23:35 Mucosa - Nose Respiratory Panel (PCR) - Final 11/01/22 18:30 Nasal Secretion SARS-CoV-2 & FLU Antigen (Rapid) - Final Physical Exam Narrative General: Alert, Oriented x3, Cooperative, No apparent distress HEENT: Atraumatic, PERRLA, EOMI, Normocephalic Oral: Moist Mucosa Neck: Supple, No JVD Lungs: Managed, Normal air movement, No rhonchi, No wheeze, No rales Cardiovascular: Regular rate, Regular Rhythm, Normal S1, Normal S2, No murmurs Abdomen: Soft, mild right upper quadrant tender, Non-Distended, No Hepato- splenomegaly Extremities: No edema, Capillary Refill Less than 3 Seconds Skin: No rashes, No breakdown Musculoskeletal: No Tenderness to Palpation of Joints or Extremities Neurological: Cranial nerves II-XII grossly intact, Motor Exam 5/5 strength throughout, Sensory exam intact to light touch and pain Psych/Mental Status: Normal Affect, Appropriate Assessment & Plan Assessment/Plan (1) Acute cholecystitis: (2) Pneumonia: (3) Hypoxia: PLAN: Plan #Acute cholecystitis * Denies any abdominal pain * See the of the abdomen and pelvis showed bilateral lower lobe showed gallbladder wall thickening, gallstone and pericholecystic fluid representing acute cholecystitis. She does have a biliary stent in place. * General surgery on board. For cholecystostomy tube insertion tomorrow. Patient does not want surgery and she is also deemed as a poor surgical candidate. * On IV Zosyn, can likely transition to oral antibiotics once the cholecystostomy tube is in place #Hypoxia due to community-acquired pneumonia * Was admitted with some shortness of breath. CT of the chest showed bilateral lower lobe peribronchial pneumonia or atelectasis * On IV Zosyn. COVID and influenza test were negative. * Titrate oxygen to maintain saturation above 90%. 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 Stable DVT prophylaxis: Heparin Charges/Coding Visit Charges Inpatient E&M: 17445 Subs Hosp L2
--- NOTE | 2022-11-03 11:42 | CASEMGMT ---
VIKI CEDILLO Assessment: Face to Face with pt for initial transition planning/care coordination assessment. VIKI CEDILLO introduced self and role at [facility], pt voices understanding and consents to assessment. Pt is A/O x4 and answers all questions appropriately at this time. Pt sitting up in bed with dtr and at bedside. Pt agreeable to assessment with family present in room. Care providers, pharmacy, and demographics verified/updated. Admitting Dx: CAP, hypoxia, cholecystitis PCP:Armando Specialists:Denies Preferred [facility]acy[facility] Insurance: [employer] Prescription Benefit: no LNOK: [place], Living Arrangements: Pt lives with and son in a two story home with a ramp to enter. Pt uses main level only. Pt reports she needs some assistance with bathing and dressing and her or dtr in law helps her. Pt denies concerns at home. Transportation: Pt hires drivers. Pt is interested in [facility] van for transportation home. DME/HHC/SNF: Pt has a w/c, walker and rollator at home. Pt denies hx of HHC or SNF stays. Pt states no concerns with going home at time of dc. She declines the need for any services at home. Pt states no further concerns/needs. CM to follow. Advised pt to ask CM if any further question/concerns/needs arise, voices understanding. Pt Goal: Home Plan: Home, will try to secure hospital transportation for home.
[2022-11-03 11:48] LABS: Magnesium 2.2 mg/dL (1.6-2.6); Phosphorus 2.1 mg/dL (2.5-4.9)
--- NOTE | 2022-11-03 12:45 | NURSING ---
pt to radiology via bed
[2022-11-03] MEDS: Midazolam 2 MG/2 ML Syringe IV ×2 (13:55→14:14)
[2022-11-03] MEDS: fentaNYL 100 MCG/2 ML Ampul IV (13:57)
[2022-11-03] MEDS: Lidocaine 2% (20 ml mdv) 20 ML Vial INFILT (14:18)
[2022-11-03] MEDS: amLODIPine 2.5 MG Tablet PO (17:02)
[2022-11-03] MEDS: oxyCODONE 5 MG Tablet PO ×2 (17:29→21:36)
[2022-11-03] MEDS: Acetaminophen 325 MG Tablet 650 MG PO (17:31)
[2022-11-03] MEDS: Heparin Injection (Vial) 5,000 UNIT/ML VIAL 5000 UNIT SC (20:27)
[2022-11-03] MEDS: 0.9% Saline Lock 10 ML Syringe IV (20:28)
[2022-11-03] MEDS: MELATONIN 3 MG TABLET PO (22:52)
[2022-11-04] VITALS (15 sets, daily range): BP systolic 109–156; BP diastolic 71–92; PULSE 93–118; RESP 16–24; TEMP 36.9–37.4; O2SAT 82–95
[2022-11-04 05:16] LABS: Absolute Lymphocyte Count 2.38 X10^3/uL (0.83-4.51); Absolute Neutrophil Count 8.3 X10^3/uL (2.0-7.7); Basophil# 0.04 X10^3/uL; Basophil% 0.3 % (0-1); Eosinophil# 0.03 X10^3/uL; Eosinophils% 0.3 % (0-5); Hematocrit 36.4 % (37-47); Hemoglobin 11.8 g/dL (12.0-15.0); Lymphocyte # 2.38 X10^3/ul (0.83-4.51); Lymphocyte % 20.1 % (19-41); Mean Corp Hgb Conc 32.4 g/dL (32-36); Mean Corpuscular Hgb 26.1 pg (27.0-32.0); Mean Corpuscular Volume 80.5 fL (81-99); Mean Platelet Vol. 9.2 fl (6.2-12.0); Monocyte# 1.04 X10^3/uL; Monocyte% 8.8 % (0-10); NRBC Flagged by Analyzer 0 % (0-5); Neutrophil % 70.1 % (47-70); Platelet Count 344 K/mm3 (150-450); RBC Distribution Width SD 55.2 fl (35.1-43.9); Red Blood Count 4.52 M/mm3 (4.2-5.4); White Blood Count 11.8 K/mm3 (4.4-11.0)
[2022-11-04 06:04] LABS: Anion Gap 7 (5-15); BUN 6 mg/dL (7-18); BUN/Creat Ratio 11.8 RATIO (10-20); Calcium,Total 8.8 mg/dL (8.5-10.1); Chloride 104 mmol/L (98-107); Creatinine, Serum 0.51 mg/dL (0.55-1.02); EST Glomerular Filtration Rate 123 mL/min (>60); Est Glom Filt Rate - Afr Amer 149 mL/min (>60); Estimated Creatinine Clearance 31.69 ml/min; Glucose 99 mg/dL (74-106); Potassium 3.1 mmol/L (3.5-5.1); Sodium Level 137 mmol/L (136-145)
[2022-11-04] MEDS: 0.9% Normal Saline 1,000 ML 100 ML IV ×2 (06:46→17:28)
[2022-11-04] MEDS: oxyCODONE 5 MG Tablet PO (06:59)
[2022-11-04] MEDS: Albuterol 2.5 MG/3 ML VIAL.NEB. INHALATION ×3 (07:45→19:24)
--- NOTE | 2022-11-04 08:09 | PN.SURG_ITS ---
Subjective Subjective Patient got her Carol tube yesterday, bilious in the drain currently. Cultures are pending, will 1 out of 2 blood cultures are positive?questionable contamination, white blood count up to 11.8 from 8, nasal cannula up to 5 L Objective Data Objective Data Vital Signs: Vital Signs Temp Pulse Resp BP Pulse Ox O2 Del Method O2 Flow Rate 99.3 F H 93 20 H 142/87 H 94 Nasal Cannula 5 11/04/22 06:35 11/04/22 06:35 11/04/22 06:35 11/04/22 06:35 11/04/22 06:35 11/04/22 06:35 11/04/22 06:35 Oxygen Flow Rate (L/min) [13] 2 Oxygen Flow Rate (L/min) [11] 2 Oxygen Flow Rate (L/min) [12] 2 Oxygen Flow Rate (L/min) [10] 2 Oxygen Flow Rate (L/min) [9] 2 Oxygen Flow Rate (L/min) [8] 2 Oxygen Flow Rate (L/min) [7] 2 Oxygen Flow Rate (L/min) [6] 2 Oxygen Flow Rate (L/min) [5] 2 Oxygen Flow Rate (L/min) [4] 2 Oxygen Flow Rate (L/min) [3] 2 Oxygen Flow Rate (L/min) [2] 2 Oxygen Flow Rate (L/min) 5 Oxygen Delivery Method [13] Nasal Cannula Oxygen Delivery Method [11] Nasal Cannula Oxygen Delivery Method [12] Nasal Cannula Oxygen Delivery Method [10] Nasal Cannula Oxygen Delivery Method [9] Nasal Cannula Oxygen Delivery Method [8] Nasal Cannula Oxygen Delivery Method [7] Nasal Cannula Oxygen Delivery Method [6] Nasal Cannula Oxygen Delivery Method [5] Nasal Cannula Oxygen Delivery Method [4] Nasal Cannula Oxygen Delivery Method [3] Nasal Cannula Oxygen Delivery Method [2] Nasal Cannula Oxygen Delivery Method [1 ( Room Air Initial Baseline)] Oxygen Delivery Method Nasal Cannula Weight: 143 lb 8.335 oz Body Mass Index (BMI) 28.0 Intake & Output: Intake and Output for Last 24 Hours 11/02/22 11/03/22 11/04/22 23:59 23:59 23:59 Intake Total 1400 / 1550 2647 / 2647 963.33 / 963.33 Output Total 1025 / 1725 2019 / 2019 1740 / 1740 Balance 375 / -175 627 / 627 -776.67 / -776.67 Lab / Micro Data Result Diagrams: 11/04/22 04:21 11/04/22 04:21 Labs: Laboratory Results - last 24 hr 11/03/22 05:38: Phosphorus 2.1 L, Magnesium 2.2 11/03/22 08:20: PT 14.6, INR 1.1, APTT 34.2 11/04/22 04:21: WBC 11.8 H, RBC 4.52, Hgb 11.8 L, Hct 36.4 L, MCV 80.5 L, MCH 26.1 L, MCHC 32.4, RDW Std Deviation 55.2 H, RDW Coeff of [place] 19.0 H, Plt Count 344, MPV 9.2, Immature Gran % (Auto) 0.400, Neut % (Auto) 70.1 H, Lymph % (Auto) 20.1, [place] % (Auto) 8.8, Eos % (Auto) 0.3, Baso % (Auto) 0.3, Absolute Neuts (auto) 8.3 H, Absolute Lymphs (auto) 2.38, Nucleated RBC % 0 11/04/22 04:21: Sodium 137, Potassium 3.1 L, Chloride 104, Carbon Dioxide 26.0, Anion Gap 7, BUN 6 L, Creatinine 0.51 L, Estim Creat Clear Calc 31.69, Est GFR (MDRD) Af Amer 149, Est GFR (MDRD) Non-Af 123, BUN/Creatinine Ratio 11.8, Glucose 99, Calcium 8.8 Micro: Microbiology 11/03/22 16:11 Wound Abcess - Other Wound Culture - Preliminary Alpha hemolytic organism Gram negative librado Gram negative librado#2 11/01/22 18:25 Blood Culture (Wb) - Anticubital Right Bacteria Detection (PCR) - Final Strep anginosus 11/01/22 18:25 Blood Culture (Wb) - Anticubital Right Blood Culture - Preliminary 11/01/22 23:35 Mucosa - Nose Respiratory Panel (PCR) - Final 11/01/22 18:30 Nasal Secretion SARS-CoV-2 & FLU Antigen (Rapid) - Final Radiography Diagnostic Testing: Radiology Impression Abscess Drainage CT 11/03/22 08:01 IMPRESSION: Successful CT-guided percutaneous cholecystostomy. Electronically Signed: Carter Armstrong DO at 16:39 EDT , Physical Exam Const oriented x3 and no apparent distress Resp Resp Narrative: On 5 L nasal cannula GI soft to palpation GI Narrative: Tender near carmita tube-bilious otherwise right upper quadrant tenderness improve d?no peritoneal signs Assessment & Plan Assessment/Plan (1) Acute cholecystitis: PLAN: Carmita tube in place draining bilious fluid, advance patient to regular diet Patient white blood count up to 11.8 from 8 yesterday continue IV Zosyn plan to DC home with Augmentin x10 days for cholecystitis Nasal cannula up to 5 L working on weaning per primary Liliam Parker M.D. Pager: [phone] [facility] [address] [place] [address], [facility], [address] [place] [address] Office: [phone] Charges/Coding Visit Charges Inpatient E&M: 24411 Subs Hosp L2
[2022-11-04] MEDS: amLODIPine 2.5 MG Tablet PO (09:58)
[2022-11-04] MEDS: Heparin Injection (Vial) 5,000 UNIT/ML VIAL 5000 UNIT SC ×2 (09:59→21:58)
[2022-11-04] MEDS: Potassium Chloride Oral Tablet 20 MEQ 40 MEQ PO (10:00)
--- NOTE | 2022-11-04 10:08 | PN.HOSP_ITS ---
Subjective Subjective Cholecystostomy tube was placed yesterday without incident, cultures are pending. She does have 1 out of 4 bottles positive in her blood for strep organism which we will consider is a contaminant. Currently she is requiring 4 L of oxygen this is likely secondary to atelectasis, she is breathing very shallow and is not ambulatory. Did encourage her to take deep breaths and use her incentive spirometer Objective Data Objective Data Vital Signs: Vital Signs Temp Pulse Resp BP Pulse Ox O2 Del Method O2 Flow Rate 98.5 F 98 16 111/71 92 Nasal Cannula 4 11/04/22 09:49 11/04/22 09:49 11/04/22 09:49 11/04/22 09:49 11/04/22 09:49 11/04/22 09:49 11/04/22 09:49 Oxygen Flow Rate (L/min) [13] 2 Oxygen Flow Rate (L/min) [11] 2 Oxygen Flow Rate (L/min) [12] 2 Oxygen Flow Rate (L/min) [10] 2 Oxygen Flow Rate (L/min) [9] 2 Oxygen Flow Rate (L/min) [8] 2 Oxygen Flow Rate (L/min) [7] 2 Oxygen Flow Rate (L/min) [6] 2 Oxygen Flow Rate (L/min) [5] 2 Oxygen Flow Rate (L/min) [4] 2 Oxygen Flow Rate (L/min) [3] 2 Oxygen Flow Rate (L/min) [2] 2 Oxygen Flow Rate (L/min) 4 Oxygen Delivery Method [13] Nasal Cannula Oxygen Delivery Method [11] Nasal Cannula Oxygen Delivery Method [12] Nasal Cannula Oxygen Delivery Method [10] Nasal Cannula Oxygen Delivery Method [9] Nasal Cannula Oxygen Delivery Method [8] Nasal Cannula Oxygen Delivery Method [7] Nasal Cannula Oxygen Delivery Method [6] Nasal Cannula Oxygen Delivery Method [5] Nasal Cannula Oxygen Delivery Method [4] Nasal Cannula Oxygen Delivery Method [3] Nasal Cannula Oxygen Delivery Method [2] Nasal Cannula Oxygen Delivery Method [1 ( Room Air Initial Baseline)] Oxygen Delivery Method Nasal Cannula Weight: 143 lb 8.335 oz Body Mass Index (BMI) 28.0 Intake & Output: Intake and Output for Last 24 Hours 11/03/22 11/04/22 11/05/22 03:59 03:59 03:59 Intake Total 1600 / 1600 2497 / 2497 913.33 / 913.33 Output Total 1425 / 1425 2290 / 2290 770 / 770 Balance 175 / 175 207 / 207 143.33 / 143.33 Lab / Micro Data Result Diagrams: 11/04/22 04:21 11/04/22 04:21 Labs: Laboratory Results - last 24 hr 11/03/22 05:38: Phosphorus 2.1 L, Magnesium 2.2 11/04/22 04:21: WBC 11.8 H, RBC 4.52, Hgb 11.8 L, Hct 36.4 L, MCV 80.5 L, MCH 26.1 L, MCHC 32.4, RDW Std Deviation 55.2 H, RDW Coeff of [place] 19.0 H, Plt Count 344, MPV 9.2, Immature Gran % (Auto) 0.400, Neut % (Auto) 70.1 H, Lymph % (Auto) 20.1, [place] % (Auto) 8.8, Eos % (Auto) 0.3, Baso % (Auto) 0.3, Absolute Neuts (auto) 8.3 H, Absolute Lymphs (auto) 2.38, Nucleated RBC % 0 11/04/22 04:21: Sodium 137, Potassium 3.1 L, Chloride 104, Carbon Dioxide 26.0, Anion Gap 7, BUN 6 L, Creatinine 0.51 L, Estim Creat Clear Calc 31.69, Est GFR (MDRD) Af Amer 149, Est GFR (MDRD) Non-Af 123, BUN/Creatinine Ratio 11.8, Glucose 99, Calcium 8.8 Micro: Microbiology 11/01/22 18:25 Blood Culture (Wb) - Anticubital Right Bacteria Detection (PCR) - Final Strep anginosus 11/01/22 18:25 Blood Culture (Wb) - Anticubital Right Blood Culture - Preliminary 11/01/22 18:25 Blood Culture (Wb) - Left Hand Blood Culture - Preliminary No growth in 48 hours. 11/03/22 16:11 Wound Abcess - Other Wound Culture - Preliminary Alpha hemolytic organism Gram negative librado Gram negative librado#2 11/01/22 23:35 Mucosa - Nose Respiratory Panel (PCR) - Final 11/01/22 18:30 Nasal Secretion SARS-CoV-2 & FLU Antigen (Rapid) - Final Radiography Diagnostic Testing: Radiology Impression Abscess Drainage CT 11/03/22 08:01 IMPRESSION: Successful CT-guided percutaneous cholecystostomy. Electronically Signed: Carter Armstrong DO at 16:39 EDT , Physical Exam Narrative General: Alert, Oriented x3, Cooperative, No apparent distress HEENT: Atraumatic, PERRLA, EOMI, Normocephalic Oral: Moist Mucosa Neck: Supple, No JVD Lungs: Managed, Normal air movement, No rhonchi, No wheeze, No rales Cardiovascular: Regular rate, Regular Rhythm, Normal S1, Normal S2, No murmurs Abdomen: Soft, non-tender, Non-Distended, No Hepato-splenomegaly Extremities: No edema, Capillary Refill Less than 3 Seconds Skin: No rashes, No breakdown Musculoskeletal: No Tenderness to Palpation of Joints or Extremities Neurological: Cranial nerves II-XII grossly intact, Motor Exam 5/5 strength throughout, Sensory exam intact to light touch and pain Psych/Mental Status: Normal Affect, Appropriate Assessment & Plan Assessment/Plan (1) Acute cholecystitis: (2) Pneumonia: (3) Hypoxia: PLAN: Plan #Acute cholecystitis * Status post cholecystostomy tube on 11/03/2022 * CT of the abdomen and pelvis showed bilateral lower lobe showed gallbladder wall thickening, gallstone and pericholecystic fluid representing acute cholecystitis. She does have a biliary stent in place. * General surgery on board. For cholecystostomy tube insertion tomorrow. Patient does not want surgery and she is also deemed as a poor surgical candidate. * Transition to Augmentin #Hypoxia due to community-acquired pneumonia * Was admitted with some shortness of breath. CT of the chest showed bilateral lower lobe peribronchial pneumonia or atelectasis * On IV Zosyn. COVID and influenza test were negative. * Titrate oxygen to maintain saturation above 90%. * Hypoxia is recurred after the procedure likely due to atelectasis there is also some concern by nursing staff that she has undiagnosed sleep apnea. Will encourage incentive spirometry #Benign essential hypertension: On amlodipine #Compression fractures of the lumbar spine due to osteoporosis. Stable DVT prophylaxis: Heparin Charges/Coding Visit Charges Inpatient E&M: 97015 Subs Hosp L2
[2022-11-04] MEDS: Amox/Clavulanate 875 MG Tablet PO (17:28)
[2022-11-04] MEDS: MELATONIN 3 MG TABLET PO (21:57)
[2022-11-05] VITALS (16 sets, daily range): BP systolic 104–126; BP diastolic 73–85; PULSE 92–114; RESP 18–28; TEMP 36.4–37.7; O2SAT 2–95
[2022-11-05] MEDS: 0.9% Normal Saline 1,000 ML 100 ML IV (04:21)
[2022-11-05] MEDS: Albuterol 2.5 MG/3 ML VIAL.NEB. INHALATION (05:10)
[2022-11-05] MEDS: Acetaminophen 325 MG Tablet 650 MG PO (05:48)
[2022-11-05 06:38] LABS: Absolute Lymphocyte Count 3.07 X10^3/uL (0.83-4.51); Absolute Neutrophil Count 6.5 X10^3/uL (2.0-7.7); Basophil# 0.03 X10^3/uL; Basophil% 0.3 % (0-1); Eosinophil# 0.05 X10^3/uL; Eosinophils% 0.5 % (0-5); Hematocrit 35.1 % (37-47); Hemoglobin 11.5 g/dL (12.0-15.0); Lymphocyte # 3.07 X10^3/ul (0.83-4.51); Lymphocyte % 28.9 % (19-41); Mean Corp Hgb Conc 32.8 g/dL (32-36); Mean Corpuscular Volume 79.4 fL (81-99); Mean Platelet Vol. 8.9 fl (6.2-12.0); Monocyte# 0.96 X10^3/uL; NRBC Flagged by Analyzer 0 % (0-5); Neutrophil # 6.46 X10^3/uL (2.7-7.7); Neutrophil % 60.9 % (47-70); Platelet Count 335 K/mm3 (150-450); RBC Distribution Width CV 18.4 % (11.6-14.6); RBC Distribution Width SD 52.8 fl (35.1-43.9); Red Blood Count 4.42 M/mm3 (4.2-5.4); White Blood Count 10.6 K/mm3 (4.4-11.0)
--- NOTE | 2022-11-05 06:42 | RAD_ITS ---
EXAM: XR CHEST, 1 VIEW CLINICAL INDICATION: decline in O2 saturation decline in O2 saturation TECHNIQUE: Frontal view of the chest. COMPARISON: Chest x-ray 07/28/2019. FINDINGS: LUNGS AND PLEURAL SPACES: There is a calcified granuloma overlying the left midlung field. No pneumothorax. No effusion. HEART: The heart is mildly enlarged. MEDIASTINUM: Central airways and mediastinal contour are unremarkable. BONES/JOINTS: There are multiple old healed rib fractures bilaterally. There is an old healed fracture right humeral neck fracture. SOFT TISSUES: Unremarkable. TUBES, LINES AND DEVICES: There is a percutaneous catheter overlying the visualized right side of the abdomen. RAD/Chest 1 View (Portable) IMPRESSION: 1. Mild cardiomegaly. 2. No evidence for acute cardiopulmonary pathology. Electronically Signed: George Ospina MD at 7:59 EDT Reading Location ID and State: [facility] / [place] , Service support ,
--- NOTE | 2022-11-05 06:46 | NURSING ---
rad notified of stat chest xray.
[2022-11-05 07:12] LABS: Anion Gap 7 (5-15); BUN 8 mg/dL (7-18); Calcium,Total 8.9 mg/dL (8.5-10.1); Chloride 107 mmol/L (98-107); EST Glomerular Filtration Rate 163 mL/min (>60); Est Glom Filt Rate - Afr Amer 197 mL/min (>60); Estimated Creatinine Clearance 31.69 ml/min; Glucose 112 mg/dL (74-106); Potassium 3.1 mmol/L (3.5-5.1); Sodium Level 139 mmol/L (136-145)
--- NOTE | 2022-11-05 07:21 | PN.SURG_ITS ---
Subjective Subjective on NRB for O2, ruq pain improved, carmita tube bilious Objective Data Objective Data Vital Signs: Vital Signs Temp Pulse Resp BP Pulse Ox O2 Del Method O2 Flow Rate 98.4 F 112 H 22 H 104/74 88 Non-Rebreather @ 15L/min and High Flow 40 11/05/22 06:25 11/05/22 06:25 11/05/22 06:25 11/05/22 06:25 11/05/22 06:25 11/05/22 06:25 11/05/22 05:10 FiO2 50 11/05/22 06:00 Oxygen Flow Rate (L/min) [13] 2 Oxygen Flow Rate (L/min) [11] 2 Oxygen Flow Rate (L/min) [12] 2 Oxygen Flow Rate (L/min) [10] 2 Oxygen Flow Rate (L/min) [9] 2 Oxygen Flow Rate (L/min) [8] 2 Oxygen Flow Rate (L/min) [7] 2 Oxygen Flow Rate (L/min) [6] 2 Oxygen Flow Rate (L/min) [5] 2 Oxygen Flow Rate (L/min) [4] 2 Oxygen Flow Rate (L/min) [3] 2 Oxygen Flow Rate (L/min) [2] 2 Oxygen Flow Rate (L/min) 40 Oxygen Delivery Method [13] Nasal Cannula Oxygen Delivery Method [11] Nasal Cannula Oxygen Delivery Method [12] Nasal Cannula Oxygen Delivery Method [10] Nasal Cannula Oxygen Delivery Method [9] Nasal Cannula Oxygen Delivery Method [8] Nasal Cannula Oxygen Delivery Method [7] Nasal Cannula Oxygen Delivery Method [6] Nasal Cannula Oxygen Delivery Method [5] Nasal Cannula Oxygen Delivery Method [4] Nasal Cannula Oxygen Delivery Method [3] Nasal Cannula Oxygen Delivery Method [2] Nasal Cannula Oxygen Delivery Method [1 ( Room Air Initial Baseline)] Oxygen Delivery Method Non-Rebreather @ 15L/min Weight: 143 lb 8.335 oz Body Mass Index (BMI) 28.0 Intake & Output: Intake and Output for Last 24 Hours 11/03/22 11/04/22 11/05/22 23:59 23:59 23:59 Intake Total 2647 / 2647 2263.33 / 2663.33 1500 / 1500 Output Total 2019 1780 / 2680 1900 / 1900 Balance 627 / 627 483.33 / -16.67 -400 / -400 Lab / Micro Data Result Diagrams: 11/05/22 05:45 11/05/22 05:45 Labs: Laboratory Results - last 24 hr 11/05/22 05:45: WBC 10.6, RBC 4.42, Hgb 11.5 L, Hct 35.1 L, MCV 79.4 L, MCH 26.0 L, MCHC 32.8, RDW Std Deviation 52.8 H, RDW Coeff of [place] 18.4 H, Plt Count 335, MPV 8.9, Immature Gran % (Auto) 0.400, Neut % (Auto) 60.9, Lymph % (Auto) 28.9, [place] % (Auto) 9.0, Eos % (Auto) 0.5, Baso % (Auto) 0.3, Absolute Neuts (auto) 6.5, Absolute Lymphs (auto) 3.07, Nucleated RBC % 0 11/05/22 05:45: Sodium 139, Potassium 3.1 L, Chloride 107, Carbon Dioxide 25.0, Anion Gap 7, BUN 8, Creatinine 0.40 L, Estim Creat Clear Calc 31.69, Est GFR (MDRD) Af Amer 197, Est GFR (MDRD) Non-Af 163, BUN/Creatinine Ratio 20.0, Glucose 112 H, Calcium 8.9 Micro: Microbiology 11/03/22 16:11 Wound Abcess - Other Gram Stain - Final 11/03/22 16:11 Wound Abcess - Other Wound Culture - Preliminary Alpha hemolytic organism Gram negative librado Gram negative librado#2 11/01/22 18:25 Blood Culture (Wb) - Anticubital Right Bacteria Detection (PCR) - Final Strep anginosus 11/01/22 18:25 Blood Culture (Wb) - Anticubital Right Blood Culture - Preliminary Gram Positive Cocci 11/01/22 18:25 Blood Culture (Wb) - Left Hand Blood Culture - Preliminary No growth in 48 hours. 11/01/22 23:35 Mucosa - Nose Respiratory Panel (PCR) - Final 11/01/22 18:30 Nasal Secretion SARS-CoV-2 & FLU Antigen (Rapid) - Final Physical Exam Const oriented x3 and no apparent distress Resp Resp Narrative: on NRB GI soft to palpation GI Narrative: Tender near carmita tube-bilious otherwise right upper quadrant tenderness improved?no peritoneal signs Assessment & Plan Assessment/Plan (1) Acute cholecystitis: PLAN: Carmita tube in place draining bilious fluid, advance patient to regular diet Patient white blood count 10.6 DC home with Augmentin x10 days for cholecystitis --f/u in office 1 week when d/c NRB working on weaning per primary Liliam Parker M.D. Pager: [phone] [facility] [address] [place] [address], Outpatient [place], [address] [place] [address] Office: [phone] Charges/Coding Visit Charges Inpatient E&M: 21032 Subs Hosp L2
--- NOTE | 2022-11-05 08:01 | NURSING ---
when pt doing her I.S spo2 up to 95-97% on her venti mask. much education/reinforcement/demonstration/teachback on importance of I.S. daughter and spouse who are at bedside agree to assist pt with this often. updated on MD orders and pt daughter states she does not want pt to have BIPAP and pt concurs with daughter. pt assisted oob to chair, spo2 91-95% on ventimask while up in chair.
[2022-11-05] MEDS: Heparin Injection (Vial) 5,000 UNIT/ML VIAL 5000 UNIT SC (08:12)
[2022-11-05] MEDS: amLODIPine 2.5 MG Tablet PO (08:12)
[2022-11-05] MEDS: Amox/Clavulanate 875 MG Tablet PO (08:12)
--- NOTE | 2022-11-05 09:52 | NURSING ---
spo2 88% on 3L NC when pt up in chair and resting with eyes closed. bumped up to 4L NC. daughter woke pt up and spo2 92% when pt awake. educated on wanting to see spo2 when pt is resting to prepare for homegoing needs, family verbalizes understanding.
--- NOTE | 2022-11-05 10:30 | NURSING ---
pt resting in chair eyes closed. spo2 94% on 4L NC resps 22, HR 99.
--- NOTE | 2022-11-05 11:22 | NURSING ---
OOS for 0722: ambulating pulse ox was pt standing and pivoting to be placed in chair. pt is wheelchair bound but documentation only states ambulation.
--- NOTE | 2022-11-05 11:46 | DCINST_ITS ---
Discharge Instructions Diet Discharge Diet: No restrictions Activity Discharge Activity: Return to Normal Activity Dressing / Incision Call your doctor if you observe: Fever of 101 or Higher, Shortness of breath, Dizziness, Fainting spells, Swelling in the ankles, Chest pain and Increased palpitations (irregular heartbeat) Follow Up Care Test Results: Test results from this visit will be discussed in further detail at your follow- up appointment, if applicable. Discharge Plan Admission Admit Date/Time: 11/01/22 20:39 Attending Provider: Steve Robert Primary Care Provider: Homer Roberts Consulting Providers: Liliam Parker ; Karlos Murray ; Paige Vines Instructions Patient Instructions: Stewart Bazan Drain Tube Dc, Post Op Drain Emptying Zelda, ARIA DREW Procedural Sedation Additional Instructions / Restrictions: Follow-up with your PCP and 3 to 5 days to monitor your outpatient blood work. We will also track your oxygen requirements while you sleep and you will likely need to be wearing oxygen at bedtime. Discharge Orders/Prescriptions Prescriptions: New amoxicillin-pot clavulanate 875-125 mg Tablet 875 mg PO BIDCM 10 Days Qty: 18 0RF potassium chloride 20 mEq tablet extended release 20 meq PO DAILY Qty: 14 0RF Continued amlodipine 2.5 mg Tablet 2.5 mg PO DAILY tramadol 50 mg Tablet 50 mg PO Q8H PRN (Reason: Pain) Referrals / Follow Up: Homer Roberts DO [Primary Care Provider] - Within 1 Week Liliam Parker MD [Med Staff - Active Staff] - Within 1 Month Disposition Disposition (needs filled in before D/C Order can be placed): Home, Self Care
--- NOTE | 2022-11-05 11:46 | CASEMGMT ---
Addendum entered by Chinyere Sparrow 11/05/22 12:07: Provided pt with pox for homegoing. Addendum entered by Chinyere Sparrow 11/05/22 12:03: Pt asked VIKI CEDILLO call [employer] at [phone], this is the phone that is a half mile away. Spoke to Santosh who will then give pt son the message. Pt asked VIKI CEDILLO to relay that pt son needs to go to [employer] to get a generator and that pt will be leaving the hospital at 1pm and need quickly. Santosh states he will relay message. Original Note: VIKI CEDILLO notified pt to dc today. Pt qualifies for oxygen. Discussed oxygen testing with nurse, pt oxygen drops during sleep. Overnight pox added onto oxygen rx after speaking with hospitalist. VIKI CEDILLO into pt room, pt dtr and present. Discussed the need for oxygen and provided a verbal local in network list of DME companies, pt and family chose [employer]. Pt does not have electricity. Pt and dtr state they are able to get a generator from [employer] as soon as home. Discussed that the oxygen tank only will last a couple of hours. Pt and family need transportation home. TC to Claudia at [facility] transportation, the van can take pt home at 1pm. Pt and family aware and agreeable to this. Referral sent to [employer] via [employer]. Made aware pt will have generator and that pt will leave hospital at 1pm, pt will not be calling once home. Pt has phone but it is half mile from home, it is pt son's. [phone].
--- NOTE | 2022-11-05 11:53 | PCM.DC.SUM ---
Providers Date of Admission: 11/01/22 Primary Care Physician: Dr. Homer Roberts DO Consultations 11/01/22 23:10 Consult: General Surgery Routine Consulting Provider: Liliam Parker Reason for Consult: Cholecystitis EMERGENT Consult: No MD Notified: Yes Date Notified: 11/01/22 Time Notified: 20:42 Method of Notification: Verbal Reason For Visit: COMMUNITY ACQUIRED PNEUMONIA,HYPOXIA,CHOLECYSTITIS Diagnosis Discharge Diagnosis (1) Acute cholecystitis: Status: Acute Code(s): K81.0 - Acute cholecystitis Medications at Discharge Home Medications amlodipine 2.5 mg tablet 2.5 mg PO DAILY blood pressure 03/03/22 tramadol 50 mg tablet 50 mg PO Q8H PRN Pain 03/03/22 amoxicillin 875 mg-potassium clavulanate 125 mg tablet 875 mg PO BIDCM 10 days #18 tabs 11/05/22 potassium chloride 20 mEq tablet,extended release 20 meq PO DAILY #14 tabs 11/05/22 Hospital Course Operations None Procedures - (Cholecystostomy tube placement) Summary of Care Provided Minutes Spent on Discharge: 38 Hospital Course: Per HPI: AGUILA MONTEJO, is a 82 F who presents to the emergency room at [facility] for evaluation of shortness of breath which started today, patient is a poor informant, according to the patient and her , she has been having chills and diaphoresis at home along with some shortness of breath, she is also had some mid abdominal pain along with a couple of episodes of nausea and vomiting.? Patient denies any sputum production. Work-up in the emergency room included labs which showed an elevated white blood cell count at 16.9, chemistry profile showed a decreased sodium at 130, potassium was 3.3, glucose was 220, and alkaline phosphatase was 131.? Urinalysis was unremarkable, CT of the chest showed bilateral lower lobe peribronchial pneumonia or atelectasis, CT of the abdomen and pelvis showed gallbladder wall thickening, gallstone, and pericholecystic fluid representing acute cholecystitis.? There is a biliary stent noted to be in place, there is noted to be mild intrahepatic bile duct dilatation.? In addition, multiple new lumbar spine fractures were noted on the x-ray as compared with lumbar spine x-rays done in 2021.? Patient required oxygen at 4 L/min via nasal cannula to maintain her pulse ox above 90%. The case was discussed with general surgery, they agreed to see the patient in consultation, patient was given IV Levaquin in the emergency room, surgery requested the patient be placed on Zosyn. Patient's COVID 19 antigen was negative, patient's influenza test was also negative. Patient will be admitted to [place] [address] for pneumonia, hypoxia, and cholecystitis. Hospital Course: 1. Acute cholecystitis with hypoxia due to community-acquired pneumonia?82-year-old female presents to the hospital with right upper quadrant abdominal pain. She has had acute cholecystitis for the last 3 years, per the , she did not have surgery 3 years ago because it was during COVID and she did not have any visitors stay with her. At that time they had a stent placed that she has not followed up to have removed and during his hospitalization she did not want to proceed with ERCP or cholecystectomy so she and her family elected for a cholecystostomy tube which was placed and is draining appropriately. She is felt much better since the insertion of the tube however she did have some issues with hypoxia both on admission possibly due to community-acquired pneumonia but also due to shallow breathing and atelectasis. She does much better when she is using incentive spirometer. There is also some concern for possible undiagnosed sleep apnea. During her hospitalization she was found to desaturate to the mid 80s on room air and does need about 3 to 4 L at night when sleeping. We will plan to discharge her on oxygen as well as having a nocturnal pulse ox trend down as well. I discussed the plan for discharge with her and her family and they all expressed understanding of the risk benefits of going home and would like to go home today. We will plan for 10 days total of p.o. Augmentin and outpatient follow-up. Physical Exam Narrative General: Alert, Oriented x3, Cooperative, No apparent distress HEENT: Atraumatic, PERRLA, EOMI, Normocephalic Oral: Moist Mucosa Neck: Supple, No JVD Lungs: Diminished: Normal air movement, No rhonchi, No wheeze, No rales Cardiovascular: Regular rate, Regular Rhythm, Normal S1, Normal S2, No murmurs Abdomen: Soft, non-tender, Non-Distended, No Hepato-splenomegaly Extremities: No edema, Capillary Refill Less than 3 Seconds Skin: No rashes, No breakdown Musculoskeletal: No Tenderness to Palpation of Joints or Extremities Neurological: Cranial nerves II-XII grossly intact, Motor Exam 5/5 strength throughout, Sensory exam intact to light touch and pain Psych/Mental Status: Normal Affect, Appropriate Weight / BMI Weight Weight: 143 lb 8.335 oz Body Mass Index (BMI) 28.0 ABG / Lab / Microbiology Data Result Diagrams: 11/05/22 05:45 11/05/22 05:45 Laboratory: Laboratory Results - last 24 hr 11/05/22 05:45: WBC 10.6, RBC 4.42, Hgb 11.5 L, Hct 35.1 L, MCV 79.4 L, MCH 26.0 L, MCHC 32.8, RDW Std Deviation 52.8 H, RDW Coeff of [place] 18.4 H, Plt Count 335, MPV 8.9, Immature Gran % (Auto) 0.400, Neut % (Auto) 60.9, Lymph % (Auto) 28.9, [place] % (Auto) 9.0, Eos % (Auto) 0.5, Baso % (Auto) 0.3, Absolute Neuts (auto) 6.5, Absolute Lymphs (auto) 3.07, Nucleated RBC % 0 11/05/22 05:45: Sodium 139, Potassium 3.1 L, Chloride 107, Carbon Dioxide 25.0, Anion Gap 7, BUN 8, Creatinine 0.40 L, Estim Creat Clear Calc 31.69, Est GFR (MDRD) Af Amer 197, Est GFR (MDRD) Non-Af 163, BUN/Creatinine Ratio 20.0, Glucose 112 H, Calcium 8.9 Microbiology: Microbiology 11/03/22 16:11 Wound Abcess - Other Gram Stain - Final 11/03/22 16:11 Wound Abcess - Other Wound Culture - Preliminary Gram Positive Cocci Gram negative librado Gram negative librado#2 11/01/22 18:25 Blood Culture (Wb) - Anticubital Right Bacteria Detection (PCR) - Final Strep anginosus 11/01/22 18:25 Blood Culture (Wb) - Anticubital Right Blood Culture - Preliminary Strep anginosus 11/01/22 18:25 Blood Culture (Wb) - Left Hand Blood Culture - Preliminary No growth in 48 hours. 11/01/22 23:35 Mucosa - Nose Respiratory Panel (PCR) - Final 11/01/22 18:30 Nasal Secretion SARS-CoV-2 & FLU Antigen (Rapid) - Final Radiography Diagnostic Testing: Radiology Impression Chest X-Ray 11/05/22 06:42 IMPRESSION: 1. Mild cardiomegaly. 2. No evidence for acute cardiopulmonary pathology. Electronically Signed: George Ospina MD at 7:59 EDT Reading Location ID and State: [facility] / [place] , Service support , D/C Instructions Discharge Diet: No restrictions Call your doctor if you observe: Fever of 101 or Higher, Shortness of breath, Dizziness, Fainting spells, Swelling in the ankles, Chest pain and Increased palpitations (irregular heartbeat) Meaningful Use Info Meaningful Use Diagnoses (Choose all that apply): None applicable Discharge Plan Admission Admit Date/Time: 11/01/22 20:39 Attending Provider: Steve Robert Primary Care Provider: Homer Roberts Consulting Providers: Liliam Parker ; Karlos Murray ; Paige Vines Instructions Patient Instructions: Stewart Bazan Drain Tube Dc, Post Op Drain Emptying Steps, RAD RN Procedural Sedation Additional Instructions / Restrictions: Follow-up with your PCP and 3 to 5 days to monitor your outpatient blood work. We will also track your oxygen requirements while you sleep and you will likely need to be wearing oxygen at bedtime. Discharge Orders/Prescriptions Prescriptions: New amoxicillin-pot clavulanate 875-125 mg Tablet 875 mg PO BIDCM 10 Days Qty: 18 0RF potassium chloride 20 mEq tablet extended release 20 meq PO DAILY Qty: 14 0RF Continued amlodipine 2.5 mg Tablet 2.5 mg PO DAILY tramadol 50 mg Tablet 50 mg PO Q8H PRN (Reason: Pain) Referrals / Follow Up: Homer Roberts DO [Primary Care Provider] - Within 1 Week Liliam Parker MD [Med Staff - Active Staff] - Within 1 Month Disposition Disposition (needs filled in before D/C Order can be placed): Home, Self Care Charges/Coding Visit Charges Inpatient E&M: 28378 Disch Hosp >30min
[2022-11-05] MEDS: Potassium Chloride Oral Tablet 20 MEQ 60 MEQ PO (12:06)
--- NOTE | 2022-11-05 12:30 | PHA.DC.MR ---
Pharmacy Service has performed discharge medication reconciliation for this patient. The patient's discharge medication list was reviewed for discrepancies and discrepancies were resolved. Attempted to academic counselor via telephone due to precautions x2 but patient hung up. Home Medications amlodipine 2.5 mg tablet 2.5 mg PO DAILY blood pressure 03/03/22 tramadol 50 mg tablet 50 mg PO Q8H PRN Pain 03/03/22 amoxicillin 875 mg-potassium clavulanate 125 mg tablet 875 mg PO BIDCM 10 days #18 tabs 11/05/22 potassium chloride 20 mEq tablet,extended release 20 meq PO DAILY #14 tabs 11/05/22
== END 2022-11-05 13:04 | disposition home or self-care (01) | DRG 444 ==
LOC: ED 20:27 → MS3 21:49
PROVIDERS: Physician Assistant; Radiology Diagnostic Radiology; Student in an Organized Health Care Education/Training Program; Admitting Provider Internal Medicine; Emergency Provider Emergency Medicine; PCP Family Medicine; Visit Provider Family Medicine
DX: K80.00 Calculus of gallbladder with acute cholecystitis without obstruction (principal); J18.9 Pneumonia, unspecified organism; E87.1 Hypo-osmolality and hyponatremia; M80.08XA Age-related osteoporosis with current pathological fracture, vertebra(e), initial encounter for fracture; J98.11 Atelectasis; I10 Essential (primary) hypertension; E87.6 Hypokalemia; G47.30 Sleep apnea, unspecified; K80.12 Calculus of gallbladder with acute and chronic cholecystitis without obstruction; R09.02 Hypoxemia; R73.9 Hyperglycemia, unspecified; Z20.822 Contact with and (suspected) exposure to COVID-19
CPT/HCPCS: 36415; 71045; 71275; 74177; 75989; 80048; 80053; 81001; 83605; 83690; 83735; 84100; 84484; 85025; 85610; 85730; 87040; 87070; 87075; 87077; 87149; 87186; 87205; 87428; 87633; 93005; 94640; 94762; 99156; 99157; 99285; J7030; J7040; J7050; Q9967; A4216

== ENCOUNTER 2022-11-26 06:44 | Inpatient (IN) | payer OTHER, SELFPAY ==
[2022-11-26] VITALS (8 sets, daily range): BP systolic 98–131; BP diastolic 65–83; PULSE 77–91; RESP 15–18; TEMP 36.3–37; O2SAT 84–95; BMI 28.2; BMI 27.5
--- NOTE | 2022-11-26 07:26 | RAD_ITS ---
INDICATION: check progression of pneumonia EXAMINATION/TECHNIQUE: X-RAY - XR Chest 2 Views COMPARISON: Prior studies dated: November 05, [address] of the abdomen and pelvis dated November 01, 2022 FINDINGS: LINES/DEVICES: None. LUNGS: There are bibasilar opacities associated with blunting of the costophrenic angles. There is a stable granuloma within the left mid/lower lung. No pneumothorax. MEDIASTINUM AND CARDIOVASCULAR STRUCTURES: Cardiac silhouette not enlarged. Central airways and mediastinal contour are unremarkable. BONES AND SOFT TISSUES: There are left posterior there are bilateral posterior rib deformities consistent with old injuries. There is a stable right proximal humeral deformity. RAD/Chest PA and Lateral IMPRESSION: Bibasilar atelectasis and/or pneumonia associated with pleural thickening and/or small effusions. Electronically Signed: Mar Su MD at 8:41 EDT ,
--- NOTE | 2022-11-26 07:30 | EKG12_ITS ---
Test Reason : Blood Pressure : / mmHG Vent. Rate : 072 BPM Atrial Rate : 072 BPM P-R Int : 198 ms QRS Dur : 086 ms QT Int : 394 ms P-R-T Axes : 034 -10 001 degrees QTc Int : 431 ms Sinus rhythm with Premature atrial complexes Otherwise normal ECG Confirmed by DIEGO DOSHI, SARAHI ([id number]), editor book MARLENY CALDERÓN ([id number]) on 11/27/2022 2:19:32 PM Referred By: BAYLEE Confirmed By:SARAHI CORTEZ MD
--- NOTE | 2022-11-26 07:32 | ED.VIS.BACK ---
HPI History of Present Illness Chief Complaint: Back Informant: patient and family (, son) Narrative Narrative: Patient presents with pain across her low back nonlateralizing. Hurts to move it hurts to breathe and hurts more to lay down. She was recently admitted to the hospital with acute cholecystitis with elevated liver enzymes and choledocholithiasis, she also had pneumonia, she did not want surgery or an ERCP and so cholecystostomy was performed, and subsequently it appears that her liver enzymes went down. The patient denies dyspnea, cough, chest pain, abdominal pain, nausea, vomiting. She has been drinking fluids, water and tea, and eating Jell-O, but basically not eating anything else. When asked if she is urinating she states no but the family states she urinated last night in her diaper and she then states yes. She denies having any problems when she urinates. She denies any saddle anesthesia or numbness or weakness in her legs. She is weak all over. Family has been making sure she gets out of bed every day. She has been home for about 3 weeks. She states that the pain in her back has been there the whole time, it recently got worse in the past week plus or minus, she had no injury or any sudden reason for worsening pain. It sounds like her pain has been there since she was in the hospital and never went away and may be the same pain, however she is a very poor historian and the family does not know about the particulars of her symptoms, and she is very difficult to get a straight answer out of even with direct questions, such as did your abdomen hurt while you are in the hospital; is this the same pain that you had in the hospital but worse or is it a different pain; she confirms that she has been having gallbladder pain for years but cannot even tell me where that pain is or what that means i.e. pain in the abdomen, in the back, nausea or vomiting. [facility] Medical History Depression Home Medications potassium chloride 20 mEq tablet,extended release 20 meq PO DAILY supplement #14 tabs 11/05/22 [Rx Last Taken 11/25/22] amlodipine 10 mg tablet 10 mg PO DAILY blood pressure 11/26/22 [History Last Taken 11/25/22] hydrocodone-acetaminophen 5-325mg 5mg-325mg 0.5 tab PO Q6H PRN PAIN 11/26/22 [History Last Taken Unknown] Allergy/AdvReac Type Severity Reaction Status Date / Time No Known Allergies Allergy Verified 11/26/22 06:54 Social History Smoking Status: Never smoker ROS ROS ED Constitutional Constitutional ED: Reports weakness; Denies chills or fever(s) Eyes Eyes: Denies change in vision or diplopia ENT ENT ED: Denies sore throat Cardiovascular Cardiovascular: Denies chest pain or racing heartbeat Respiratory/Chest Respiratory/Chest: Denies cough or dyspnea Gastrointestinal Gastrointestinal: Denies diarrhea or vomiting Genitourinary Genitourinary ED: Denies dysuria, hematuria or urinary incontinence Musculoskeletal Musculoskeletal: Reports back pain; Denies neck pain Integumentary Denies abscess or rash Neurologic Neurologic: Denies headache(s), paresthesias or weakness Psychiatric Psychiatric: Denies anxiety or suicidal thoughts EXAM Physical Exam Const Vital Signs: 11/26/22 06:47 11/26/22 08:51 11/26/22 11:28 Temperature 98.0 F 97.8 F Temperature Source Temporal Temporal Pulse Rate 78 79 91 Respiratory Rate 15 16 15 Blood Pressure 131/75 H 123/65 H 131/83 H Blood Pressure Mean 93 84 99 Pulse Ox 93 94 94 Oxygen Delivery Method Room Air Nasal Cannula Oxygen Flow Rate (L/min) 2 11/26/22 08:31 Temperature Temperature Source Pulse Rate Respiratory Rate Blood Pressure Blood Pressure Mean Pulse Ox 84 Oxygen Delivery Method Room Air Oxygen Flow Rate (L/min) Positive well nourished and well developed General Appearance ED: well developed and NAD HEENT Reports moist mucous membranes normocephalic and atraumatic Eyes PERRL and EOMs intact bilaterally Neck full ROM and supple Resp normal respiratory effort and clear to auscultation bilaterally Cardio regular rate, regular rhythm and no murmurs GI GI Narrative: Mild tenderness across upper abdomen no guarding or rebound. Auscultation: normoactive bowel sounds Palpation: soft Back/Spine Back/Spine Narrative: Tender throughout the lumbar back paraspinal regions and midline, and tenderness in both CVA. Normal inspection. General Back: other Can sit up with assistance, and with pain in doing so Extremity normal to inspection General Extremety ED: Negative for edema, pulses abnormal or tenderness General Extremity: Negative for edema or pulses abnormal Neuro oriented x3, CN's II-XII intact bilaterally and no sensory deficits noted Sensorium / Orientation: awake and alert Motor Exam: muscle tone normal throughout and general weakness Psych mental status grossly normal Skin no rashes or lesions noted and no wounds MDM MDM MDM Narrative Medical decision making narrative: I reviewed her recent surgery consultation and discharge summary as well as imaging and recent labs. In addition to her gallbladder issues, she was diagnosed with bilateral pneumonia and in addition to CT abdomen/pelvis showed new lumbar compression fractures L1, 2, 3, 4 with a stable chronic T10 compression fracture, all of which could be causing her pain as well. Right now her abdominal exam is very benign. She presents with normal vital signs and no fevers or hypoxia, and her lungs sound clear and she is in no respiratory distress. Therefore started with liver enzymes, other basic labs, urinalysis, and a two-view chest x-ray to reevaluate her pneumonia. We discussed the lower possibility of a pulmonary embolus, the risk of giving her contrast for CT angiography, and the further risk of treatment of this with anticoagulants. They do not wish to undergo testing for pulmonary embolus at this time which I think is completely reasonable. CTA chest and CT abdomen/pelvis images are reviewed as well as the interpretation which I agree with, patient does not have a pulmonary embolus. He appears to have bilateral consolidations/pneumonia still. It sounds like she is not eating. I discussed with surgery, apparently her cholecystostomy came out inadvertently the day after she was discharged home 3 weeks ago. The patient basically has been afraid to eat anything and has just been drinking water and tea. Surgery would consult to discuss options with the patient, they are still concerned that she may not be a good operative candidate for cholecystectomy, but would consider another tube after consulting with the family and patient. That is not an emergent issue right now, her alkaline phosphatase is up a little bit but the rest of her liver enzymes look good and within normal limits, and her CT is similar to the prior. In addition to the lumbar compression fractures that she has, she now also apparently has multiple thoracic compression fractures, the family states none of this was known to them before. I talked to them at length about this I suspect this is why her back is hurting, not the gallbladder which I think is a separate issue. They are concerned that they are having trouble caring for her at home. They are open to the possibility of rehab at a penitentiary, although the patient states she wants to go back home which is certainly understandable. Family all understands this, and are amenable to admission, I do not think kyphoplasty has been looked into yet since they did not even know about the fractures. Furthermore, initially in screening for cardiopulmonary issues including pulmonary embolus, I obtained a troponin which was abnormal. I repeated this 2 hours later, after obtaining an unchanged unremarkable EKG, and a troponin is down in the normal range. She was hypoxic here at 84%. We put a 2 L nasal cannula on her. At this time she is off of oxygen at 91-92%. With regards to the possible sternal fracture on the CT, I do think this is more likely to be motion artifact. She has no tenderness there, she has had no fall or injury to this area. Lab Data Attestation: I reviewed the patient's lab results. Labs: Laboratory Results - last 24 hr 11/26/22 11/26/22 11/26/22 07:36 07:45 09:00 WBC 7.0 RBC 4.22 Hgb 11.2 L Hct 35.0 L MCV 82.9 MCH 26.5 L MCHC 32.0 RDW Std Deviation 53.6 H RDW Coeff of [place] 17.7 H Plt Count 312 MPV 9.3 Immature Gran % (Auto) 0.300 Neut % (Auto) 58.3 Lymph % (Auto) 27.0 [place] % (Auto) 11.8 H Eos % (Auto) 1.9 Baso % (Auto) 0.7 Absolute Neuts (auto) 4.1 Absolute Lymphs (auto) 1.89 Nucleated RBC % 0 D-Dimer Quant (PE/DVT) 2.62 H* Sodium 134 L Potassium 3.5 Chloride 100 Carbon Dioxide 30.0 Anion Gap 4 L BUN 11 Creatinine 0.63 Estim Creat Clear Calc 31.69 Est GFR (MDRD) Af Amer 117 Est GFR (MDRD) Non-Af 96 BUN/Creatinine Ratio 17.5 Glucose 105 Calcium 8.6 Total Bilirubin 0.40 AST 29 ALT 10 L Alkaline Phosphatase 126 H Troponin I High Sens 59 H Total Protein 7.2 Albumin 2.9 L Globulin 4.3 H Albumin/Globulin Ratio 0.7 L Urine Color Yellow Urine Clarity Sl. Cloudy Urine pH 8.0 Ur Specific [place] 1.015 Urine Protein Negative Urine Glucose (UA) Normal Urine Ketones Negative Urine Occult Blood Negative Urine Nitrite Negative Urine Bilirubin Negative Urine Urobilinogen Normal Ur Leukocyte Esterase Negative Urine RBC 0 SEEN Urine WBC 0 SEEN Ur Squamous Epith Cells 0 SEEN Urine Bacteria 0 SEEN Urine Mucus 0 SEEN 11/26/22 10:05 WBC RBC Hgb Hct MCV MCH MCHC RDW Std Deviation RDW Coeff of [place] Plt Count MPV Immature Gran % (Auto) Neut % (Auto) Lymph % (Auto) [place] % (Auto) Eos % (Auto) Baso % (Auto) Absolute Neuts (auto) Absolute Lymphs (auto) Nucleated RBC % D-Dimer Quant (PE/DVT) Sodium Potassium Chloride Carbon Dioxide Anion Gap BUN Creatinine Estim Creat Clear Calc Est GFR (MDRD) Af Amer Est GFR (MDRD) Non-Af BUN/Creatinine Ratio Glucose Calcium Total Bilirubin AST ALT Alkaline Phosphatase Troponin I High Sens 45 Total Protein Albumin Globulin Albumin/Globulin Ratio Urine Color Urine Clarity Urine pH Ur Specific [place] Urine Protein Urine Glucose (UA) Urine Ketones Urine Occult Blood Urine Nitrite Urine Bilirubin Urine Urobilinogen Ur Leukocyte Esterase Urine RBC Urine WBC Ur Squamous Epith Cells Urine Bacteria Urine Mucus Radiography Diagnostic Testing: Clinical Impression(s) from Imaging Studies Chest X-Ray 11/26/22 07:26 IMPRESSION: Bibasilar atelectasis and/or pneumonia associated with pleural thickening and/or small effusions. Electronically Signed: Mar Su MD at 8:41 EDT Reading Location ID and State: [facility] / [place] Tel , Service support , Abdomen/Pelvis CT 11/26/22 09:39 IMPRESSION: Cholelithiasis associated with pericholecystic fluid and gallbladder wall thickening suggestive of cholecystitis. Stable biliary stent. Lower lobe dependent consolidation. Atherosclerosis. Electronically Signed: Mar Su MD at 10:10 EDT , Chest CTA 07/12/23 09:45 IMPRESSION: Bilateral dependent consolidation. Indeterminate deformity within the sternum concerning for a new fracture however cannot entirely exclude motion artifact. No pulmonary embolus identified. Chronic superior sternal fracture and multilevel thoracic compression deformities. Atherosclerosis. Electronically Signed: Mar Su MD at 10:32 EDT , Rhythm Strip Rhythm Strip: Sinus Rhythm Rate: 70 Ectopy: None EKG Initial EKG: Attestation: I personally reviewed and interpreted this EKG as follows: Interpretation: Sinus Rhythm and No Acute Injury Pattern Prior EKG tracings: available for review Prior: Unchanged Management Discussion w/another healthcare provider: Hospitalist and Mathematics Department Chair (Surgery Dr. Parker) Discharge Plan Triage Chief Complaint: Back ED Provider: Ruy Sahu Dx/Rx/DC Orders Clinical Impression: Acute and chronic cholecystitis, Hypoxemia, Back pain, Compression of lumbar vertebra, Compression of thoracic vertebra, Declining functional status, Bilateral pneumonia Prescriptions: No Action potassium chloride 20 mEq tablet extended release 20 meq PO DAILY Qty: 14 0RF Patient Comments: PER [facility], A 14 DAY SUPPLY OF THIS MEDICATION WAS FILLED IN OCTOBER. PTS STATES THAT THE PT TOOK THEIR LAST DOSE OF THIS PRESCRIPTION YESTERDAY (11-25-22) amlodipine 10 mg tablet 10 mg PO DAILY hydrocodone-acetaminophen 5-325 mg tablet 0.5 tab PO Q6H PRN (Reason: PAIN) Patient Comments: PER [facility], THIS WAS A 30 DAY SUPPLY PRESCRIPTION FILLED IN AUGUST. Primary Care Provider: Homer Roberts Referrals: Homer Roberts DO [Primary Care Provider] -
[2022-11-26 07:48] LABS: Absolute Lymphocyte Count 1.89 X10^3/uL (0.83-4.51); Absolute Neutrophil Count 4.1 X10^3/uL (2.0-7.7); Basophil# 0.05 X10^3/uL; Basophil% 0.7 % (0-1); Eosinophil# 0.13 X10^3/uL; Eosinophils% 1.9 % (0-5); Hemoglobin 11.2 g/dL (12.0-15.0); Lymphocyte # 1.89 X10^3/ul (0.83-4.51); Mean Corpuscular Hgb 26.5 pg (27.0-32.0); Mean Corpuscular Volume 82.9 fL (81-99); Mean Platelet Vol. 9.3 fl (6.2-12.0); Monocyte# 0.83 X10^3/uL; Monocyte% 11.8 % (0-10); NRBC Flagged by Analyzer 0 % (0-5); Neutrophil # 4.09 X10^3/uL (2.7-7.7); Neutrophil % 58.3 % (47-70); Platelet Count 312 K/mm3 (150-450); RBC Distribution Width CV 17.7 % (11.6-14.6); RBC Distribution Width SD 53.6 fl (35.1-43.9); Red Blood Count 4.22 M/mm3 (4.2-5.4)
[2022-11-26 07:50] LABS: Bacteria 0 SEEN /hpf (None Seen); Mucous, Urine 0 SEEN /hpf (<or=2+); Red Blood Cells-Urine 0 SEEN /hpf (0-5); Squamous Epithelial Cells - UA 0 SEEN /hpf (5-10); White Blood Cells 0 SEEN /hpf (0-5)
[2022-11-26] MEDS: 0.9% Normal Saline 1,000 ML 250 ML IV ×2 (07:51→12:07)
[2022-11-26] MEDS: Morphine 2 MG/ML Syringe IV (07:52)
[2022-11-26] MEDS: Ondansetron 4 MG/2 ML Vial IV (07:52)
[2022-11-26 08:02] LABS: Color, Urine Yellow (Yellow); Glucose, Dipstick Normal (Normal); Ketone-Dipstick Negative (Negative); Leukocyte Esterase-Dipstick Negative /ul (Negative); Nitrite-Dipstick Negative (Negative); Occult Blood-Urine Negative /ul (Negative); Protein-Dipstick Negative (Negative); Specific Gravity, Urine 1.015 (1.002-1.030); Urine Bilirubin Dipstick Negative (Negative); Urine Clarity Sl. Cloudy (Clear); Urine Urobilinogen Normal (Normal)
[2022-11-26 08:05] LABS: ALB/GLOB Ratio 0.7 RATIO (0.9-2.4); AST(SGOT) 29 U/L (15-37); Alanine Aminotransfer ALT/SGPT 10 U/L (13-56); Albumin, Serum 2.9 g/dL (3.2-5.0); Alkaline Phosphatase 126 U/L (45-117); Anion Gap 4 (5-15); BUN 11 mg/dL (7-18); BUN/Creat Ratio 17.5 RATIO (10-20); Calcium,Total 8.6 mg/dL (8.5-10.1); Chloride 100 mmol/L (98-107); Creatinine, Serum 0.63 mg/dL (0.55-1.02); EST Glomerular Filtration Rate 96 mL/min (>60); Est Glom Filt Rate - Afr Amer 117 mL/min (>60); Estimated Creatinine Clearance 31.69 ml/min; Globulin 4.3 g/dL (2.2-4.2); Glucose 105 mg/dL (74-106); Potassium 3.5 mmol/L (3.5-5.1); Protein, Total 7.2 g/dL (6.4-8.2); Sodium Level 134 mmol/L (136-145)
[2022-11-26 08:11] LABS: Troponin-I HS 59 pg/mL (3.0-54.0)
[2022-11-26 09:30] LABS: D-Dimer Quantitative (DVT/PE) 2.62 FEU/ug/m (0.27-0.49)
--- NOTE | 2022-11-26 09:39 | CT_ITS ---
STUDY: CT ABDOMEN AND PELVIS WITH CONTRAST - URINARY TRACT REASON FOR EXAM: Female, 82 years old. Right upper quadrant pain RADIATION DOSAGE (If Supplied By Facility): CTDIvol = ( 14.27 ) mGy, DLP = ( 1140.54 ) mGycm TECHNIQUE: IV 100mL Isovue-370 was administered. Transaxial images were obtained from the dome of the diaphragm to the symphysis pubis subsequent to intravenous contrast administration. Multiplanar coronal and sagittal images were reformatted. Individualized Dose Optimization Techniques Were Used For This CT. COMPARISON: Prior study dated: November 01, 2022 FINDINGS: There is a granuloma within the lingula. There is minimal dependent consolidation within the lower lobes. There are coronary artery calcifications. There is a separate dedicated CT report of the chest. There is pneumobilia, slightly more pronounced than the prior examination. There is a stable biliary stent in place. There are gallstones within the gallbladder. There is pericholecystic fluid and gallbladder wall thickening. There is a focus of air within the gallbladder fundus. There is a stable calcification within the spleen which appears vascular. There is stable prominence of the pancreatic duct proximal to the biliary stent. Normal bilateral adrenal glands. Normal visualized stomach. Normal small intestine. There are scattered diverticula arising from the colon. There is non-visualization of the appendix. There is diffuse atherosclerotic calcification of the abdominal aorta, without a demonstrated aneurysm. No retroperitoneal adenopathy. Normal right kidney. Normal left kidney. Normal urinary bladder. Normal abdominal wall. The bones are diffusely demineralized. There are stable vertebral body deformities throughout the visualized thoracic and lumbar spine. There is a stable grade 1 anterior spondylolisthesis of L4 on L5. There are stable deformities of the right superior and left superior and inferior pubic rami consistent with healed fractures. CT/Abdomen/Pelvis W IV Cont ONLY IMPRESSION: Cholelithiasis associated with pericholecystic fluid and gallbladder wall thickening suggestive of cholecystitis. Stable biliary stent. Lower lobe dependent consolidation. Atherosclerosis. Electronically Signed: Mar Su MD at 10:10 EDT ,
--- NOTE | 2022-11-26 09:45 | CT_ITS ---
STUDY: CTA CHEST REASON FOR EXAM: Female, 82 years old. Pleuritic mid back pain, elevated tpn, abn CXR RADIATION DOSAGE (If Supplied By Facility): CTDIvol = ( 14.27 ) mGy, DLP = ( 1140.54 ) mGycm TECHNIQUE: The examination was performed with the intravenous administration of IV 100mL Isovue-370. Post-processing of the angiographic images was performed, with multiplanar reformation and 3D reconstruction. Individualized dose optimization techniques were used for this CT. COMPARISON: Prior study dated: November 01, 2022 FINDINGS: Motion artifact degrades anatomic detail. There is lower lobe dependent consolidation. Normal enhancement of the main pulmonary artery and right and left pulmonary arteries. Normal enhancement of the bilateral peripheral pulmonary arteries. There is no demonstrated pulmonary embolism. Normal thoracic aorta and visualized great vessels. There is no demonstrated aortic dissection. There are peripheral calcifications of the thoracic aorta. Normal heart and pericardium. No coronary artery calcifications are visualized. Normal mediastinum. Normal hilar regions. Normal visualized trachea and bronchi. Normal chest wall structures. The bones are diffusely demineralized. There are stable chronic compression deformities throughout the mid and lower thoracic spine. There is an old healing fracture within the superior sternum. There is a new deformity within the mid sternum. There is a separate dedicated CT report of the abdomen and pelvis. CT/CTA Chest W/WO Contrast IMPRESSION: Bilateral dependent consolidation. Indeterminate deformity within the sternum concerning for a new fracture however cannot entirely exclude motion artifact. No pulmonary embolus identified. Chronic superior sternal fracture and multilevel thoracic compression deformities. Atherosclerosis. Electronically Signed: Mar Su MD at 10:32 EDT ,
[2022-11-26 10:31] LABS: Troponin-I HS 45 pg/mL (3.0-54.0)
--- NOTE | 2022-11-26 12:57 | HP.PCM.HOS_ITS ---
HPI - General General Date of Admission: 11/26/22 Date of Service: 11/26/22 Chief Complaint: Back pain HPI Narrative AGUILA MONTEJO, is a 82 F who presented with back pain. Patient was on admission less than a month prior with chronic cholecystitis. Patient underwent CT-guided cholecystostomy tube placement after family declined cholecystectomy. Patient apparently became dislodged once she got home. Presented to the emergency department with back pain. Patient was found to have elevated D-dimer and CT of the abdomen obtained was negative for PE however did show bilateral dependent consolidation as well as indeterminate deformity within the sternum concerning for new fracture. CT of the abdomen and pelvis did show Cholelithi asis associated with pericholecystic fluid and gallbladder wall thickening suggestive of cholecystitis. Stable biliary stent.. Patient was also noted to have multiple bony deformities consistent with old injuries including bilateral posterior rib deformities, right proximal humeral deformity,As well as chronic compression fracture involving T10. Patient subsequently admitted to regular nursing floor for further management [facility] Medical History Depression Home Medications potassium chloride 20 mEq tablet,extended release 20 meq PO DAILY supplement #14 tabs 11/05/22 [Rx Last Taken 11/25/22] amlodipine 10 mg tablet 10 mg PO DAILY blood pressure 11/26/22 [History Last Taken 11/25/22] hydrocodone-acetaminophen 5-325mg 5mg-325mg 0.5 tab PO Q6H PRN PAIN 11/26/22 [History Last Taken Unknown] Allergy/AdvReac Type Severity Reaction Status Date / Time No Known Allergies Allergy Verified 11/26/22 06:54 Social History Smoking Status: Never smoker ROS ROS Narrative GENERAL: denies fever, chills, night sweats, weight loss, anorexia HEENT: denies headache, sinus congestion, or drainage, dysphagia RESPIRATORY: denies cough, sputum production, CARDIAC: denies chest pain, palpitations, orthopnea, PND GASTROINTESTINAL: abdominal pain, denies nausea, vomiting, melena, GENITOURINARY: denies dysuria, urgency, frequency, heamaturia EXTREMITY: denies swelling MUSCULOSKELETAL: Back pain NEUROLOGIC: denies focal numbness, weakness, tingling HEMATOLOGIC: denies easy bruising and/or hemorrhage INTEGUMENT: denies rashes PSYCHIATRIC: denies suicidal or homicidal ideation Vital Signs Vital Signs Vital Signs: 11/26/22 06:47 11/26/22 08:51 11/26/22 11:28 Temperature 98.0 F 97.8 F Temperature Source Temporal Temporal Pulse Rate 78 79 91 Respiratory Rate 15 16 15 Blood Pressure 131/75 H 123/65 H 131/83 H Blood Pressure Mean 93 84 99 Pulse Ox 93 94 94 Oxygen Delivery Method Room Air Nasal Cannula Oxygen Flow Rate (L/min) 2 11/26/22 12:35 11/26/22 08:31 Temperature 98.6 F Temperature Source Temporal Pulse Rate 83 Respiratory Rate 15 Blood Pressure 98/78 Blood Pressure Mean 84 Pulse Ox 92 84 Oxygen Delivery Method Nasal Cannula Room Air Oxygen Flow Rate (L/min) 3 Weight Weight: 65.6 kg Body Mass Index (BMI) 28.2 Physical Exam Narrative GENERAL: cooperative HEENT: Atraumatic; normocephalic EYES; Anicteric, Normal Conjunctiva NECK; supple, normal thyroid, RESPIRATORY: Diminished to auscultation CARDIOVASCULAR: Regular S1 S2, GI: soft, normoactive bowel sounds, : No Renal angle tenderness; EXTREMITIES: No edema, no clubbing, MUSCULOSKELETAL: no muscle wasting NEURO: Awake; no lateralizing signs. SKIN: No Rash PSYCH; Flat affect Results Lab / Micro Data 11/26/22 07:36 11/26/22 07:36 Labs: Laboratory Results - last 24 hr 11/26/22 07:36: WBC 7.0, RBC 4.22, Hgb 11.2 L, Hct 35.0 L, MCV 82.9, MCH 26.5 L, MCHC 32.0, RDW Std Deviation 53.6 H, RDW Coeff of [place] 17.7 H, Plt Count 312, MPV 9.3, Immature Gran % (Auto) 0.300, Neut % (Auto) 58.3, Lymph % (Auto) 27.0, [place] % (Auto) 11.8 H, Eos % (Auto) 1.9, Baso % (Auto) 0.7, Absolute Neuts (auto) 4.1, Absolute Lymphs (auto) 1.89, Nucleated RBC % 0, Sodium 134 L, Potassium 3.5, Chloride 100, Carbon Dioxide 30.0, Anion Gap 4 L, BUN 11, Creatinine 0.63, Estim Creat Clear Calc 31.69, Est GFR (MDRD) Af Amer 117, Est GFR (MDRD) Non-Af 96, BUN/Creatinine Ratio 17.5, Glucose 105, Calcium 8.6, Total Bilirubin 0.40, AST 29, ALT 10 L, Alkaline Phosphatase 126 H, Troponin I High Sens 59 H, Total Protein 7.2, Albumin 2.9 L, Globulin 4.3 H, Albumin/Globulin Ratio 0.7 L 11/26/22 07:45: Urine Color Yellow, Urine Clarity Sl. Cloudy, Urine pH 8.0, Ur Specific [place] 1.015, Urine Protein Negative, Urine Glucose (UA) Normal, Urine Ketones Negative, Urine Occult Blood Negative, Urine Nitrite Negative, Urine Bilirubin Negative, Urine Urobilinogen Normal, Ur Leukocyte Esterase Negative, Urine RBC 0 SEEN, Urine WBC 0 SEEN, Ur Squamous Epith Cells 0 SEEN, Urine Bacter ia 0 SEEN, Urine Mucus 0 SEEN 11/26/22 09:00: D-Dimer Quant (PE/DVT) 2.62 H* 11/26/22 10:05: Troponin I High Sens 45 Rhythm Strip Rhythm Strip: Sinus Rhythm Rate: 70 Ectopy: None Radiology Impression Chest X-Ray 11/26/22 07:26 IMPRESSION: Bibasilar atelectasis and/or pneumonia associated with pleural thickening and/or small effusions. Electronically Signed: Mar Su MD at 8:41 EDT , Abdomen/Pelvis CT 11/26/22 09:39 IMPRESSION: Cholelithiasis associated with pericholecystic fluid and gallbladder wall thickening suggestive of cholecystitis. Stable biliary stent. Lower lobe dependent consolidation. Atherosclerosis. Electronically Signed: Mar Su MD at 10:10 EDT , Chest CTA 11/26/22 09:45 IMPRESSION: Bilateral dependent consolidation. Indeterminate deformity within the sternum concerning for a new fracture however cannot entirely exclude motion artifact. No pulmonary embolus identified. Chronic superior sternal fracture and multilevel thoracic compression deformities. Atherosclerosis. Electronically Signed: Mar Su MD at 10:32 EDT , Assessment & Plan Assessment/Plan (1) Acute and chronic cholecystitis: (2) Back pain: PLAN: Plan Patient is an 82-year-old obese lady presenting with low back pain as well as evidence of acute cholecystitis on CT 1. Low back pain ? Secondary to pathological compression fracture possibly from osteoporosis. Giuseppe antonio has been admitted to regular nursing floor for pain management also requested for PT OT eval and social studies department chair to assist with discharge planning 2. Acute on chronic cholecystitis ? Patient had apparently been evaluated by general surgery during her previous admission underwent CT-guided cholecystostomy tube after patient and family had declined cholecystectomy. Her tube apparently became dislodged once she got home. Patient started on broad-spectrum antibiotic therapy consult placed to general surgery. Dr. Gallegos was notified from the ED 3. Bilateral consolidation ? Do suspect atelectasis. Patient does not have any evidence of pneumonia we will continue with monitoring 4. Mild hyponatremia ? Started on saline with subsequent monitoring of electrolytes ordered 5. Hypokalemia ? Corrected per protocol with repeat labs ordered for a.m. 6. DVT prophylaxis ? SC Lovenox Time spent in the patient's overall evaluation,decision-making process, review of diagnostic data, adjustment of management, discussion with other providers, nursing nursing and ancillary staff involved in patient's care documentation, 75 Minutes Advance planning; did discuss with the patient and family regarding advanced directives as well as CODE STATUS. Did explain the various scenarios involved ( FULL CODE, DNR CCA, DNR CCA with no intubation, and DNR CC and what each meant) patient elected to be DNR CCA no intubation. Order was placed. Time spent on discussion 18 minutes. Charges/Coding Visit Charges Inpatient E&M: 57813 Init Hosp L3 Procedures Hospitalists Procedures: 40489 Advncd Care Plan 30 Min
[2022-11-26] MEDS: KCl 20MEQ in D5NS 20 MEQ/1,000 ML IV.SOLN. 125 MEQ IV ×2 (14:45→23:24)
[2022-11-26] MEDS: metroNIDAZOLE 500 MG/100 ML BAG 100 MG IV ×2 (15:14→22:21)
--- NOTE | 2022-11-26 15:25 | CON.PCM.SX_ITS ---
Documented by User: Dorothy MOLINA PA-C 11/26/22 17:37 Assessment & Plan Assessment/Plan (1) Acute and chronic cholecystitis: PLAN: I have been consulted in conjunction with Dr. Ponce. Patient has been a dmitted with back pain. Patient is not demonstrating an acute cholecystitis episode at this time. Patient khan shave chronic cholecystitis. Patient has refused a laparoscopic cholecystectomy in past which has prolonged her treatment. Patient currently is continuing to recover from bilateral pneumonia. Patient continues to be on oxygen via nasal canula and is very deconditioned and is mostly wheelchair bound as she khan snot walk around at home but is dependent on the wheelchair to get around. With the delay in treatment, her current pulmonary status, and deconditioning, she would be a very high risk surgical candidate and may end up on a ventilator post-operatively. If her pulmonary status were to improve, patient would be better suited to have a laparoscopic cholecystectomy at a tertiary facility where hepatobiliary was available. Even if patient's gallbladder is removed, patients current symptom of left-sided back pain may not improve. A thorough discussion was provided to the patient, and son. Patient and family have had the opportunity to ask and have questions answered. No surgical intervention is being recommended during this hospitalization. If patient were to develop RUQ abdominal pain, a cholecystostomy tube would be placed. Patient and her family verbally understand and agrees with the above plan. Thank you for allowing us to participate in this patient's care. We will continue to monitor this patient. HPI Consult Data Date of Consult: 11/26/22 HPI Narrative Reason for Consultation: Acute on Chronic cholecystitis HPI Narrative: AGUILA COLLINS, is a 82 F who presents with a main concern of low left -sided back pain. Patient notes since her most recent discharge in mid October, she has had low back pain. Patient is a poor historian. She believes the back pain may stretch across the entire lower back, however more specifically the left side. Patient's son is present int he room and provides majority of the history. Patient's son notes that the back pain became more severe on Thursday. Patient continued on with her daily life and tried to ignore the pain. Patient noted last night the pain returned and they decided to contact a patrol driver to go to the ED today to be evaluated. Patient has been on oxygen since her discharge last month. Patient continues with the oxygen at bedtime. Patient's notes the monitor her pulse ox at home. She has not been evaluated by her primary car physician or a interior surface insulation worker to see when or if she is able to discontinue the oxygen. She was also diagnosed with bilateral pneumonia last hospitalization. Patient again, has not followed up with her PCP in regards to this diagnosis. Patient was evaluated last hospitalization by Dr. Parker for acute on chronic cholecystitis. Patient had a cholecystostomy tube placed. Patient notes 2 days after her hospitalization, the tube fell out. She denies any current abdominal pain/discomfort. she has been on a bland diet at this time. Patient's son notes she is very sedentary and mostly gets around in a wheelchair. She does not walk as she is to unsteady. CT scan of the abd/pel demonstrates: IMPRESSION: Cholelithiasis associated with pericholecystic fluid and gallbladder wall thickening suggestive of cholecystitis. Stable biliary stent. Lower lobe dependent consolidation. Atherosclerosis. WBC 7.0, Hgb 11.2, Hct 35.0, Plt 312. Patient D-Dimer is elevated at 2.62. Liver enzymes Alk phos is slightly elevated at 126, otherwise unremarkable. [facility] Medical History Depression Home Medications potassium chloride 20 mEq tablet,extended release 20 meq PO DAILY supplement #14 tabs 11/05/22 [Rx Last Taken 11/25/22] amlodipine 10 mg tablet 10 mg PO DAILY blood pressure 11/26/22 [History Last Taken 11/25/22] hydrocodone-acetaminophen 5-325mg 5mg-325mg 0.5 tab PO Q6H PRN PAIN 11/26/22 [History Last Taken Unknown] Allergy/AdvReac Type Severity Reaction Status Date / Time No Known Allergies Allergy Verified 11/26/22 06:54 Social History Smoking Status: Never smoker ROS Constitutional Constitutional: Reports systems reviewed and no addt'l complaints, except as documented Eyes Eyes: Reports systems reviewed and no addt'l complaints, except as documented ENT HEENT: Reports systems reviewed and no addt'l complaints, except as documented Cardiovascular Cardiovascular: Reports systems reviewed and no addt'l complaints, except as documented Respiratory/Chest Respiratory/Chest: Reports systems reviewed and no addt'l complaints, except as documented Gastrointestinal Gastrointestinal: Reports systems reviewed and no addt'l complaints, except as documented Genitourinary Genitourinary: Reports systems reviewed and no addt'l complaints, except as documented Musculoskeletal Musculoskeletal: Reports systems reviewed and no addt'l complaints, except as documented Integumentary Integumentary: Reports systems reviewed and no addt'l complaints, except as documented Neurologic Neurologic: Reports systems reviewed and no addt'l complaints, except as documented Psychiatric Psychiatric: Reports systems reviewed and no addt'l complaints, except as documented Endocrine Endocrinology: Reports systems reviewed and no addt'l complaints, except as documented Hematologic/Lymphatic Hematologic/Lymphatic: Reports systems reviewed and no addt'l complaints, except as documented Allergic/Immunologic Allergic/Immunologic: Reports systems reviewed and no addt'l complaints, except as documented Physical Exam Const alert, oriented x3 and no apparent distress General Appearance: frail HEENT normocephalic Eyes PERRL Neck full ROM Lymph Lymphatic: no lymphadenopathy noted Resp normal respiratory effort and clear to auscultation bilaterally Cardio regular rate and regular rhythm GI normal to inspection, nondistended, normoactive bowel sounds Inspection: central obesity Auscultation: normoactive bowel sounds Palpation: soft no CVA tenderness Back/Spine Back/Spine Narrative: Tenderness demonstrated in the left posterior thoracic region Extremity normal to inspection Skin no rashes or lesions noted Neuro no focal motor deficits Psych mental status grossly normal Appearance: appropriate Speech: slow Mood & Affect: flat affect Lab / Micro Data 11/26/22 07:36 11/26/22 07:36 Labs: Laboratory Results - last 24 hr 11/26/22 07:36: WBC 7.0, RBC 4.22, Hgb 11.2 L, Hct 35.0 L, MCV 82.9, MCH 26.5 L, MCHC 32.0, RDW Std Deviation 53.6 H, RDW Coeff of [place] 17.7 H, Plt Count 312, MPV 9.3, Immature Gran % (Auto) 0.300, Neut % (Auto) 58.3, Lymph % (Auto) 27.0, [place] % (Auto) 11.8 H, Eos % (Auto) 1.9, Baso % (Auto) 0.7, Absolute Neuts (auto) 4.1, Absolute Lymphs (auto) 1.89, Nucleated RBC % 0, Sodium 134 L, Potassium 3.5, Chloride 100, Carbon Dioxide 30.0, Anion Gap 4 L, BUN 11, Creatinine 0.63, Estim Creat Clear Calc 31.69, Est GFR (MDRD) Af Amer 117, Est GFR (MDRD) Non-Af 96, BUN/Creatinine Ratio 17.5, Glucose 105, Calcium 8.6, Total Bilirubin 0.40, AST 29, ALT 10 L, Alkaline Phosphatase 126 H, Troponin I High Sens 59 H, Total Protein 7.2, Albumin 2.9 L, Globulin 4.3 H, Albumin/Globulin Ratio 0.7 L 11/26/22 07:45: Urine Color Yellow, Urine Clarity Sl. Cloudy, Urine pH 8.0, Ur Specific [place] 1.015, Urine Protein Negative, Urine Glucose (UA) Normal, Urine Ketones Negative, Urine Occult Blood Negative, Urine Nitrite Negative, Urine Bilirubin Negative, Urine Urobilinogen Normal, Ur Leukocyte Esterase Negative, Urine RBC 0 SEEN, Urine WBC 0 SEEN, Ur Squamous Epith Cells 0 SEEN, Urine Bacteria 0 SEEN, Urine Mucus 0 SEEN 11/26/22 09:00: D-Dimer Quant (PE/DVT) 2.62 H* 11/26/22 10:05: Troponin I High Sens 45 Rhythm Strip Rhythm Strip: Sinus Rhythm Rate: 70 Ectopy: None Radiology Impression Chest X-Ray 11/26/22 07:26 IMPRESSION: Bibasilar atelectasis and/or pneumonia associated with pleural thickening and/or small effusions. Electronically Signed: Mar Su MD at 8:41 EDT , Abdomen/Pelvis CT 11/26/22 09:39 IMPRESSION: Cholelithiasis associated with pericholecystic fluid and gallbladder wall thickening suggestive of cholecystitis. Stable biliary stent. Lower lobe dependent consolidation. Atherosclerosis. Electronically Signed: Mar Su MD at 10:10 EDT , Chest CTA 11/26/22 09:45 IMPRESSION: Bilateral dependent consolidation. Indeterminate deformity within the sternum concerning for a new fracture however cannot entirely exclude motion artifact. No pulmonary embolus identified. Chronic superior sternal fracture and multilevel thoracic compression deformities. Atherosclerosis. Electronically Signed: Mar Su MD at 10:32 EDT , Documented by User: Dr. Edouard Ponce MD 11/26/22 18:27 Assessment & Plan Assessment/Plan (1) Acute and chronic cholecystitis: PLAN: I have been consulted in conjunction with Dr. Ponce. Patient has been admitted with back pain. Patient is not demonstrating an acute cholecystitis episode at this time. Patient does have chronic cholecystitis. Patient has refused a laparoscopic cholecystectomy in past which has prolonged her treatment. Patient currently is continuing to recover from bilateral pneumonia. Patient continues to be on oxygen via nasal canula and is very deconditioned and is mostly wheelchair bound as she does not walk around at home but is dependent on the wheelchair to get around. With the delay in treatment, her current pulmonary status, and deconditioning, she would be a very high risk surgical candidate and may end up on a ventilator post-operatively. If her pulmonary status were to improve, patient would be better suited to have a laparoscopic cholecystectomy at a tertiary facility where hepatobiliary was available. Even if patient's gallbladder is removed, patients current symptom of left-sided back pain may not improve. A thorough discussion was provided to the patient, and son. Patient and family have had the opportunity to ask and have questions answered. No surgical intervention is being recommended during this hosp italization. If patient were to develop RUQ abdominal pain, a cholecystostomy tube would be placed. Patient and her family verbally understand and agrees with the above plan. Thank you for allowing us to participate in this patient's care. We will continue to monitor this patient. PLAN: Plan Patient seen and examined along with JESSE Cavanaugh. Agree with her documentation above. This is a frail 82-year-old female who presents from home with her and son in the room. She has a history of prior cholecystitis and cholangitis status post ERCP with CBD stent placement July 2019. More recently she was admitted last month with evidence of bilateral pneumonia as well as cholecystitis. Given her frail condition and pulmonary status requiring supplemental oxygen, Dr. Parker deemed her an unacceptable operative risk and recommended cholecystostomy tube placement. It is also apparent that patient had declined surgery at that time. While her cholecystostomy tube was placed, shortly after arrival home it reportedly fell out. She presents to the hospital this admission with complaints of intractable and progressive left back pain. She denies abdominal discomfort specifically. As noted previously by other providers both she and her are poor historians. On exam, Mrs. Collins has no right upper quadrant discomfort and has a negative Mcdonnell sign. I performed a exam of her back and while I do not find any step-offs of her vertebral column she does complain of bilateral mid to lower thoracic tendernes s. While I jairo that chronic cholecystitis can lead to atypical back pain presentations, radiology has identified evidence of vertebral compression fractures in this segment of her spinal column. Therefore, I would suggest she needs further evaluation of possible primary vertebral pathology. As alluded to, patient has no evidence of acute cholecystitis clinically or biochemically, but her CT is suggestive of chronic cholecystitis. Given her apparent frailty and family reports of her nonambulatory status as well as persistent oxygen needs and demonstration of lung consolidations, I see her as a prohibitive operative risk. I have shared with her and her family that I believe she would be at significant risk for requiring a lengthy operation that would be fraught with a number of risks related to the procedure surgery specifically, but simply the length of time under general anesthesia would put her at a prohibitive cardiopulmonary risk. Given the apparent limited literacy, I have tried to plainly state that there is nothing suggesting acute cholecystitis or biliary obstruction and therefore no intervention is required at this time. If Mrs. Collins's baseline health was to improve and she would be interested in pursuing cholecystectomy/exhibit more convincing symptoms of gallbladder distress then I would recommend evaluation at a tertiary facility with hepatobiliary expertise and full-time sandwich counter attendant support. We will continue to assess and follow patient during her inpatient stay. HPI Consult Data Date of Consult: 11/26/22 [facility] Medical History Depression Home Medications potassium chloride 20 mEq tablet,extended release 20 meq PO DAILY supplement #14 tabs 11/05/22 [Rx Last Taken 11/25/22] amlodipine 10 mg tablet 10 mg PO DAILY blood pressure 11/26/22 [History Last Taken 11/25/22] hydrocodone-acetaminophen 5-325mg 5mg-325mg 0.5 tab PO Q6H PRN PAIN 11/26/22 [History Last Taken Unknown] Allergy/AdvReac Type Severity Reaction Status Date / Time No Known Allergies Allergy Verified 11/26/22 06:54 Social History Smoking Status: Never smoker Lab / Micro Data 11/26/22 07:36 11/26/22 07:36
[2022-11-26] MEDS: 0.9% Saline Lock 10 ML Syringe IV (18:38)
[2022-11-26] MEDS: HYDROmorphone 1 MG/ML Syringe IV (18:38)
[2022-11-27 05:26] VITALS: BP 143/80; PULSE 68; RESP 16; TEMP 36.8; O2SAT 94
[2022-11-27] MEDS: metroNIDAZOLE 500 MG/100 ML BAG 100 MG IV (05:59)
[2022-11-27] MEDS: Menthol/Lanolin/Calamine/Znox 113 GM Tube 1 APPLIC TOPICAL (05:59)
[2022-11-27 06:58] LABS: Absolute Lymphocyte Count 1.86 X10^3/uL (0.83-4.51); Absolute Neutrophil Count 3.3 X10^3/uL (2.0-7.7); Basophil# 0.04 X10^3/uL; Basophil% 0.7 % (0-1); Eosinophil# 0.17 X10^3/uL; Eosinophils% 2.8 % (0-5); Hematocrit 35.5 % (37-47); Hemoglobin 11.3 g/dL (12.0-15.0); Lymphocyte # 1.86 X10^3/ul (0.83-4.51); Lymphocyte % 30.2 % (19-41); Mean Corp Hgb Conc 31.8 g/dL (32-36); Mean Corpuscular Hgb 26.8 pg (27.0-32.0); Mean Corpuscular Volume 84.3 fL (81-99); Monocyte# 0.73 X10^3/uL; Monocyte% 11.9 % (0-10); NRBC Flagged by Analyzer 0 % (0-5); Neutrophil # 3.33 X10^3/uL (2.7-7.7); Neutrophil % 54.1 % (47-70); Platelet Count 313 K/mm3 (150-450); RBC Distribution Width CV 17.9 % (11.6-14.6); RBC Distribution Width SD 55.2 fl (35.1-43.9); Red Blood Count 4.21 M/mm3 (4.2-5.4); White Blood Count 6.2 K/mm3 (4.4-11.0)
[2022-11-27 07:30] LABS: ALB/GLOB Ratio 0.7 RATIO (0.9-2.4); AST(SGOT) 21 U/L (15-37); Alanine Aminotransfer ALT/SGPT 11 U/L (13-56); Albumin, Serum 2.7 g/dL (3.2-5.0); Alkaline Phosphatase 121 U/L (45-117); Anion Gap 4 (5-15); BUN 7 mg/dL (7-18); BUN/Creat Ratio 13.1 RATIO (10-20); Calcium,Total 8.7 mg/dL (8.5-10.1); Chloride 106 mmol/L (98-107); Creatinine, Serum 0.53 mg/dL (0.55-1.02); EST Glomerular Filtration Rate 117 mL/min (>60); Est Glom Filt Rate - Afr Amer 141 mL/min (>60); Estimated Creatinine Clearance 31.69 ml/min; Globulin 4.1 g/dL (2.2-4.2); Glucose 118 mg/dL (74-106); Magnesium 2.2 mg/dL (1.6-2.6); Phosphorus 2.2 mg/dL (2.5-4.9); Potassium 3.6 mmol/L (3.5-5.1); Protein, Total 6.8 g/dL (6.4-8.2); Sodium Level 137 mmol/L (136-145)
--- NOTE | 2022-11-27 07:33 | PCM.PN.HOSP ---
Reason for Visit Reason for Visit: Diagnoses Acute cholecystitis with chronic cholecystitis (11/26/22) Dorsalgia, unspecified (11/26/22) Subjective Subjective Seen pain is tolerable. Case was discussed with patient and the family plan will be for patient to be discharged home with pain meds. Was seen in consultation by general surgery no surgical intervention is planned at this time Objective Data Objective Data Vital Signs: Vital Signs Temp Pulse Resp BP Pulse Ox O2 Del Method O2 Flow Rate 98.3 F 68 16 143/80 H 94 Nasal Cannula 2 11/27/22 05:26 11/27/22 05:26 11/27/22 05:26 11/27/22 05:26 11/27/22 05:26 11/27/22 05:26 11/27/22 05:26 Oxygen Flow Rate (L/min) 2 Oxygen Delivery Method Nasal Cannula Weight: 63.9 kg Body Mass Index (BMI) 27.5 Intake & Output: Intake and Output for Last 24 Hours 11/25/22 11/26/22 11/27/22 23:59 23:59 23:59 Intake Total 3065.84 / 3065.84 400 / 400 Output Total 800 / 800 1200 / 1200 Balance 2265.84 / 2265.84 -800 / -800 Lab / Micro Data 11/27/22 05:55 11/27/22 05:55 Labs: Laboratory Results - last 24 hr 11/26/22 07:36: WBC 7.0, RBC 4.22, Hgb 11.2 L, Hct 35.0 L, MCV 82.9, MCH 26.5 L, MCHC 32.0, RDW Std Deviation 53.6 H, RDW Coeff of [place] 17.7 H, Plt Count 312, MPV 9.3, Immature Gran % (Auto) 0.300, Neut % (Auto) 58.3, Lymph % (Auto) 27.0, [place] % (Auto) 11.8 H, Eos % (Auto) 1.9, Baso % (Auto) 0.7, Absolute Neuts (auto) 4.1, Absolute Lymphs (auto) 1.89, Nucleated RBC % 0, Sodium 134 L, Potassium 3.5, Chloride 100, Carbon Dioxide 30.0, Anion Gap 4 L, BUN 11, Creatinine 0.63, Estim Creat Clear Calc 31.69, Est GFR (MDRD) Af Amer 117, Est GFR (MDRD) Non-Af 96, BUN/Creatinine Ratio 17.5, Glucose 105, Calcium 8.6, Total Bilirubin 0.40, AST 29, ALT 10 L, Alkaline Phosphatase 126 H, Troponin I High Sens 59 H, Total Protein 7.2, Albumin 2.9 L, Globulin 4.3 H, Albumin/Globulin Ratio 0.7 L 11/26/22 07:45: Urine Color Yellow, Urine Clarity Sl. Cloudy, Urine pH 8.0, Ur Specific [place] 1.015, Urine Protein Negative, Urine Glucose (UA) Normal, Urine Ketones Negative, Urine Occult Blood Negative, Urine Nitrite Negative, Urine Bilirubin Negative, Urine Urobilinogen Normal, Ur Leukocyte Esterase Negative, Urine RBC 0 SEEN, Urine WBC 0 SEEN, Ur Squamous Epith Cells 0 SEEN, Urine Bacteria 0 SEEN, Urine Mucus 0 SEEN 11/26/22 09:00: D-Dimer Quant (PE/DVT) 2.62 H* 11/26/22 10:05: Troponin I High Sens 45 11/27/22 05:55: WBC 6.2, RBC 4.21, Hgb 11.3 L, Hct 35.5 L, MCV 84.3, MCH 26.8 L, MCHC 31.8 L, RDW Std Deviation 55.2 H, RDW Coeff of [place] 17.9 H, Plt Count 313, MPV 9.0, Immature Gran % (Auto) 0.300, Neut % (Auto) 54.1, Lymph % (Auto) 30.2, [place] % (Auto) 11.9 H, Eos % (Auto) 2.8, Baso % (Auto) 0.7, Absolute Neuts (auto) 3.3, Absolute Lymphs (auto) 1.86, Nucleated RBC % 0, Sodium 137, Potassium 3.6, Chloride 106, Carbon Dioxide 27.0, Anion Gap 4 L, BUN 7, Creatinine 0.53 L, Estim Creat Clear Calc 31.69, Est GFR (MDRD) Af Amer 141, Est GFR (MDRD) Non-Af 117, BUN/Creatinine Ratio 13.1, Glucose 118 H, Calcium 8.7, Phosphorus 2.2 L, Magnesium 2.2, Total Bilirubin 0.30, AST 21, ALT 11 L, Alkaline Phosphatase 121 H, Total Protein 6.8, Albumin 2.7 L, Globulin 4.1, Albumin/Globulin Ratio 0.7 L Radiography Diagnostic Testing: Radiology Impression Chest X-Ray 11/26/22 07:26 IMPRESSION: Bibasilar atelectasis and/or pneumonia associated with pleural thickening and/or small effusions. Electronically Signed: Mar Su MD at 8:41 EDT , Abdomen/Pelvis CT 11/26/22 09:39 IMPRESSION: Cholelithiasis associated with pericholecystic fluid and gallbladder wall thickening suggestive of cholecystitis. Stable biliary stent. Lower lobe dependent consolidation. Atherosclerosis. Electronically Signed: Mar Su MD at 10:10 EDT , Chest CTA 11/26/22 09:45 IMPRESSION: Bilateral dependent consolidation. Indeterminate deformity within the sternum concerning for a new fracture however cannot entirely exclude motion artifact. No pulmonary embolus identified. Chronic superior sternal fracture and multilevel thoracic compression deformities. Atherosclerosis. Electronically Signed: Mar Su MD at 10:32 EDT , Rhythm Strip Rhythm Strip: Sinus Rhythm Rate: 70 Ectopy: None Physical Exam Narrative GENERAL: cooperative HEENT: Atraumatic; normocephalic EYES; Anicteric, Normal Conjunctiva NECK; supple, normal thyroid, RESPIRATORY: Diminished to auscultation CARDIOVASCULAR: Regular S1 S2, GI: soft, normoactive bowel sounds, : No Renal angle tenderness; EXTREMITIES: No edema, no clubbing, MUSCULOSKELETAL: no muscle wasting NEURO: Awake; no lateralizing signs. SKIN: No Rash PSYCH; Flat affect Assessment & Plan Assessment/Plan (1) Acute and chronic cholecystitis: (2) Back pain: PLAN: Plan Patient is an 82-year-old obese lady presenting with low back pain as well as evidence of acute cholecystitis on CT 1. Low back pain ? Secondary to pathological compression fracture possibly from osteoporosis. Patient has been admitted to regular nursing floor for pain management also requested for PT OT eval and social work coordinator to assist with discharge planning -11/27/2022; Seen pain is tolerable. Case was discussed with patient and the family plan will be for patient to be discharged home with pain meds. 2. Acute on chronic cholecystitis ? Patient had apparently been evaluated by general surgery during her previous admission underwent CT-guided cholecystostomy tube after patient and family had declined cholecystectomy. Her tube apparently became dislodged once she got home. Patient started on broad-spectrum antibiotic therapy consult placed to general surgery. Dr. Gallegos was notified from the ED ? 11/27/2022 seen by general surgery no surgical intervention recommended at this time 3. Bilateral consolidation ? Do suspect atelectasis. Patient does not have any evidence of pneumonia we will continue with monitoring 4. Mild hyponatremia ? Started on saline with subsequent monitoring of electrolytes ordered 5. Hypokalemia ? Corrected per protocol with repeat labs ordered for a.m. 6. DVT prophylaxis ? SC Lovenox Time spent in the patient's overall evaluation,decision-making process, review of diagnostic data, adjustment of management, discussion with other providers, nursing nursing and ancillary staff involved in patient's care documentation, 35 Minutes Charges/Coding Visit Charges Inpatient E&M: 55006 Subs Hosp L2
[2022-11-27] MEDS: KCl 20MEQ in D5NS 20 MEQ/1,000 ML IV.SOLN. 125 MEQ IV (08:19)
[2022-11-27] MEDS: Enoxaparin 40 MG/0.4 ML Syringe SC (08:19)
[2022-11-27] MEDS: Potassium Chloride Oral Tablet 20 MEQ PO (08:19)
[2022-11-27] MEDS: amLODIPine 10 MG Tablet PO (08:19)
--- NOTE | 2022-11-27 11:07 | PCM.DC.SUM ---
Providers Date of Admission: 11/26/22 Date of Discharge: 11/27/22 Primary Care Physician: Dr. Homer Roberts, Consultations 11/26/22 14:04 Consult: General Surgery Routine Consulting Provider: Liliam Parker Reason for Consult: Acute Cholecystitis EMERGENT Consult: No MD Notified: Yes Date Notified: 11/26/22 Time Notified: 12:52 Method of Notification: ED Physician Initiated Reason For Visit: BACK PAIN Diagnosis Discharge Diagnosis (1) Acute and chronic cholecystitis: Status: Chronic Code(s): K81.2 - Acute cholecystitis with chronic cholecystitis (2) Back pain: Status: Acute Code(s): M54.9 - Dorsalgia, unspecified Plan Patient is an 82-year-old obese lady presenting with low back pain as well as evidence of acute cholecystitis on CT 1. Low back pain ? Secondary to pathological compression fracture possibly from osteoporosis. Patient has been admitted to regular nursing floor for pain management also requested for PT OT eval and geriatric social work professor to assist with discharge planning -11/27/2022; Seen pain is tolerable. Case was discussed with patient and the family plan will be for patient to be discharged home with pain meds. 2. Acute on chronic cholecystitis ? Patient had apparently been evaluated by general surgery during her previous admission underwent CT-guided cholecystostomy tube after patient and family had declined cholecystectomy. Her tube apparently became dislodged once she got home. Patient started on broad-spectrum antibiotic therapy consult placed to general surgery. Dr. Gallegos was notified from the ED ? 11/27/2022 seen by general surgery no surgical intervention recommended at this time 3. Bilateral consolidation ? Do suspect atelectasis. Patient does not have any evidence of pneumonia we will continue with monitoring 4. Mild hyponatremia ? Started on saline with subsequent monitoring of electrolytes ordered 5. Hypokalemia ? Corrected per protocol with repeat labs ordered for a.m. 6. DVT prophylaxis ? SC Lovenox Time spent in the patient's overall evaluation,decision-making process, review of diagnostic data, adjustment of management, discussion with other providers, nursing nursing and ancillary staff involved in patient's care documentation, 35 Minutes Medications at Discharge Home Medications potassium chloride 20 mEq tablet,extended release 20 meq PO DAILY supplement #14 tabs 11/05/22 amlodipine 10 mg tablet 10 mg PO DAILY blood pressure 11/26/22 oxycodone 5 mg capsule 5 mg PO Q6H PRN pain 5 days #14 caps 11/27/22 Hospital Course Summary of Care Provided Minutes Spent on Discharge: 35 Physical Exam Narrative GENERAL: cooperative HEENT: Atraumatic; normocephalic EYES; Anicteric, Normal Conjunctiva NECK; supple, normal thyroid, RESPIRATORY: Diminished to auscultation CARDIOVASCULAR: Regular S1 S2, GI: soft, normoactive bowel sounds, : No Renal angle tenderness; EXTREMITIES: No edema, no clubbing, MUSCULOSKELETAL: no muscle wasting NEURO: Awake; no lateralizing signs. SKIN: No Rash PSYCH; Flat affect Weight / BMI Weight Weight: 63.9 kg Body Mass Index (BMI) 27.5 ABG / Lab / Microbiology Data 11/27/22 05:55 11/27/22 05:55 Laboratory: Laboratory Results - last 24 hr 11/27/22 05:55: WBC 6.2, RBC 4.21, Hgb 11.3 L, Hct 35.5 L, MCV 84.3, MCH 26.8 L, MCHC 31.8 L, RDW Std Deviation 55.2 H, RDW Coeff of [place] 17.9 H, Plt Count 313, MPV 9.0, Immature Gran % (Auto) 0.300, Neut % (Auto) 54.1, Lymph % (Auto) 30.2, [place] % (Auto) 11.9 H, Eos % (Auto) 2.8, Baso % (Auto) 0.7, Absolute Neuts (auto) 3.3, Absolute Lymphs (auto) 1.86, Nucleated RBC % 0, Sodium 137, Potassium 3.6, Chloride 106, Carbon Dioxide 27.0, Anion Gap 4 L, BUN 7, Creatinine 0.53 L, Estim Creat Clear Calc 31.69, Est GFR (MDRD) Af Amer 141, Est GFR (MDRD) Non-Af 117, BUN/Creatinine Ratio 13.1, Glucose 118 H, Calcium 8.7, Phosphorus 2.2 L, Magnesium 2.2, Total Bilirubin 0.30, AST 21, ALT 11 L, Alkaline Phosphatase 121 H, Total Protein 6.8, Albumin 2.7 L, Globulin 4.1, Albumin/Globulin Ratio 0.7 L D/C Instructions Discharge Diet: No restrictions Discharge Activity: Return to Normal Activity Call your doctor if you observe: Fever of 101 or Higher, Shortness of breath, Fainting spells and Chest pain Meaningful Use Info Meaningful Use Diagnoses (Choose all that apply): None applicable Discharge Plan Admission Admit Date/Time: 11/26/22 12:31 Attending Provider: Santosh Yanez Primary Care Provider: Homer Roberts Consulting Providers: Liliam Parker Discharge Orders/Prescriptions Prescriptions: New oxycodone 5 mg capsule 5 mg PO Q6H PRN (Reason: pain) 5 Days Qty: 14 0RF Continued potassium chloride 20 mEq tablet extended release 20 meq PO DAILY Qty: 14 0RF Patient Comments: PER [facility], A 14 DAY SUPPLY OF THIS MEDICATION WAS FILLED IN OCTOBER. PTS STATES THAT THE PT TOOK THEIR LAST DOSE OF THIS PRESCRIPTION YESTERDAY (11-25-22) amlodipine 10 mg tablet 10 mg PO DAILY Discontinued hydrocodone-acetaminophen 5-325 mg tablet 0.5 tab PO Q6H PRN (Reason: PAIN) Patient Comments: PER [facility], THIS WAS A 30 DAY SUPPLY PRESCRIPTION FILLED IN AUGUST. Referrals / Follow Up: Homer Roberts DO [Primary Care Provider] - Within 1 Week Disposition Disposition (needs filled in before D/C Order can be placed): Home, Self Care Charges/Coding Visit Charges Inpatient E&M: 16586 Disch Hosp >30min
[2022-11-27 11:26] VITALS: BP 133/63; PULSE 90; RESP 18; TEMP 36.8; O2SAT 96
--- NOTE | 2022-11-27 11:47 | PCM.PN.SRG ---
Subjective Subjective Patient seen and examined during AM rounds. She is found resting quietly in bed. She denies any acute events overnight. She denies any abdominal pain this morning. Objective Data Objective Data Vital Signs: Vital Signs Temp Pulse Resp BP Pulse Ox O2 Del Method O2 Flow Rate 98.3 F 68 16 143/80 H 94 Nasal Cannula 3 11/27/22 05:26 11/27/22 05:26 11/27/22 05:26 11/27/22 05:26 11/27/22 05:26 11/27/22 08:31 11/27/22 08:31 Oxygen Flow Rate (L/min) 3 Oxygen Delivery Method Nasal Cannula Weight: 140 lb 14.006 oz Body Mass Index (BMI) 27.5 Intake & Output: Intake and Output for Last 24 Hours 11/25/22 11/26/22 11/27/22 23:59 23:59 23:59 Intake Total 3065.84 / 3065.84 1547.92 / 1547.92 Output Total 800 / 800 1200 / 1200 Balance 2265.84 / 2265.84 347.92 / 347.92 Lab / Micro Data 11/27/22 05:55 11/27/22 05:55 Labs: Laboratory Results - last 24 hr 11/27/22 05:55: WBC 6.2, RBC 4.21, Hgb 11.3 L, Hct 35.5 L, MCV 84.3, MCH 26.8 L, MCHC 31.8 L, RDW Std Deviation 55.2 H, RDW Coeff of [place] 17.9 H, Plt Count 313, MPV 9.0, Immature Gran % (Auto) 0.300, Neut % (Auto) 54.1, Lymph % (Auto) 30.2, [place] % (Auto) 11.9 H, Eos % (Auto) 2.8, Baso % (Auto) 0.7, Absolute Neuts (auto) 3.3, Absolute Lymphs (auto) 1.86, Nucleated RBC % 0, Sodium 137, Potassium 3.6, Chloride 106, Carbon Dioxide 27.0, Anion Gap 4 L, BUN 7, Creatinine 0.53 L, Estim Creat Clear Calc 31.69, Est GFR (MDRD) Af Amer 141, Est GFR (MDRD) Non-Af 117, BUN/Creatinine Ratio 13.1, Glucose 118 H, Calcium 8.7, Phosphorus 2.2 L, Magnesium 2.2, Total Bilirubin 0.30, AST 21, ALT 11 L, Alkaline Phosphatase 121 H, Total Protein 6.8, Albumin 2.7 L, Globulin 4.1, Albumin/Globulin Ratio 0.7 L Rhythm Strip Rhythm Strip: Sinus Rhythm Rate: 70 Ectopy: None Physical Exam Const oriented x3 and no apparent distress Resp normal respiratory effort GI GI Narrative: Nondistended, soft, nontender to palpation Assessment & Plan Assessment/Plan (1) Cholecystitis: PLAN: Patient is admitted hospital day 2 for intractable back pain with some radiographic evidence of chronic cholecystitis. I find no evidence of acute cholecystitis. Again today patient denies any abdominal discomfort there is no tenderness encountered with exam. Laboratories including CBC and CMP remain within normal limits some very mildly elevated Richards phosphatase. Reiterate recommendation for dedicated spine imaging. And evaluation by PT OT. No indication for acute surgical intervention and patient's frailty puts her at high risk for contemplating any operation. Should patient require intervention, she would need to be evaluated in a tertiary facility. Charges/Coding Visit Charges Inpatient E&M: 30892 Subs Hosp L2
--- NOTE | 2022-11-27 11:54 | CASEMGMT ---
Addendum entered by Simon Kidd 11/27/22 15:36: VIKI CEDILLO readmission note: Prior admission: Admitted 11/01/22 w/CAP, hypoxia, and cholecystitis. Discharged home on O2 from [employer] 11/05/22. Pt lives w/ and other family members who help to take care of her. See previous VIKI CEDILLO assess 10/2022. During her previous admission underwent CT-guided cholecystostomy tube after patient and family had declined cholecystectomy. Current admission: Admitted 11/26/22 back pain secondary to pathological compression fracture possibly from osteoporosis. Addendum entered by Simon Kidd 11/27/22 13:56: [place] A[place]i [place] [facility] [place] tank from [employer] [facility] @ [facility] was sent home w/pt. Addendum entered by Simon Kidd 11/27/22 12:25: Per Carly @ [facility], they are able to accept pt w/SOC Friday 12/01. Pt, , and dtr all made aware and are agreeable to this SOC date. Pt does not have portable O2 tank w/her from [employer]. Pt is currently on RA. VIKI Polk, checked pt's pulse ox at this time @ rest on RA, while sitting in chair and it is 89-90%. Pt to be sent home w/portable O2 tank from [employer] [facility] @ [facility]. Pt was sent home w/O2 @ 4 l/m contin last admission and pt has not f/u with PCP yet. A pulse ox was sent home w/pt last admit and states he still has it. VIKI CEDILLO educated pt and family on importance of monitoring of pulse ox and that pt should be wearing the oxygen if pulse ox goes below 89%. They voice understanding. Original Note: VIKI CEDILLO NOTE: Pt being discharged home. RN CM to room. Pt sitting up in chair. and dtr @ bedside. Discussed therapy's recommendations for further therapy. Neither pt, nor family want pt to go to a SNF. They want her to return home. takes care of pt and has family members that can assist. and dtr do feel therapy would be beneficial for pt and she iis agreeable. prefers to have someone come to the home vs OP therapy. Discussed [facility] agencies and questions answered. They would like [facility] as [facility] does take private pay and decline wanting list of other [facility] agencies. VIKI CEDILLO spoke w/Jamar Hernandez Liaison, to inquire if there is a contact # for family to call re: possible reimbursement for [facility] cost. She states pt does not go through a advent for coverage and so would be private pay. made aware cost of each [facility] therapy visit is ~ $259. He states is agreeable to a one-time visit and then would see from there. Order placed for [facility]: PT. Call to Carly @ [facility] and referral made. She was made aware of above. Awaiting response. Pt was to scheduled f/u appt w/PCP/Dr Roberts w/in a week @ discharge and w/in a month w/Dr Parker. Pt and dtr state they did not make an appt w/PCP as it would be too difficult to get pt in/out of the buggy. She did have an appt scheduled w/Dr Parker for tomorrow that they were planning on taking pt to, but it was cx'd when pt came to [facility] ED. Pt to f/u with Dr Roberts w/in a week per d/c instructions today. Discussed importance of making appt for f/u and ongoing care. Upon further discussion w/ and dtr, they stated either Dr Roberts or his FARMWORKER MACHINE/PA , Leticia, sometimes does home visits. They plan to call the office to see if they can schedule a home visit. If unable to do home visit, VIKI CEDILLO discussed w/family possible option of hiring a concrete mixing truck driver of a van for transport to the appt, instead of pt having to try to get into a buggy. They stated they thought that was a good idea, as it would be easier to get into a van, and they may do that, if needed. states pt did get the rx's sent to [facility] at last discharge and pt did take them as prescribed. Rx for pain med sent to [facility] today. made aware and states they should have someone available to pick that up today. When pt dc'd home last admission, she went home w/O2. Per [employer], pt's current O2 orders are for 4 L/M continuous. Pt states she has only been wearing it @ HS recently. They deny needing any further DME any deny having other discharge planning needs or concerns. [facility] van transp to take pt and family home today has been arranged for 2 PM. Celina SAUCEDAN RN CM
== END 2022-11-27 13:57 | disposition home health service (06) | DRG 543 ==
LOC: ED 09:24 → MS3 13:07
PROVIDERS: Admitting Provider Internal Medicine; Emergency Provider Emergency Medicine; PCP Family Medicine; Visit Provider Internal Medicine
DX: M80.08XA Age-related osteoporosis with current pathological fracture, vertebra(e), initial encounter for fracture (principal); E87.1 Hypo-osmolality and hyponatremia; K81.1 Chronic cholecystitis; E87.6 Hypokalemia; R09.02 Hypoxemia; R74.8 Abnormal levels of other serum enzymes; Z66 Do not resuscitate; Z99.3 Dependence on wheelchair; Z79.899 Other long term (current) drug therapy
CPT/HCPCS: 36415; 71046; 71275; 74177; 80053; 81001; 83735; 84100; 84484; 85025; 85379; 87040; 93005; 97162; 97802; 99285; Q9967; A4216; J2405

== ENCOUNTER 2023-11-07 21:31 | Inpatient (IN) | payer OTHER, SELFPAY ==
[2023-11-07 21:37] VITALS: BP 108/69; PULSE 73; RESP 32; TEMP 36.6; O2SAT 90; BMI 28.0
[2023-11-07 21:50] VITALS: O2SAT 88
--- NOTE | 2023-11-07 22:08 | EKG12_ITS ---
Test Reason : WEAKNESS Blood Pressure : / mmHG Vent. Rate : 068 BPM Atrial Rate : 068 BPM P-R Int : 198 ms QRS Dur : 090 ms QT Int : 416 ms P-R-T Axes : 021 -09 016 degrees QTc Int : 442 ms Normal sinus rhythm Normal ECG Confirmed by Edouard Thomas ([id number]), story editor BAILEE COLE ([id number]) on 11/09/2023 9:42:31 AM Referred By: Confirmed By:Edouard Thomas
--- NOTE | 2023-11-07 22:39 | RAD_ITS ---
INDICATION: cough EXAMINATION/TECHNIQUE: X-RAY - XR Chest 2 Views COMPARISON: 11/05/2022. FINDINGS: LINES/DEVICES: None. LUNGS: Patchy bilateral posterior lower lung airspace opacities. No florid edema or effusion. No pneumothorax. MEDIASTINUM AND CARDIOVASCULAR STRUCTURES: Cardiac silhouette not enlarged. Mild aortic atherosclerosis. BONES AND SOFT TISSUES: Biliary stent noted.. RAD/Chest PA and Lateral IMPRESSION: Bilateral basilar patchy airspace opacities concerning for pneumonia. Electronically Signed: Michael David MD at 23:28 EDT ,
[2023-11-07 22:53] LABS: Absolute Lymphocyte Count 1.92 X10^3/uL (0.83-4.51); Absolute Neutrophil Count 11.2 X10^3/uL (2.0-7.7); Basophil# 0.07 X10^3/uL; Basophil% 0.5 % (0-1); Hemoglobin 10.8 g/dL (12.0-15.0); Lymphocyte # 1.92 X10^3/ul (0.83-4.51); Lymphocyte % 13.3 % (19-41); Mean Corp Hgb Conc 32.7 g/dL (32-36); Mean Corpuscular Hgb 28.2 pg (27.0-32.0); Mean Corpuscular Volume 86.2 fL (81-99); Mean Platelet Vol. 9.2 fl (6.2-12.0); Monocyte# 1.29 X10^3/uL; Monocyte% 8.9 % (0-10); NRBC Flagged by Analyzer 0 % (0-5); Neutrophil # 11.15 X10^3/uL (2.7-7.7); Neutrophil % 77.1 % (47-70); Platelet Count 254 K/mm3 (150-450); RBC Distribution Width CV 14.5 % (11.6-14.6); RBC Distribution Width SD 45.3 fl (35.1-43.9); Red Blood Count 3.83 M/mm3 (4.2-5.4); White Blood Count 14.5 K/mm3 (4.4-11.0)
[2023-11-07 23:14] LABS: Lactic Acid 1.3 mmol/L (0.4-1.9)
[2023-11-07 23:14] LABS: Bacteria 0 SEEN /hpf (None Seen); Mucous, Urine 0 SEEN /hpf (<or=2+); Red Blood Cells-Urine 0 SEEN /hpf (0-5); Squamous Epithelial Cells - UA 0 SEEN /hpf (5-10)
[2023-11-07 23:19] LABS: AST(SGOT) 25 U/L (15-37); Alanine Aminotransfer ALT/SGPT 12 U/L (13-56); Albumin, Serum 2.8 g/dL (3.2-5.0); Alkaline Phosphatase 112 U/L (45-117); Anion Gap 9 (5-15); BUN 23 mg/dL (7-18); BUN/Creat Ratio 36.6 RATIO (10-20); Calcium,Total 8.6 mg/dL (8.5-10.1); Chloride 105 mmol/L (98-107); Creatinine, Serum 0.63 mg/dL (0.55-1.02); EST Glomerular Filtration Rate 96 mL/min (>60); Est Glom Filt Rate - Afr Amer 117 mL/min (>60); Estimated Creatinine Clearance 45.69 ml/min; Globulin 3.6 g/dL (2.2-4.2); Glucose 187 mg/dL (74-106); Magnesium 2.4 mg/dL (1.6-2.6); Potassium 3.5 mmol/L (3.5-5.1); Protein, Total 6.4 g/dL (6.4-8.2); Sodium Level 137 mmol/L (136-145); Thyroid Stim Hormone (TSH) 1.06 uIU/mL (0.358-3.74)
[2023-11-07 23:24] LABS: Ammonia < 10.0 umol/L (11-32); BNP,B-Type NATRIURETIC PEPTIDE 259.3 pg/mL (0-100)
[2023-11-07 23:25] VITALS: PULSE 66; RESP 23
[2023-11-07 23:30] VITALS: BP 105/64
[2023-11-07 23:41] LABS: Color, Urine Yellow (Yellow); Glucose, Dipstick Normal (Normal); Ketone-Dipstick Negative (Negative); Leukocyte Esterase-Dipstick Negative /ul (Negative); Nitrite-Dipstick Negative (Negative); Occult Blood-Urine 50 /ul (Negative); Protein-Dipstick 30 mg/dl (Negative); Specific Gravity, Urine 1.025 (1.002-1.030); Urine Bilirubin Dipstick Negative (Negative); Urine Clarity Clear (Clear); Urine Urobilinogen Normal (Normal)
[2023-11-07 23:45] VITALS: BP 102/63; PULSE 68; RESP 20
[2023-11-07 23:55] LABS: White Blood Cells 0 SEEN /hpf (0-5)
[2023-11-08] VITALS (33 sets, daily range): BP systolic 80–158; BP diastolic 56–105; PULSE 62–129; RESP 18–36; TEMP 36.2–39.3; O2SAT 93–98; BMI 29.9; BMI 30.1
[2023-11-08] MEDS: Ceftriaxone 1 GM/50 ML BAG IV ×2 (00:42→22:06)
[2023-11-08] MEDS: Azithromycin 500 MG in Dextrose 5%-Water (250mL Bag) 250 ML 250 MG IV ×2 (01:28→22:50)
--- NOTE | 2023-11-08 01:39 | PCM.HP.STD ---
[facility] - General General Date of Admission: 11/08/23 Date of Service: 11/08/23 Chief Complaint: SOB and AMS. HPI Narrative AGUILA MONTEJO, is a 83 F with a past medical history of essential hypertension, overweight; with a BMI of 28.1 this admission, history of [id number] cholecystitis with ascending cholangitis and history of biliary stent; s/p CT-guided cholecystostomy tube placement (2022), history of compression fractures of the thoracic and lumbar vertebrae, history of depression, history of hyponatremia and osteoarthritis who presents to [facility] ER complaining of shortness of breath and altered mental status. Ms. Montejo reports her symptoms began approximately 1 to 2 days prior to admission with a gradual onset of dyspnea on exertion that progressed to shortness of breath at rest. Her informed EMS that she had not been eating or drinking normally and had also was not acting right. Her family then activated EMS who noted bilateral lower extremity edema and an elevated blood glucose of 237 mg/dL. There is no report of fever, chills, nausea, vomiting, chest pain or diaphoresis. In the ER she was noted to have x-ray evidence of bilateral patchy airspace opacities concerning for pneumonia complicated by elevated BNP of 259.3 pg/mL present on admission consistent with component of acute exacerbation of CHF with clinical evidence of respiratory insufficiency and metabolic encephalopathy and generalized weakness she was then admitted to the general medical floor for ongoing care for stay that is expected to be greater than 2 midnights. [facility] Medical History Depression Home Medications ?Medication ?Instructions ?Recorded ?Last Taken ?Type amlodipine 10 mg tablet 10 mg PO DAILY blood pressure 11/26/22 11/25/22 History Allergy/AdvReac Type Severity Reaction Status Date / Time No Known Allergies Allergy Verified 11/26/22 06:54 Social History Smoking Status: Never smoker ROS ROS Narrative A full review of systems could not be completed due to patient's acute dyspnea and confusion. Vital Signs Vital Signs Vital Signs: 11/07/23 21:37 11/07/23 21:50 11/07/23 21:52 Temperature 97.9 F Temperature Source Oral Pulse Rate 73 Respiratory Rate 32 H Respiratory Pattern Tachypnea Blood Pressure 108/69 Blood Pressure Mean 82 Pulse Ox 90 88 Oxygen Delivery Method Room Air Room Air Oxygen Flow Rate (L/min) 2 11/07/23 23:25 11/07/23 23:30 11/07/23 23:45 Temperature Temperature Source Pulse Rate 66 68 Respiratory Rate 23 H 20 H Respiratory Pattern Blood Pressure 105/64 102/63 Blood Pressure Mean 77 76 Pulse Ox Oxygen Delivery Method Oxygen Flow Rate (L/min) 11/08/23 00:00 11/08/23 00:15 11/08/23 00:30 Temperature Temperature Source Pulse Rate 70 70 Respiratory Rate 21 H 21 H Respiratory Pattern Blood Pressure 105/70 105/72 Blood Pressure Mean 81 83 Pulse Ox Oxygen Delivery Method Oxygen Flow Rate (L/min) 11/08/23 00:31 11/08/23 00:45 11/08/23 01:00 Temperature Temperature Source Pulse Rate 73 68 Respiratory Rate 18 19 H Respiratory Pattern Blood Pressure 115/68 114/67 111/64 Blood Pressure Mean 83 82 79 Pulse Ox Oxygen Delivery Method Oxygen Flow Rate (L/min) 11/08/23 01:15 Temperature Temperature Source Pulse Rate 70 Respiratory Rate 24 H Respiratory Pattern Blood Pressure 102/63 Blood Pressure Mean 76 Pulse Ox Oxygen Delivery Method Oxygen Flow Rate (L/min) Weight Weight: 143 lb 11.862 oz Body Mass Index (BMI) 28.0 Physical Exam Const alert and average body habitus Constitutional Narrative: Gzao-pl-[id number] distress noted with patient confused and acutely ill in appearance. General Appearance: cooperative Orientation / Consciousness: confused HEENT normocephalic, head/scalp atraumatic and hearing grossly normal bilaterally HEENT Narrative: Mucous membranes dry. Eyes PERRL and EOMs intact bilaterally Neck no lymphadenopathy and supple Resp Resp Narrative: Diminished breath sounds throughout with scattered rhonci. Cardio regular rate and regular rhythm GI normal to inspection, nondistended, normoactive bowel sounds, soft to palpation, non-tender and non-distended Extremity normal to inspection and full ROM Skin Skin Narrative: Patient has no evidence of jaundice, rash or abscess. Neuro CN's II-XII intact bilaterally, moves all extremities and no focal motor deficits Sensorium / Orientation: awake, alert, oriented to person and oriented to place Speech: speech normal Psych Mood & Affect: anxious Results Medical Records Data Attestation: I reviewed the patient's medical records Lab / Micro Data Attestation: I reviewed the patient's lab results. 11/07/23 22:22 11/07/23 22:22 Labs: Laboratory Results - last 24 hr 11/07/23 22:22: WBC 14.5 H, RBC 3.83 L, Hgb 10.8 L, Hct 33.0 L, MCV 86.2, MCH 28.2, MCHC 32.7, RDW Std Deviation 45.3 H, RDW Coeff of [place] 14.5, Plt Count 254, MPV 9.2, Immature Gran % (Auto) 0.200, Neut % (Auto) 77.1 H, Lymph % (Auto) 13.3 L, [place] % (Auto) 8.9, Eos % (Auto) 0.0, Baso % (Auto) 0.5, Absolute Neuts (auto) 11.2 H, Absolute Lymphs (auto) 1.92, Nucleated RBC % 0, Sodium 137, Potassium 3.5, Chloride 105, Carbon Dioxide 23.0, Anion Gap 9, BUN 23 H, Creatinine 0.63, Estim Creat Clear Calc 45.69, Est GFR (MDRD) Af Amer 117, Est GFR (MDRD) Non-Af 96, BUN/Creatinine Ratio 36.6 H, Glucose 187 H, Lactic Acid 1.3, Calcium 8.6, Magnesium 2.4, Total Bilirubin 0.40, Direct Bilirubin 0.10, AST 25, ALT 12 L, Alkaline Phosphatase 112, Ammonia Cancelled 11/07/23 22:22: Ammonia < 10.0 L, B-Natriuretic Peptide 259.3 H, Total Protein 6.4, Albumin 2.8 L, Globulin 3.6, TSH 1.06 11/07/23 23:07: Urine Color Yellow, Urine Clarity Clear, Urine pH 6.0, Ur Specific [place] 1.025, Urine Protein 30 H, Urine Glucose (UA) Normal, Urine Ketones Negative, Urine Occult Blood 50 H, Urine Nitrite Negative, Urine Bilirubin Negative, Urine Urobilinogen Normal, Ur Leukocyte Esterase Negative, Urine RBC 0 SEEN, Urine WBC 0 SEEN, Ur Squamous Epith Cells 0 SEEN, Urine Bacteria 0 SEEN, Urine Mucus 0 SEEN Imaging Radiology Impression Chest X-Ray 11/07/23 22:39 IMPRESSION: Bilateral basilar patchy airspace opacities concerning for pneumonia. Electronically Signed: Michael David MD at 23:28 EDT , Assessment & Plan Assessment/Plan (1) Pneumonia: QUALIFIERS: Laterality: bilateral Lung location: unspecified part of lung Pneumonia type: due to unspecified organism Qualified Code(s): J18.9 - Pneumonia, unspecified organism (2) Acute heart failure: QUALIFIERS: Heart failure type: unspecified Qualified Code(s): I50.9 - Heart failure, unspecified (3) Respiratory insufficiency: (4) Metabolic encephalopathy: (5) Declining functional status: (6) Generalized weakness: PLAN: Plan 1. Bilateral patchy airspace opacities on x-ray with corresponding leukocytosis of 14.5 present on admission consistent with suspected Community Acquire Pneumonia - Admit to PCU. Continue broad-spectrum antibiotics with IV Rocephin and IV azithromycin and await culture and sensitivity data. Check urine antigens for Legionella and Streptococcus pneumonia. Give scheduled Mucinex 600 mg p.o. twice daily. Give Tylenol as needed pain or fever. 2. AE CHF; evidenced by elevated BNP of 259.3 pg/mL present on admission complicating #1 - Give Lasix 40 mg IV daily plus supplemental potassium magnesium. Check echocardiogram to evaluate LVEF. Serialize troponin. 3. Acute respiratory insufficiency arising from #1 & #2 - Wean supplemental oxygen as tolerated. 4. Acute metabolic encephalopathy with generalized weakness attributable to #1 - #3 - Continue supportive care and monitor for improvement. 5. Mild hyperglycemia of 187 mg/dL present on admission concerning for underlying diabetes mellitus type 2 - Check hemoglobin A1c to confirm suspicion. Give diabetic diet but will hold off on ordering insulin at this time as patient's hyperglycemia is mild and this diagnosis is may be apparently new with risk of hypoglycemia outweighing any potential benefit in this elderly patient with multiple active comorbidities. 6. Hypoalbuminemia of 2.8 g/dL present on admission suspicious for underlying protein calorie malnutrition - Check prealbumin to confirm suspicion. Add Ensure to meals. 7. History of shebe-ke-ysiehks cholecystitis with ascending cholangitis and history of biliary stent; s/p CT-guided cholecystostomy tube placement (2022) - Noted with no signs of acute biliary pathology on imaging or labs this admission. 8. Essential hypertension - Continue home regimen as previous plus give as needed IV hydralazine for systolic blood pressure greater than 160 mmHg. 9. Overweight; with a BMI of 28.1 this admission - Weight loss was recommended. Check TSH. 10. History of compression fractures of the thoracic and lumbar vertebrae - Noted. 11. History of depression - Stable and apparently resolved the patient not on antidepressant medication at this time. 12. History of hyponatremia - Resolved with normal serum sodium of 137 mmol/L present on admission. 13. Osteoarthritis - Give Tylenol as needed. 14. DVT prophylaxis - Lovenox 40 mg subcu daily plus SCDs. Total time: Approximately 75 minutes. Charges/Coding Visit Charges Inpatient E&M: 07299 Init Hosp L3
--- NOTE | 2023-11-08 01:50 | EX.ED.DYSGE1 ---
HPI History of Present Illness Chief Complaint: Weakness Informant: patient, spouse/S.O. and family Narrative Narrative: Patient is an 83-year-old female with past medical history of ascending cholangitis as well as congestive heart failure. Family states that around 10 AM today she started to feel weak and tired. With this they noticed her oxygen level was dropping low. They state they tried home remedies throughout the day but her symptoms do not seem to be improving and therefore she was brought in for evaluation [facility] Medical History Depression Home Medications ?Medication ?Instructions ?Recorded ?Last Taken ?Type amlodipine 10 mg tablet 10 mg PO DAILY blood pressure 11/26/22 11/25/22 History Allergy/AdvReac Type Severity Reaction Status Date / Time No Known Allergies Allergy Verified 11/26/22 06:54 Social History Smoking Status: Never smoker ROS ROS ED Constitutional Constitutional ED: Denies chills or fever(s) Eyes Eyes: Denies change in vision ENT ENT ED: Denies rhinorrhea or sore throat Cardiovascular Cardiovascular: Denies chest pain or palpitations Respiratory/Chest Respiratory/Chest: Reports dyspnea; Denies cough Gastrointestinal Gastrointestinal: Denies abdominal pain, diarrhea, nausea or vomiting Genitourinary Genitourinary ED: Denies dysuria Musculoskeletal Musculoskeletal: Reports myalgias Integumentary Denies rash Neurologic Neurologic: Reports weakness; Denies headache(s) Hematologic/Lymphatic Hematologic/Lymphatic: Denies easy bleeding or easy bruising EXAM Physical Exam Const Vital Signs: 11/07/23 21:37 11/07/23 21:50 11/07/23 21:52 Temperature 97.9 F Temperature Source Oral Pulse Rate 73 Respiratory Rate 32 H Respiratory Pattern Tachypnea Blood Pressure 108/69 Blood Pressure Mean 82 Pulse Ox 90 88 Oxygen Delivery Method Room Air Room Air Oxygen Flow Rate (L/min) 2 11/07/23 23:25 11/07/23 23:30 11/07/23 23:45 Temperature Temperature Source Pulse Rate 66 68 Respiratory Rate 23 H 20 H Respiratory Pattern Blood Pressure 105/64 102/63 Blood Pressure Mean 77 76 Pulse Ox Oxygen Delivery Method Oxygen Flow Rate (L/min) 11/08/23 00:00 11/08/23 00:15 11/08/23 00:30 Temperature Temperature Source Pulse Rate 70 70 Respiratory Rate 21 H 21 H Respiratory Pattern Blood Pressure 105/70 105/72 Blood Pressure Mean 81 83 Pulse Ox Oxygen Delivery Method Oxygen Flow Rate (L/min) 11/08/23 00:31 11/08/23 00:45 11/08/23 01:00 Temperature Temperature Source Pulse Rate 73 68 Respiratory Rate 18 19 H Respiratory Pattern Blood Pressure 115/68 114/67 111/64 Blood Pressure Mean 83 82 79 Pulse Ox Oxygen Delivery Method Oxygen Flow Rate (L/min) 11/08/23 01:15 11/08/23 01:56 Temperature 98.7 F Temperature Source Pulse Rate 70 84 Respiratory Rate 24 H 19 H Respiratory Pattern Blood Pressure 102/63 108/81 H Blood Pressure Mean 76 90 Pulse Ox 95 Oxygen Delivery Method Oxygen Flow Rate (L/min) Positive well nourished, well developed and obese Constitutional Narrative: Patient appears ill General Appearance ED: well developed and pallor Nutritional Appearance: obese HEENT Reports moist mucous membranes HEENT Narrative: No tongue or lip swelling no oral lesions no airway edema or compromise Eyes PERRL and EOMs intact bilaterally General Eye ED: Yes pale conjunctiva; Negative for scleral icterus Neck supple and no JVD Neck Narrative: No nuchal rigidity or meningeal signs Chest Wall palpation of chest normal Chest Narrative: No bony deformity or crepitance of the chest wall Resp Resp Narrative: Patient is tachypneic and breath sounds are diminished throughout with faint rhonchi noted in the bilateral bases. Otherwise no nasal flaring or retractions. Cardio regular rate and regular rhythm Rate: other Other Details: Heart is regular rate and rhythm Radial and carotid pulses are equal and symmetric GI normal to inspection, nondistended, normoactive bowel sounds, non-tender, non-distended and no masses GI Narrative: Abdomen is soft nontender nondistended with normoactive bowel sounds No voluntary guarding or rigidity or pulsatile mass Auscultation: normoactive bowel sounds Palpation: soft Extremity Extremity Narrative: Patient has trace to +1 pitting edema to the bilateral lower extremities that is equal and symmetric Neuro oriented x3 and CN's II-XII intact bilaterally Neuro Narrative: GCS of 14 Cranial nerves II through XII are grossly intact without focal neurologic deficit Sensorium / Orientation: alert Psych Psych Narrative: Patient has a depressed/flat affect Skin no rashes or lesions noted General Skin Exam: pallor; Negative for jaundice MDM MDM MDM Narrative Medical decision making narrative: Patient arrived to the ER mildly hypoxic with a room air pulse ox of 87 to 88%. She does not typically require supplemental oxygen. She was also tachypneic at approximately 30 breaths/min. With concern for pneumonia versus congestive heart failure versus acute blood loss anemia versus electrolyte abnormality and acute kidney injury a basic workup was performed. Labs show leukocytosis at 14.5 with left shift but no lactic acidosis. Her proBNP is slightly elevated at 216 but chest x-ray shows changes consistent with pneumonia and not fluid overload. With supplemental oxygen she is satting in the mid 90s but she is still mildly tachypneic. She denies any recent hospitalization or antibiotic use and therefore this to be considered community-acquired pneumonia. Secondary to his blood cultures were obtained and she was her on Rocephin and Zithromax. At this time based on her persistent tachypnea and hypoxia I do not feel she would do well at home and will require supplemental oxygen as well as IV antibiotics. The case was discussed with the hospitalist who agrees with this plan of care and therefore she be admitted to his service for further care History & Record Review Discussion w/independent historian: Patient and Family Lab Data Attestation: I reviewed the patient's lab results. Labs: Laboratory Results - last 24 hr 11/07/23 11/07/23 11/07/23 22:22 22:22 23:07 WBC 14.5 H RBC 3.83 L Hgb 10.8 L Hct 33.0 L MCV 86.2 MCH 28.2 MCHC 32.7 RDW Std Deviation 45.3 H RDW Coeff of [place] 14.5 Plt Count 254 MPV 9.2 Immature Gran % (Auto) 0.200 Neut % (Auto) 77.1 H Lymph % (Auto) 13.3 L [place] % (Auto) 8.9 Eos % (Auto) 0.0 Baso % (Auto) 0.5 Absolute Neuts (auto) 11.2 H Absolute Lymphs (auto) 1.92 Nucleated RBC % 0 Sodium 137 Potassium 3.5 Chloride 105 Carbon Dioxide 23.0 Anion Gap 9 BUN 23 H Creatinine 0.63 Estim Creat Clear Calc 45.69 Est GFR (MDRD) Af Amer 117 Est GFR (MDRD) Non-Af 96 BUN/Creatinine Ratio 36.6 H Glucose 187 H Lactic Acid 1.3 Calcium 8.6 Magnesium 2.4 Total Bilirubin 0.40 Direct Bilirubin 0.10 AST 25 ALT 12 L Alkaline Phosphatase 112 Ammonia Cancelled < 10.0 L B-Natriuretic Peptide 259.3 H Total Protein 6.4 Albumin 2.8 L Globulin 3.6 TSH 1.06 Urine Color Yellow Urine Clarity Clear Urine pH 6.0 Ur Specific [place] 1.025 Urine Protein 30 H Urine Glucose (UA) Normal Urine Ketones Negative Urine Occult Blood 50 H Urine Nitrite Negative Urine Bilirubin Negative Urine Urobilinogen Normal Ur Leukocyte Esterase Negative Urine RBC 0 SEEN Urine WBC 0 SEEN Ur Squamous Epith Cells 0 SEEN Urine Bacteria 0 SEEN Urine Mucus 0 SEEN Radiography Diagnostic Testing: Clinical Impression(s) from Imaging Studies Chest X-Ray 11/07/23 22:39 IMPRESSION: Bilateral basilar patchy airspace opacities concerning for pneumonia. Electronically Signed: Michael David MD at 23:28 EDT Reading Location ID and State: [facility] / [place] Tel , Service support , Chest x-ray as interpreted by the emergency medicine physician reveals bilateral lower airspace opacities concerning for pneumonia Discharge Plan Dx/Rx/DC Orders Clinical Impression: Pneumonia, Hypoxia, Generalized weakness Disposition Disposition: Acute Care Hospital [facility] Discharge Date/Time: 11/08/23 02:41
--- NOTE | 2023-11-08 02:41 | ECHOD_ITS ---
Reason For Study: CHF Procedure This was a 2D Doppler, Color Flow transthoracic echocardiogram. The study was technically difficult. Definity declined due to patient being unable to tolerate probe pressure. Exam performed portable in ICU/CCU. Left Ventricle Normal LV size. Mild concentric left ventricular hypertrophy. The left ventricular ejection fraction is 65 %. Diastolic function is indeterminate. Right Ventricle RV apical hypokinesis. RV base hyperdynamic. Consider David sign. Atria The left atrium is mildly enlarged. Normal right atrium. Aneurysmal interatrial septum. Bubble study negative for shunts. Mitral Valve Trivial mitral valve insufficiency. Tricuspid Valve Trivial tricuspid valve insufficiency. Unable to estimate RV systolic pressure due to insufficient tricuspid regurgitant envelope. Aortic Valve Aortic sclerosis, no stenosis. Pulmonic Valve The pulmonic valve is not well visualized. Great Vessels The aortic root is not well visualized. Pericardium/Pleural No pericardial effusion. Medication Performed a rapid injection of agitated mix of 9 cc saline and 1cc air to assess for atrial septal defect. MMode/2D Measurements & Calculations Ao root diam: 3.7 cm LAV(MOD-bp): 50.5 ml LVAd ap4: 17.1 cm2 LAV(MOD-bp) Indexed: 31.3 ml/m2 LVLd ap4: 6.6 cm LAV(MOD-sp2): 48.0 ml EDV(MOD-sp4): 39.3 ml LAV(MOD-sp4): 52.1 ml EDV(sp4-el): 37.7 ml LVAs ap4: 9.6 cm2 LVLs ap4: 5.8 cm ESV(MOD-sp4): 14.5 ml ESV(sp4-el): 13.5 ml EF(MOD-sp4): 63.2 % EF(sp4-el): 64.2 % SV(MOD-sp4): 24.9 ml SV(sp4-el): 24.2 ml LA A4 area: 18.4 cm2 LA dimension(2D): 3.7 cm Time Measurements MV dec time: 0.26 sec Doppler Measurements & Calculations MV E max cory: 65.4 cm/sec Lat Peak E' Cory: 4.4 cm/sec Med Peak E' Cory: 5.1 cm/sec MV A max cory: 84.9 cm/sec E/E' lat: 14.8 E/E' med: 12.8 MV E/A: 0.77 MV V2 max: 89.8 cm/sec Ao V2 max: 157.5 cm/sec MV max P.2 mmHg MV dec slope: 252.5 cm/sec2 Ao max P.9 mmHg MV V2 mean: 53.7 cm/sec Ao V2 mean: 105.4 cm/sec MV mean P.3 mmHg Ao mean P.1 mmHg MV V2 VTI: 25.2 cm Ao V2 VTI: 27.0 cm AV (velocity ratio): 0.73 LV V1 max: 98.6 cm/sec LV V1 max P.9 mmHg LV V1 mean P.9 mmHg LV V1 mean: 61.1 cm/sec LV V1 VTI: 19.8 cm ECHO/Echo Complete Interpretation Summary Mild concentric left ventricular hypertrophy. The left ventricular ejection fraction is 65 %. Diastolic function is indeterminate. RV apical hypokinesis. RV base hyperdynamic. The left atrium is mildly enlarged. Aneurysmal interatrial septum. Bubble study negative for shunts. Aortic sclerosis, no stenosis. The study was technically difficult. Ordering Physician: Santosh Meyers Referring Physician: KENNY GOMEZ Performed By: Debbi German RCS
[2023-11-08 02:58] LABS: Troponin-I HS 7 pg/mL (3.0-54.0)
[2023-11-08] MEDS: Acetaminophen 325 MG Tablet 650 MG PO ×3 (03:22→22:54)
--- NOTE | 2023-11-08 03:32 | NURSING ---
CPS called to assess pt, dr pacheco, supercharger mechanic aware
--- NOTE | 2023-11-08 03:38 | NURSING ---
nsg supv updated on condition of pt and need for bed in unit
[2023-11-08 03:58] LABS: Allen Test Negative; Base Excess -3 mmol/L (-2 to +2); Bicarbonate 20.8 mmol/L (22-26); Blood Gas Specimen Type ART; Mode Not entered; O2 Delivery Device Cannula; PO2 64 mmHG (75-100); SITE R Radial; SO2 94 % (95-99); Total Carbon Dioxide 22 mmol/L; pCO2 29.2 mmHg (35-45); pH 7.46 (7.35-7.45)
--- NOTE | 2023-11-08 04:00 | NURSING ---
nursing supervisor intermediates and ms rn and charge talked to pt and family regarding wishes for code status at this time , son, and pt agree with full code. explained pt move to icu4 for closer monitoring tonight.
--- NOTE | 2023-11-08 04:05 | NURSING ---
report called to [facility], in icu will transport pt
[2023-11-08 04:19] LABS: Prealbumin 14.2 mg/dL (20.0-40.0); Thyroid Stim Hormone (TSH) 0.91 uIU/mL (0.358-3.74)
[2023-11-08] MEDS: Enoxaparin 40 MG/0.4 ML Syringe SC (04:42)
[2023-11-08 05:05] LABS: Absolute Lymphocyte Count 0.72 X10^3/uL (0.83-4.51); Absolute Neutrophil Count 15.1 X10^3/uL (2.0-7.7); Basophil# 0.05 X10^3/uL; Basophil% 0.3 % (0-1); Eosinophil# 0.01 X10^3/uL; Eosinophils% 0.1 % (0-5); Hematocrit 32.7 % (37-47); Hemoglobin 10.6 g/dL (12.0-15.0); Lymphocyte # 0.72 X10^3/ul (0.83-4.51); Lymphocyte % 3.8 % (19-41); Mean Corp Hgb Conc 32.4 g/dL (32-36); Mean Corpuscular Hgb 27.7 pg (27.0-32.0); Mean Corpuscular Volume 85.4 fL (81-99); Mean Platelet Vol. 9.5 fl (6.2-12.0); Monocyte# 2.76 X10^3/uL; Monocyte% 14.7 % (0-10); NRBC Flagged by Analyzer 0 % (0-5); Neutrophil # 15.13 X10^3/uL (2.7-7.7); Neutrophil % 80.6 % (47-70); POSITIVE DIFFERENTIAL YES; Platelet Count 255 K/mm3 (150-450); RBC Distribution Width CV 14.3 % (11.6-14.6); RBC Distribution Width SD 44.6 fl (35.1-43.9); Red Blood Count 3.83 M/mm3 (4.2-5.4); White Blood Count 18.8 K/mm3 (4.4-11.0)
[2023-11-08 05:06] LABS: Differential Indicated SCAN CRITERIA MET
[2023-11-08 05:35] LABS: ALB/GLOB Ratio 0.8 RATIO (0.9-2.4); AST(SGOT) 31 U/L (15-37); Alanine Aminotransfer ALT/SGPT 14 U/L (13-56); Albumin, Serum 2.8 g/dL (3.2-5.0); Alkaline Phosphatase 117 U/L (45-117); Anion Gap 9 (5-15); BUN 19 mg/dL (7-18); Calcium,Total 8.5 mg/dL (8.5-10.1); Chloride 104 mmol/L (98-107); Creatinine, Serum 0.66 mg/dL (0.55-1.02); EST Glomerular Filtration Rate 92 mL/min (>60); Est Glom Filt Rate - Afr Amer 111 mL/min (>60); Estimated Creatinine Clearance 45.65 ml/min; Globulin 3.7 g/dL (2.2-4.2); Glucose 166 mg/dL (74-106); Potassium 2.9 mmol/L (3.5-5.1); Protein, Total 6.5 g/dL (6.4-8.2); Sodium Level 137 mmol/L (136-145)
[2023-11-08 06:43] LABS: Differential Comment SCANNED
--- NOTE | 2023-11-08 07:20 | PN.HOSP_ITS ---
Reason for Visit Reason for Visit: Generalized weakness Subjective Subjective Patient is an 83-year-old white female who presented to the emergency department at [facility] on 11/08/2023 due to generalized weakness. Family reported that about 10 AM on the day prior to presentation she started to feel weak and tired and they noticed that her oxygen level was dropping at home. They tried some home remedies to include attempt to improve her symptoms but she did not improve so they brought her to the emergency department for further evaluation. Symptoms started with gradual onset dyspnea with exertion that progressed to shortness of breath at rest. Her informed EMS that she had not been eating or drinking well and not acting right at home. Family and patient deny fever, chills, nausea, vomiting, chest pain, diaphoresis and she has had no significant cough or sputum production. As her symptoms worsen, her mental status worsened as well. Vital signs on presentation showed a temperature of 97.9, heart rate 73, respiratory 32, blood pressure was 108/69 and oxygen saturation was 90% initially on room air but then dropped to 88% when she was placed on 2 L nasal cannula. CBC at the time of admission showed a white count of 14.5, hemoglobin was 10.8 and consistent with her baseline. There was a left shift with a 77.1% neutrophilia. An ABG was performed and showed a pH of 7.46 with a pCO2 of 29.2 and a pO2 of 64 equating oxygen saturation of 94%. Her chemistry panel was overall unremarkable except for glucose of 187. Lactic acid was 1.3. BNP was 259.3. TSH was 1.06. UA was unremarkable. Chest x-ray showed bilateral patchy airspace opacities that were concerning for pneumonia. She was admitted to the medical floor initially and then transferred to the ICU for hypotension through the night. MAPS were in having greater than 65 and she has not required pressors. She was placed on community-acquired pneumonia coverage as well as Lasix due to elevated BNP however we are holding both the Lasix and her home amlodipine currently due to her blood pressures. Objective Data Objective Data Vital Signs: Vital Signs Temp Pulse Resp BP Pulse Ox O2 Del Method O2 Flow Rate 101.1 F H 63 19 H 93/64 98 Nasal Cannula 3 11/08/23 04:15 11/08/23 07:00 11/08/23 07:00 11/08/23 07:00 11/08/23 07:00 11/08/23 07:00 11/08/23 07:00 Oxygen Flow Rate (L/min) 3 Oxygen Delivery Method Nasal Cannula Weight: 65.1 kg Body Mass Index (BMI) 30.1 Intake & Output: Intake and Output for Last 24 Hours 11/06/23 11/07/23 11/08/23 23:59 23:59 23:59 Intake Total 300 / 300 305 / 305 Balance 300 / 300 305 / 305 Lab / Micro Data 11/08/23 04:45 11/08/23 04:45 Labs: Laboratory Results - last 24 hr 11/07/23 22:22: WBC 14.5 H, RBC 3.83 L, Hgb 10.8 L, Hct 33.0 L, MCV 86.2, MCH 28.2, MCHC 32.7, RDW Std Deviation 45.3 H, RDW Coeff of [place] 14.5, Plt Count 254, MPV 9.2, Immature Gran % (Auto) 0.200, Neut % (Auto) 77.1 H, Lymph % (Auto) 13.3 L, Walsh % (Auto) 8.9, Eos % (Auto) 0.0, Baso % (Auto) 0.5, Absolute Neuts (auto) 11.2 H, Absolute Lymphs (auto) 1.92, Nucleated RBC % 0, Sodium 137, Potassium 3.5, Chloride 105, Carbon Dioxide 23.0, Anion Gap 9, BUN 23 H, Creatinine 0.63, Estim Creat Clear Calc 45.69, Est GFR (MDRD) Af Amer 117, Est GFR (MDRD) Non-Af 96, BUN/Creatinine Ratio 36.6 H, Glucose 187 H, Lactic Acid 1.3, Calcium 8.6, Magnesium 2.4, Total Bilirubin 0.40, Direct Bilirubin 0.10, AST 25, ALT 12 L, Alkaline Phosphatase 112, Ammonia Cancelled 11/07/23 22:22: Ammonia < 10.0 L, B-Natriuretic Peptide 259.3 H, Total Protein 6.4, Albumin 2.8 L, Globulin 3.6, TSH 1.06 11/07/23 23:07: Urine Color Yellow, Urine Clarity Clear, Urine pH 6.0, Ur Specific [place] 1.025, Urine Protein 30 H, Urine Glucose (UA) Normal, Urine Ketones Negative, Urine Occult Blood 50 H, Urine Nitrite Negative, Urine Bilirubin Negative, Urine Urobilinogen Normal, Ur Leukocyte Esterase Negative, Urine RBC 0 SEEN, Urine WBC 0 SEEN, Ur Squamous Epith Cells 0 SEEN, Urine Bacteria 0 SEEN, Urine Mucus 0 SEEN 11/08/23 02:29: Troponin I High Sens 7 11/08/23 03:40: Prealbumin 14.2 L, TSH 0.91 11/08/23 04:45: WBC 18.8 H, RBC 3.83 L, Hgb 10.6 L, Hct 32.7 L, MCV 85.4, MCH 27.7, MCHC 32.4, RDW Std Deviation 44.6 H, RDW Coeff of [place] 14.3, Plt Count 255, MPV 9.5, Immature Gran % (Auto) 0.500, Neut % (Auto) 80.6 H, Lymph % (Auto) 3.8 L, Walsh % (Auto) 14.7 H, Eos % (Auto) 0.1, Baso % (Auto) 0.3, Absolute Neuts (auto) 15.1 H, Absolute Lymphs (auto) 0.72 L, Nucleated RBC % 0, Differential Comment SCANNED, Diff Path Review September, Sodium 137, Potassium 2.9 L, Chloride 104, Carbon Dioxide 24.0, Anion Gap 9, BUN 19 H, Creatinine 0.66, Estim Creat Clear Calc 45.65, Est GFR (MDRD) Af Amer 111, Est GFR (MDRD) Non-Af 92, B UN/Creatinine Ratio 29.0 H, Glucose 166 H, Calcium 8.5, Total Bilirubin 0.40, AST 31, ALT 14, Alkaline Phosphatase 117, Total Protein 6.5, Albumin 2.8 L, Globulin 3.7, Albumin/Globulin Ratio 0.8 L ABG Data ABG results: ABG 11/08/23 03:53 Specimen Type ART Sample Site R Radial pH 7.46 H Bicarbonate Actual 20.8 L Total CO2 22 Base Excess -3 L O2 Saturation 94 L O2 % 3.0 ABG pCO2 29.2 L ABG pO2 64 L Luis Fernando Test Negative O2 Delivery Device Cannula Vent Mode Not entered Radiography Diagnostic Testing: Radiology Impression Chest X-Ray 11/07/23 22:39 IMPRESSION: Bilateral basilar patchy airspace opacities concerning for pneumonia. Electronically Signed: Michael David MD at 23:28 EDT , Assessment & Plan Assessment/Plan (1) Generalized weakness: (2) Metabolic encephalopathy: (3) Hypoxia: (4) Elevated brain natriuretic peptide (BNP) level: (5) Declining functional status: (6) Leukocytosis: (7) Hypokalemia: PLAN: Plan Acute hypoxia secondary to suspected community acquired pneumonia/+/- acute heart failure of unknown type -Currently requiring 3 L of supplemental nasal cannula to keep oxygen sats greater than 88% -Patient is not O2 dependent at baseline -Wean as able -Will need ambulatory pulse ox prior to discharge -Hold Lasix due to low blood pressures -Continue ceftriaxone and azithromycin -Strep pneumo and Legionella antigens are pending -Check sputum culture if able -Respiratory viral panel is pending -Add as needed albuterol -Add incentive spirometry -Add Acapella -Check echocardiogram Leukocytosis -Suspected related to the above -Will monitor trend -Repeat CBC in a.m. Relative hypotension -Blood pressures are lower than typical -Maps are greater than 65 -lactic acid was negative -Continue to monitor -Hold home antihypertensives Toxic/metabolic encephalopathy -Likely related to acute illness -Monitor for signs of clinical improvement -Avoid sedating medications that could complicate delirium Hypokalemia -P.o. potassium replacement -Magnesium levels within normal limits next-recheck in a.m. Elevated BNP -etiology is unclear -Echocardiogram is pending -Lasix was ordered initially however currently on hold due to soft blood pressures -Cardiac enzymes are unremarkable Debility/generalized weakness-suspect related to the above -PT/OT consultation -Case management/social work consultation for assistance with discharge planning Hypertension -Patient with some relative hypotension so we will hold home amlodipine Obesity -BMI 30 -complicates treatment, prognosis, outcomes DVT prophylaxis -Lovenox subcu daily CODE STATUS -Not addressed will need to review with patient--> last admission she was a DNR CCA with no intubation
[2023-11-08] MEDS: Cholecalciferol (Vit D3) 125 MCG CAPSULE (5,000 UNITS) PO (08:58)
[2023-11-08] MEDS: Lactobacillis Acidophilus 2 CAP PO ×2 (08:58→22:05)
[2023-11-08] MEDS: Zinc Sulfate 50 mg zinc (220 mg) ORAL capsule PO (08:58)
[2023-11-08] MEDS: Ascorbic Acid 500 MG Tablet 1000 MG PO ×2 (08:58→16:37)
[2023-11-08] MEDS: guaiFENesin 600 MG Tablet PO ×2 (08:59→22:05)
[2023-11-08] MEDS: Potassium Chloride Oral Tablet 20 MEQ 60 MEQ PO (08:59)
[2023-11-08] MEDS: Ipratropium/Albuterol Sulfate 3 ML AMPUL.NEB INHALATION (11:18)
[2023-11-08] MEDS: Furosemide 40 MG/4 ML Vial IV ×2 (11:31→22:51)
[2023-11-08 13:41] LABS: Anion Gap 9 (5-15); BUN 18 mg/dL (7-18); BUN/Creat Ratio 22.9 RATIO (10-20); Calcium,Total 8.6 mg/dL (8.5-10.1); Chloride 101 mmol/L (98-107); Creatinine, Serum 0.79 mg/dL (0.55-1.02); EST Glomerular Filtration Rate 74 mL/min (>60); Est Glom Filt Rate - Afr Amer 90 mL/min (>60); Estimated Creatinine Clearance 45.65 ml/min; Glucose 193 mg/dL (74-106); Potassium 3.2 mmol/L (3.5-5.1); Sodium Level 133 mmol/L (136-145)
[2023-11-08] MEDS: Potassium Chloride Oral Tablet 20 MEQ 40 MEQ PO (16:40)
--- NOTE | 2023-11-08 17:27 | NURSING ---
At about 1030 this AM patient was SOB in room. Patient's told this RN that he gave her an amlodipine pill because I did not want her to have a heart attack because her heart rate was 117. When asked to see the prescription bottle, patient's said it was 1 pill in an unmarked bottle that he had in his pocket. Patient's family educated on dangers of giving medication not ordered by doctor and without the knowledge of RN. Patient's became slightly agitated and said that something needed to be done and that he was going to valve assembler her a tincture from home that will help. This RN once again educated on the possible harm that this could cause the patient due to interactions with other medications. Family expressed understanding at this time. Will continue to monitor situation.
[2023-11-08] MEDS: Vancomycin HCl 1,750 MG in 0.9% Normal Saline (500mL Bag) 500 ML 250 MG IV (19:49)
--- NOTE | 2023-11-08 19:54 | PCM.RX.CS ---
Consult Antibiotic Management Pharmacy has been consulted to manage selected antibiotic: Vancomycin Type of Intervention Type of Consult: New start Labs Labs: Sodium 133 mmol/L (136-145) L 11/08/23 13:20 Potassium 3.2 mmol/L (3.5-5.1) L 11/08/23 13:20 Chloride 101 mmol/L (98-107) 11/08/23 13:20 Carbon Dioxide 23.0 mmol/L (21.0-32.0) 11/08/23 13:20 Anion Gap 9 (5-15) 11/08/23 13:20 BUN 18 mg/dL (7-18) 11/08/23 13:20 Creatinine 0.79 mg/dL (0.55-1.02) 11/08/23 13:20 Est GFR (MDRD) Af Amer 90 mL/min (>60) 11/08/23 13:20 Est GFR (MDRD) Non-Af 74 mL/min (>60) 11/08/23 13:20 BUN/Creatinine Ratio 22.9 RATIO (10-20) H 11/08/23 13:20 Glucose 193 mg/dL (74-106) H 11/08/23 13:20 Microbiology Microbiology: Microbiology 11/08/23 00:40 Blood Culture (Wb) - Anticubital Right Blood Culture - Preliminary 11/08/23 00:10 Blood Culture (Wb) - Arm Right Blood Culture - Preliminary 11/08/23 16:25 Urine, Random Legionella Antigen - Final 11/08/23 16:25 Urine, Random Streptococcus pneumoniae Antigen (M - Final 11/08/23 04:35 Mucosa - Nasopharyngeal Respiratory Panel (PCR) - Final Dosing Weight Weight used for dosin.1 kg Estimated Creatinine Clearance Estimated Creatinine Clearance: 46 Goal Trough Goal Trough: 15-20 mcg/mL Pharmacy Plan for Drug Dosing Pharmacy Plan for Drug Dosing: Pharmacy Service will continue to monitor and adjust dosing as required. Follow-Up Labs Follow-Up Labs: Trough: Vancomycin Date/Time Labs Ordered Labs to be done on [date and time ordered]: 11/10/23 @6563
[2023-11-08] MEDS: 0.9% Saline Lock 10 ML Syringe IV (22:12)
[2023-11-09] VITALS (21 sets, daily range): BP systolic 87–119; BP diastolic 59–79; PULSE 74–88; RESP 18–27; TEMP 36.5–37.9; O2SAT 94–99; BMI 29.8
[2023-11-09] MEDS: 0.9% Saline Lock 10 ML Syringe IV ×2 (04:53→08:47)
[2023-11-09] MEDS: Enoxaparin 40 MG/0.4 ML Syringe SC (04:53)
[2023-11-09 04:58] LABS: Absolute Lymphocyte Count 2.08 X10^3/uL (0.83-4.51); Absolute Neutrophil Count 16.7 X10^3/uL (2.0-7.7); Basophil# 0.04 X10^3/uL; Basophil% 0.2 % (0-1); Eosinophil# 0.01 X10^3/uL; Hematocrit 31.9 % (37-47); Hemoglobin 10.2 g/dL (12.0-15.0); Lymphocyte # 2.08 X10^3/ul (0.83-4.51); Lymphocyte % 9.8 % (19-41); Mean Corpuscular Hgb 27.3 pg (27.0-32.0); Mean Corpuscular Volume 85.5 fL (81-99); Mean Platelet Vol. 9.6 fl (6.2-12.0); Monocyte# 2.16 X10^3/uL; Monocyte% 10.2 % (0-10); NRBC Flagged by Analyzer 0 % (0-5); Neutrophil # 16.72 X10^3/uL (2.7-7.7); Neutrophil % 79.2 % (47-70); POSITIVE DIFFERENTIAL YES; Platelet Count 224 K/mm3 (150-450); RBC Distribution Width CV 14.5 % (11.6-14.6); RBC Distribution Width SD 45.4 fl (35.1-43.9); Red Blood Count 3.73 M/mm3 (4.2-5.4); White Blood Count 21.1 K/mm3 (4.4-11.0)
[2023-11-09 05:03] LABS: Differential Indicated SCAN CRITERIA MET
[2023-11-09 05:10] LABS: Anion Gap 8 (5-15); BUN 17 mg/dL (7-18); BUN/Creat Ratio 26.8 RATIO (10-20); Calcium,Total 8.5 mg/dL (8.5-10.1); Chloride 103 mmol/L (98-107); Creatinine, Serum 0.64 mg/dL (0.55-1.02); EST Glomerular Filtration Rate 95 mL/min (>60); Est Glom Filt Rate - Afr Amer 115 mL/min (>60); Estimated Creatinine Clearance 45.65 ml/min; Glucose 115 mg/dL (74-106); Magnesium 1.9 mg/dL (1.6-2.6); Phosphorus 2.9 mg/dL (2.5-4.9); Potassium 3.5 mmol/L (3.5-5.1); Sodium Level 136 mmol/L (136-145)
[2023-11-09 05:55] LABS: BNP,B-Type NATRIURETIC PEPTIDE 349.4 pg/mL (0-100)
--- NOTE | 2023-11-09 05:59 | RAD_ITS ---
STUDY: X-RAY CHEST REASON FOR EXAM: Female, 83 years old. Pneumonia-486 TECHNIQUE: AP and lateral views of the chest. COMPARISON: Comparison is made with prior study dated November 07, 2023. FINDINGS: EKG electrodes are seen. There has been improved aeration at the right lung base as compared to prior study. Improved aeration at the left lung base with residual pleural-parenchymal changes at the left lung base. There is no demonstrated pleural abnormality. Normal size heart. Normal mediastinum and sue. Normal visualized pulmonary arteries. There is atherosclerotic tortuosity of the aortic arch and descending thoracic aorta. Normal visualized thoracic spine. Healed fracture of the proximal right humerus. Healed left rib fractures. There is no demonstrated abnormality of the visualized soft tissue structures of the upper abdomen. RAD/Chest PA and Lateral IMPRESSION: Improved aeration at both lung bases with residual pleural parenchymal changes at the left lung base. Electronically Signed: Reed Berry MD at 12:42 EDT ,
[2023-11-09 06:11] LABS: Differential Comment SCANNED
--- NOTE | 2023-11-09 08:12 | PN.HOSP_ITS ---
Reason for Visit Reason for Visit: Generalized weakness Subjective Subjective Patient with another episode of respiratory distress through the night. Responded well to diuresis and patient put out about a liter. Would like to schedule Lasix however pressures have been labile. If pressure stable for the next couple hours will order another dose of Lasix. Discussed with nursing staff. Blood cultures were positive for gram-positive cocci in clusters currently rating out as 2 of 2 positive for staph epi. Patient stated she was hoping to go home later today. We discussed that she is not medically ready for that yet. She was disappointed. Objective Data Objective Data Vital Signs: Vital Signs Temp Pulse Resp BP Pulse Ox O2 Del Method O2 Flow Rate 98.1 F 86 24 H 118/79 97 Nasal Cannula 3 11/09/23 04:00 11/09/23 07:00 11/09/23 07:00 11/09/23 07:00 11/09/23 07:00 11/09/23 07:00 11/09/23 07:00 Oxygen Flow Rate (L/min) 3 Oxygen Delivery Method Nasal Cannula Weight: 64.5 kg Body Mass Index (BMI) 29.8 Intake & Output: Intake and Output for Last 24 Hours 11/07/23 11/08/23 11/09/23 23:59 23:59 23:59 Intake Total 300 / 300 890 / 890 255 / 255 Output Total 1000 / 1000 Balance 300 / 300 890 / 890 -745 / -745 Lab / Micro Data 11/09/23 04:51 11/09/23 04:51 Labs: Laboratory Results - last 24 hr 11/08/23 03:40: Hemoglobin A1c 6.0 H 11/08/23 13:20: Sodium 133 L, Potassium 3.2 L, Chloride 101, Carbon Dioxide 23.0, Anion Gap 9, BUN 18, Creatinine 0.79, Estim Creat Clear Calc 45.65, Est GFR (MDRD) Af Amer 90, Est GFR (MDRD) Non-Af 74, BUN/Creatinine Ratio 22.9 H, G lucose 193 H, Calcium 8.6 11/09/23 04:51: WBC 21.1 H, RBC 3.73 L, Hgb 10.2 L, Hct 31.9 L, MCV 85.5, MCH 27.3, MCHC 32.0, RDW Std Deviation 45.4 H, RDW Coeff of [place] 14.5, Plt Count 224, MPV 9.6, Immature Gran % (Auto) 0.600, Neut % (Auto) 79.2 H, Lymph % (Auto) 9.8 L, [place] % (Auto) 10.2 H, Eos % (Auto) 0.0, Baso % (Auto) 0.2, Absolute Neuts (auto) 16.7 H, Absolute Lymphs (auto) 2.08, Nucleated RBC % 0, Differential Comment SCANNED, Diff Path Review September foll, Sodium 136, Potassium 3.5, Chloride 103, Carbon Dioxide 25.0, Anion Gap 8, BUN 17, Creatinine 0.64, Estim Creat Clear Calc 45.65, Est GFR (MDRD) Af Amer 115, Est GFR (MDRD) Non-Af 95, B UN/Creatinine Ratio 26.8 H, Glucose 115 H, Calcium 8.5, Phosphorus 2.9, Magnesium 1.9, B-Natriuretic Peptide 349.4 H Micro: Microbiology 11/08/23 00:10 Blood Culture (Wb) - Arm Right Bacteria Detection (PCR) - Preliminary Coag Negative Staph 11/08/23 00:10 Blood Culture (Wb) - Arm Right Blood Culture - Preliminary 11/08/23 00:40 Blood Culture (Wb) - Anticubital Right Blood Culture - Preliminary 11/08/23 16:25 Urine, Random Legionella Antigen - Final 11/08/23 16:25 Urine, Random Streptococcus pneumoniae Antigen (M - Final 11/08/23 04:35 Mucosa - Nasopharyngeal Respiratory Panel (PCR) - Final Physical Exam Const alert, oriented x3, no apparent distress and well nourished; Negative for average body habitus or healthy appearing Constitutional Narrative: Overweight, elderly, Mandaen, white female, lying in bed, awake, appears ill but not toxic, appears comfortable General Appearance: cooperative HEENT head/scalp atraumatic and moist oral mucous membranes HEENT Narrative: Dentition is poor, Mallampati is 2-3, no thrush Head and Scalp: normocephalic Eyes PERRL, EOMs intact bilaterally and conjunctivae normal Eyes Narrative: No scleral icterus Neck no lymphadenopathy and supple Neck Narrative: Trachea midline, no thyroid enlargement Resp no retractions, no use of accessory muscles and No clear to auscultation bilaterally Resp Narrative: Bibasilar crackles noted, no signs of distress however patient is mildly tachypneic with shallow respirations Auscultation: crackles; Negative for rhonchi or wheezes Cardio regular rate, regular rhythm, S1 normal heart sound, S2 normal heart sound, no murmurs, no rub, no gallops and no clicks GI normal to inspection, nondistended, normoactive bowel sounds, soft to palpation and non-tender Extremity no clubbing, cyanosis or edema Extremity Narrative: Pedal pulses are 2+ Skin skin turgor normal, no jaundice, no petechiae and no mottling Skin Narrative: Nails are unkept, no significant wounds noted on lower extremities or feet as nidus for staph epi bacteremia Neuro oriented x3, moves all extremities and no focal motor deficits Neuro Narrative: Significant generalized weakness noted but no focal deficits Speech: speech normal Psych affect normal Psych Narrative: Eye contact is good and patient interacts appropriately Mood & Affect: anxious Assessment & Plan Assessment/Plan (1) Generalized weakness: (2) Metabolic encephalopathy: (3) Hypoxia: (4) Elevated brain natriuretic peptide (BNP) level: (5) Declining functional status: (6) Leukocytosis: (7) Hypokalemia: PLAN: Plan Acute hypoxia secondary to suspected community acquired pneumonia/+/- acute heart failure of unknown type -Remains on 3 L of supplemental nasal cannula to keep oxygen sats greater than 88% -Patient is not O2 dependent at baseline -Wean as able -Will need ambulatory pulse ox prior to discharge -If blood pressure stable will give further Lasix doses but will avoid scheduling and give as needed based on clinical status with labile blood pressures -Strep pneumo and Legionella antigens are pending -Check sputum culture if able -Respiratory viral panel was negative -Strep pneumo and Legionella antigens are negative so we will discontinue azithromycin -Continue as needed albuterol -Continue incentive spirometry -Continue Acapella -Echo is pending Staph epi bacteremia -2 of 2 cultures positive for staph epidermis -Vancomycin added once cultures resulted and will transition ceftriaxone to Zosyn for now since white count had trended up some until cultures are finalized -ID consult is pending Leukocytosis -Suspected related to the above -Overall white count trended up however differential seems to be improving with less of a left shift -Will monitor trend -Repeat CBC in a.m. Relative hypotension -Blood pressures are lower than typical -Add midodrine 10 mg 3 times daily -Maps are greater than 65 -lactic acid was negative -Continue to monitor -Hold home antihypertensives Toxic/metabolic encephalopathy -Resolved Hypokalemia -Potassium has normalized but only 3.5 -With pending diuresis will give another 40 mill equivalents again today Elevated BNP -etiology is unclear -Echocardiogram is pending -Lasix was ordered initially however currently on hold due to soft blood pressures -Cardiac enzymes are unremarkable Debility/generalized weakness-suspect related to the above -PT/OT following -Case management/social work consultation for assistance with discharge planning Hypertension -Patient with some relative hypotension so we will hold home amlodipine Obesity -BMI 29.7 -complicates treatment, prognosis, outcomes DVT prophylaxis -Lovenox subcu daily CODE STATUS -Discussed with patient/family-CODE STATUS is DNR CCA with no intubation in order was placed Charges/Coding Visit Charges Inpatient E&M: 72545 Subs Hosp L3
[2023-11-09] MEDS: Piperacil/Tazobactam 3.375 GM in 0.9% Normal Saline (50mL MB+) 50 ML IV ×2 (08:47→14:54)
[2023-11-09] MEDS: Vancomycin IV 500 MG/100 ML BAG 100 MG IV (08:58)
[2023-11-09] MEDS: guaiFENesin 600 MG Tablet PO ×2 (09:01→21:12)
[2023-11-09] MEDS: Lactobacillis Acidophilus 2 CAP PO ×2 (09:01→21:12)
[2023-11-09] MEDS: Potassium Chloride Oral Tablet 20 MEQ 60 MEQ PO (09:04)
[2023-11-09] MEDS: Midodrine HCl 5 MG Tablet 10 MG PO ×3 (09:12→17:42)
--- NOTE | 2023-11-09 11:40 | CASEMGMT ---
VIKI CEDILLO Assessment Face to Face with patient for initial transition planning/care coordination assessment. VIKI CEDILLO introduced self and role at [facility], pt voices understanding. Pt is A&Ox4 and is resting comfortably in bed and is calm. Pt is accompanied by friends and family at bedside. Care providers, pharmacy, and demographics verified. Admitting dx: GLADYS MILLIGAN Strata: 1 PCP: Homer Roberts Specialists: Denies Preferred Pharmacy: [facility] Insurance: [facility] Prescription Benefit: None LNOK: [place] Green (H), [place]rown Layne (Friend) Living Arrangements: Pt lives with her , son, & DIL in a two story home with a FFSU and a ramp to enter. ADLs/IADLs: Pt family supports the pt at home Transportation: Pt hires drivers DME: Pt has a history with [employer] for home O2. Per Hola, the equipment was returned in February. Pt states that she does have a pulse ox at home as well as: W/C, FWW, and rollator. If the pt qualifies for home oxygen, pt prefers [facility]. HHC/SNF: Pt states that [facility] (PT) came to the house for only one visit in the past. Denies SNF Plan: TBD. 6-Click score is 6. Pt states that she uses a W/C at home. Pt states that she wishes to return home at time of DC. Pt and pt state that they do not need OP Tx or HHC at this time. Pt states that she feels safe returning home with her family support at home. NGUYEN and RODRIGO to follow pt progression in the hospital to ensure a safe DC from [facility]. Michael Ying RN, CM
[2023-11-09 13:44] LABS: Pathologist Review Reviewed
[2023-11-09 13:46] LABS: Pathologist Review Reviewed
--- NOTE | 2023-11-09 14:26 | CT_ITS ---
STUDY: CTA CHEST REASON FOR EXAM: Female, 83 years old. hypoxia RADIATION DOSAGE (If Supplied By Facility): CTDIvol = ( 12.76 ) mGy, DLP = ( 331.44 ) mGycm TECHNIQUE: The examination was performed with the intravenous administration of IV 100mL Isovue-370. Post-processing of the angiographic images was performed, with multiplanar reformation and 3D reconstruction. Individualized dose optimization techniques were used for this CT. COMPARISON: None. FINDINGS: Normal enhancement of the main pulmonary artery and right and left pulmonary arteries. Normal enhancement of the bilateral peripheral pulmonary arteries. There is no demonstrated pulmonary embolism. Mild atherosclerotic change of the aorta without evidence for aneurysm. There is no demonstrated aortic dissection. Heart is enlarged. There is no coronary artery calcification. Normal mediastinum. Normal hilar regions. Normal visualized trachea and bronchi. The lungs are well expanded. Mild bibasilar atelectasis or infiltrate more pronounced on the left. Normal pleura. Normal chest wall structures. Dorsal spine demonstrates degenerative change. Multilevel chronic compression deformities.. Pneumobilia suggesting prior cholecystectomy CT/CTA Chest W/WO Contrast IMPRESSION: Mild bibasilar atelectasis or infiltrates more pronounced in left lower lobe.. No evidence for pulmonary embolus Electronically Signed: Santana Carl MD at 17:56 EDT ,
[2023-11-09] MEDS: Furosemide 40 MG/4 ML Vial IV (14:55)
--- NOTE | 2023-11-09 16:20 | PCM.CONS.GEN ---
Assessment & Plan Assessment/Plan (1) Pneumonia: PLAN: Pneumonia with 2 of 2 bcx with CoNS, MS-CoNS per pcr. Will narrow abx to ceftriaxone. Will follow, thank you HPI Consult Data Date of Consult: 11/09/23 HPI Narrative Reason for Consultation: pneumonia HPI Narrative: AGUILA MONTEJO, is a 83 F with h/o htn, depression, presented 11/07 with 2 days progressive cough, dyspnea, not feeling well. Admitted to icu on vanc/zosyn, feeling better today, wants to go home. Denies any cough or SOB now. No n/v/d. No rash. Full ROS performed and neg except as noted above. [facility] Medical History Right humeral fracture History of rib fracture Compression fracture of T10 vertebra Chronic cholecystitis HTN (hypertension) Anemia Depression Home Medications ?Medication ?Instructions ?Recorded ?Last Taken ?Type amlodipine 10 mg tablet 10 mg PO DAILY blood pressure 11/26/22 11/25/22 History Allergy/AdvReac Type Severity Reaction Status Date / Time No Known Allergies Allergy Verified 11/09/23 09:45 Surgical History (Updated 11/08/23 @ 07:[address] Lakesha Warner, DO) History of biliary duct stent placement Social History Smoking Status: Never smoker Physical Exam Const alert and no apparent distress General Appearance: cooperative HEENT normocephalic and head/scalp atraumatic Eyes PERRL and EOMs intact bilaterally Neck supple and No nodes Resp normal air movement and clear to auscultation bilaterally Cardio regular rate and regular rhythm GI soft to palpation, non-tender and non-distended Extremity General Extremity: Negative for edema Skin no rashes or lesions noted Neuro CN's II-XII intact bilaterally Lab / Micro Data Attestation: I reviewed the patient's lab results. 11/09/23 04:51 11/09/23 04:51 Labs: Laboratory Results - last 24 hr 11/08/23 04:45: Diff Path Review Reviewed 11/09/23 04:51: WBC 21.1 H, RBC 3.73 L, Hgb 10.2 L, Hct 31.9 L, MCV 85.5, MCH 27.3, MCHC 32.0, RDW Std Deviation 45.4 H, RDW Coeff of [place] 14.5, Plt Count 224, MPV 9.6, Immature Gran % (Auto) 0.600, Neut % (Auto) 79.2 H, Lymph % (Auto) 9.8 L, [place] % (Auto) 10.2 H, Eos % (Auto) 0.0, Baso % (Auto) 0.2, Absolute Neuts (auto) 16.7 H, Absolute Lymphs (auto) 2.08, Nucleated RBC % 0, Differential Comment SCANNED, Diff Path Review Reviewed, Sodium 136, Potassium 3.5, Chloride 103, Carbon Dioxide 25.0, Anion Gap 8, BUN 17, Creatinine 0.64, Estim Creat Clear Calc 45.65, Est GFR (MDRD) Af Amer 115, Est GFR (MDRD) Non-Af 95, BUN/Creatinine Ratio 26.8 H, Glucose 115 H, Calcium 8.5, Phosphorus 2.9, Magnesium 1.9, B-Natriuretic Peptide 349.4 H Micro: Microbiology 11/08/23 00:40 Blood Culture (Wb) - Anticubital Right Blood Culture - Preliminary Coag Negative Staph 11/08/23 00:10 Blood Culture (Wb) - Arm Right Bacteria Detection (PCR) - Final Coag Negative Staph 11/08/23 00:10 Blood Culture (Wb) - Arm Right Blood Culture - Preliminary Coag Negative Staph 11/08/23 16:25 Urine, Random Legionella Antigen - Final 11/08/23 16:25 Urine, Random Streptococcus pneumoniae Antigen (M - Final Imaging Radiology Impression Echocardiogram 11/08/23 02:41 Interpretation Summary Mild concentric left ventricular hypertrophy. The left ventricular ejection fraction is 65 %. Diastolic function is indeterminate. RV apical hypokinesis. RV base hyperdynamic. The left atrium is mildly enlarged. Aneurysmal interatrial septum. Bubble study negative for shunts. Aortic sclerosis, no stenosis. The study was technically difficult. Ordering Physician: Santosh Meyers Referring Physician: KENNY GOMEZ Performed By: Debbi German RCS Chest X-Ray 11/09/23 05:59 IMPRESSION: Improved aeration at both lung bases with residual pleural parenchymal changes at the left lung base. Electronically Signed: Reed Berry MD at 12:42 EDT ,
--- NOTE | 2023-11-09 16:56 | NURSING ---
11/09/23@1645- report called to VIKI Castellano on PCU.
[2023-11-09] MEDS: Ceftriaxone 2 GM in 0.9% Normal Saline (50mL MB+) 50 ML IV (17:41)
[2023-11-09] MEDS: MELATONIN 10 MG TABLET 5 MG PO (21:13)
[2023-11-10] MEDS: Enoxaparin 40 MG/0.4 ML Syringe SC (05:23)
--- NOTE | 2023-11-10 05:55 | RAD_ITS ---
EXAM: XR CHEST, 1 VIEW CLINICAL INDICATION: CHF CHF TECHNIQUE: Frontal view of the chest. COMPARISON: Chest x-ray 06/10/2023. CTA chest 06/10/2023. FINDINGS: LUNGS AND PLEURAL SPACES: The lungs are underexpanded. There is no demonstrated pulmonary infiltrate. There is a calcified granuloma overlying the left midlung field. No pneumothorax. No effusion. HEART: The heart size is probably normal, taking into account limited depth of inspiration as well as AP portable technique. MEDIASTINUM: Central airways and mediastinal contour are unremarkable. BONES/JOINTS: There is an old healed right humeral neck fracture. SOFT TISSUES: Unremarkable. RAD/Chest 1 View (Portable) IMPRESSION: No acute findings in the chest. Electronically Signed: George Ospina MD at 5:47 EDT Reading Location ID and State: [facility] / [place] , Service support ,
[2023-11-10 07:10] VITALS: O2SAT 93
[2023-11-10 07:30] VITALS: O2SAT 91
[2023-11-10 07:50] LABS: Anion Gap 8 (5-15); BUN 28 mg/dL (7-18); BUN/Creat Ratio 35.4 RATIO (10-20); Calcium,Total 8.9 mg/dL (8.5-10.1); Chloride 104 mmol/L (98-107); Creatinine, Serum 0.79 mg/dL (0.55-1.02); EST Glomerular Filtration Rate 74 mL/min (>60); Est Glom Filt Rate - Afr Amer 90 mL/min (>60); Estimated Creatinine Clearance 45.45 ml/min; Glucose 103 mg/dL (74-106); Potassium 3.8 mmol/L (3.5-5.1); Sodium Level 137 mmol/L (136-145)
[2023-11-10 09:36] VITALS: BP 94/67; PULSE 96; RESP 18; TEMP 37; O2SAT 92
[2023-11-10 09:49] LABS: Absolute Lymphocyte Count 2.38 X10^3/uL (0.83-4.51); Absolute Neutrophil Count 10.9 X10^3/uL (2.0-7.7); Basophil# 0.05 X10^3/uL; Basophil% 0.3 % (0-1); Eosinophil# 0.03 X10^3/uL; Eosinophils% 0.2 % (0-5); Hematocrit 36.6 % (37-47); Hemoglobin 11.5 g/dL (12.0-15.0); Lymphocyte # 2.38 X10^3/ul (0.83-4.51); Lymphocyte % 16.1 % (19-41); Mean Corp Hgb Conc 31.4 g/dL (32-36); Mean Corpuscular Hgb 27.3 pg (27.0-32.0); Mean Corpuscular Volume 86.7 fL (81-99); Mean Platelet Vol. 10.2 fl (6.2-12.0); Monocyte# 1.38 X10^3/uL; Monocyte% 9.3 % (0-10); NRBC Flagged by Analyzer 0 % (0-5); Neutrophil # 10.92 X10^3/uL (2.7-7.7); Neutrophil % 73.7 % (47-70); Platelet Count 319 K/mm3 (150-450); RBC Distribution Width CV 14.9 % (11.6-14.6); RBC Distribution Width SD 47.6 fl (35.1-43.9); Red Blood Count 4.22 M/mm3 (4.2-5.4); White Blood Count 14.8 K/mm3 (4.4-11.0)
[2023-11-10] MEDS: Lactobacillis Acidophilus 2 CAP PO ×2 (09:50→20:46)
[2023-11-10] MEDS: Midodrine HCl 5 MG Tablet 10 MG PO ×3 (09:51→17:21)
[2023-11-10] MEDS: guaiFENesin 600 MG Tablet PO ×2 (09:51→20:46)
[2023-11-10] MEDS: Ceftriaxone 2 GM in 0.9% Normal Saline (50mL MB+) 50 ML IV (09:51)
--- NOTE | 2023-11-10 11:08 | CHAPLAIN ---
Type of Pastoral Visit _x__ Initial Visit ___ Follow-up Visit ___ On-call Visit ___ General Patient Visit ___ Spiritual Assessment ___ Family Conference ___ Bereavement ___ Rapid Response ___ Code Blue ___ Other (describe below) Pastoral Care Referral From _x__ Patient ___ Family ___ Nurse ___ Physician ___ Floral Artist ___ Network Engineering Advisor ___ Other (describe below) Sacrament/Intervention _x__ Active listening ___ Anointing ___ Mosque ___ Bereavement ___ Communion ___ Therese exploration ___ ___ Life review ___ Prayer ___ Reconciliation ___ Sacrament of Sick ___ Supportive presence ___ Wedding ___ Other (describe below) Pastoral Comments 11/09/23; met with patient and family members before patient was moved from ICU to PCU; pt declares that she is better, has no concerns, and just wants to go home; offer of support and presence to several family members that were present;
[2023-11-10 12:04] VITALS: BP 112/65; PULSE 80; RESP 18; TEMP 37.3; O2SAT 92
--- NOTE | 2023-11-10 15:20 | PCM.PN.ID ---
Physical Exam Narrative Feeling better, no fever, no dyspnea Const alert and no apparent distress General Appearance: cooperative Resp normal air movement and clear to auscultation bilaterally Auscultation: diminished lung sounds Cardio regular rate and regular rhythm GI soft to palpation, non-tender and non-distended Skin no rashes or lesions noted ID ID: Route of nutrition/ use of supplements: [] Nutritional Intake: [] IV Site: [] Anaya Catheter: [] Assessment & Plan Assessment/Plan (1) Pneumonia: PLAN: Pneumonia with 2 of 2 bcx with MR-Staph hominis. Will cover with linezolid and ceftriaxone for now. Plan on home with one week po doxy 100mg bid and omnicef 300mg bid. Will follow
[2023-11-10 15:24] VITALS: BP 110/66; PULSE 77; RESP 18; TEMP 37.2; O2SAT 96
[2023-11-10] MEDS: Linezolid 600 MG Tablet PO ×2 (15:26→20:46)
--- NOTE | 2023-11-10 16:15 | PCM.PN.HOSP ---
Reason for Visit Reason for Visit: Generalized weakness Subjective Subjective No further issues with respiratory distress since transfer from the ICU. Sleeping at the time of my evaluation however family is at the bedside and do feel that she is doing better. They are acceptable of her going home on oxygen if needed and she has done so previously. Patient is anxious to go home and should be able to go home tomorrow as long as we can clarify antibiotics. Objective Data Objective Data Vital Signs: Vital Signs Temp Pulse Resp BP Pulse Ox O2 Del Method O2 Flow Rate 98.9 F 77 18 110/66 96 Nasal Cannula 3 11/10/23 15:24 11/10/23 15:24 11/10/23 15:24 11/10/23 15:24 11/10/23 15:24 11/10/23 15:36 11/10/23 15:36 Oxygen Flow Rate (L/min) 3 Oxygen Delivery Method Nasal Cannula Weight: 64.5 kg Body Mass Index (BMI) 29.8 Intake & Output: Intake and Output for Last 24 Hours 11/08/23 11/09/23 11/10/23 23:59 23:59 23:59 Intake Total 890 / 890 1391.25 / 1391.25 50 / 50 Output Total 2540 / 2540 300 / 300 Balance 890 / 890 -1148.75 / -1148.75 -250 / -250 Lab / Micro Data 11/10/23 05:36 11/10/23 05:36 Labs: Laboratory Results - last 24 hr 11/10/23 05:36: WBC 14.8 H, RBC 4.22, Hgb 11.5 L, Hct 36.6 L, MCV 86.7, MCH 27.3, MCHC 31.4 L, RDW Std Deviation 47.6 H, RDW Coeff of [place] 14.9 H, Plt Count 319, MPV 10.2, Immature Gran % (Auto) 0.400, Neut % (Auto) 73.7 H, Lymph % (Auto) 16.1 L, [place] % (Auto) 9.3, Eos % (Auto) 0.2, Baso % (Auto) 0.3, Absolute Neuts (auto) 10.9 H, Absolute Lymphs (auto) 2.38, Nucleated RBC % 0, Sodium 137, Potassium 3.8, Chloride 104, Carbon Dioxide 25.0, Anion Gap 8, BUN 28 H, Creatinine 0.79, Estim Creat Clear Calc 45.45, Est GFR (MDRD) Af Amer 90, Est GFR (MDRD) Non-Af 74, BUN/Creatinine Ratio 35.4 H, Glucose 103, Calcium 8.9 Micro: Microbiology 11/08/23 00:40 Blood Culture (Wb) - Anticubital Right Blood Culture - Final Coag Negative Staph 11/08/23 00:10 Blood Culture (Wb) - Arm Right Bacteria Detection (PCR) - Final Coag Negative Staph 11/08/23 00:10 Blood Culture (Wb) - Arm Right Blood Culture - Final Staphylococcus hominis hominis 11/08/23 16:25 Urine, Random Legionella Antigen - Final 11/08/23 16:25 Urine, Random Streptococcus pneumoniae Antigen (M - Final 11/08/23 04:35 Mucosa - Nasopharyngeal Respiratory Panel (PCR) - Final Radiography Diagnostic Testing: Radiology Impression Chest CTA 11/09/23 14:26 IMPRESSION: Mild bibasilar atelectasis or infiltrates more pronounced in left lower lobe.. No evidence for pulmonary embolus Electronically Signed: Santana Carl MD at 17:56 EDT , Chest X-Ray 11/10/23 05:55 IMPRESSION: No acute findings in the chest. Electronically Signed: George Ospina MD at 5:47 EDT , Physical Exam Const no apparent distress and well nourished; Negative for average body habitus or healthy appearing Constitutional Narrative: Overweight, elderly, [place], white female, lying in bed, sleeping soundly, family at bedside appears ill but not toxic, appears comfortable HEENT head/scalp atraumatic Head and Scalp: normocephalic Resp no retractions, no use of accessory muscles and No clear to auscultation bilaterally Resp Narrative: Still with few bibasilar crackles however improved, remains on supplemental oxygen Auscultation: crackles; Negative for rhonchi or wheezes Cardio regular rate, regular rhythm, S1 normal heart sound, S2 normal heart sound, no murmurs, no rub, no gallops and no clicks GI normal to inspection, nondistended, normoactive bowel sounds and soft to palpation Extremity no clubbing, cyanosis or edema Extremity Narrative: Pedal pulses are 2+ Neuro Neuro Narrative: Unable to assess as patient is sleeping Psych Psych Narrative: Unable to assess as patient is sleeping Mood & Affect: anxious Assessment & Plan Assessment/Plan (1) Generalized weakness: (2) Metabolic encephalopathy: (3) Hypoxia: (4) Elevated brain natriuretic peptide (BNP) level: (5) Declining functional status: (6) Leukocytosis: (7) Hypokalemia: PLAN: Plan Acute hypoxia secondary to bacteremia/+/- acute heart failure of unknown type -Remains on 3 L of supplemental nasal cannula to keep oxygen sats greater than 88% -Patient is not O2 dependent at baseline -Wean as able -Will need ambulatory pulse ox prior to discharge -Lasix 20 mg IV push today -Strep pneumo and Legionella antigens are negative -Patient not able to produce sputum culture -Respiratory viral panel was negative -Strep pneumo and Legionella antigens are negative so we will discontinue azithromycin -Continue as needed albuterol -Continue incentive spirometry -Continue Acapella -Echo echocardiogram showed an EF of 65% with diastolic dysfunction, RV apical hypokinesis with a hyperdynamic base questionable for David sign and aneurysmal intra-atrial septum with a negative bubble study -Given positive David sign CTA of the chest was performed and negative for any PE Staph epi bacteremia -2 of 2 cultures positive for staph epidermis -Currently on linezolid and ceftriaxone per ID -Plan for discharge is doxycycline 100 mg p.o. twice daily and Omnicef 300 mg p.o. twice daily x 1 week -ID consult is pending Leukocytosis -Now improving -Will monitor trend -Repeat CBC in a.m. Relative hypotension -Blood pressures do seem to be recovering -Add midodrine 10 mg 3 times daily--> wean as able prior to discharge -Continue to monitor -Hold home antihypertensive Hypokalemia -Resolved Elevated BNP -etiology is unclear--> suspect related to acute infection -Echocardiogram was unremarkable -Lasix 20 mg IV push x 1 dose today Debility/generalized weakness-suspect related to the above -PT/OT following -Case management/social work consultation for assistance with discharge planning Hypertension -Hold home amlodipine due to lower blood pressures Obesity -BMI 29.7 -complicates treatment, prognosis, outcomes DVT prophylaxis -Lovenox subcu daily CODE STATUS -DNR CCA without intubation Charges/Coding Visit Charges Inpatient E&M: 13123 Subs Hosp L2
[2023-11-10] MEDS: Furosemide 20 MG/2 ML VIAL IV (17:21)
[2023-11-10 20:42] VITALS: BP 134/76; PULSE 84; RESP 16; TEMP 36.8; O2SAT 94
[2023-11-10] MEDS: MELATONIN 10 MG TABLET 5 MG PO (20:53)
[2023-11-10] MEDS: 0.9% Saline Lock 10 ML Syringe IV (20:54)
[2023-11-10] MEDS: Acetaminophen 325 MG Tablet 650 MG PO (22:51)
[2023-11-11 03:07] VITALS: BP 114/77; PULSE 80; RESP 16; TEMP 36.6; O2SAT 96
[2023-11-11] MEDS: Enoxaparin 40 MG/0.4 ML Syringe SC (05:35)
[2023-11-11 06:39] LABS: Absolute Lymphocyte Count 2.26 X10^3/uL (0.83-4.51); Basophil# 0.05 X10^3/uL; Basophil% 0.4 % (0-1); Eosinophils% 0.8 % (0-5); Hematocrit 33.2 % (37-47); Hemoglobin 10.5 g/dL (12.0-15.0); Lymphocyte # 2.26 X10^3/ul (0.83-4.51); Lymphocyte % 17.8 % (19-41); Mean Corp Hgb Conc 31.6 g/dL (32-36); Mean Corpuscular Hgb 27.1 pg (27.0-32.0); Mean Corpuscular Volume 85.6 fL (81-99); Mean Platelet Vol. 9.7 fl (6.2-12.0); Monocyte# 1.25 X10^3/uL; Monocyte% 9.8 % (0-10); NRBC Flagged by Analyzer 0 % (0-5); Neutrophil # 8.96 X10^3/uL (2.7-7.7); Neutrophil % 70.5 % (47-70); Platelet Count 325 K/mm3 (150-450); RBC Distribution Width CV 14.8 % (11.6-14.6); Red Blood Count 3.88 M/mm3 (4.2-5.4); White Blood Count 12.7 K/mm3 (4.4-11.0)
[2023-11-11 07:01] VITALS: O2SAT 93
[2023-11-11 07:01] LABS: Anion Gap 8 (5-15); BUN 30 mg/dL (7-18); BUN/Creat Ratio 38.6 RATIO (10-20); Calcium,Total 8.9 mg/dL (8.5-10.1); Chloride 100 mmol/L (98-107); Creatinine, Serum 0.78 mg/dL (0.55-1.02); EST Glomerular Filtration Rate 75 mL/min (>60); Est Glom Filt Rate - Afr Amer 91 mL/min (>60); Estimated Creatinine Clearance 45.45 ml/min; Glucose 100 mg/dL (74-106); Potassium 3.4 mmol/L (3.5-5.1); Sodium Level 134 mmol/L (136-145)
[2023-11-11 08:04] VITALS: BP 97/66; PULSE 84; RESP 16; TEMP 36.7; O2SAT 96
[2023-11-11] MEDS: Midodrine HCl 5 MG Tablet 10 MG PO ×2 (08:09→11:22)
--- NOTE | 2023-11-11 08:30 | PN.HOSP_ITS ---
Reason for Visit Reason for Visit: Diagnoses Elevated white blood cell count, unspecified (11/08/23) Hypokalemia (11/08/23) Metabolic encephalopathy (11/08/23) Heart failure, unspecified (11/08/23) Pneumonia, unspecified organism (11/08/23) Other abnormalities of breathing (11/08/23) Hypoxemia (11/08/23) Weakness (11/08/23) Other malaise (11/08/23) Other specified abnormal findings of blood chemistry (11/08/23) Subjective Subjective Feels well. Denies complaints. Objective Data Objective Data Vital Signs: Vital Signs Temp Pulse Resp BP Pulse Ox O2 Del Method O2 Flow Rate 36.7 C 84 16 97/66 96 Nasal Cannula 3 11/11/23 08:04 11/11/23 08:04 11/11/23 08:04 11/11/23 08:04 11/11/23 08:04 11/11/23 08:04 11/11/23 08:04 Oxygen Flow Rate (L/min) 3 Oxygen Delivery Method Nasal Cannula Weight: 64.5 kg Body Mass Index (BMI) 29.8 Intake & Output: Intake and Output for Last 24 Hours 11/09/23 11/10/23 11/11/23 23:59 23:59 23:59 Intake Total 1391.25 / 1391.25 450 / 450 400 / 400 Output Total 2540 / 2540 900 / 900 400 / 400 Balance -1148.75 / -1148.75 -450 / -450 0 / 0 Lab / Micro Data 11/11/23 05:58 11/11/23 05:58 Labs: Laboratory Results - last 24 hr 11/10/23 05:36: WBC 14.8 H, RBC 4.22, Hgb 11.5 L, Hct 36.6 L, MCV 86.7, MCH 27.3, MCHC 31.4 L, RDW Std Deviation 47.6 H, RDW Coeff of [place] 14.9 H, Plt Count 319, MPV 10.2, Immature Gran % (Auto) 0.400, Neut % (Auto) 73.7 H, Lymph % (Auto) 16.1 L, [place] % (Auto) 9.3, Eos % (Auto) 0.2, Baso % (Auto) 0.3, Absolute Neuts (auto) 10.9 H, Absolute Lymphs (auto) 2.38, Nucleated RBC % 0 11/11/23 05:58: WBC 12.7 H, RBC 3.88 L, Hgb 10.5 L, Hct 33.2 L, MCV 85.6, MCH 27.1, MCHC 31.6 L, RDW Std Deviation 46.0 H, RDW Coeff of [place] 14.8 H, Plt Count 325, MPV 9.7, Immature Gran % (Auto) 0.700, Neut % (Auto) 70.5 H, Lymph % (Auto) 17.8 L, [place] % (Auto) 9.8, Eos % (Auto) 0.8, Baso % (Auto) 0.4, Absolute Neuts (auto) 9.0 H, Absolute Lymphs (auto) 2.26, Nucleated RBC % 0, Sodium 134 L, P otassium 3.4 L, Chloride 100, Carbon Dioxide 26.0, Anion Gap 8, BUN 30 H, Creatinine 0.78, Estim Creat Clear Calc 45.45, Est GFR (MDRD) Af Amer 91, Est GFR (MDRD) Non-Af 75, BUN/Creatinine Ratio 38.6 H, Glucose 100, Calcium 8.9 Micro: Microbiology 11/08/23 00:40 Blood Culture (Wb) - Anticubital Right Blood Culture - Final Coag Negative Staph 11/08/23 00:10 Blood Culture (Wb) - Arm Right Bacteria Detection (PCR) - Final Coag Negative Staph 11/08/23 00:10 Blood Culture (Wb) - Arm Right Blood Culture - Final Staphylococcus hominis hominis 11/08/23 16:25 Urine, Random Legionella Antigen - Final 11/08/23 16:25 Urine, Random Streptococcus pneumoniae Antigen (M - Final 11/08/23 04:35 Mucosa - Nasopharyngeal Respiratory Panel (PCR) - Final Physical Exam Const alert and no apparent distress HEENT head/scalp atraumatic and moist oral mucous membranes Resp normal respiratory effort, no retractions, no use of accessory muscles and clear to auscultation bilaterally Cardio regular rate, regular rhythm, S1 normal heart sound and S2 normal heart sound GI normal to inspection, nondistended, normoactive bowel sounds, soft to palpation, non-tender and non-distended Extremity normal to inspection Neuro Sensorium / Orientation: awake Assessment & Plan Assessment/Plan (1) Generalized weakness: (2) Metabolic encephalopathy: (3) Hypoxia: (4) Elevated brain natriuretic peptide (BNP) level: (5) Declining functional status: (6) Leukocytosis: (7) Hypokalemia: PLAN: Plan Acute hypoxia secondary to bacteremia/+/- acute heart failure of unknown type * Remains on 3 L of supplemental nasal cannula to keep oxygen sats greater than 88%. Patient is not O2 dependent at baseline. * Strep pneumo and Legionella antigens are negative-Patient not able to produce sputum culture-Respiratory viral panel was negative * Oxygen testing reviewed and patient is ambulatory in home and in the community and requires home oxygen with portability. * Discussed with family as they are [place] and they will have to get a generator. Patient was on oxygen in the summer of last year and they were able to get a generator from a neighbor. Staph epi bacteremia * 2 of 2 cultures positive for staph epidermis. * Plan for discharge is doxycycline 100 mg p.o. twice daily and Omnicef 300 mg p.o. twice daily x 1 week Chronic conditions: * Hypertension-Hold home amlodipine due to lower blood pressures * Obesity-BMI 29.7-complicates treatment, prognosis, outcomes DVT prophylaxis-Lovenox subcu daily CODE STATUS -DNR CCA without intubation Charges/Coding Visit Charges Inpatient E&M: 34383 Subs Hosp L2
[2023-11-11] MEDS: Lactobacillis Acidophilus 2 CAP PO (09:34)
[2023-11-11] MEDS: Linezolid 600 MG Tablet PO (09:34)
[2023-11-11] MEDS: Ceftriaxone 2 GM in 0.9% Normal Saline (50mL MB+) 50 ML IV (09:34)
[2023-11-11] MEDS: guaiFENesin 600 MG Tablet PO (09:34)
[2023-11-11] MEDS: Menthol/Lanolin/Calamine/Znox 113 GM Tube 1 APPLIC TOPICAL (09:50)
[2023-11-11 12:13] VITALS: O2SAT 87; O2SAT 90
--- NOTE | 2023-11-11 14:05 | PCM.DC.SUM ---
Providers Date of Admission: 11/08/23 Primary Care Physician: Dr. Homer Roberts, Consultations 11/09/23 03:08 Consult: Infectious Disease Routine Consulting Provider: Bautista Rangel Reason for Consult: CoNS Bacteremia EMERGENT Consult: No MD Notified: Yes Date Notified: 11/09/23 Time Notified: 06:46 Method of Notification: Answering Service Reason For Visit: COMMUNITY ACQUIRED PNEMONIA, RESPIRATORY Diagnosis Discharge Diagnosis (1) Generalized weakness: Status: Acute Code(s): R53.1 - Weakness (2) Metabolic encephalopathy: Status: Acute Code(s): G93.41 - Metabolic encephalopathy (3) Hypoxia: Status: Acute Code(s): R09.02 - Hypoxemia (4) Elevated brain natriuretic peptide (BNP) level: Status: Acute Code(s): R79.89 - Other specified abnormal findings of blood chemistry (5) Declining functional status: Status: Acute Code(s): R53.81 - Other malaise (6) Leukocytosis: Status: Acute Code(s): D72.829 - Elevated white blood cell count, unspecified (7) Hypokalemia: Status: Acute Code(s): E87.6 - Hypokalemia Plan Acute hypoxia secondary to bacteremia/+/- acute heart failure of unknown type Remains on 3 L of supplemental nasal cannula to keep oxygen sats greater than 88%. Patient is not O2 dependent at baseline. Strep pneumo and Legionella antigens are negative-Patient not able to produce sputum culture-Respiratory viral panel was negative Oxygen testing reviewed and patient is ambulatory in home and in the community and requires home oxygen with portability. Discussed with family as they are [place] and they will have to get a generator. Patient was on oxygen in the summer of last year and they were able to get a generator from a neighbor. Staph epi bacteremia 2 of 2 cultures positive for staph epidermis. Plan for discharge is doxycycline 100 mg p.o. twice daily and Omnicef 300 mg p.o. twice daily x 1 week Chronic conditions: Hypertension-Hold home amlodipine due to lower blood pressures Obesity-BMI 29.7-complicates treatment, prognosis, outcomes DVT prophylaxis-Lovenox subcu daily CODE STATUS -DNR CCA without intubation Medications at Discharge Home Medications amlodipine 10 mg tablet 10 mg PO DAILY blood pressure 11/26/22 benzonatate 100 mg capsule 100 mg PO Q4H PRN PRN COUGH/CONGESTION #20 caps 11/11/23 cefdinir 300 mg capsule 300 mg PO BID #14 caps 11/11/23 doxycycline monohydrate 100 mg capsule 100 mg PO BID #14 caps 11/11/23 midodrine 5 mg tablet 10 mg (2 x 5 mg) PO TIDCM #90 tabs 11/11/23 Hospital Course Operations None Procedures None Summary of Care Provided Minutes Spent on Discharge: 35 Hospital Course: Patient presents with shortness of breath and change in mental status. Patient was diagnosed with pneumonia. Patient did require oxygen around 3 L. Patient had been on oxygen in the past but a year ago and I did require generator, as they are [facility], at home to supply electricity for the oxygen condenser. Patient also found to have coag negative staph in her blood. No clear etiology was notified. Patient will be discharged with Omnicef and doxycycline.. Weight / BMI Weight Weight: 64.5 kg Body Mass Index (BMI) 29.8 ABG / Lab / Microbiology Data 11/11/23 05:58 11/11/23 05:58 Laboratory: Laboratory Results - last 24 hr 11/11/23 05:58: WBC 12.7 H, RBC 3.88 L, Hgb 10.5 L, Hct 33.2 L, MCV 85.6, MCH 27.1, MCHC 31.6 L, RDW Std Deviation 46.0 H, RDW Coeff of [place] 14.8 H, Plt Count 325, MPV 9.7, Immature Gran % (Auto) 0.700, Neut % (Auto) 70.5 H, Lymph % (Auto) 17.8 L, [place] % (Auto) 9.8, Eos % (Auto) 0.8, Baso % (Auto) 0.4, Absolute Neuts (auto) 9.0 H, Absolute Lymphs (auto) 2.26, Nucleated RBC % 0, Sodium 134 L, Potassium 3.4 L, Chloride 100, Carbon Dioxide 26.0, Anion Gap 8, BUN 30 H, Creatinine 0.78, Estim Creat Clear Calc 45.45, Est GFR (MDRD) Af Amer 91, Est GFR (MDRD) Non-Af 75, BUN/Creatinine Ratio 38.6 H, Glucose 100, Calcium 8.9 Microbiology: Microbiology 11/08/23 00:40 Blood Culture (Wb) - Anticubital Right Blood Culture - Final Coag Negative Staph 11/08/23 00:10 Blood Culture (Wb) - Arm Right Bacteria Detection (PCR) - Final Coag Negative Staph 11/08/23 00:10 Blood Culture (Wb) - Arm Right Blood Culture - Final Staphylococcus hominis hominis 11/08/23 16:25 Urine, Random Legionella Antigen - Final 11/08/23 16:25 Urine, Random Streptococcus pneumoniae Antigen (M - Final 11/08/23 04:35 Mucosa - Nasopharyngeal Respiratory Panel (PCR) - Final D/C Instructions Discharge Diet: No restrictions Meaningful Use Info Meaningful Use Meaningful Use Diagnoses (Choose all that apply): None applicable Ischemic Stroke Statin Dosing Therapy Reference: STATIN DOSE THERAPY REFERENCE: * Patients > 75 years receive moderate or high dose statin therapy. * Patients 75 years or YOUNGER should receive HIGH intensity statin dose unless contraindicated. You will be required to document reason for non-treatment if statin daily dose does not meet guidelines. HIGH DOSE STATIN THERAPY DAILY Atorvastatin > than or = to 40 mg Rosuvastatin > than or = to 20 mg Amlodipine + Atorvastatin > than or = to 2.5/40 mg Ezetimibe + Simvastatin 10/80 mg Simvastatin 80mg Discharge Plan Admission Admit Date/Time: 11/08/23 02:03 Primary Reason for Your Visit: Pneumonia. Bacteremia. Attending Provider: Andres Chatman Primary Care Provider: Homer Roberts Consulting Providers: Santosh Meyers; Bautista Rangel; Lakesha Warner Discharge Orders/Prescriptions Prescriptions: New midodrine 5 mg Tablet 10 mg PO TIDCM Qty: 90 0RF benzonatate 100 mg Capsule 100 mg PO Q4H PRN PRN (Reason: COUGH/CONGESTION) Qty: 20 0RF doxycycline monohydrate 100 mg capsule 100 mg PO BID Qty: 14 0RF cefdinir 300 mg capsule 300 mg PO BID Qty: 14 0RF Continued amlodipine 10 mg tablet 10 mg PO DAILY Referrals / Follow Up: Homer Roberts DO [Primary Care Provider] - Within 2 Weeks Disposition Disposition (needs filled in before D/C Order can be placed): Home, Self Care Charges/Coding Visit Charges Inpatient E&M: 03491 Disch Hosp >30min
[2023-11-11 14:12] VITALS: BP 110/70; PULSE 80; RESP 23; O2SAT 96
--- NOTE | 2023-11-11 15:34 | CASEMGMT ---
Addendum entered by Joseline Young 11/11/23 15:41: VIKI CEDILLO sent referral to [employer] via [employer], portable tank provided from [employer]. Discharge plan updated. Original Note: Patient has order for discharge. Patient qualifies for home oxygen at discharge, script received. VIKI CEDILLO in to discuss needs at discharge. Per , they prefer [employer]. Family denies need for HHC at discharge, family to assist. and daughter voice concern for transport home, [facility] is not available. RN NGUYEN encouraged family to call driving service. states they will call customer service driver to sweet pickled fruit maker son and then come to [facility] to help with transfer to van and transportation home. and daughter had no further questions or concerns.
== END 2023-11-11 16:43 | disposition home or self-care (01) | DRG 193 ==
LOC: ED 11-08 01:51 → MS3 11-08 02:20 → ICU 11-08 04:42 → PCU 11-09 17:12
PROVIDERS: Internal Medicine; Admitting Provider Internal Medicine; Emergency Provider Emergency Medicine; PCP Family Medicine
DX: J18.9 Pneumonia, unspecified organism (principal); G92.8 Other toxic encephalopathy; I50.33 Acute on chronic diastolic (congestive) heart failure; G93.41 Metabolic encephalopathy; R78.81 Bacteremia; I11.0 Hypertensive heart disease with heart failure; I95.9 Hypotension, unspecified; E87.6 Hypokalemia; E88.09 Other disorders of plasma-protein metabolism, not elsewhere classified; M19.90 Unspecified osteoarthritis, unspecified site; E66.9 Obesity, unspecified; B95.7 Other staphylococcus as the cause of diseases classified elsewhere; R06.03 Acute respiratory distress; R73.9 Hyperglycemia, unspecified; R53.81 Other malaise; Z66 Do not resuscitate; R53.1 Weakness; Z68.28 Body mass index [BMI] 28.0-28.9, adult; Z68.29 Body mass index [BMI] 29.0-29.9, adult
CPT/HCPCS: 36415; 36600; 71045; 71046; 71275; 80048; 80053; 80076; 81001; 82140; 82803; 83036; 83605; 83735; 83880; 84100; 84134; 84443; 84484; 85025; 87040; 87077; 87149; 87186; 87449; 87633; 92610; 93005; 93306; 94640; 94668; 99285; J7040; Q9967; A4216; J0696; J1940

== ENCOUNTER 2024-04-19 17:03 | Inpatient (IN) | payer OTHER, SELFPAY ==
[2024-04-19] VITALS (11 sets, daily range): BP systolic 92–123; BP diastolic 65–92; PULSE 71–122; RESP 19–33; TEMP 37.3–38.4; O2SAT 88–98; BMI 31.6
--- NOTE | 2024-04-19 17:14 | EKG12_ITS ---
Test Reason : SOB Blood Pressure : */* mmHG Vent. Rate : 116 BPM Atrial Rate : 116 BPM P-R Int : 162 ms QRS Dur : 72 ms QT Int : 332 ms P-R-T Axes : 44 -1 31 degrees QTcB Int : 461 ms Sinus tachycardia Otherwise normal ECG Confirmed by Edouard Thomas ([id number]), editor greeting card BAILEE COLE ([id number]) on 04/21/2024 11:02:16 AM Referred By: Confirmed By: Edouard Thomas
--- NOTE | 2024-04-19 17:31 | EX.ED.DYSGE1 ---
HPI History of Present Illness Chief Complaint: Shortness of Breath Narrative Narrative: Patient is a 83-year-old female past medical history of hypertension, anemia, depression who presents to the emergency department chief complaint of shortness of breath, fever, nausea and vomiting and not feeling well. Patient states according to for members at bedside she started to become ill on Thursday of this past week and denies any recent contacts. They states that she did have some nausea vomiting and had increased weakness. They noted that over the weekend they identified that she needed oxygen therefore they placed her on oxygen and she seemed to start to improve with the oxygen however they noted they had did have to increase this to 4 L. They noted that the past day or 2 now she has had increasing weakness and unable to transfer to and from the wheelchair independently therefore they came here for the valuation management. The according to patient and for members at bedside she has not been on antibiotics recently. [facility] Medical History Compression of thoracic vertebra Compression of lumbar vertebra Right humeral fracture History of rib fracture Compression fracture of T10 vertebra Chronic cholecystitis HTN (hypertension) Anemia Depression Home Medications ?Medication ?Instructions ?Recorded ?Last Taken ?Type amlodipine 10 mg tablet 10 mg PO DAILY blood pressure 11/26/22 11/25/22 History Allergy/AdvReac Type Severity Reaction Status Date / Time oxycodone Allergy Intermediate Other Verified 04/19/24 17:05 Surgical History History of biliary duct stent placement Social History Smoking Status: Never smoker ROS ROS ED ROS Narrative Constitutional: Complains of fever and chills denies any headaches, lightness, dizziness Cardiovascular: Denies chest pain or palpitations Respiratory: Complains of shortness of breath and cough Abdomen: Complains of nausea vomiting as noted above denies diarrhea denies abdominal pain : Denies any urinary symptoms Neurological: Denies numbness, weakness, tingling Musculoskeletal: Denies back pain Skin: Denies rashes or lesions EXAM Physical Exam Narrative Exam Narrative: General: Patient is lying in bed does appear to be acutely short of breath and not feeling well Head: Atraumatic, normocephalic Eyes: PERRL bilateral, EOMI blood, no conjunctival injection noted Neck: Soft, supple, trachea midline Cardiovascular: Patient was tachycardic with a regular rhythm no murmurs gallops rubs noted Respiratory: Patient has coarse breath sounds bilaterally Abdomen: Soft, nondistended, nontender to palpation can bowel sounds present x 4 Extremities: +4/5 strength noted in the bilateral lower extremity, no pedal edema on exam Neurological: Patient knew that she was at the hospital Skin: Warm, dry, intact Const Vital Signs: 04/19/24 17:05 04/19/24 17:07 04/19/24 17:13 Temperature 99.9 F H 99.9 F H Temperature Source Oral Oral Pulse Rate 122 H 122 H Respiratory Rate 24 H 24 H Respiratory Effort Short of Breath Labored Respiratory Depth Shallow Respiratory Pattern Grunting Blood Pressure 123/92 H 123/92 H Blood Pressure Mean 102 102 Pulse Ox 88 88 Oxygen Delivery Method Room Air Room Air Room Air Oxygen Flow Rate (L/min) 04/19/24 17:14 04/19/24 18:07 04/19/24 19:00 Temperature 99.5 F H 100.6 F H Temperature Source Oral Oral Pulse Rate 114 H 111 H Respiratory Rate 28 H 28 H Respiratory Effort Respiratory Depth Respiratory Pattern Blood Pressure 110/76 122/77 H Blood Pressure Mean 87 92 Pulse Ox 91 93 Oxygen Delivery Method Nasal Cannula Nasal Cannula Nasal Cannula Oxygen Flow Rate (L/min) 6 6 6 MDM MDM MDM Narrative Medical decision making narrative: Patient is a 83-year-old female who presents to the [facility] with a chief complaint of generalized weakness, cough, nausea vomiting and hypoxia. Patient will have a workup performed here on the differential diagnose includes but limited to pneumonia, ACS, pneumothorax, viral gastroenteritis, CHF. Once workup is obtained reviewed she will be reevaluated. Patient is not chronically on oxygen at baseline. Patient be given 30 cc/kg bolus of IV fluids at 1715. Patient's CBC reviewed and was significant for leukocytosis of 24,000, hemoglobin stable 10.4, plate count was noted be 462. Patient INR was noted be 1.2, sodium normal at 134, potassium was low at 3.1 indicating hypokalemia she will be given 40 mill equivalents of IV supplementation, creatinine normal at 0.64. Patient lactic acid normal at 1.3, AST and ALT are 52 and 13 respectively. Patient troponin normal at 15, EKG reviewed and independently interpreted by myself which showed sinus tachycardia with a rate of [address] changes noted. Patient's proBNP was elevated 204.9. Patient's urinalysis still pending. Patient's chest x-ray reviewed by myself and by radiology which showed concern for a left lower lobe infiltrate. This was reviewed and at 1852 patient be given Rocephin and azithromycin for pneumonia. At this point time patient will warrant admission for her hypoxia and her pneumonia. Patient's case will be discussed with hospitalist for admission. Discussed case with hospitalist Dr. Patel who accept the patient for admission. According to previous records the patient was on linezolid previously will order dose of linezolid now. Patient did become febrile here in the emergency department therefore she is given a gram of Tylenol. Patient and family members at bedside were updated they are agreeable with this plan all question concerns answered at bedside. Reperfusion assessment was performed at 7:00 PM and the patient remains normotensive no indication for vasopressors. Lab Data Labs: Laboratory Results - last 24 hr 04/19/24 17:11 WBC 24.6 H RBC 4.28 Hgb 10.4 L Hct 33.4 L MCV 78.0 L MCH 24.3 L MCHC 31.1 L RDW Std Deviation 44.8 H RDW Coeff of [place] 15.9 H Plt Count 462 H MPV 9.3 Immature Gran % (Auto) 0.700 Neut % (Auto) 85.3 H Lymph % (Auto) 9.0 L [place] % (Auto) 4.8 Eos % (Auto) 0.0 Baso % (Auto) 0.2 Absolute Neuts (auto) 21.0 H Absolute Lymphs (auto) 2.22 Nucleated RBC % 0 Atypical Lymphocytes RARE Plt Morphology Comment LARGE Polychromasia 1+ Anisocytosis 1+ PT 15.3 H INR 1.2 APTT 33.3 Sodium 134 L Potassium 3.1 L Chloride 98 Carbon Dioxide 30.0 Anion Gap 6 BUN 22 H Creatinine 0.64 Estim Creat Clear Calc 46.85 Est GFR (MDRD) Af Amer 115 Est GFR (MDRD) Non-Af 95 BUN/Creatinine Ratio 34.6 H Glucose 141 H Lactic Acid 1.3 Calcium 9.0 Total Bilirubin 0.50 AST 52 H ALT 13 Alkaline Phosphatase 166 H Troponin I High Sens 15 B-Natriuretic Peptide 204.9 H Total Protein 7.1 Albumin 2.6 L Globulin 4.5 H Albumin/Globulin Ratio 0.6 L Radiography Diagnostic Testing: Clinical Impression(s) from Imaging Studies Chest X-Ray 04/19/24 18:00 IMPRESSION: Diminished inspiratory effort and left lower lobe atelectasis or infiltrate Electronically Signed: Santana Carl MD at 18:45 EST Reading Location ID and State: [facility] / [place] Tel , Service support , Discharge Plan Triage Chief Complaint: Shortness of Breath ED Provider: Akbar Sharp Dx/Rx/DC Orders Clinical Impression: Acute hypoxemic respiratory failure, Pneumonia, Acidosis, lactic, Acute hypokalemia Prescriptions: No Action amlodipine 10 mg tablet 10 mg PO DAILY Primary Care Provider: Homer Roberts Referrals: Homer Roberts DO [Primary Care Provider] - Print Language: Occitan
[2024-04-19 17:32] LABS: Absolute Lymphocyte Count 2.22 X10^3/uL (0.83-4.51); Basophil# 0.04 X10^3/uL; Basophil% 0.2 % (0-1); Eosinophil# 0.01 X10^3/uL; Hematocrit 33.4 % (37-47); Hemoglobin 10.4 g/dL (12.0-15.0); Lymphocyte # 2.22 X10^3/ul (0.83-4.51); Mean Corp Hgb Conc 31.1 g/dL (32-36); Mean Corpuscular Hgb 24.3 pg (27.0-32.0); Mean Platelet Vol. 9.3 fl (6.2-12.0); Monocyte# 1.19 X10^3/uL; Monocyte% 4.8 % (0-10); NRBC Flagged by Analyzer 0 % (0-5); Neutrophil % 85.3 % (47-70); POSITIVE DIFFERENTIAL YES; Platelet Count 462 K/mm3 (150-450); RBC Distribution Width CV 15.9 % (11.6-14.6); RBC Distribution Width SD 44.8 fl (35.1-43.9); Red Blood Count 4.28 M/mm3 (4.2-5.4); White Blood Count 24.6 K/mm3 (4.4-11.0)
[2024-04-19 17:35] LABS: Differential Indicated SCAN CRITERIA MET
[2024-04-19 17:39] LABS: International Normalized Ratio 1.2; Partial Thromboplast Time 33.3 Seconds (24.1-36.2); Prothrombin Time (Protime)PT. 15.3 SECONDS (11.7-14.9)
[2024-04-19 17:58] LABS: Lactic Acid 1.3 mmol/L (0.4-1.9)
[2024-04-19 17:59] LABS: ALB/GLOB Ratio 0.6 RATIO (0.9-2.4); AST(SGOT) 52 U/L (15-37); Alanine Aminotransfer ALT/SGPT 13 U/L (13-56); Albumin, Serum 2.6 g/dL (3.2-5.0); Alkaline Phosphatase 166 U/L (45-117); Anion Gap 6 (5-15); BUN 22 mg/dL (7-18); BUN/Creat Ratio 34.6 RATIO (10-20); Chloride 98 mmol/L (98-107); Creatinine, Serum 0.64 mg/dL (0.55-1.02); EST Glomerular Filtration Rate 95 mL/min (>60); Est Glom Filt Rate - Afr Amer 115 mL/min (>60); Estimated Creatinine Clearance 46.85 ml/min; Globulin 4.5 g/dL (2.2-4.2); Glucose 141 mg/dL (74-106); Potassium 3.1 mmol/L (3.5-5.1); Protein, Total 7.1 g/dL (6.4-8.2); Sodium Level 134 mmol/L (136-145); Troponin-I HS 15 pg/mL (3.0-54.0)
--- NOTE | 2024-04-19 18:00 | RAD_ITS ---
STUDY: X-RAY CHEST REASON FOR EXAM: Female, 83 years old. sob TECHNIQUE: AP and lateral COMPARISON: November 10, 2023. FINDINGS: There is less than optimal inspiratory effort and left lower lobe atelectasis or infiltrate.. There is no demonstrated pleural abnormality. Heart appears enlarged although exaggerated by radiographic technique. Normal mediastinum and sue. Normal visualized pulmonary arteries. Tortuous calcified aortic arch and descending thoracic aorta. Dorsal spine and shoulders demonstrate degenerative change. Normal visualized ribs, and clavicles. There is no demonstrated abnormality of the visualized soft tissue structures of the upper abdomen. RAD/Chest PA and Lateral IMPRESSION: Diminished inspiratory effort and left lower lobe atelectasis or infiltrate Electronically Signed: Santana Carl MD at 18:45 EST ,
[2024-04-19 18:20] LABS: Atypical Lymphocyte RARE %; Polychromasia 1+
[2024-04-19 18:21] LABS: Anisocytosis 1+
[2024-04-19 18:22] LABS: Platelet Morphology LARGE
[2024-04-19 18:50] LABS: BNP,B-Type NATRIURETIC PEPTIDE 204.9 pg/mL (0-100)
[2024-04-19] MEDS: 0.9% Normal Saline (1000mL) 1,000 ML 999 ML IV ×3 (19:03→23:46)
[2024-04-19] MEDS: Potassium Chloride 10mEq/100mL 10 MEQ/100 ML IV.SOLN. 100 MEQ IV BOLUS ×4 (19:10→23:46)
--- NOTE | 2024-04-19 19:22 | PCM.HP.STD ---
[facility] - General General Date of Admission: 04/19/24 Date of Service: 04/19/24 Chief Complaint: SOB, Fever, Nausea and Vomiting. HPI Narrative AGUILA MONTEJO, is a 83 F with a past medical history of essential hypertension, obesity; with BMI of 31.6 this admission, history of [id number] cholecystitis with ascending cholangitis and history of biliary stent; s/p CT-guided cholecystostomy tube placement (2022), history of compression fractures of the thoracic and lumbar vertebrae, chronic anemia, history of depression, history of hyponatremia and osteoarthritis, DNR-CCA; without intubation CODE STATUS and relatively recent admission here from November 08, 2023 to November 11, 2023 for AE CHF; with LVEF ~65%, respiratory insufficiency and metabolic encephalopathy with generalized weakness with leukocytosis of 14.5K present on admission with CXR positive for Pneumonia with 2/2 blood cultures returning positive for Staphylococcus epidermidis that was methicillin -resistant with patient ultimately started on IV vancomycin and IV Zosyn after having initially been on IV Rocephin and IV Azithromycin with Dr. Rangel of infectious disease consulted and antibiotics changed to Linezolid and Ceftriaxone before she was discharged home on oral Doxycycline and oral Omnicef x 1 week who now re-presents to [facility] ER complaining of shortness of breath, fever, nausea and vomiting. Ms. Montejo reports her symptoms began approximately five days prior to admission when she began to feel ill on Thursday, April 15, 2024 with nausea followed by vomiting with bilious emesis and subjective fevers and chills. She then became short of breath with cough causing her family starting her on 4L NC. Then over the past 2 days her family noticed worsening generalized weakness with patient unable to transfer to and from her wheelchair so they brought her in for further evaluation and treatment. The family denied recent known sick contacts or recent antibiotic treatment. In the ER she was noted to have a fever of 101.2 degrees Fahrenheit with Severe Leukocytosis of 24.6K present on admission with CXR suggestive of LLL infiltrate consistent with suspected Pneumonia and possible Sepsis complicated by clinical evidence of Respiratory Insufficiency and laboratory evidence of Hypokalemia of 3.1 mmol/L present on admission plus mildly elevated CK of 406 U/L present on admission culminating in Generalized Weakness with Ambulatory Dysfunction and she was then admitted to the ICU for ongoing care for a stay that is expected to extend beyond 2 midnights. [facility] Medical History History of depression Non-smoker On home oxygen therapy Congestive heart failure (CHF) Right humeral fracture History of rib fracture Compression fracture of T10 vertebra Chronic cholecystitis HTN (hypertension) Anemia Compression of thoracic vertebra Compression of lumbar vertebra Depression Home Medications ?Medication ?Instructions ?Recorded ?Last Taken ?Type amlodipine 10 mg tablet 10 mg PO DAILY blood pressure 11/26/22 11/25/22 History Allergy/AdvReac Type Severity Reaction Status Date / Time oxycodone Allergy Intermediate Other Verified 04/19/24 17:05 Surgical History History of biliary duct stent placement Social History Smoking Status: Never smoker ROS ROS Narrative Review of Systems: Constitutional: Patient admits to fever and chills confirmed in ER. Eyes: Patient denies change in vision or discharge from eyes. ENT: Patient denies runny nose, sore throat or ear pain. Resp: Patient admits to SOB and cough. Vital Signs Vital Signs Vital Signs: 04/19/24 17:05 04/19/24 17:07 04/19/24 17:13 Temperature 99.9 F H 99.9 F H Temperature Source Oral Oral Pulse Rate 122 H 122 H Respiratory Rate 24 H 24 H Respiratory Effort Short of Breath Labored Respiratory Depth Shallow Respiratory Pattern Grunting Blood Pressure 123/92 H 123/92 H Blood Pressure Mean 102 102 Pulse Ox 88 88 Oxygen Delivery Method Room Air Room Air Room Air Oxygen Flow Rate (L/min) 04/19/24 17:14 04/19/24 18:07 04/19/24 19:00 Temperature 99.5 F H 100.6 F H Temperature Source Oral Oral Pulse Rate 114 H 111 H Respiratory Rate 28 H 28 H Respiratory Effort Respiratory Depth Respiratory Pattern Blood Pressure 110/76 122/77 H Blood Pressure Mean 87 92 Pulse Ox 91 93 Oxygen Delivery Method Nasal Cannula Nasal Cannula Nasal Cannula Oxygen Flow Rate (L/min) 6 6 6 Weight Weight: 151 lb 3.794 oz Body Mass Index (BMI) 31.6 Results Lab / Micro Data 04/19/24 17:11 04/19/24 17:11 Labs: Laboratory Results - last 24 hr 04/19/24 17:11: WBC 24.6 H, RBC 4.28, Hgb 10.4 L, Hct 33.4 L, MCV 78.0 L, MCH 24.3 L, MCHC 31.1 L, RDW Std Deviation 44.8 H, RDW Coeff of [place] 15.9 H, Plt Count 462 H, MPV 9.3, Immature Gran % (Auto) 0.700, Neut % (Auto) 85.3 H, Lymph % (Auto) 9.0 L, [place] % (Auto) 4.8, Eos % (Auto) 0.0, Baso % (Auto) 0.2, Absolute Neuts (auto) 21.0 H, Absolute Lymphs (auto) 2.22, Nucleated RBC % 0, Atypical Lymphocytes RARE, Plt Morphology Comment LARGE, Polychromasia 1+, Anisocytosis 1+, PT 15.3 H, INR 1.2, APTT 33.3, Sodium 134 L, Potassium 3.1 L, Chloride 98, Carbon Dioxide 30.0, Anion Gap 6, BUN 22 H, Creatinine 0.64, Estim Creat Clear Calc 46.85, Est GFR (MDRD) Af Amer 115, Est GFR (MDRD) Non-Af 95, BUN/Creatinine Ratio 34.6 H, Glucose 141 H, Lactic Acid 1.3, Calcium 9.0, Total Bilirubin 0.50, AST 52 H, ALT 13, Alkaline Phosphatase 166 H, Troponin I High Sens 15, B-Natriuretic Peptide 204.9 H, Total Protein 7.1, Albumin 2.6 L, Globulin 4.5 H, Albumin/Globulin Ratio 0.6 L Imaging Radiology Impression Chest X-Ray 04/19/24 18:00 IMPRESSION: Diminished inspiratory effort and left lower lobe atelectasis or infiltrate Electronically Signed: Santana Carl MD at 18:45 EST Reading Location ID and State: [facility] / [place] Tel , Service support , [facility] Imaging Services [address], [place] [id number] Abdomen/Pelvis without Cont MR#: [id number] Acct: [id number] Name: AGUILA MONTEJO Rep #: [id number] : 1940 F 83 From: Geeta Ballard MD PCP: Dr. Homer Roberts DO Status: ADM IN Study: Abdomen/Pelvis without Cont Date of Exam: 04/19/24 Exam# [id number] Ordering Dr: Santosh Meyers DO EXAM: CT Abdomen And Pelvis W/O Contrast Injection HISTORY: Nausea and vomiting. Evaluate for enteritis. TECHNIQUE: Routine protocol CT abdomen and pelvis. IV Contrast: None.. Oral contrast: None. RADIATION DOSAGE (If Supplied By Facility): CTDIvol = ( 20.98 ) mGy, DLP = ( 896.28 ) mGycm Individualized dose optimization techniques were used for this CT. COMPARISON: CT abdomen pelvis 11/26/2022. LIMITATIONS: None. FINDINGS: LOWER CHEST: Consolidation bilateral lower lobes. Coronary artery calcifications are noted. LIVER: Grossly unremarkable. GALLBLADDER AND BILIARY TREE: Gallstones in the gallbladder. Markedly thickened gallbladder wall increased compared to prior, with adjacent stranding and fluid. Stent in the common bile duct unchanged. Pneumobilia, unchanged. PANCREAS: Grossly unremarkable. SPLEEN: Grossly unremarkable. ADRENAL GLANDS: Grossly unremarkable. KIDNEYS AND URETERS: No calculi demonstrated. No hydronephrosis. PERITONEUM: No free air. No free fluid. BOWEL: Wall thickening of the ascending colon/hepatic flexure with adjacent stranding, predominantly adjacent to the gallbladder. Scattered diverticula throughout the colon. No bowel obstruction. APPENDIX: Visualized and unremarkable. No evidence of acute appendicitis. VESSELS: Abdominal aorta is normal caliber. REPRODUCTIVE ORGANS: Grossly unremarkable URINARY BLADDER: Grossly unremarkable. ABDOMINAL WALL: Unremarkable. BONES: No acute abnormalities. Osteopenia. Multiple compression fractures lumbar spine unchanged from prior. Degenerative changes with anterolisthesis at L4-5. CT/Abdomen/Pelvis without Cont IMPRESSION: 1. Cholelithiasis with findings of acute cholecystitis, significantly increased inflammatory changes compared to prior. Biliary stent unchanged with pneumobilia. 2. Colonic wall thickening ascending colon/hepatic flexure most likely secondary to adjacent gallbladder process. Acute colitis less likely. 3. Colonic diverticulosis without definite evidence of acute diverticulitis 4. No bowel obstruction. 5. Consolidation lower lobes. CT chest was reported separately. Electronically Signed: Geeta Ballard MD at 0:28 EST , CC: Dr. Santosh Meyers DO; Dr. Homer Roberts DO ~ Manager Cafe: Signed [facility] Imaging Services [address] [place] [address] CTA Chest W/WO Contrast MR#: [id number] Acct: [id number] Name: AGUILA MONTEJO Rep #: [id number] : 1940 F 83 From: Geeta Ballard MD PCP: Dr. Homer Roberts DO Status: ADM IN Study: CTA Chest W/WO Contrast Date of Exam: 04/19/24 Exam# [id number] Ordering Dr: Santosh Meyers DO STUDY: CTA CHEST REASON FOR EXAM: Female, 83 years old. Suspected LLL PNA on CXR. Evaluate for PE. RADIATION DOSAGE (If Supplied By Facility): CTDIvol = ( 24.77 ) mGy, DLP = ( 337.99 ) mGycm TECHNIQUE: The examination was performed with the intravenous administration of IV 100mL Isovue-370. Post-processing of the angiographic images was performed, with multiplanar reformation and 3D reconstruction. The protocol utilizes one or more of the following dose reduction techniques: automated exposure control, adjustment of mA and/or kV according to patient size,and/or use of iterative reconstruction technique. COMPARISON: Prior study dated: 11/09/2023 FINDINGS: Image degradation from respiratory motion, artifact from dense venous contrast in the SVC and left arm. LUNGS: Consolidation or atelectasis bilateral lower lobes not significantly changed compared to prior. Calcified granuloma left upper lobe. PLEURA: No pleural effusion. No pneumothorax. PULMONARY VESSELS: No pulmonary emboli identified. MEDIASTINUM: Unremarkable. HEART: Mildly enlarged. AORTA/GREAT VESSELS: Thoracic aorta is normal caliber. No aneurysm or dissection. UPPER ABDOMEN: No acute findings. Pneumobilia unchanged. BONES/SOFT TISSUES: No acute findings. Osteopenic. Thoracic compression fractures with kyphosis, unchanged. Old sternal fracture. OTHER: None. CT/CTA Chest W/WO Contrast IMPRESSION: No evidence of pulmonary emboli. Bilateral lower lobe consolidation or atelectasis, not significant prior. CT abdomen and pelvis reported separately. Electronically Signed: Geeta Ballard MD at 0:03 EST , CC: Dr. Santosh Meyers, DO; Dr. Homer Roberts DO ~ Manager Cafe: Signed Assessment & Plan Assessment/Plan (1) Pneumonia: QUALIFIERS: Laterality: left Lung location: lower lobe of lung Pneumonia type: due to unspecified organism Qualified Code(s): J18.9 - Pneumonia, unspecified organism (2) Respiratory insufficiency: (3) Acute hypokalemia: (4) Nausea and vomiting: QUALIFIERS: Vomiting type: unspecified Qualified Code(s): R11.2 - Nausea with vomiting, unspecified (5) Elevated creatine kinase: (6) Generalized weakness: (7) Ambulatory dysfunction: (8) Obesity (BMI 30.0-34.9): PLAN: Plan 1. LLL infiltrate consistent with suspected Pneumonia and possible Sepsis with fever of 101.2 degrees Fahrenheit with Severe Leukocytosis of 24.6K present on admission and relatively recent admission here in October 2023 for Pneumonia due to methicillin-resistant Staphylococcus epidermidis on 2/2 blood cultures - Admit to ICU for treatment under the sepsis protocol. Continue empiric IV Linezolid and IV Rocephin begun in the ER and await culture and sensitivity data. Check urinary antigens to Streptococcus pneumonia and Legionella. Give Tylenol prn [id number] (level 1-5/10) pain or fever. Finally, we will consult Dr. Rangel of infectious disease to see this patient on-rounds in the AM with help appreciated in advance. 2. Respiratory Insufficiency arising from #1 with elevated d-dimer of 2.81 present on admission - CTA of chest negative for PE. Check LE doppler to evaluate for DVT. Wean supplemental oxygen as tolerated. 3. Hypokalemia of 3.1 mmol/L present on admission complicating #1 & #2 - Give supplemental IV and oral KCl and then recheck level in AM to ensure improvement. 4. Mildly elevated CK of 406 U/L present on admission with Generalized Weakness and Ambulatory Dysfunction compounding #1 - #3 - Volume resuscitate and then recheck CK in AM to follow trend. PT/OT and Case Management to consult and treat on-rounds in the AM for further recommendations with help appreciated in advance. 5. Obesity; with BMI of 31.6 this admission - Weight loss will be recommended. Check TSH. This complicates her case and may hamper recovery. 6. Essential hypertension - Hold scheduled antihypertensives until infection outline in #1 is neutralized. 7. History of [id number] cholecystitis with ascending cholangitis and history of biliary stent; s/p CT-guided cholecystostomy tube placement (2022) - Noted. 8. History of compression fractures of the thoracic and lumbar vertebrae - Noted. 9. Chronic anemia - Stable with hemoglobin of 104 g/dL present on admission. 10. History of depression - Noted with patient currently not on active pharmacologic therapy at this time. 11. History of hyponatremia - Noted with serum sodium of 134 mmol/L present on admission. 12. Osteoarthritis - Give Tylenol prn. 13. DNR-CCA; without intubation CODE STATUS - Noted. 14. DVT/GI prophylaxis - Lovenox 40 mg sq daily. Protonix 40 mg IV daily. Total time: Approximately (but not less than) 75 minutes. Sepsis Attestation Sepsis Alert: Yes Sepsis Attestation: Agree w/Sepsis Date exam was performed: 04/19/24 Time exam was performed: 21:00 Possible Source of Sepsis: Pulmonary Fluid Resuscitation Fluid resuscitation indicated?: Yes Fluid Resuscitation ordered: 30 ml/kg fluid bolus ordered Amount of fluid ordered: 2 Sepsis Note Date exam was performed: 04/20/24 Time exam was performed: 01:00 Sepsis Attestation: Sepsis re-evaluation was performed Response to fluids: Fluid responsive hypotension Charges/Coding Visit Charges Inpatient E&M: 15660 Init Hosp L3
[2024-04-19] MEDS: Ceftriaxone 1 GM/50 ML BAG IV (19:55)
[2024-04-19] MEDS: Acetaminophen 500 MG Tablet 1000 MG PO (19:57)
--- NOTE | 2024-04-19 20:21 | CT_ITS ---
STUDY: CTA CHEST REASON FOR EXAM: Female, 83 years old. Suspected LLL PNA on CXR. Evaluate for PE. RADIATION DOSAGE (If Supplied By Facility): CTDIvol = ( 24.77 ) mGy, DLP = ( 337.99 ) mGycm TECHNIQUE: The examination was performed with the intravenous administration of IV 100mL Isovue-370. Post-processing of the angiographic images was performed, with multiplanar reformation and 3D reconstruction. The protocol utilizes one or more of the following dose reduction techniques: automated exposure control, adjustment of mA and/or kV according to patient size,and/or use of iterative reconstruction technique. COMPARISON: Prior study dated: 11/09/2023 FINDINGS: Image degradation from respiratory motion, artifact from dense venous contrast in the SVC and left arm. LUNGS: Consolidation or atelectasis bilateral lower lobes not significantly changed compared to prior. Calcified granuloma left upper lobe. PLEURA: No pleural effusion. No pneumothorax. PULMONARY VESSELS: No pulmonary emboli identified. MEDIASTINUM: Unremarkable. HEART: Mildly enlarged. AORTA/GREAT VESSELS: Thoracic aorta is normal caliber. No aneurysm or dissection. UPPER ABDOMEN: No acute findings. Pneumobilia unchanged. BONES/SOFT TISSUES: No acute findings. Osteopenic. Thoracic compression fractures with kyphosis, unchanged. Old sternal fracture. OTHER: None. CT/CTA Chest W/WO Contrast IMPRESSION: No evidence of pulmonary emboli. Bilateral lower lobe consolidation or atelectasis, not significant prior. CT abdomen and pelvis reported separately. Electronically Signed: Geeta Ballard MD at 0:03 EST ,
[2024-04-19] MEDS: Azithromycin 500 MG in Dextrose 5%-Water (250mL Bag) 250 ML 250 MG IV (20:29)
--- NOTE | 2024-04-19 20:41 | CT_ITS ---
EXAM: CT Abdomen And Pelvis W/O Contrast Injection HISTORY: Nausea and vomiting. Evaluate for enteritis. TECHNIQUE: Routine protocol CT abdomen and pelvis. IV Contrast: None.. Oral contrast: None. RADIATION DOSAGE (If Supplied By Facility): CTDIvol = ( 20.98 ) mGy, DLP = ( 896.28 ) mGycm Individualized dose optimization techniques were used for this CT. COMPARISON: CT abdomen pelvis 11/26/2022. LIMITATIONS: None. FINDINGS: LOWER CHEST: Consolidation bilateral lower lobes. Coronary artery calcifications are noted. LIVER: Grossly unremarkable. GALLBLADDER AND BILIARY TREE: Gallstones in the gallbladder. Markedly thickened gallbladder wall increased compared to prior, with adjacent stranding and fluid. Stent in the common bile duct unchanged. Pneumobilia, unchanged. PANCREAS: Grossly unremarkable. SPLEEN: Grossly unremarkable. ADRENAL GLANDS: Grossly unremarkable. KIDNEYS AND URETERS: No calculi demonstrated. No hydronephrosis. PERITONEUM: No free air. No free fluid. BOWEL: Wall thickening of the ascending colon/hepatic flexure with adjacent stranding, predominantly adjacent to the gallbladder. Scattered diverticula throughout the colon. No bowel obstruction. APPENDIX: Visualized and unremarkable. No evidence of acute appendicitis. VESSELS: Abdominal aorta is normal caliber. REPRODUCTIVE ORGANS: Grossly unremarkable URINARY BLADDER: Grossly unremarkable. ABDOMINAL WALL: Unremarkable. BONES: No acute abnormalities. Osteopenia. Multiple compression fractures lumbar spine unchanged from prior. Degenerative changes with anterolisthesis at L4-5. CT/Abdomen/Pelvis without Cont IMPRESSION: 1. Cholelithiasis with findings of acute cholecystitis, significantly increased inflammatory changes compared to prior. Biliary stent unchanged with pneumobilia. 2. Colonic wall thickening ascending colon/hepatic flexure most likely secondary to adjacent gallbladder process. Acute colitis less likely. 3. Colonic diverticulosis without definite evidence of acute diverticulitis 4. No bowel obstruction. 5. Consolidation lower lobes. CT chest was reported separately. Electronically Signed: Geeta Ballard MD at 0:28 EST ,
[2024-04-19 21:13] LABS: D-Dimer Quantitative (DVT/PE) 2.81 FEU/ug/m (0.27-0.49)
[2024-04-19 21:30] LABS: CPK Total, Creatine Kinase 406 U/L (26-192)
[2024-04-19 21:33] LABS: Thyroid Stim Hormone (TSH) 0.661 uIU/mL (0.358-3.740)
--- NOTE | 2024-04-19 22:23 | VDLE_ITS ---
Reason For Study: Elevated D Dimer RIGHT LEFT GSV is normal. GSV is normal. CFV is compressible, spontaneous, phasic, CFV is compressible, spontaneous, phasic, competent and demonstrates normal competent, and demonstrates normal augmentation. augmentation. FV is compressible, spontaneous, phasic, FV is compressible, spontaneous, phasic, competent and demonstrates normal competent and demonstrates normal augmentation. augmentation. POP V is compressible, spontaneous, phasic, POP V is compressible, spontaneous, phasic, competent and demonstrates normal competent and demonstrates normal augmentation. augmentation. T/P Trunk is compressible. T/P Trunk is compressible. PTV is compressible. PTV is compressible. RT PerV is compressible. LT PerV is compressible. Procedure Nonvascularized anechoic area noted in Lt Pop This is a venous duplex using B-mode, color Fossa measuring approximately 3.28cm x flow and spectral Doppler. 1.25cm. Exam performed portable in ICU/CCU. The exam was diagnostic. A preliminary report was called and/or faxed to [facility] [employer]. VL/Venous Duplex US - Colten Extrem Interpretation Summary Deep veins of the bilateral lower extremities are patent and compressible segme ntally. There is no evidence of bilateral lower extremity deep vein thrombosis. The bilateral great saphenous veins appear patent and compressible segmentally. Nonvascularized anechoic cystic structure noted in left popliteal fossa measuri ng approximately 3.28cm x 1.25cm. Ordering Physician: Santosh Meyers Referring Physician: Homer Roberts Performed By: Abner Vallecillo RVT
[2024-04-19 22:32] LABS: Lactic Acid 0.9 mmol/L (0.4-1.9)
[2024-04-19] MEDS: Linezolid 600 MG 600 MG/300 ML BAG 200 MG IV (22:38)
[2024-04-19 23:36] LABS: Color, Urine Yellow (Yellow); Glucose, Dipstick Normal (Normal); Ketone-Dipstick Negative (Negative); Leukocyte Esterase-Dipstick Negative /ul (Negative); Mucous, Urine 0 SEEN /hpf (<or=2+); Nitrite-Dipstick Negative (Negative); Occult Blood-Urine 25 /ul (Negative); Protein-Dipstick 30 mg/dl (Negative); Red Blood Cells-Urine 0 SEEN /hpf (0-5); Specific Gravity, Urine 1.015 (1.002-1.030); Squamous Epithelial Cells - UA 0 SEEN /hpf (5-10); Urine Bilirubin Dipstick Negative (Negative); Urine Clarity Clear (Clear); Urine Urobilinogen Normal (Normal); White Blood Cells 0 SEEN /hpf (0-5)
[2024-04-19 23:44] LABS: Bacteria RARE /hpf (None Seen)
[2024-04-20] VITALS (42 sets, daily range): BP systolic 67–140; BP diastolic 41–98; PULSE 77–131; RESP 15–33; TEMP 36.8–38.3; O2SAT 89–100; BMI 31.5
[2024-04-20] MEDS: metroNIDAZOLE 500 MG/100 ML BAG 100 MG IV ×3 (09:12→20:19)
[2024-04-20] MEDS: KCL 20MEQ in 0.9% NS 20 MEQ/1,000 ML IV.SOLN. 70 MEQ IV (09:12)
[2024-04-20 09:32] LABS: CPK Total, Creatine Kinase 191 U/L (26-192)
--- NOTE | 2024-04-20 09:51 | CT_ITS ---
PROCEDURE: CT GUIDED percutaneous cholecystostomy. DATE: April 20, 2024. INDICATION: Female, 83 years old. Acute cholecystitis and gallstones. PHYSICIAN: Reed Berry M.D. RADIATION DOSAGE (If Supplied By Facility): CTDIvol = ( 350 ) mGy, DLP = ( 1277.64 ) mGycm. Individual''s dose optimization techniques were utilized. PROCEDURE: The risks, benefits, and alternatives to the procedure were explained to the patient. The specific risk of hemorrhage requiring further treatment or intervention was detailed and accepted. Follow-up instructions were discussed with the patient as well. Written informed consent was obtained. The patient was brought into the CT suite and placed in the supine position. . An appropriate entry site was identified. The overlying skin was prepped and draped in the usual sterile fashion. 2% lidocaine was administered subcutaneously for local anesthesia. The patient received 3 mg of Versed and 75 mcg of fentanyl intravenously. Conscious sedation was started at 11:46 AM and terminating at 12:54 PM. The patient was independently monitored by the department nurse. Under CT guidance, an 18-gauge introducer needle was placed within the gallbladder. Following appropriate tract dilatation, 8 Cymraes catheter was placed. 25 cc of purulent material was aspirated. The specimens were then placed in appropriate container and transported to the laboratory for analysis. Hemostasis was obtained. The patient tolerated the procedure well without immediate complications. CT/Abscess/Fistula/Sinus Tract IMPRESSION: Successful CT guided percutaneous cholecystostomy, as described above. Conscious sedation protocol was followed. Electronically Signed: Reed Berry MD at 13:29 EST ,
--- NOTE | 2024-04-20 09:57 | EX.PCM.CON.S ---
Assessment & Plan Assessment/Plan (1) Acute and chronic cholecystitis: PLAN: The patient has sepsis with a blood pressure of 90/58 as well as white count of 24. The patient has had a cholecystostomy tube in the past. The patient was told to see a tertiary center for cholecystectomy but never followed up. She still has a stent in place from 2019. I do not believe it would be prudent to do the surgery here as the patient will likely need a biliary surgeon. The gallbladder is very inflamed with a wall over [address] scan. I believe with a history of cholecystostomy tube and large stones and the amount of inflammation that a cholecystostomy tube is warranted and I will order one to be placed. The patient will then have to follow-up at a tertiary center after resolution for definitive treatment of her gallbladder. Patient may start a clear liquid diet after cholecystostomy tube was placed. Mauricio Zuñiga MD Pager: [facility] [address] [place] [address], [address] [place] [address] Office: HPI Consult Data Date of Consult: 04/20/24 HPI Narrative HPI Narrative: AGUILA MONTEJO, is a 83 F who presents with sepsis. The patient is not having abdominal pain or nausea or vomiting. This was originally thought to be a pneumonia. The patient has an extensive gallbladder history and was told to go to a tertiary center after her last cholecystostomy tube was placed. [facility] Medical History History of depression Non-smoker On home oxygen therapy Congestive heart failure (CHF) Right humeral fracture History of rib fracture Compression fracture of T10 vertebra Chronic cholecystitis HTN (hypertension) Anemia Compression of thoracic vertebra Compression of lumbar vertebra Depression Home Medications ?Medication ?Instructions ?Recorded ?Last Taken ?Type amlodipine 10 mg tablet 10 mg PO DAILY blood pressure 11/26/22 11/25/22 History Allergy/AdvReac Type Severity Reaction Status Date / Time oxycodone Allergy Intermediate Other Verified 04/19/24 17:05 Surgical History History of biliary duct stent placement Social History Smoking Status: Never smoker ROS Constitutional Constitutional: Reports fever(s); Denies anorexia, chills or fatigue Eyes Eyes: Denies blurry vision ENT HEENT: Denies abnormal hearing Cardiovascular Cardiovascular: Denies chest pain Respiratory/Chest Respiratory/Chest: Denies cough or dyspnea Gastrointestinal Gastrointestinal: Denies abdominal pain, nausea or vomiting Musculoskeletal Musculoskeletal: Denies abnormal gait Psychiatric Psychiatric: Denies depression Endocrine Endocrinology: Denies flushing Physical Exam Const alert and oriented x3 HEENT normocephalic Eyes PERRL Lymph Lymphatic: no lymphadenopathy noted Resp normal respiratory effort Cardio Rate: regular rate Rhythm: regular rhythm GI soft to palpation Palpation: tender RUQ Lab / Micro Data 04/19/24 17:11 04/19/24 17:11 Labs: Laboratory Results - last 24 hr 04/19/24 17:11: WBC 24.6 H, RBC 4.28, Hgb 10.4 L, Hct 33.4 L, MCV 78.0 L, MCH 24.3 L, MCHC 31.1 L, RDW Std Deviation 44.8 H, RDW Coeff of [place] 15.9 H, Plt Count 462 H, MPV 9.3, Immature Gran % (Auto) 0.700, Neut % (Auto) 85.3 H, Lymph % (Auto) 9.0 L, [place] % (Auto) 4.8, Eos % (Auto) 0.0, Baso % (Auto) 0.2, Absolute Neuts (auto) 21.0 H, Absolute Lymphs (auto) 2.22, Nucleated RBC % 0, Atypical Lymphocytes RARE, Plt Morphology Comment LARGE, Polychromasia 1+, Anisocytosis 1+, PT 15.3 H, INR 1.2, APTT 33.3, D-Dimer Quant (PE/DVT) 2.81 H*, Sodium 134 L, Potassium 3.1 L, Chloride 98, Carbon Dioxide 30.0, Anion Gap 6, BUN 22 H, Creatinine 0.64, Estim Creat Clear Calc 46.85, Est GFR (MDRD) Af Amer 115, Est GFR (MDRD) Non-Af 95, BUN/Creatinine Ratio 34.6 H, Glucose 141 H, Lactic Acid 1.3, Calcium 9.0, Total Bilirubin 0.50, AST 52 H, ALT 13, Alkaline Phosphatase 166 H, Total Creatine Kinase 406 H, Troponin I High Sens 15, B-Natriuretic Peptide 204.9 H, Total Protein 7.1, Albumin 2.6 L, Globulin 4.5 H, Albumin/Globulin Ratio 0.6 L 04/19/24 17:26: TSH 0.661 04/19/24 21:50: Lactic Acid 0.9 04/19/24 23:20: Urine Color Yellow, Urine Clarity Clear, Urine pH 6.0, Ur Specific [place] 1.015, Urine Protein 30 H, Urine Glucose (UA) Normal, Urine Ketones Negative, Urine Occult Blood 25 H, Urine Nitrite Negative, Urine Bilirubin Negative, Urine Urobilinogen Normal, Ur Leukocyte Esterase Negative, Urine RBC 0 SEEN, Urine WBC 0 SEEN, Ur Squamous Epith Cells 0 SEEN, Urine Bacteria RARE, Urine Mucus 0 SEEN 04/20/24 08:55: Total Creatine Kinase 191 Micro: Microbiology 04/19/24 23:20 Urine Catheter - Anaya Legionella Antigen - Final 04/19/24 23:20 Urine Catheter - Anaya Streptococcus pneumoniae Antigen (M - Final 04/19/24 22:05 Mucosa - Nasopharyngeal Respiratory Panel (PCR) - Final 04/19/24 18:31 Mucosa - Nose SARS-CoV-2, Influenza & RSV (PCR) - Final Imaging Radiology Impression Chest X-Ray 04/19/24 18:00 IMPRESSION: Diminished inspiratory effort and left lower lobe atelectasis or infiltrate Electronically Signed: Santana Carl MD at 18:45 EST Reading Location ID and State: [facility] / [place] Tel , Service support , Chest CTA 04/19/24 20:21 IMPRESSION: No evidence of pulmonary emboli. Bilateral lower lobe consolidation or atelectasis, not significant prior. CT abdomen and pelvis reported separately. Electronically Signed: Geeta Ballard MD at 0:03 EST , Abdomen/Pelvis CT 04/19/24 20:41 IMPRESSION: 1. Cholelithiasis with findings of acute cholecystitis, significantly increased inflammatory changes compared to prior. Biliary stent unchanged with pneumobilia. 2. Colonic wall thickening ascending colon/hepatic flexure most likely secondary to adjacent gallbladder process. Acute colitis less likely. 3. Colonic diverticulosis without definite evidence of acute diverticulitis 4. No bowel obstruction. 5. Consolidation lower lobes. CT chest was reported separately. Electronically Signed: Geeta Ballard MD at 0:28 EST ,
--- NOTE | 2024-04-20 11:12 | CASEMGMT ---
RN CM Assessment Face to Face with patient for initial transition planning/care coordination assessment. RN CM introduced self and role at [facility], pt voices understanding. Pt is A&Ox2 to self and place and is resting comfortably in bed and is calm. Pt states that it's 1963. Pt son, Ilan, and pt at bedside and willing to help answer this RN CM questions for assessment. Care providers, pharmacy, and demographics verified. Admitting dx: SOB LACE Strata: 2 PCP: Homre Roberts Specialists: Denies Preferred Pharmacy: [facility] Insurance: SP. Pt family states that the pt does not have insurance and that sometimes the jainism does help out. Pt family states that they are able to manage. Prescription Benefit: None. Educated about Good Rx LNOK: Kennedy (), Ilan (Son), Elevator Roverto (Friend) Living Arrangements: Pt lives with her 2 sons, DIL, & in a 2 story home with a FFSU and a ramp to enter ADLs/IADLs: Family supports the pt at home Transportation: Hires drivers. Denies concerns DME: Home oxygen through [employer]. Confirmed pt current order states 1L continuos via [place]. Pt has a concentrator, pox, and portable tanks. Pt family states that they can bring in a portable tank at time of DC. Pt also has a W/C that she uses mainly. Access to FWW and rollator but does not use. HHC/SNF: Denies history Pt?s goal: Return home Plan: Pt is scheduled for a javier tube today and was advised by the surgeon to f/u at a tertiary facility as an OP to determine the appropriate gallbladder treatment. Pt family states that the pt will be safe to return home with them in the meantime. Pt family deny needing assistance with scheduling this. Pt and pt family deny the need for HHC or OP therapy. Family states feeling safe with this plan and deny further concerns at this time. CM to follow for increase in oxygen demands prior to DC. Michael Ying RN, CM
[2024-04-20] MEDS: Midazolam 2 MG/2 ML Syringe IV ×3 (11:46→12:02)
[2024-04-20] MEDS: fentaNYL 100 MCG/2 ML Ampul IV ×2 (11:48→12:03)
[2024-04-20] MEDS: Lidocaine 2% (20 ml mdv) 20 ML Vial INFILT (11:50)
--- NOTE | 2024-04-20 13:46 | CT_ITS ---
CT/Abdomen/Pelvis without Cont IMPRESSION: Status post percutaneous cholecystostomy tube placement. No evidence of bleed. Electronically Signed: Reed Berry MD at 14:44 EST ,
[2024-04-20] MEDS: Linezolid 600 MG 600 MG/300 ML BAG 200 MG IV ×2 (13:55→20:19)
[2024-04-20 15:09] LABS: Absolute Lymphocyte Count 2.72 X10^3/uL (0.83-4.51); Basophil# 0.06 X10^3/uL; Basophil% 0.2 % (0-1); Hematocrit 30.5 % (37-47); Hemoglobin 9.3 g/dL (12.0-15.0); Lymphocyte # 2.72 X10^3/ul (0.83-4.51); Lymphocyte % 10.8 % (19-41); Mean Corp Hgb Conc 30.5 g/dL (32-36); Mean Corpuscular Hgb 24.7 pg (27.0-32.0); Mean Corpuscular Volume 80.9 fL (81-99); Mean Platelet Vol. 9.3 fl (6.2-12.0); Monocyte# 1.16 X10^3/uL; Monocyte% 4.6 % (0-10); NRBC Flagged by Analyzer 0 % (0-5); Neutrophil # 20.98 X10^3/uL (2.7-7.7); Neutrophil % 83.7 % (47-70); POSITIVE DIFFERENTIAL YES; Platelet Count 471 K/mm3 (150-450); RBC Distribution Width CV 16.1 % (11.6-14.6); Red Blood Count 3.77 M/mm3 (4.2-5.4); White Blood Count 25.1 K/mm3 (4.4-11.0)
[2024-04-20 15:10] LABS: Differential Indicated SCAN CRITERIA MET
[2024-04-20] MEDS: Morphine 4 MG/ML Syringe IV (15:11)
[2024-04-20] MEDS: 0.9% Normal Saline (500mL Bag) 500 ML 999 ML IV (15:20)
[2024-04-20 15:41] LABS: Allen Test Positive; Base Excess -4 mmol/L (-2 to +2); Bicarbonate 21.1 mmol/L (22-26); Blood Gas Specimen Type ART; Mode Not entered; O2 Delivery Device NRB; PO2 81 mmHG (75-100); SITE L Radial; SO2 96 % (95-99); Total Carbon Dioxide 22 mmol/L; pCO2 35.9 mmHg (35-45); pH 7.38 (7.35-7.45)
[2024-04-20] MEDS: Acetaminophen 650 MG Suppository RC (17:14)
--- NOTE | 2024-04-20 17:26 | PN.HOSP_ITS ---
Reason for Visit Reason for Visit: Diagnoses Obesity, class 1 (04/20/24) Hypokalemia (04/20/24) Pneumonia, unspecified organism (04/20/24) Acute cholecystitis with chronic cholecystitis (04/20/24) Other abnormalities of breathing (04/20/24) Nausea with vomiting, unspecified (04/20/24) Difficulty in walking, not elsewhere classified (04/20/24) Weakness (04/20/24) Abnormal levels of other serum enzymes (04/20/24) Subjective Subjective Patient was seen and examined today, I received a text from infectious diseases today to have general surgery see the patient due to cholecystitis, general surgery recommended a CT-guided percutaneous cholecystotomy be performed, this was performed today. I talked at length with the patient's family was in the room this afternoon. I told them that her prognosis is not very good and that the next 48 hours would indicate how the patient would do. I placed the patient on IV fluids, she is currently tachycardic but her blood pressure is adequate. Objective Data Objective Data Vital Signs: Vital Signs Temp Pulse Resp BP Pulse Ox O2 Del Method O2 Flow Rate 100.5 F H 117 H 21 H 105/67 98 Non-Rebreather 15 04/20/24 16:00 04/20/24 16:00 04/20/24 16:00 04/20/24 16:00 04/20/24 16:00 04/20/24 16:00 04/20/24 15:24 Oxygen Flow Rate (L/min) 15 Oxygen Delivery Method Non-Rebreather Weight: 68.1 kg Body Mass Index (BMI) 31.5 Intake & Output: Intake and Output for Last 24 Hours 04/18/24 04/19/24 04/20/24 23:59 23:59 23:59 Intake Total 2605 / 2605 2237.17 / 2237.17 Output Total 985 / 985 Balance 2605 / 2605 1252.17 / 1252.17 Lab / Micro Data 04/20/24 15:00 04/19/24 17:11 Labs: Laboratory Results - last 24 hr 04/19/24 17:11: WBC 24.6 H, RBC 4.28, Hgb 10.4 L, Hct 33.4 L, MCV 78.0 L, MCH 24.3 L, MCHC 31.1 L, RDW Std Deviation 44.8 H, RDW Coeff of [place] 15.9 H, Plt Count 462 H, MPV 9.3, Immature Gran % (Auto) 0.700, Neut % (Auto) 85.3 H, Lymph % (Auto) 9.0 L, [place] % (Auto) 4.8, Eos % (Auto) 0.0, Baso % (Auto) 0.2, Absolute Neuts (auto) 21.0 H, Absolute Lymphs (auto) 2.22, Nucleated RBC % 0, Atypical Lymphocytes RARE, Plt Morphology Comment LARGE, Polychromasia 1+, Anisocytosis 1+, PT 15.3 H, INR 1.2, APTT 33.3, D-Dimer Quant (PE/DVT) 2.81 H*, Sodium 134 L, Potassium 3.1 L, Chloride 98, Carbon Dioxide 30.0, Anion Gap 6, BUN 22 H, Creatinine 0.64, Estim Creat Clear Calc 46.85, Est GFR (MDRD) Af Amer 115, Est GFR (MDRD) Non-Af 95, BUN/Creatinine Ratio 34.6 H, Glucose 141 H, Lactic Acid 1.3, Calcium 9.0, Total Bilirubin 0.50, AST 52 H, ALT 13, Alkaline Phosphatase 166 H, Total Creatine Kinase 406 H, Troponin I High Sens 15, B-Natriuretic Peptide 204.9 H, Total Protein 7.1, Albumin 2.6 L, Globulin 4.5 H, A lbumin/Globulin Ratio 0.6 L 04/19/24 17:26: TSH 0.661 04/19/24 21:50: Lactic Acid 0.9 04/19/24 23:20: Urine Color Yellow, Urine Clarity Clear, Urine pH 6.0, Ur Specific [place] 1.015, Urine Protein 30 H, Urine Glucose (UA) Normal, Urine Ketones Negative, Urine Occult Blood 25 H, Urine Nitrite Negative, Urine Bilirubin Negative, Urine Urobilinogen Normal, Ur Leukocyte Esterase Negative, Urine RBC 0 SEEN, Urine WBC 0 SEEN, Ur Squamous Epith Cells 0 SEEN, Urine Bacteria RARE, Urine Mucus 0 SEEN 04/20/24 08:55: Total Creatine Kinase 191 04/20/24 15:00: WBC 25.1 H, RBC 3.77 L, Hgb 9.3 L, Hct 30.5 L, MCV 80.9 L, MCH 24.7 L, MCHC 30.5 L, RDW Std Deviation 47.0 H, RDW Coeff of [place] 16.1 H, Plt Count 471 H, MPV 9.3, Immature Gran % (Auto) 0.700, Neut % (Auto) 83.7 H, Lymph % (Auto) 10.8 L, [place] % (Auto) 4.6, Eos % (Auto) 0.0, Baso % (Auto) 0.2, A bsolute Neuts (auto) 21.0 H, Absolute Lymphs (auto) 2.72, Nucleated RBC % 0, Differential Comment COMMENT Micro: Microbiology 04/19/24 23:20 Urine Catheter - Anaya Legionella Antigen - Final 04/19/24 23:20 Urine Catheter - Anaya Streptococcus pneumoniae Antigen (M - Final 04/19/24 22:05 Mucosa - Nasopharyngeal Respiratory Panel (PCR) - Final 04/19/24 18:31 Mucosa - Nose SARS-CoV-2, Influenza & RSV (PCR) - Final ABG Data ABG results: ABG 04/20/24 15:36 Specimen Type ART Sample Site L Radial pH 7.38 Bicarbonate Actual 21.1 L Total CO2 22 Base Excess -4 L O2 Saturation 96 O2 % 100.0 ABG pCO2 35.9 ABG pO2 81 Luis Fernando Test Positive O2 Delivery Device NRB Vent Mode Not entered Radiography Diagnostic Testing: Radiology Impression Chest X-Ray 04/19/24 18:00 IMPRESSION: Diminished inspiratory effort and left lower lobe atelectasis or infiltrate Electronically Signed: Santana Carl MD at 18:45 EST , Chest CTA 04/19/24 20:21 IMPRESSION: No evidence of pulmonary emboli. Bilateral lower lobe consolidation or atelectasis, not significant prior. CT abdomen and pelvis reported separately. Electronically Signed: Geeta Ballard MD at 0:03 EST , Abdomen/Pelvis CT 04/19/24 20:41 IMPRESSION: 1. Cholelithiasis with findings of acute cholecystitis, significantly increased inflammatory changes compared to prior. Biliary stent unchanged with pneumobilia. 2. Colonic wall thickening ascending colon/hepatic flexure most likely secondary to adjacent gallbladder process. Acute colitis less likely. 3. Colonic diverticulosis without definite evidence of acute diverticulitis 4. No bowel obstruction. 5. Consolidation lower lobes. CT chest was reported separately. Electronically Signed: Geeta Ballard MD at 0:28 EST , Venous Doppler Study 04/19/24 22:23 Interpretation Summary Deep veins of the bilateral lower extremities are patent and compressible segmentally. There is no evidence of bilateral lower extremity deep vein thrombosis. The bilateral great saphenous veins appear patent and compressible segmentally. Nonvascularized anechoic cystic structure noted in left popliteal fossa measuring approximately 3.28cm x 1.25cm. Ordering Physician: Santosh Meyers Referring Physician: Homer Roberts Performed By: Abner Vallecillo, T Abscess Drainage 04/20/24 09:51 IMPRESSION: Successful CT guided percutaneous cholecystostomy, as described above. Conscious sedation protocol was followed. Electronically Signed: Reed Berry MD at 13:29 EST , Abdomen/Pelvis CT 04/20/24 13:46 IMPRESSION: Status post percutaneous cholecystostomy tube placement. No evidence of bleed. Electronically Signed: Reed Berry MD at 14:44 EST , Physical Exam Const alert Constitutional Narrative: Patient appears unwell General Appearance: cooperative, well kempt and well developed Orientation / Consciousness: awake, oriented to person and oriented to place HEENT normocephalic, head/scalp atraumatic and moist oral mucous membranes Eyes PERRL, EOMs intact bilaterally and conjunctivae normal Neck supple, no JVD, thyroid normal and no carotid bruits General: trachea midline Resp normal respiratory effort, no retractions, no use of accessory muscles and clear to auscultation bilaterally Auscultation: Negative for rales, rhonchi or wheezes Cardio regular rate, regular rhythm, no murmurs, no rub and no gallops Cardio Narrative: Heart rate and rhythm is tachycardic GI normal to inspection, nondistended, normoactive bowel sounds and soft to palpation GI Narrative: Patient has right upper quadrant abdominal tenderness to palpation, the drainage tube is present in the right upper quadrant Extremity no clubbing, cyanosis or edema Skin no rashes or lesions noted General Skin Exam: no breakdown Neuro oriented x3, CN's II-XII intact bilaterally, no focal motor deficits and no sensory deficits noted Sensorium / Orientation: awake and alert Speech: speech normal Psych affect normal Assessment & Plan Assessment/Plan (1) Cholecystitis: PLAN: Plan 1. Sepsis secondary to acute cholecystitis-patient is being seen by infectious diseases, patient is currently on ceftriaxone, linezolid, and Flagyl. #2 acute cholecystitis-patient is not a candidate for cholecystectomy, cholecystotomy tube is in place #3 essential hypertension-patient's amlodipine will be held at the present time Total clinical time spent by myself addressing the patient's medical issues, reviewing all of her data, and collaborating with patient's care team: 35 minutes Charges/Coding Visit Charges Inpatient E&M: 59415 Subs Hosp L2
[2024-04-20] MEDS: 0.9% Normal Saline (1000mL) 1,000 ML 100 ML IV (19:40)
[2024-04-20] MEDS: Ceftriaxone 1 GM/50 ML BAG IV (20:20)
[2024-04-21] VITALS (32 sets, daily range): BP systolic 82–130; BP diastolic 58–89; PULSE 70–106; RESP 15–24; TEMP 36.5–37.5; O2SAT 82–100; BMI 31.4
[2024-04-21] MEDS: 0.9% Normal Saline (1000mL) 1,000 ML 100 ML IV ×2 (03:06→12:49)
[2024-04-21 05:22] LABS: Absolute Neutrophil Count 14.3 X10^3/uL (2.0-7.7); Basophil# 0.02 X10^3/uL; Basophil% 0.1 % (0-1); Hematocrit 24.8 % (37-47); Hemoglobin 7.6 g/dL (12.0-15.0); Lymphocyte % 9.4 % (19-41); Mean Corp Hgb Conc 30.6 g/dL (32-36); Mean Corpuscular Hgb 24.6 pg (27.0-32.0); Mean Corpuscular Volume 80.3 fL (81-99); Mean Platelet Vol. 9.1 fl (6.2-12.0); Monocyte# 1.04 X10^3/uL; Monocyte% 6.1 % (0-10); NRBC Flagged by Analyzer 0 % (0-5); Neutrophil # 14.28 X10^3/uL (2.7-7.7); Neutrophil % 83.7 % (47-70); Platelet Count 354 K/mm3 (150-450); RBC Distribution Width CV 15.9 % (11.6-14.6); RBC Distribution Width SD 46.7 fl (35.1-43.9); Red Blood Count 3.09 M/mm3 (4.2-5.4); White Blood Count 17.1 K/mm3 (4.4-11.0)
[2024-04-21] MEDS: metroNIDAZOLE 500 MG/100 ML BAG 100 MG IV ×3 (05:42→22:55)
[2024-04-21 05:47] LABS: ALB/GLOB Ratio 0.5 RATIO (0.9-2.4); AST(SGOT) 39 U/L (15-37); Alanine Aminotransfer ALT/SGPT 11 U/L (13-56); Albumin, Serum 1.8 g/dL (3.2-5.0); Alkaline Phosphatase 118 U/L (45-117); Anion Gap 7 (5-15); BUN 18 mg/dL (7-18); BUN/Creat Ratio 34.7 RATIO (10-20); Calcium,Total 8.3 mg/dL (8.5-10.1); Chloride 109 mmol/L (98-107); Creatinine, Serum 0.52 mg/dL (0.55-1.02); EST Glomerular Filtration Rate 120 mL/min (>60); Est Glom Filt Rate - Afr Amer 146 mL/min (>60); Estimated Creatinine Clearance 46.72 ml/min; Globulin 3.6 g/dL (2.2-4.2); Glucose 137 mg/dL (74-106); Potassium 3.7 mmol/L (3.5-5.1); Protein, Total 5.4 g/dL (6.4-8.2); Sodium Level 139 mmol/L (136-145)
--- NOTE | 2024-04-21 07:33 | PN.SURG_ITS ---
Subjective Subjective Patient is hungry and would like food. She is complaining of some pain. Drain is bilious. Objective Data Objective Data Vital Signs: Vital Signs Temp Pulse Resp BP Pulse Ox O2 Del Method O2 Flow Rate 98.8 F 89 17 130/84 H 98 Non-Rebreather 15 04/21/24 00:00 04/21/24 07:00 04/21/24 07:00 04/21/24 07:00 04/21/24 07:00 04/21/24 07:00 04/21/24 07:00 Oxygen Flow Rate (L/min) 15 Oxygen Delivery Method Non-Rebreather Weight: 150 lb 5.684 oz Body Mass Index (BMI) 31.4 Intake & Output: Intake and Output for Last 24 Hours 04/19/24 04/20/24 04/21/24 23:59 23:59 23:59 Intake Total 2605 / 2605 3321.66 / 3321.66 1100 / 1100 Output Total 1075 / 1075 395 / 395 Balance 2605 / 2605 2246.66 / 2246.66 705 / 705 Lab / Micro Data 04/21/24 05:15 04/21/24 05:15 Labs: Laboratory Results - last 24 hr 04/20/24 08:55: Total Creatine Kinase 191 04/20/24 15:00: WBC 25.1 H, RBC 3.77 L, Hgb 9.3 L, Hct 30.5 L, MCV 80.9 L, MCH 24.7 L, MCHC 30.5 L, RDW Std Deviation 47.0 H, RDW Coeff of [place] 16.1 H, Plt Count 471 H, MPV 9.3, Immature Gran % (Auto) 0.700, Neut % (Auto) 83.7 H, Lymph % (Auto) 10.8 L, [place] % (Auto) 4.6, Eos % (Auto) 0.0, Baso % (Auto) 0.2, A bsolute Neuts (auto) 21.0 H, Absolute Lymphs (auto) 2.72, Nucleated RBC % 0, Differential Comment COMMENT 04/21/24 05:15: WBC 17.1 H, RBC 3.09 L, Hgb 7.6 L, Hct 24.8 L, MCV 80.3 L, MCH 24.6 L, MCHC 30.6 L, RDW Std Deviation 46.7 H, RDW Coeff of [place] 15.9 H, Plt Count 354, MPV 9.1, Immature Gran % (Auto) 0.700, Neut % (Auto) 83.7 H, Lymph % (Auto) 9.4 L, [place] % (Auto) 6.1, Eos % (Auto) 0.0, Baso % (Auto) 0.1, Absolute Neuts (auto) 14.3 H, Absolute Lymphs (auto) 1.60, Nucleated RBC % 0, Sodium 139, Potassium 3.7, Chloride 109 H, Carbon Dioxide 23.0, Anion Gap 7, BUN 18, C reatinine 0.52 L, Estim Creat Clear Calc 46.72, Est GFR (MDRD) Af Amer 146, Est GFR (MDRD) Non-Af 120, BUN/Creatinine Ratio 34.7 H, Glucose 137 H, Calcium 8.3 L , Total Bilirubin 0.30, AST 39 H, ALT 11 L, Alkaline Phosphatase 118 H, Total Protein 5.4 L, Albumin 1.8 L, Globulin 3.6, Albumin/Globulin Ratio 0.5 L Micro: Microbiology 04/19/24 23:20 Urine Catheter - Anaya Legionella Antigen - Final 04/19/24 23:20 Urine Catheter - Anaya Streptococcus pneumoniae Antigen (M - Final 04/19/24 22:05 Mucosa - Nasopharyngeal Respiratory Panel (PCR) - Final 04/19/24 18:31 Mucosa - Nose SARS-CoV-2, Influenza & RSV (PCR) - Final ABG Data ABG results: ABG 04/20/24 15:36 Specimen Type ART Sample Site L Radial pH 7.38 Bicarbonate Actual 21.1 L Total CO2 22 Base Excess -4 L O2 Saturation 96 O2 % 100.0 ABG pCO2 35.9 ABG pO2 81 Luis Fernando Test Positive O2 Delivery Device NRB Vent Mode Not entered Radiography Diagnostic Testing: Radiology Impression Venous Doppler Study 04/19/24 22:23 Interpretation Summary Deep veins of the bilateral lower extremities are patent and compressible segmentally. There is no evidence of bilateral lower extremity deep vein thrombosis. The bilateral great saphenous veins appear patent and compressible segmentally. Nonvascularized anechoic cystic structure noted in left popliteal fossa measuring approximately 3.28cm x 1.25cm. Ordering Physician: Santosh Meyers Referring Physician: Homer Roberts Performed By: Abner Vallecillo, T Abscess Drainage 04/20/24 09:51 IMPRESSION: Successful CT guided percutaneous cholecystostomy, as described above. Conscious sedation protocol was followed. Electronically Signed: Reed Berry MD at 13:29 EST , Abdomen/Pelvis CT 04/20/24 13:46 IMPRESSION: Status post percutaneous cholecystostomy tube placement. No evidence of bleed. Electronically Signed: Reed Berry MD at 14:44 EST , Physical Exam Const no apparent distress Resp normal respiratory effort GI soft to palpation Palpation: tender Assessment & Plan Assessment/Plan (1) Acute cholecystitis: PLAN: Patient had cholecystostomy tube placed yesterday. Cholecystostomy tube is bilious. Okay to start clears this morning and advance to regular as tolerated. Mauricio Zuñiga MD Pager: [facility] [address] [place] [address], [address] [place] [address] Office:
--- NOTE | 2024-04-21 09:05 | RAD_ITS ---
STUDY: X-RAY CHEST REASON FOR EXAM: Female, 83 years old. Hypoxia TECHNIQUE: Single AP portable view of the chest. COMPARISON: Comparison is made with prior study April 19, 2024. FINDINGS: EKG electrodes are seen. Blunting of both cost phrenic angles with the findings suggestive atelectasis and/or infiltrate at the lung bases worse on the left side. There is mild cardiac enlargement. Normal mediastinum and sue. Normal visualized pulmonary arteries. There is atherosclerotic calcification of the aortic arch with tortuosity. There are diffuse degenerative changes of the visualized thoracic spine. There is degenerative osteoarthritis of the bilateral shoulders. Healed right proximal humeral fracture. There is no demonstrated abnormality of the visualized soft tissue structures of the upper abdomen. RAD/Chest 1 View (Portable) IMPRESSION: Findings CSF small bilateral pleural effusions with bibasilar atelectasis and/or infiltration worse at the left lung base. Electronically Signed: Reed Berry MD at 9:46 EST ,
[2024-04-21] MEDS: Linezolid 600 MG 600 MG/300 ML BAG 200 MG IV (09:48)
[2024-04-21] MEDS: Ascorbic Acid 500 MG Tablet 1000 MG PO (10:04)
[2024-04-21] MEDS: Lactobacillis Acidophilus 1 CAP PO (10:04)
[2024-04-21] MEDS: Cholecalciferol (Vit D3) 125 MCG CAPSULE (5,000 UNITS) PO (10:04)
[2024-04-21] MEDS: Zinc Sulfate 50 mg zinc (220 mg) ORAL capsule PO (10:04)
--- NOTE | 2024-04-21 10:29 | CON.PCM.ID_ITS ---
Assessment & Plan Assessment/Plan (1) Sepsis: (2) Acute cholecystitis: PLAN: sepsis due to acute cholecystitis - javier tube placed 04/20. Will stop linezolid. Cont ceftriaxone and flagyl. Fluid cx pending. Feeling better, fever improved, wbc better. Will follow, thank you HPI Consult Data Date of Consult: 04/21/24 HPI Narrative Reason for Consultation: cholecystitis HPI Narrative: AGUILA MONTEJO, is a 83 F with h/o cholecystitis 11/2022, presented 04/19 with 2-3 days of nausea, vomiting, and RUQ abd pain. No fever or chills. Sx worsened at home, came to ED. Concern for pneumonia on presentation, given linezolid, ceftriaxone, and azithro. CT showed cholecystitis, surgery consulted, flagyl added, azithro stopped, and taken to IR for javier tube placement 04/20. Now in icu, feeling better, family at bedside provided additional history. Abd pain improved. Full ROS performed and neg except as noted above. [facility] Medical History History of depression Non-smoker On home oxygen therapy Congestive heart failure (CHF) Right humeral fracture History of rib fracture Compression fracture of T10 vertebra Chronic cholecystitis HTN (hypertension) Anemia Compression of thoracic vertebra Compression of lumbar vertebra Depression Home Medications ?Medication ?Instructions ?Recorded ?Last Taken ?Type amlodipine 10 mg tablet 10 mg PO DAILY blood pressure 11/26/22 11/25/22 History Allergy/AdvReac Type Severity Reaction Status Date / Time oxycodone Allergy Intermediate Other Verified 04/19/24 17:05 Surgical History History of biliary duct stent placement Social History Smoking Status: Never smoker Physical Exam Const no apparent distress General Appearance: cooperative and lethargic HEENT normocephalic and head/scalp atraumatic Eyes PERRL and EOMs intact bilaterally Neck supple and No nodes Resp normal air movement and clear to auscultation bilaterally Cardio regular rate and regular rhythm GI soft to palpation, non-tender and non-distended Extremity General Extremity: Negative for edema Skin no rashes or lesions noted Neuro CN's II-XII intact bilaterally Lab / Micro Data Attestation: I reviewed the patient's lab results. 04/21/24 05:15 04/21/24 05:15 Labs: Laboratory Results - last 24 hr 04/20/24 15:00: WBC 25.1 H, RBC 3.77 L, Hgb 9.3 L, Hct 30.5 L, MCV 80.9 L, MCH 24.7 L, MCHC 30.5 L, RDW Std Deviation 47.0 H, RDW Coeff of [place] 16.1 H, Plt Count 471 H, MPV 9.3, Immature Gran % (Auto) 0.700, Neut % (Auto) 83.7 H, Lymph % (Auto) 10.8 L, [place] % (Auto) 4.6, Eos % (Auto) 0.0, Baso % (Auto) 0.2, A bsolute Neuts (auto) 21.0 H, Absolute Lymphs (auto) 2.72, Nucleated RBC % 0, Differential Comment COMMENT 04/21/24 05:15: WBC 17.1 H, RBC 3.09 L, Hgb 7.6 L, Hct 24.8 L, MCV 80.3 L, MCH 24.6 L, MCHC 30.6 L, RDW Std Deviation 46.7 H, RDW Coeff of [place] 15.9 H, Plt Count 354, MPV 9.1, Immature Gran % (Auto) 0.700, Neut % (Auto) 83.7 H, Lymph % (Auto) 9.4 L, [place] % (Auto) 6.1, Eos % (Auto) 0.0, Baso % (Auto) 0.1, Absolute Neuts (auto) 14.3 H, Absolute Lymphs (auto) 1.60, Nucleated RBC % 0, Sodium 139, Potassium 3.7, Chloride 109 H, Carbon Dioxide 23.0, Anion Gap 7, BUN 18, C reatinine 0.52 L, Estim Creat Clear Calc 46.72, Est GFR (MDRD) Af Amer 146, Est GFR (MDRD) Non-Af 120, BUN/Creatinine Ratio 34.7 H, Glucose 137 H, Calcium 8.3 L , Total Bilirubin 0.30, AST 39 H, ALT 11 L, Alkaline Phosphatase 118 H, Total Protein 5.4 L, Albumin 1.8 L, Globulin 3.6, Albumin/Globulin Ratio 0.5 L Micro: Microbiology 04/19/24 23:20 Urine Catheter - Anaya Legionella Antigen - Final 04/19/24 23:20 Urine Catheter - Anaya Streptococcus pneumoniae Antigen (M - Final 04/19/24 22:05 Mucosa - Nasopharyngeal Respiratory Panel (PCR) - Final ABG Data ABG results: ABG 04/20/24 15:36 Specimen Type ART Sample Site L Radial pH 7.38 Bicarbonate Actual 21.1 L Total CO2 22 Base Excess -4 L O2 Saturation 96 O2 % 100.0 ABG pCO2 35.9 ABG pO2 81 [place] Test Positive O2 Delivery Device NRB Vent Mode Not entered Imaging Radiology Impression Venous Doppler Study 04/19/24 22:23 Interpretation Summary Deep veins of the bilateral lower extremities are patent and compressible segmentally. There is no evidence of bilateral lower extremity deep vein thrombosis. The bilateral great saphenous veins appear patent and compressible segmentally. Nonvascularized anechoic cystic structure noted in left popliteal fossa measuring approximately 3.28cm x 1.25cm. Ordering Physician: Santosh Meyers Referring Physician: Homer Roberts Performed By: Abner Vallecillo, T Abscess Drainage 04/20/24 09:51 IMPRESSION: Successful CT guided percutaneous cholecystostomy, as described above. Conscious sedation protocol was followed. Electronically Signed: Reed Berry MD at 13:29 EST , Abdomen/Pelvis CT 04/20/24 13:46 IMPRESSION: Status post percutaneous cholecystostomy tube placement. No evidence of bleed. Electronically Signed: Reed Berry MD at 14:44 EST , Chest X-Ray 04/21/24 09:05 IMPRESSION: Findings CSF small bilateral pleural effusions with bibasilar atelectasis and/or infiltration worse at the left lung base. Electronically Signed: Reed Berry MD at 9:46 EST ,
[2024-04-21 12:55] LABS: Hematocrit 24.1 % (37-47); Hemoglobin 7.5 g/dL (12.0-15.0)
--- NOTE | 2024-04-21 14:56 | CHAPLAIN ---
Type of Pastoral Visit _x__ Initial Visit ___ Follow-up Visit ___ On-call Visit ___ General Patient Visit ___ Spiritual Assessment ___ Family Conference ___ Bereavement ___ Rapid Response ___ Code Blue ___ Other (describe below) Pastoral Care Referral From ___ Patient _x__ Family ___ Nurse ___ Physician ___ [employer] ___ Cream Dumper ___ Other (describe below) Sacrament/Intervention _x__ Active listening ___ Anointing ___ Church ___ Bereavement ___ Communion ___ Therese exploration ___ ___ Life review _x__ Prayer ___ Reconciliation ___ Sacrament of Sick _x__ Supportive presence ___ Wedding ___ Other (describe below) Pastoral Comments patient is on a breathing aide; spouse and son are in the room; pt is resting but is able to open eyes and nod head; spouse asks for prayer and he also gives some basic information; gave presence as RT made adjustments to treatment; offered prayer and future support as desired
--- NOTE | 2024-04-21 16:18 | CASEMGMT ---
Social Work SW spoke with Mary Morel and discussed pt's financial status. Per Mary, pt's spouse was provided a Non Government financial Assistance Application and Mary's number in the event family has financial questions. Pt's confirms he has worked with Mary in the past and is aware of form and contacting Mary with questions. MARGARITO Dahl
--- NOTE | 2024-04-21 16:53 | PCM.PN.HOSP ---
Reason for Visit Reason for Visit: Diagnoses Sepsis, unspecified organism (04/20/24) Obesity, class 1 (04/20/24) Hypokalemia (04/20/24) Pneumonia, unspecified organism (04/20/24) Acute cholecystitis (04/20/24) Acute cholecystitis with chronic cholecystitis (04/20/24) Cholecystitis, unspecified (04/20/24) Other abnormalities of breathing (04/20/24) Nausea with vomiting, unspecified (04/20/24) Difficulty in walking, not elsewhere classified (04/20/24) Weakness (04/20/24) Abnormal levels of other serum enzymes (04/20/24) Subjective Subjective Patient was seen and examined today, she remains on Airvo. Patient's white blood cell count was improved today, hemoglobin had dropped today to 7.6, her hemoglobin was repeated this afternoon and it was 7.5. I talked with family members who are visiting. Chest x-ray today showed evidence of atelectasis and/or infiltrate at the lung bases worse on the left side Objective Data Objective Data Vital Signs: Vital Signs Temp Pulse Resp BP Pulse Ox O2 Del Method O2 Flow Rate 97.8 F 85 20 H 113/68 97 Airvo 15 04/21/24 12:00 04/21/24 16:00 04/21/24 16:00 04/21/24 16:00 04/21/24 16:00 04/21/24 16:00 04/21/24 11:00 FiO2 75 04/21/24 16:00 Oxygen Flow Rate (L/min) 15 Oxygen Delivery Method Airvo Weight: 68.2 kg Body Mass Index (BMI) 31.4 Intake & Output: Intake and Output for Last 24 Hours 04/19/24 04/20/24 04/21/24 23:59 23:59 23:59 Intake Total 2605 / 2605 3321.66 / 3321.66 2571.67 / 2571.67 Output Total 1075 / 1075 680 / 680 Balance 2605 / 2605 2246.66 / 2246.66 1891.67 / 1891.67 Lab / Micro Data 04/21/24 12:50 04/21/24 05:15 Labs: Laboratory Results - last 24 hr 04/21/24 05:15: WBC 17.1 H, RBC 3.09 L, Hgb 7.6 L, Hct 24.8 L, MCV 80.3 L, MCH 24.6 L, MCHC 30.6 L, RDW Std Deviation 46.7 H, RDW Coeff of [place] 15.9 H, Plt Count 354, MPV 9.1, Immature Gran % (Auto) 0.700, Neut % (Auto) 83.7 H, Lymph % (Auto) 9.4 L, [place] % (Auto) 6.1, Eos % (Auto) 0.0, Baso % (Auto) 0.1, Absolute Neuts (auto) 14.3 H, Absolute Lymphs (auto) 1.60, Nucleated RBC % 0, Sodium 139, Potassium 3.7, Chloride 109 H, Carbon Dioxide 23.0, Anion Gap 7, BUN 18, Creatinine 0.52 L, Estim Creat Clear Calc 46.72, Est GFR (MDRD) Af Amer 146, Est GFR (MDRD) Non-Af 120, BUN/Creatinine Ratio 34.7 H, Glucose 137 H, Calcium 8.3 L, Total Bilirubin 0.30, AST 39 H, ALT 11 L, Alkaline Phosphatase 118 H, Total Protein 5.4 L, Albumin 1.8 L, Globulin 3.6, Albumin/Globulin Ratio 0.5 L 04/21/24 12:50: Hgb 7.5 L, Hct 24.1 L Micro: Microbiology 04/20/24 12:41 Fluid - Gallbladder Gram Stain - Final 04/20/24 12:41 Fluid - Gallbladder Body Fluid Culture - Preliminary GNR lactose survey workers supervisor Gram negative librado 04/19/24 23:20 Urine, Clean Catch Urine Culture - Preliminary Culture exhibits no growth. 04/19/24 23:20 Urine Catheter - Anaya Legionella Antigen - Final 04/19/24 23:20 Urine Catheter - Anaya Streptococcus pneumoniae Antigen (M - Final 04/19/24 22:05 Mucosa - Nasopharyngeal Respiratory Panel (PCR) - Final 04/19/24 18:31 Mucosa - Nose SARS-CoV-2, Influenza & RSV (PCR) - Final Radiography Diagnostic Testing: Radiology Impression Chest X-Ray 04/21/24 09:05 IMPRESSION: Findings CSF small bilateral pleural effusions with bibasilar atelectasis and/or infiltration worse at the left lung base. Electronically Signed: Reed Berry MD at 9:46 EST , Physical Exam Narrative alert Constitutional Narrative: Patient appears unwell General Appearance: cooperative, well kempt and well developed Orientation / Consciousness: awake, oriented to person and oriented to place HEENT normocephalic, head/scalp atraumatic and moist oral mucous membranes Eyes PERRL, EOMs intact bilaterally and conjunctivae normal Neck supple, no JVD, thyroid normal and no carotid bruits General: trachea midline Resp normal respiratory effort, no retractions, no use of accessory muscles and clear to auscultation bilaterally Auscultation: Negative for rales, rhonchi or wheezes Cardio regular rate, regular rhythm, no murmurs, no rub and no gallops Cardio Narrative: Heart rate and rhythm is tachycardic GI normal to inspection, nondistended, normoactive bowel sounds and soft to palpation GI Narrative: Patient has right upper quadrant abdominal tenderness to palpation, the drainage tube is present in the right upper quadrant Extremity no clubbing, cyanosis or edema Skin no rashes or lesions noted General Skin Exam: no breakdown Neuro oriented x3, CN's II-XII intact bilaterally, no focal motor deficits and no sensory deficits noted Sensorium / Orientation: awake and alert Speech: speech normal Psych affect normal Assessment & Plan Assessment/Plan (1) Sepsis: (2) Cholecystitis: PLAN: Plan 1. Sepsis secondary to acute cholecystitis-patient is being seen by infectious diseases, patient is currently on ceftriaxone and Flagyl. Patient's gallbladder fluid culture was positive for gram-negative lactose survey workers supervisor and gram-negative librado. #2 acute cholecystitis-patient is not a candidate for cholecystectomy, cholecystotomy tube is in place #3 essential hypertension-patient's amlodipine will be held at the present time #4 acute respiratory failure secondary to sepsis-patient's pulse ox will be monitored, further resuscitation status is a DNR CC arrest no intubation. Total clinical time spent by myself addressing the patient's medical issues, reviewing all of her data, and collaborating with patient's care team: 35 minutes Charges/Coding Visit Charges Inpatient E&M: 92324 Subs Hosp L2
[2024-04-21] MEDS: Ceftriaxone 1 GM/50 ML BAG IV (22:06)
[2024-04-22] VITALS (29 sets, daily range): BP systolic 89–118; BP diastolic 62–92; PULSE 81–110; RESP 20–33; TEMP 36.5–37.8; O2SAT 87–99; BMI 32.3
[2024-04-22] MEDS: Acetaminophen 325 MG Tablet 650 MG PO ×2 (01:04→13:36)
--- NOTE | 2024-04-22 01:45 | CPS ---
Changed AirVo Cannula to large size and changed water bag.
[2024-04-22] MEDS: metroNIDAZOLE 500 MG/100 ML BAG 100 MG IV ×3 (06:41→20:09)
[2024-04-22 09:43] LABS: Hemoglobin 7.6 g/dL (12.0-15.0); Mean Corp Hgb Conc 31.7 g/dL (32-36); Mean Corpuscular Hgb 25.1 pg (27.0-32.0); Mean Corpuscular Volume 79.2 fL (81-99); Mean Platelet Vol. 9.5 fl (6.2-12.0); Platelet Count 371 K/mm3 (150-450); RBC Distribution Width CV 16.4 % (11.6-14.6); RBC Distribution Width SD 47.3 fl (35.1-43.9); Red Blood Count 3.03 M/mm3 (4.2-5.4); White Blood Count 17.2 K/mm3 (4.4-11.0)
[2024-04-22] MEDS: Lactobacillis Acidophilus 1 CAP PO ×4 (09:44→20:09)
[2024-04-22] MEDS: Ascorbic Acid 500 MG Tablet 1000 MG PO ×2 (09:44→17:50)
[2024-04-22] MEDS: Cholecalciferol (Vit D3) 125 MCG CAPSULE (5,000 UNITS) PO (09:44)
[2024-04-22] MEDS: Zinc Sulfate 50 mg zinc (220 mg) ORAL capsule PO (09:44)
[2024-04-22 10:00] LABS: ALB/GLOB Ratio 0.5 RATIO (0.9-2.4); AST(SGOT) 37 U/L (15-37); Alanine Aminotransfer ALT/SGPT 12 U/L (13-56); Albumin, Serum 1.9 g/dL (3.2-5.0); Alkaline Phosphatase 116 U/L (45-117); Anion Gap 8 (5-15); BUN 16 mg/dL (7-18); Calcium,Total 8.4 mg/dL (8.5-10.1); Chloride 109 mmol/L (98-107); Creatinine, Serum 0.53 mg/dL (0.55-1.02); EST Glomerular Filtration Rate 116 mL/min (>60); Est Glom Filt Rate - Afr Amer 141 mL/min (>60); Globulin 3.5 g/dL (2.2-4.2); Glucose 142 mg/dL (74-106); Potassium 2.8 mmol/L (3.5-5.1); Protein, Total 5.4 g/dL (6.4-8.2); Sodium Level 139 mmol/L (136-145)
--- NOTE | 2024-04-22 12:32 | PCM.PN.ID ---
Physical Exam Narrative Feeling better but worsened O2. No fever, less abd pain, eating some lunch. Const alert and no apparent distress General Appearance: cooperative Resp Auscultation: diminished lung sounds Cardio Rate: tachycardic GI soft to palpation, non-tender and non-distended Skin no rashes or lesions noted ID ID: Route of nutrition/ use of supplements: [] Nutritional Intake: [] IV Site: [] Anaya Catheter: [] Assessment & Plan Assessment/Plan (1) Sepsis: (2) Acute cholecystitis: PLAN: sepsis due to acute cholecystitis - javier tube placed 04/20. Cont ceftriaxone and flagyl. Fluid cx with ecoli and proteus. Feeling better, fever improved, wbc better but worsened O2. D/w nursing. Will follow
--- NOTE | 2024-04-22 12:41 | PCM.PN.SRG ---
Subjective Subjective The patient was put on Airvo yesterday. Other than that she was doing well on clears and tolerated some oatmeal this morning Objective Data Objective Data Vital Signs: Vital Signs Temp Pulse Resp BP Pulse Ox O2 Del Method O2 Flow Rate 97.8 F 109 H 30 H 103/78 92 Airvo 60 04/22/24 11:24 04/22/24 11:24 04/22/24 11:24 04/22/24 11:24 04/22/24 11:24 04/22/24 11:24 04/22/24 11:24 FiO2 91 04/22/24 11:24 Oxygen Flow Rate (L/min) 60 Oxygen Delivery Method Airvo Weight: 154 lb 12.232 oz Body Mass Index (BMI) 32.3 Intake & Output: Intake and Output for Last 24 Hours 04/20/24 04/21/24 04/22/24 23:59 23:59 23:59 Intake Total 3321.66 / 3321.66 3871.67 / 3871.67 330 / 330 Output Total 1075 / 1075 900 / 1000 575 / 575 Balance 2246.66 / 2246.66 2971.67 / 2871.67 -245 / -245 Lab / Micro Data 04/22/24 09:30 04/22/24 09:30 Labs: Laboratory Results - last 24 hr 04/21/24 12:50: Hgb 7.5 L, Hct 24.1 L 04/22/24 09:30: WBC 17.2 H, RBC 3.03 L, Hgb 7.6 L, Hct 24.0 L, MCV 79.2 L, MCH 25.1 L, MCHC 31.7 L, RDW Std Deviation 47.3 H, RDW Coeff of [place] 16.4 H, Plt Count 371, MPV 9.5, Sodium 139, Potassium 2.8 L, Chloride 109 H, Carbon Dioxide 21.0, Anion Gap 8, BUN 16, Creatinine 0.53 L, Estim Creat Clear Calc 47.40, Est GFR (MDRD) Af Amer 141, Est GFR (MDRD) Non-Af 116, BUN/Creatinine Ratio 30.0 H, Glucose 142 H, Calcium 8.4 L, Magnesium 2.0, Total Bilirubin 0.40, AST 37, ALT 12 L, Alkaline Phosphatase 116, Total Protein 5.4 L, Albumin 1.9 L, Globulin 3.5, Albumin/Globulin Ratio 0.5 L Micro: Microbiology 04/19/24 23:20 Urine, Clean Catch Urine Culture - Final Culture exhibits no growth. 04/20/24 12:41 Fluid - Gallbladder Gram Stain - Final 04/20/24 12:41 Fluid - Gallbladder Body Fluid Culture - Final Escherichia coli Proteus mirabilis 04/19/24 17:26 Blood Culture (Wb) - Anticubital Right Blood Culture - Preliminary No growth in 48 hours. 04/19/24 17:26 Blood Culture (Wb) - Anticubital Left Blood Culture - Preliminary No growth in 48 hours. 04/19/24 23:20 Urine Catheter - Anaya Legionella Antigen - Final 04/19/24 23:20 Urine Catheter - Anaya Streptococcus pneumoniae Antigen (M - Final 04/19/24 22:05 Mucosa - Nasopharyngeal Respiratory Panel (PCR) - Final 04/19/24 18:31 Mucosa - Nose SARS-CoV-2, Influenza & RSV (PCR) - Final Physical Exam Resp Resp Narrative: Labored breathing GI soft to palpation and non-tender Assessment & Plan Assessment/Plan (1) Acute cholecystitis: PLAN: Patient had cholecystostomy tube placed. It is still draining bilious contents. Advance diet as tolerated unless she requires BiPAP. Mauricio Zuñiga MD Pager: [facility] [address] [place] [address], [address] [place] [address] Office:
[2024-04-22] MEDS: Potassium Chloride Oral Tablet 20 MEQ 40 MEQ PO (17:50)
[2024-04-22] MEDS: Potassium Chloride 10mEq/100mL 10 MEQ/100 ML IV.SOLN. 100 MEQ IV BOLUS ×3 (17:51→20:07)
--- NOTE | 2024-04-22 18:15 | PCM.PN.HOSP ---
Reason for Visit Reason for Visit: Diagnoses Sepsis, unspecified organism (04/20/24) Obesity, class 1 (04/20/24) Hypokalemia (04/20/24) Pneumonia, unspecified organism (04/20/24) Acute cholecystitis (04/20/24) Acute cholecystitis with chronic cholecystitis (04/20/24) Cholecystitis, unspecified (04/20/24) Other abnormalities of breathing (04/20/24) Nausea with vomiting, unspecified (04/20/24) Difficulty in walking, not elsewhere classified (04/20/24) Weakness (04/20/24) Abnormal levels of other serum enzymes (04/20/24) Subjective Subjective Patient was seen and examined today, she is still on Airvo. Her potassium was low today and I ordered a potassium replacement. Patient had a run of [employer]. tach today that was asymptomatic. Objective Data Objective Data Vital Signs: Vital Signs Temp Pulse Resp BP Pulse Ox O2 Del Method O2 Flow Rate 99.9 F H 92 26 H 105/66 98 Airvo 60 04/22/24 12:00 04/22/24 16:56 04/22/24 16:56 04/22/24 16:56 04/22/24 16:56 04/22/24 16:56 04/22/24 16:56 FiO2 90 04/22/24 16:56 Oxygen Flow Rate (L/min) 60 Oxygen Delivery Method Airvo Weight: 70.2 kg Body Mass Index (BMI) 32.3 Intake & Output: Intake and Output for Last 24 Hours 04/20/24 04/21/24 04/22/24 23:59 23:59 23:59 Intake Total 3321.66 / 3321.66 3871.67 / 3871.67 430 / 430 Output Total 1075 / 1075 900 / 1000 735 / 735 Balance 2246.66 / 2246.66 2971.67 / 2871.67 -305 / -305 Lab / Micro Data 04/22/24 09:30 04/22/24 09:30 Labs: Laboratory Results - last 24 hr 04/22/24 09:30: WBC 17.2 H, RBC 3.03 L, Hgb 7.6 L, Hct 24.0 L, MCV 79.2 L, MCH 25.1 L, MCHC 31.7 L, RDW Std Deviation 47.3 H, RDW Coeff of [place] 16.4 H, Plt Count 371, MPV 9.5, Sodium 139, Potassium 2.8 L, Chloride 109 H, Carbon Dioxide 21.0, Anion Gap 8, BUN 16, Creatinine 0.53 L, Estim Creat Clear Calc 47.40, Est GFR (MDRD) Af Amer 141, Est GFR (MDRD) Non-Af 116, BUN/Creatinine Ratio 30.0 H, Glucose 142 H, Calcium 8.4 L, Magnesium 2.0, Total Bilirubin 0.40, AST 37, ALT 12 L, Alkaline Phosphatase 116, Total Protein 5.4 L, Albumin 1.9 L, Globulin 3.5, Albumin/Globulin Ratio 0.5 L Micro: Microbiology 04/19/24 23:20 Urine, Clean Catch Urine Culture - Final Culture exhibits no growth. 04/20/24 12:41 Fluid - Gallbladder Gram Stain - Final 04/20/24 12:41 Fluid - Gallbladder Body Fluid Culture - Final Escherichia coli Proteus mirabilis 04/19/24 17:26 Blood Culture (Wb) - Anticubital Right Blood Culture - Preliminary No growth in 48 hours. 04/19/24 17:26 Blood Culture (Wb) - Anticubital Left Blood Culture - Preliminary No growth in 48 hours. 04/19/24 23:20 Urine Catheter - Anaya Legionella Antigen - Final 04/19/24 23:20 Urine Catheter - Anaya Streptococcus pneumoniae Antigen (M - Final 04/19/24 22:05 Mucosa - Nasopharyngeal Respiratory Panel (PCR) - Final 04/19/24 18:31 Mucosa - Nose SARS-CoV-2, Influenza & RSV (PCR) - Final Physical Exam Narrative alert Constitutional Narrative: Patient appears unwell General Appearance: cooperative, well kempt and well developed Orientation / Consciousness: awake, oriented to person and oriented to place HEENT normocephalic, head/scalp atraumatic and moist oral mucous membranes Eyes PERRL, EOMs intact bilaterally and conjunctivae normal Neck supple, no JVD, thyroid normal and no carotid bruits General: trachea midline Resp normal respiratory effort, no retractions, no use of accessory muscles and clear to auscultation bilaterally Auscultation: Negative for rales, rhonchi or wheezes Cardio regular rate, regular rhythm, no murmurs, no rub and no gallops Cardio Narrative: Heart rate and rhythm is tachycardic GI normal to inspection, nondistended, normoactive bowel sounds and soft to palpation GI Narrative: Patient has right upper quadrant abdominal tenderness to palpation, the drainage tube is present in the right upper quadrant Extremity no clubbing, cyanosis or edema Skin no rashes or lesions noted General Skin Exam: no breakdown Neuro oriented x3, CN's II-XII intact bilaterally, no focal motor deficits and no sensory deficits noted Sensorium / Orientation: awake and alert Speech: speech normal Psych affect normal Assessment & Plan Assessment/Plan (1) Acute hypoxemic respiratory failure: (2) Sepsis: (3) Cholecystitis: PLAN: Plan 1. Sepsis secondary to acute cholecystitis-patient is being seen by infectious diseases, patient is currently on ceftriaxone and Flagyl. 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 #2 acute cholecystitis-patient is not a candidate for cholecystectomy, cholecystotomy tube is in place #3 essential hypertension-patient's amlodipine will be held at the present time #4 acute respiratory failure secondary to sepsis-patient's pulse ox will be monitored, further resuscitation status is a DNR CC arrest no intubation #5 hypokalemia-patient's potassium will be replaced, labs will be rechecked tomorrow. Total clinical time spent by myself addressing the patient's medical issues, reviewing all of her data, and collaborating with patient's care team: 35 minutes Charges/Coding Visit Charges Inpatient E&M: 95056 Subs Hosp L2
[2024-04-22] MEDS: Ceftriaxone 1 GM/50 ML BAG IV (20:09)
[2024-04-23] VITALS (20 sets, daily range): BP systolic 95–124; BP diastolic 58–79; PULSE 69–116; RESP 20–36; TEMP 37.1–37.6; O2SAT 92–98; BMI 34.2
[2024-04-23] MEDS: metroNIDAZOLE 500 MG/100 ML BAG 100 MG IV ×3 (05:47→23:42)
[2024-04-23 06:01] LABS: Absolute Lymphocyte Count 1.43 X10^3/uL (0.83-4.51); Absolute Neutrophil Count 11.2 X10^3/uL (2.0-7.7); Basophil# 0.02 X10^3/uL; Basophil% 0.1 % (0-1); Eosinophil# 0.04 X10^3/uL; Eosinophils% 0.3 % (0-5); Hemoglobin 6.9 g/dL (12.0-15.0); Lymphocyte # 1.43 X10^3/ul (0.83-4.51); Lymphocyte % 10.7 % (19-41); Mean Corp Hgb Conc 31.4 g/dL (32-36); Mean Corpuscular Hgb 24.5 pg (27.0-32.0); Mean Platelet Vol. 8.8 fl (6.2-12.0); Monocyte# 0.63 X10^3/uL; Monocyte% 4.7 % (0-10); NRBC Flagged by Analyzer 0 % (0-5); Neutrophil # 11.16 X10^3/uL (2.7-7.7); Neutrophil % 83.5 % (47-70); Platelet Count 322 K/mm3 (150-450); RBC Distribution Width CV 16.3 % (11.6-14.6); RBC Distribution Width SD 46.5 fl (35.1-43.9); Red Blood Count 2.82 M/mm3 (4.2-5.4); White Blood Count 13.4 K/mm3 (4.4-11.0)
[2024-04-23 06:19] LABS: Anion Gap 7 (5-15); BUN 12 mg/dL (7-18); BUN/Creat Ratio 27.7 RATIO (10-20); Calcium,Total 7.9 mg/dL (8.5-10.1); Chloride 108 mmol/L (98-107); Creatinine, Serum 0.43 mg/dL (0.55-1.02); EST Glomerular Filtration Rate 148 mL/min (>60); Est Glom Filt Rate - Afr Amer 179 mL/min (>60); Estimated Creatinine Clearance 48.84 ml/min; Glucose 95 mg/dL (74-106); Potassium 3.7 mmol/L (3.5-5.1); Sodium Level 136 mmol/L (136-145)
[2024-04-23] MEDS: Lactobacillis Acidophilus 1 CAP PO ×4 (09:20→22:16)
[2024-04-23] MEDS: Cholecalciferol (Vit D3) 125 MCG CAPSULE (5,000 UNITS) PO (09:20)
[2024-04-23] MEDS: Ascorbic Acid 500 MG Tablet 1000 MG PO ×2 (09:20→16:58)
[2024-04-23] MEDS: Zinc Sulfate 50 mg zinc (220 mg) ORAL capsule PO (09:20)
[2024-04-23] MEDS: 0.9% Saline Lock 10 ML Syringe IV ×2 (09:27→22:17)
--- NOTE | 2024-04-23 09:34 | PN.SURG_ITS ---
Subjective Subjective Carmita tube draining bilious fluid, tolerating diet Objective Data Objective Data Vital Signs: Vital Signs Temp Pulse Resp BP Pulse Ox O2 Del Method O2 Flow Rate 98.8 F 97 27 H 123/76 H 95 Airvo 60 04/23/24 08:00 04/23/24 08:00 04/23/24 08:00 04/23/24 08:00 04/23/24 08:00 04/23/24 08:00 04/23/24 08:00 FiO2 70 04/23/24 08:00 Oxygen Flow Rate (L/min) 60 Oxygen Delivery Method Airvo Weight: 164 lb 0.383 oz Body Mass Index (BMI) 34.2 Intake & Output: Intake and Output for Last 24 Hours 04/21/24 04/22/24 04/23/24 23:59 23:59 23:59 Intake Total 3871.67 / 3871.67 880 / 880 100 / 100 Output Total 900 / 1000 800 / 800 705 / 705 Balance 2971.67 / 2871.67 80 / 80 -605 / -605 Lab / Micro Data 04/23/24 05:45 04/23/24 05:45 Labs: Laboratory Results - last 24 hr 04/22/24 09:30: WBC 17.2 H, RBC 3.03 L, Hgb 7.6 L, Hct 24.0 L, MCV 79.2 L, MCH 25.1 L, MCHC 31.7 L, RDW Std Deviation 47.3 H, RDW Coeff of [place] 16.4 H, Plt Count 371, MPV 9.5, Sodium 139, Potassium 2.8 L, Chloride 109 H, Carbon Dioxide 21.0, Anion Gap 8, BUN 16, Creatinine 0.53 L, Estim Creat Clear Calc 47.40, Est GFR (MDRD) Af Amer 141, Est GFR (MDRD) Non-Af 116, BUN/Creatinine Ratio 30.0 H, Glucose 142 H, Calcium 8.4 L, Magnesium 2.0, Total Bilirubin 0.40, AST 37, ALT 12 L, Alkaline Phosphatase 116, Total Protein 5.4 L, Albumin 1.9 L, Globulin 3.5, Albumin/Globulin Ratio 0.5 L 04/23/24 05:45: WBC 13.4 H, RBC 2.82 L, Hgb 6.9 L, Hct 22.0 L, MCV 78.0 L, MCH 24.5 L, MCHC 31.4 L, RDW Std Deviation 46.5 H, RDW Coeff of [place] 16.3 H, Plt Count 322, MPV 8.8, Immature Gran % (Auto) 0.700, Neut % (Auto) 83.5 H, Lymph % (Auto) 10.7 L, [place] % (Auto) 4.7, Eos % (Auto) 0.3, Baso % (Auto) 0.1, Absolute Neuts (auto) 11.2 H, Absolute Lymphs (auto) 1.43, Nucleated RBC % 0, Sodium 136, Potassium 3.7, Chloride 108 H, Carbon Dioxide 22.0, Anion Gap 7, BUN 12, C reatinine 0.43 L, Estim Creat Clear Calc 48.84, Est GFR (MDRD) Af Amer 179, Est GFR (MDRD) Non-Af 148, BUN/Creatinine Ratio 27.7 H, Glucose 95, Calcium 7.9 L Micro: Microbiology 04/19/24 23:20 Urine, Clean Catch Urine Culture - Final Culture exhibits no growth. 04/20/24 12:41 Fluid - Gallbladder Gram Stain - Final 04/20/24 12:41 Fluid - Gallbladder Body Fluid Culture - Final Escherichia coli Proteus mirabilis 04/19/24 17:26 Blood Culture (Wb) - Anticubital Right Blood Culture - Preliminary No growth in 48 hours. 04/19/24 17:26 Blood Culture (Wb) - Anticubital Left Blood Culture - Preliminary No growth in 48 hours. 04/19/24 23:20 Urine Catheter - Anaya Legionella Antigen - Final 04/19/24 23:20 Urine Catheter - Anaya Streptococcus pneumoniae Antigen (M - Final 04/19/24 22:05 Mucosa - Nasopharyngeal Respiratory Panel (PCR) - Final 04/19/24 18:31 Mucosa - Nose SARS-CoV-2, Influenza & RSV (PCR) - Final Physical Exam Resp Resp Narrative: Labored breathing on Airvo GI soft to palpation and non-tender GI Narrative: MINNA drain bilious Assessment & Plan Assessment/Plan (1) Acute cholecystitis: PLAN: Cholecystostomy tube in place draining bilious fluid?continue. Patient tolerating their diet. Patient on ceftriaxone and Flagyl IV. Liliam Parker M.D. Pager: [phone] [facility] [address] [place] [address], [facility], [address] [place] [address] Office: [phone] Charges/Coding Multi Select Codes Visit Charges Visit Charges: 30111 Subs Hosp L2
--- NOTE | 2024-04-23 13:33 | PCM.PN.HOSP ---
Reason for Visit Reason for Visit: Diagnoses Sepsis, unspecified organism (04/20/24) Obesity, class 1 (04/20/24) Hypokalemia (04/20/24) Pneumonia, unspecified organism (04/20/24) Acute respiratory failure with hypoxia (04/20/24) Acute cholecystitis (04/20/24) Acute cholecystitis with chronic cholecystitis (04/20/24) Cholecystitis, unspecified (04/20/24) Other abnormalities of breathing (04/20/24) Nausea with vomiting, unspecified (04/20/24) Difficulty in walking, not elsewhere classified (04/20/24) Weakness (04/20/24) Abnormal levels of other serum enzymes (04/20/24) Subjective Subjective Patient was seen and examined today, family requested that she be moved to the floor so that they could stay with the patient continuously, due to the fact the patient is stable at this time and is a DNR CC arrest with no intubation I feel it is safe to transfer the patient to [facility]. Patient's white blood cell count has decreased, she remains on Airvo at this time. Fluid from the patient's cholecystostomy tube grew out E. coli and Proteus. Patient remains on ceftriaxone and Flagyl. Objective Data Objective Data Vital Signs: Vital Signs Temp Pulse Resp BP Pulse Ox O2 Del Method O2 Flow Rate 99.6 F H 102 H 24 H 115/76 95 Airvo 60 04/23/24 12:05 04/23/24 12:05 04/23/24 12:05 04/23/24 12:05 04/23/24 12:05 04/23/24 12:05 04/23/24 12:05 FiO2 69 04/23/24 12:05 Oxygen Flow Rate (L/min) 60 Oxygen Delivery Method Airvo Weight: 74.4 kg Body Mass Index (BMI) 34.2 Intake & Output: Intake and Output for Last 24 Hours 04/21/24 04/22/24 04/23/24 23:59 23:59 23:59 Intake Total 3871.67 / 3871.67 880 / 880 340 / 340 Output Total 900 / 1000 800 / 800 905 / 905 Balance 2971.67 / 2871.67 80 / 80 -565 / -565 Lab / Micro Data 04/23/24 05:45 04/23/24 05:45 Labs: Laboratory Results - last 24 hr 04/23/24 05:45: WBC 13.4 H, RBC 2.82 L, Hgb 6.9 L, Hct 22.0 L, MCV 78.0 L, MCH 24.5 L, MCHC 31.4 L, RDW Std Deviation 46.5 H, RDW Coeff of [place] 16.3 H, Plt Count 322, MPV 8.8, Immature Gran % (Auto) 0.700, Neut % (Auto) 83.5 H, Lymph % (Auto) 10.7 L, [place] % (Auto) 4.7, Eos % (Auto) 0.3, Baso % (Auto) 0.1, Absolute Neuts (auto) 11.2 H, Absolute Lymphs (auto) 1.43, Nucleated RBC % 0, Sodium 136, Potassium 3.7, Chloride 108 H, Carbon Dioxide 22.0, Anion Gap 7, BUN 12, Creatinine 0.43 L, Estim Creat Clear Calc 48.84, Est GFR (MDRD) Af Amer 179, Est GFR (MDRD) Non-Af 148, BUN/Creatinine Ratio 27.7 H, Glucose 95, Calcium 7.9 L Micro: Microbiology 04/19/24 23:20 Urine, Clean Catch Urine Culture - Final Culture exhibits no growth. 04/20/24 12:41 Fluid - Gallbladder Gram Stain - Final 04/20/24 12:41 Fluid - Gallbladder Body Fluid Culture - Final Escherichia coli Proteus mirabilis 04/19/24 17:26 Blood Culture (Wb) - Anticubital Right Blood Culture - Preliminary No growth in 48 hours. 04/19/24 17:26 Blood Culture (Wb) - Anticubital Left Blood Culture - Preliminary No growth in 48 hours. 04/19/24 23:20 Urine Catheter - Anaya Legionella Antigen - Final 04/19/24 23:20 Urine Catheter - Anaya Streptococcus pneumoniae Antigen (M - Final 04/19/24 22:05 Mucosa - Nasopharyngeal Respiratory Panel (PCR) - Final 04/19/24 18:31 Mucosa - Nose SARS-CoV-2, Influenza & RSV (PCR) - Final Physical Exam Narrative Constitutional Narrative: Patient appears unwell General Appearance: cooperative, well kempt and well developed Orientation / Consciousness: awake, oriented to person and oriented to place HEENT normocephalic, head/scalp atraumatic and moist oral mucous membranes Eyes PERRL, EOMs intact bilaterally and conjunctivae normal Neck supple, no JVD, thyroid normal and no carotid bruits General: trachea midline Resp normal respiratory effort, no retractions, no use of accessory muscles and clear to auscultation bilaterally Auscultation: Negative for rales, rhonchi or wheezes Cardio regular rate, regular rhythm, no murmurs, no rub and no gallops Cardio Narrative: Heart rate and rhythm is tachycardic GI normal to inspection, nondistended, normoactive bowel sounds and soft to palpation GI Narrative: Patient has right upper quadrant abdominal tenderness to palpation, the drainage tube is present in the right upper quadrant Extremity no clubbing, cyanosis or edema Skin no rashes or lesions noted General Skin Exam: no breakdown Neuro oriented x3, CN's II-XII intact bilaterally, no focal motor deficits and no sensory deficits noted Sensorium / Orientation: awake and alert Speech: speech normal Psych affect normal Assessment & Plan Assessment/Plan (1) Respiratory insufficiency: (2) Acute hypoxemic respiratory failure: (3) Sepsis: (4) Cholecystitis: PLAN: Plan 1. Sepsis secondary to acute cholecystitis-patient is being seen by infectious diseases, patient is currently on ceftriaxone and Flagyl. Patient's gallbladder fluid culture was positive for Proteus and E. coli which are sensitive to the current antibiotics he is receiving. #2 acute cholecystitis-patient is not a candidate for cholecystectomy, cholecystotomy tube is in place #3 essential hypertension-patient's amlodipine will be held at the present time #4 acute respiratory failure secondary to sepsis-patient's pulse ox will be monitored, further resuscitation status is a DNR CC arrest no intubation, patient remains on Airvo #5 hypokalemia-corrected at this time Total clinical time spent by myself addressing the patient's medical issues, reviewing all of her data, and collaborating with patient's care team: 35 minutes Charges/Coding Visit Charges Inpatient E&M: 14874 Subs Hosp L2
[2024-04-23] MEDS: Ceftriaxone 1 GM/50 ML BAG IV (22:16)
[2024-04-24] VITALS (16 sets, daily range): BP systolic 100–116; BP diastolic 56–77; PULSE 83–105; RESP 18–27; TEMP 37.1–37.3; O2SAT 90–96; BMI 34.2
[2024-04-24] MEDS: metroNIDAZOLE 500 MG/100 ML BAG 100 MG IV ×2 (05:29→13:48)
--- NOTE | 2024-04-24 08:36 | PCM.PN.SRG ---
Subjective Subjective dasha PO, denies abd pain Objective Data Objective Data Vital Signs: Vital Signs Temp Pulse Resp BP Pulse Ox O2 Del Method O2 Flow Rate 99 F 83 20 H 109/68 92 Airvo 25 04/24/24 05:37 04/24/24 07:28 04/24/24 07:28 04/24/24 05:37 04/24/24 07:55 04/24/24 07:28 04/24/24 07:55 FiO2 55 04/24/24 07:28 Oxygen Flow Rate (L/min) 25 Oxygen Delivery Method Airvo Weight: 164 lb 0.383 oz Body Mass Index (BMI) 34.2 Intake & Output: Intake and Output for Last 24 Hours 04/22/24 04/23/24 04/24/24 23:59 23:59 23:59 Intake Total 880 / 880 640 / 640 200 / 200 Output Total 800 / 800 1305 / 1305 630 / 630 Balance 80 / 80 -665 / -665 -430 / -430 Lab / Micro Data 04/23/24 05:45 04/23/24 05:45 Micro: Microbiology 04/20/24 12:41 Fluid - Gallbladder Gram Stain - Final 04/20/24 12:41 Fluid - Gallbladder Body Fluid Culture - Final Escherichia coli Proteus mirabilis 04/20/24 12:41 Fluid - Gallbladder Anaerobic Culture - Preliminary 04/19/24 23:20 Urine, Clean Catch Urine Culture - Final Culture exhibits no growth. 04/19/24 17:26 Blood Culture (Wb) - Anticubital Right Blood Culture - Preliminary No growth in 48 hours. 04/19/24 17:26 Blood Culture (Wb) - Anticubital Left Blood Culture - Preliminary No growth in 48 hours. 04/19/24 23:20 Urine Catheter - Anaya Legionella Antigen - Final 04/19/24 23:20 Urine Catheter - Anaya Streptococcus pneumoniae Antigen (M - Final 04/19/24 22:05 Mucosa - Nasopharyngeal Respiratory Panel (PCR) - Final 04/19/24 18:31 Mucosa - Nose SARS-CoV-2, Influenza & RSV (PCR) - Final Physical Exam Resp Resp Narrative: Labored breathing on Airvo GI soft to palpation and non-tender GI Narrative: MNINA drain bilious Assessment & Plan Assessment/Plan (1) Acute cholecystitis: PLAN: Cholecystostomy tube in place draining bilious fluid?continue. Patient tolerating their diet. Patient on ceftriaxone and Flagyl IV. Liliam Parker M.D. Pager: [phone] [facility] [address] [place] [address], [address] [place] [address] Office: [phone]
[2024-04-24] MEDS: Cholecalciferol (Vit D3) 125 MCG CAPSULE (5,000 UNITS) PO (09:04)
[2024-04-24] MEDS: Lactobacillis Acidophilus 1 CAP PO ×4 (09:04→23:16)
[2024-04-24] MEDS: Ascorbic Acid 500 MG Tablet 1000 MG PO ×2 (09:04→15:58)
[2024-04-24] MEDS: Zinc Sulfate 50 mg zinc (220 mg) ORAL capsule PO (09:05)
[2024-04-24] MEDS: Enoxaparin 40 MG/0.4 ML Syringe SC (09:14)
--- NOTE | 2024-04-24 12:48 | RAD_ITS ---
STUDY: XR Chest 1 View 04/24/2024 2:00 PM REASON FOR EXAM: Female, 83 years old. hypoxia COMPARISON: 04.20.24 TECHNIQUE: XR Chest 1 View FINDINGS: Bilateral pleural effusions. Old healed right rib fracture. Normal heart size. Normal mediastinum. Normal sue. Prominent appearing increased interstitial lung markings. Normal visualized pulmonary arteries. There is atherosclerotic calcification of the aortic arch with tortuosity. There are diffuse degenerative changes of the visualized thoracic spine. There is degenerative osteoarthritis of the bilateral shoulders. There are no acute findings of the upper abdomen. RAD/Chest 1 View (Portable) IMPRESSION: Bilateral pleural effusions. Electronically Signed: Charles Del Rio MD at 15:03 EST ,
--- NOTE | 2024-04-24 14:50 | PCM.PN.HOSP ---
Reason for Visit Reason for Visit: Diagnoses Sepsis, unspecified organism (04/20/24) Obesity, class 1 (04/20/24) Hypokalemia (04/20/24) Pneumonia, unspecified organism (04/20/24) Acute respiratory failure with hypoxia (04/20/24) Acute cholecystitis (04/20/24) Acute cholecystitis with chronic cholecystitis (04/20/24) Cholecystitis, unspecified (04/20/24) Other abnormalities of breathing (04/20/24) Nausea with vomiting, unspecified (04/20/24) Difficulty in walking, not elsewhere classified (04/20/24) Weakness (04/20/24) Abnormal levels of other serum enzymes (04/20/24) Subjective Subjective Patient was seen and examined today, she is alert and appropriate. She remains on Airvo at this time. I ordered a CBC today-I suspect the patient will need transfused as her hemoglobin yesterday was 6.9. I also ordered chest x-ray on the patient, on my review of the film there is a left pleural effusion noted and poor inspiration. Objective Data Objective Data Vital Signs: Vital Signs Temp Pulse Resp BP Pulse Ox O2 Del Method O2 Flow Rate 98.7 F 100 20 H 100/56 L 92 Airvo 25 04/24/24 14:04 04/24/24 14:04 04/24/24 14:04 04/24/24 14:04 04/24/24 14:04 04/24/24 14:04 04/24/24 07:55 FiO2 60 04/24/24 10:45 Oxygen Flow Rate (L/min) 25 Oxygen Delivery Method Airvo Weight: 74.4 kg Body Mass Index (BMI) 34.2 Intake & Output: Intake and Output for Last 24 Hours 04/22/24 04/23/24 04/24/24 23:59 23:59 23:59 Intake Total 880 / 880 640 / 640 400 / 400 Output Total 800 / 800 1305 / 1305 940 / 940 Balance 80 / 80 -665 / -665 -540 / -540 Lab / Micro Data 04/23/24 05:45 04/23/24 05:45 Micro: Microbiology 04/20/24 12:41 Fluid - Gallbladder Gram Stain - Final 04/20/24 12:41 Fluid - Gallbladder Body Fluid Culture - Final Escherichia coli Proteus mirabilis 04/20/24 12:41 Fluid - Gallbladder Anaerobic Culture - Preliminary 04/19/24 23:20 Urine, Clean Catch Urine Culture - Final Culture exhibits no growth. 04/19/24 17:26 Blood Culture (Wb) - Anticubital Right Blood Culture - Preliminary No growth in 48 hours. 04/19/24 17:26 Blood Culture (Wb) - Anticubital Left Blood Culture - Preliminary No growth in 48 hours. 04/19/24 23:20 Urine Catheter - Anaya Legionella Antigen - Final 04/19/24 23:20 Urine Catheter - Anaya Streptococcus pneumoniae Antigen (M - Final 04/19/24 22:05 Mucosa - Nasopharyngeal Respiratory Panel (PCR) - Final 04/19/24 18:31 Mucosa - Nose SARS-CoV-2, Influenza & RSV (PCR) - Final Physical Exam Narrative Constitutional Narrative: Patient appears frail General Appearance: cooperative, well kempt and well developed Orientation / Consciousness: awake, oriented to person and oriented to place HEENT normocephalic, head/scalp atraumatic and moist oral mucous membranes Eyes PERRL, EOMs intact bilaterally and conjunctivae normal Neck supple, no JVD, thyroid normal and no carotid bruits General: trachea midline Resp normal respiratory effort, no retractions, no use of accessory muscles and clear to auscultation bilaterally-breath sounds are diminished bilaterally Auscultation: Negative for rales, rhonchi or wheezes Cardio regular rate, regular rhythm, no murmurs, no rub and no gallops Cardio Narrative: Heart rate and rhythm is tachycardic GI normal to inspection, nondistended, normoactive bowel sounds and soft to palpation GI Narrative: Patient has right upper quadrant abdominal tenderness to palpation, the drainage tube is present in the right upper quadrant Extremity no clubbing, cyanosis or edema Skin no rashes or lesions noted General Skin Exam: no breakdown Neuro oriented x3, CN's II-XII intact bilaterally, no focal motor deficits and no sensory deficits noted Sensorium / Orientation: awake and alert Speech: speech normal Psych affect normal Assessment & Plan Assessment/Plan (1) Generalized weakness: (2) Respiratory insufficiency: (3) Acute hypoxemic respiratory failure: (4) Sepsis: (5) Cholecystitis: PLAN: Plan 1. Sepsis secondary to acute cholecystitis-patient is being seen by infectious diseases, patient is currently on ceftriaxone and Flagyl. Patient's gallbladder fluid culture was positive for Proteus and E. coli which are sensitive to the current antibiotics he is receiving. #2 acute cholecystitis-patient is not a candidate for cholecystectomy, cholecystotomy tube is in place #3 essential hypertension-patient's amlodipine will be held at the present time #4 acute respiratory failure secondary to sepsis-patient's pulse ox will be monitored, further resuscitation status is a DNR CC arrest no intubation, patient remains on Airvo, I will review the results of the patient's chest x-ray today, she may need to have a dose of diuretic #5 hypokalemia-corrected at this time #6 acute on chronic anemia-CBC will be repeated today, patient may need a transfusion of packed red blood cells #7 acute debility-patient will most probably need temporary placement in a [facility] facility, her oxygen requirement is too high at this time Total clinical time spent by myself addressing the patient's medical issues, reviewing all of her data, and collaborating with patient's care team: 35 minutes Charges/Coding Visit Charges Inpatient E&M: 01343 Subs Hosp L2
[2024-04-24] MEDS: Furosemide 40 MG/4 ML Vial IV (15:57)
[2024-04-24 16:24] LABS: Absolute Lymphocyte Count 2.33 X10^3/uL (0.83-4.51); Basophil# 0.04 X10^3/uL; Basophil% 0.3 % (0-1); Eosinophil# 0.08 X10^3/uL; Eosinophils% 0.6 % (0-5); Hematocrit 24.3 % (37-47); Hemoglobin 7.8 g/dL (12.0-15.0); Lymphocyte # 2.33 X10^3/ul (0.83-4.51); Lymphocyte % 17.3 % (19-41); Mean Corp Hgb Conc 32.1 g/dL (32-36); Mean Corpuscular Hgb 24.8 pg (27.0-32.0); Mean Corpuscular Volume 77.1 fL (81-99); Mean Platelet Vol. 8.7 fl (6.2-12.0); Monocyte# 0.81 X10^3/uL; NRBC Flagged by Analyzer 0.1 % (0-5); Neutrophil # 10.01 X10^3/uL (2.7-7.7); Neutrophil % 74.3 % (47-70); Platelet Count 325 K/mm3 (150-450); RBC Distribution Width CV 16.6 % (11.6-14.6); RBC Distribution Width SD 46.5 fl (35.1-43.9); Red Blood Count 3.15 M/mm3 (4.2-5.4); White Blood Count 13.5 K/mm3 (4.4-11.0)
[2024-04-24] MEDS: MELATONIN 10 MG TABLET 5 MG PO (22:57)
[2024-04-24] MEDS: Ceftriaxone 1 GM/50 ML BAG IV (22:57)
[2024-04-24] MEDS: Morphine 4 MG/ML Syringe IV (23:09)
[2024-04-24] MEDS: 0.9% Saline Lock 10 ML Syringe IV (23:10)
[2024-04-25] VITALS (11 sets, daily range): BP systolic 92–121; BP diastolic 55–77; PULSE 72–112; RESP 20–34; TEMP 36.7–37.7; O2SAT 90–97
[2024-04-25] MEDS: metroNIDAZOLE 500 MG/100 ML BAG 100 MG IV ×4 (00:01→21:31)
[2024-04-25] MEDS: Acetaminophen 325 MG Tablet 650 MG PO (05:41)
[2024-04-25 06:08] LABS: Absolute Lymphocyte Count 2.03 X10^3/uL (0.83-4.51); Absolute Neutrophil Count 9.9 X10^3/uL (2.0-7.7); Basophil# 0.05 X10^3/uL; Basophil% 0.4 % (0-1); Eosinophil# 0.07 X10^3/uL; Eosinophils% 0.5 % (0-5); Hematocrit 23.9 % (37-47); Hemoglobin 7.5 g/dL (12.0-15.0); Lymphocyte # 2.03 X10^3/ul (0.83-4.51); Lymphocyte % 15.3 % (19-41); Mean Corp Hgb Conc 31.4 g/dL (32-36); Mean Corpuscular Hgb 24.3 pg (27.0-32.0); Mean Corpuscular Volume 77.3 fL (81-99); Mean Platelet Vol. 8.9 fl (6.2-12.0); Monocyte# 0.88 X10^3/uL; Monocyte% 6.6 % (0-10); NRBC Flagged by Analyzer 0 % (0-5); Neutrophil # 9.92 X10^3/uL (2.7-7.7); Neutrophil % 74.9 % (47-70); Platelet Count 327 K/mm3 (150-450); RBC Distribution Width CV 16.5 % (11.6-14.6); RBC Distribution Width SD 45.4 fl (35.1-43.9); Red Blood Count 3.09 M/mm3 (4.2-5.4); White Blood Count 13.3 K/mm3 (4.4-11.0)
[2024-04-25 06:44] LABS: ALB/GLOB Ratio 0.5 RATIO (0.9-2.4); AST(SGOT) 30 U/L (15-37); Alanine Aminotransfer ALT/SGPT 10 U/L (13-56); Albumin, Serum 1.7 g/dL (3.2-5.0); Alkaline Phosphatase 116 U/L (45-117); Anion Gap 7 (5-15); BUN 9 mg/dL (7-18); BUN/Creat Ratio 22.1 RATIO (10-20); Chloride 101 mmol/L (98-107); Creatinine, Serum 0.41 mg/dL (0.55-1.02); EST Glomerular Filtration Rate 158 mL/min (>60); Est Glom Filt Rate - Afr Amer 192 mL/min (>60); Estimated Creatinine Clearance 48.84 ml/min; Globulin 3.3 g/dL (2.2-4.2); Glucose 113 mg/dL (74-106); Potassium 3.1 mmol/L (3.5-5.1); Sodium Level 134 mmol/L (136-145)
--- NOTE | 2024-04-25 08:26 | PCM.PN.SRG ---
Subjective Subjective Patient evaluated resting comfortably in the chair. She denies any abdominal pain/discomfort. She denies any nausea, vomiting with diet. She notes passing flatus. Per patient's , her appetite has not returned to normal. Objective Data Objective Data Vital Signs: Vital Signs Temp Pulse Resp BP Pulse Ox O2 Del Method O2 Flow Rate 99.9 F H 88 24 H 114/77 96 Airvo 25 04/25/24 05:00 04/25/24 05:00 04/25/24 05:00 04/25/24 05:00 04/25/24 05:00 04/25/24 06:10 04/24/24 07:55 FiO2 76 04/25/24 01:55 Oxygen Flow Rate (L/min) 25 Oxygen Delivery Method Airvo Weight: 164 lb 0.383 oz Body Mass Index (BMI) 34.2 Intake & Output: Intake and Output for Last 24 Hours 04/23/24 04/24/24 04/25/24 23:59 23:59 23:59 Intake Total 640 / 640 800 / 800 200 / 200 Output Total 1305 / 1305 2190 / 2190 1345 / 1345 Balance -665 / -665 -1390 / -1390 -1145 / -1145 Lab / Micro Data 04/25/24 05:54 04/25/24 05:54 Labs: Laboratory Results - last 24 hr 04/24/24 16:15: WBC 13.5 H, RBC 3.15 L, Hgb 7.8 L, Hct 24.3 L, MCV 77.1 L, MCH 24.8 L, MCHC 32.1, RDW Std Deviation 46.5 H, RDW Coeff of [place] 16.6 H, Plt Count 325, MPV 8.7, Immature Gran % (Auto) 1.500 H, Neut % (Auto) 74.3 H, Lymph % (Auto) 17.3 L, [place] % (Auto) 6.0, Eos % (Auto) 0.6, Baso % (Auto) 0.3, Absolute Neuts (auto) 10.0 H, Absolute Lymphs (auto) 2.33, Nucleated RBC % 0.1 04/25/24 05:54: WBC 13.3 H, RBC 3.09 L, Hgb 7.5 L, Hct 23.9 L, MCV 77.3 L, MCH 24.3 L, MCHC 31.4 L, RDW Std Deviation 45.4 H, RDW Coeff of [place] 16.5 H, Plt Count 327, MPV 8.9, Immature Gran % (Auto) 2.300 H, Neut % (Auto) 74.9 H, Lymph % (Auto) 15.3 L, [place] % (Auto) 6.6, Eos % (Auto) 0.5, Baso % (Auto) 0.4, Absolute Neuts (auto) 9.9 H, Absolute Lymphs (auto) 2.03, Nucleated RBC % 0, Sodium 134 L, Potassium 3.1 L, Chloride 101, Carbon Dioxide 26.0, Anion Gap 7, BUN 9, Creatinine 0.41 L, Estim Creat Clear Calc 48.84, Est GFR (MDRD) Af Amer 192, Est GFR (MDRD) Non-Af 158, BUN/Creatinine Ratio 22.1 H, Glucose 113 H, Calcium 8.0 L, Total Bilirubin 0.30, AST 30, ALT 10 L, Alkaline Phosphatase 116, Total Protein 5.0 L, Albumin 1.7 L, Globulin 3.3, Albumin/Globulin Ratio 0.5 L Micro: Microbiology 04/19/24 17:26 Blood Culture (Wb) - Anticubital Left Blood Culture - Final No growth in 5 days. 04/19/24 17:26 Blood Culture (Wb) - Anticubital Right Blood Culture - Final No growth in 5 days. 04/20/24 12:41 Fluid - Gallbladder Gram Stain - Final 04/20/24 12:41 Fluid - Gallbladder Body Fluid Culture - Final Escherichia coli Proteus mirabilis 04/20/24 12:41 Fluid - Gallbladder Anaerobic Culture - Preliminary 04/19/24 23:20 Urine, Clean Catch Urine Culture - Final Culture exhibits no growth. 04/19/24 23:20 Urine Catheter - Anaya Legionella Antigen - Final 04/19/24 23:20 Urine Catheter - Anaya Streptococcus pneumoniae Antigen (M - Final 04/19/24 22:05 Mucosa - Nasopharyngeal Respiratory Panel (PCR) - Final 04/19/24 18:31 Mucosa - Nose SARS-CoV-2, Influenza & RSV (PCR) - Final Radiography Diagnostic Testing: Radiology Impression Chest X-Ray 04/24/24 12:48 IMPRESSION: Bilateral pleural effusions. Electronically Signed: Charles Del Rio MD at 15:03 EST Reading Location ID and State: [facility] / [place] , Service support , Physical Exam GI GI Narrative: Abdomen- soft, slight discomfort with palpation in the LUQ and epigastric region. Non-tender in the RUQ region. MINNA drain intact with bilious fluid noted within the bulb. Hypoactive bowel sounds Assessment & Plan Assessment/Plan (1) Acute cholecystitis: PLAN: I am following this patient in conjunction with Dr. Parker. Labs reviewed. Liver enzymes unremarkable. Continue MINNA drain to suction Teach family how to take care of the drain Talked with family to discuss where they would like to be referred to following discharge for consultation to remove the gallbladder. Will follow-up with them tomorrow No surgical intervention being recommended at this time Patient not a surgical candidate locally for cholecystectomy We will continue to monitor this patient Charges/Coding Visit Charges Inpatient E&M: 91507 Subs Hosp L1
--- NOTE | 2024-04-25 08:54 | PN.HOSP_ITS ---
Reason for Visit Reason for Visit: Diagnoses Sepsis, unspecified organism (04/20/24) Obesity, class 1 (04/20/24) Hypokalemia (04/20/24) Pneumonia, unspecified organism (04/20/24) Acute respiratory failure with hypoxia (04/20/24) Acute cholecystitis (04/20/24) Acute cholecystitis with chronic cholecystitis (04/20/24) Cholecystitis, unspecified (04/20/24) Other abnormalities of breathing (04/20/24) Nausea with vomiting, unspecified (04/20/24) Difficulty in walking, not elsewhere classified (04/20/24) Weakness (04/20/24) Abnormal levels of other serum enzymes (04/20/24) Subjective Subjective Still on airvo. No abdominal pain. Objective Data Objective Data Vital Signs: Vital Signs Temp Pulse Resp BP Pulse Ox O2 Del Method O2 Flow Rate 37.7 C H 88 24 H 114/77 96 Airvo 25 04/25/24 05:00 04/25/24 05:00 04/25/24 05:00 04/25/24 05:00 04/25/24 05:00 04/25/24 06:10 04/24/24 07:55 FiO2 76 04/25/24 01:55 Oxygen Flow Rate (L/min) 25 Oxygen Delivery Method Airvo Weight: 74.4 kg Body Mass Index (BMI) 34.2 Intake & Output: Intake and Output for Last 24 Hours 04/23/24 04/24/24 04/25/24 23:59 23:59 23:59 Intake Total 640 / 640 800 / 800 200 / 200 Output Total 1305 / 1305 2190 / 2190 1345 / 1345 Balance -665 / -665 -1390 / -1390 -1145 / -1145 Lab / Micro Data 04/25/24 05:54 04/25/24 05:54 Labs: Laboratory Results - last 24 hr 04/24/24 16:15: WBC 13.5 H, RBC 3.15 L, Hgb 7.8 L, Hct 24.3 L, MCV 77.1 L, MCH 24.8 L, MCHC 32.1, RDW Std Deviation 46.5 H, RDW Coeff of [place] 16.6 H, Plt Count 325, MPV 8.7, Immature Gran % (Auto) 1.500 H, Neut % (Auto) 74.3 H, Lymph % (Auto) 17.3 L, [place] % (Auto) 6.0, Eos % (Auto) 0.6, Baso % (Auto) 0.3, Absolute Neuts (auto) 10.0 H, Absolute Lymphs (auto) 2.33, Nucleated RBC % 0.1 04/25/24 05:54: WBC 13.3 H, RBC 3.09 L, Hgb 7.5 L, Hct 23.9 L, MCV 77.3 L, MCH 24.3 L, MCHC 31.4 L, RDW Std Deviation 45.4 H, RDW Coeff of [place] 16.5 H, Plt Count 327, MPV 8.9, Immature Gran % (Auto) 2.300 H, Neut % (Auto) 74.9 H, Lymph % (Auto) 15.3 L, [place] % (Auto) 6.6, Eos % (Auto) 0.5, Baso % (Auto) 0.4, A bsolute Neuts (auto) 9.9 H, Absolute Lymphs (auto) 2.03, Nucleated RBC % 0, S odium 134 L, Potassium 3.1 L, Chloride 101, Carbon Dioxide 26.0, Anion Gap 7, BUN 9, Creatinine 0.41 L, Estim Creat Clear Calc 48.84, Est GFR (MDRD) Af Amer 192, Est GFR (MDRD) Non-Af 158, BUN/Creatinine Ratio 22.1 H, Glucose 113 H, C alcium 8.0 L, Total Bilirubin 0.30, AST 30, ALT 10 L, Alkaline Phosphatase 116, Total Protein 5.0 L, Albumin 1.7 L, Globulin 3.3, Albumin/Globulin Ratio 0.5 L Micro: Microbiology 04/19/24 17:26 Blood Culture (Wb) - Anticubital Left Blood Culture - Final No growth in 5 days. 04/19/24 17:26 Blood Culture (Wb) - Anticubital Right Blood Culture - Final No growth in 5 days. 04/20/24 12:41 Fluid - Gallbladder Gram Stain - Final 04/20/24 12:41 Fluid - Gallbladder Body Fluid Culture - Final Escherichia coli Proteus mirabilis 04/20/24 12:41 Fluid - Gallbladder Anaerobic Culture - Preliminary 04/19/24 23:20 Urine, Clean Catch Urine Culture - Final Culture exhibits no growth. 04/19/24 23:20 Urine Catheter - Anaya Legionella Antigen - Final 04/19/24 23:20 Urine Catheter - Anaya Streptococcus pneumoniae Antigen (M - Final 04/19/24 22:05 Mucosa - Nasopharyngeal Respiratory Panel (PCR) - Final 04/19/24 18:31 Mucosa - Nose SARS-CoV-2, Influenza & RSV (PCR) - Final Radiography Diagnostic Testing: Radiology Impression Chest X-Ray 04/24/24 12:48 IMPRESSION: Bilateral pleural effusions. Electronically Signed: Charles Del Rio MD at 15:03 EST , Physical Exam Const alert and no apparent distress HEENT head/scalp atraumatic and moist oral mucous membranes Resp normal respiratory effort and no retractions Resp Narrative: coarse BS bilaterally. Cardio regular rate, regular rhythm, S1 normal heart sound and S2 normal heart sound GI normal to inspection, nondistended, normoactive bowel sounds, soft to palpation, non-tender and non-distended Extremity normal to inspection and full ROM Neuro Sensorium / Orientation: awake and alert Assessment & Plan Assessment/Plan (1) Generalized weakness: (2) Respiratory insufficiency: (3) Acute hypoxemic respiratory failure: (4) Sepsis: (5) Cholecystitis: PLAN: Plan Sepsis secondary to acute cholecystitis * -patient is being seen by infectious diseases, patient is currently on ceftriaxone and Flagyl. * patient's gallbladder fluid culture was positive for Proteus and E. coli which are sensitive to the current antibiotics he is receiving. * Cx showing E. coli and Proteus mirabilis acute cholecystitis * -patient is not a candidate for cholecystectomy, cholecystotomy tube is in place acute respiratory failure secondary to sepsis * -patient's pulse ox will be monitored, further resuscitation status is a DNR CC arrest no intubation, patient remains on Airvo Acute HFpEF * EF 65% from echo from 11/08 * continue furosemide acute debility * -patient will most probably need temporary placement in a snf facility, her oxygen requirement is too high at this time VTE prophylaxis: LMWH Charges/Coding Visit Charges Inpatient E&M: 40344 Subs Hosp L2
[2024-04-25] MEDS: Ascorbic Acid 500 MG Tablet 1000 MG PO ×2 (10:01→18:15)
[2024-04-25] MEDS: Cholecalciferol (Vit D3) 125 MCG CAPSULE (5,000 UNITS) PO (10:01)
[2024-04-25] MEDS: Zinc Sulfate 50 mg zinc (220 mg) ORAL capsule PO (10:01)
[2024-04-25] MEDS: Lactobacillis Acidophilus 1 CAP PO ×4 (10:01→21:31)
[2024-04-25] MEDS: Enoxaparin 40 MG/0.4 ML Syringe SC (10:02)
--- NOTE | 2024-04-25 11:30 | CASEMGMT ---
Therapy spoke with VIKI CEDILLO and SW stating pt appears weaker than when pt came into the hospital. Family was caring for pt and pt could stand pivot. VIKI CEDILLO into pt room, pt lying in bed with airvo on, and dtr at bedside. Pt states they can get additional help in the home and they prefer pt to go home at dc. He states that the doctor told him they were going to get fluid off the patient and he feels that pt will be able to do more once this is done. He states that if pt cannot stand, then they have a hospital bed pt can stay in. Discussed possible complications from this as well. Pt states she wants to go home as well. Discussed with pt and family to observe therapy tomorrow with keeping in mind if they feel they can manage pt at home in this state. Pt and family are agreeable to [facility] should pt dc home. VIKI CEDILLO to follow up tomorrow after therapy.
[2024-04-25] MEDS: Furosemide 40 MG/4 ML Vial IV ×2 (12:33→18:17)
[2024-04-25] MEDS: 0.9% Saline Lock 10 ML Syringe IV ×2 (12:33→18:17)
--- NOTE | 2024-04-25 13:32 | PCM.PN.ID ---
Physical Exam Narrative Feeling better, breathing improved, no fever, no abd pain Const alert and no apparent distress General Appearance: cooperative Resp Auscultation: diminished lung sounds Cardio regular rate and regular rhythm GI soft to palpation, non-tender and non-distended Skin no rashes or lesions noted ID ID: Route of nutrition/ use of supplements: [] Nutritional Intake: [] IV Site: [] Anaya Catheter: [] Assessment & Plan Assessment/Plan (1) Sepsis: (2) Acute cholecystitis: PLAN: sepsis due to acute cholecystitis - javier tube placed 04/20. Cont ceftriaxone and flagyl. Fluid cx with ecoli and proteus. Feeling better, fever improved, wbc better, O2 improved. Will follow
[2024-04-25] MEDS: Ensure Plus High Protein 120 ML LIQUID PO (18:15)
[2024-04-25] MEDS: MELATONIN 10 MG TABLET 5 MG PO (21:32)
[2024-04-25] MEDS: Ceftriaxone 1 GM/50 ML BAG IV (22:52)
[2024-04-26] VITALS (9 sets, daily range): BP systolic 109–115; BP diastolic 59–84; PULSE 90–110; RESP 18–38; TEMP 37.1–37.7; O2SAT 90–95; BMI 33.3
[2024-04-26] MEDS: metroNIDAZOLE 500 MG/100 ML BAG 100 MG IV ×3 (04:45→20:43)
[2024-04-26 07:30] LABS: Absolute Neutrophil Count 10.7 X10^3/uL (2.0-7.7); Basophil# 0.04 X10^3/uL; Basophil% 0.3 % (0-1); Eosinophil# 0.08 X10^3/uL; Eosinophils% 0.6 % (0-5); Hematocrit 23.2 % (37-47); Hemoglobin 7.3 g/dL (12.0-15.0); Lymphocyte % 13.9 % (19-41); Mean Corp Hgb Conc 31.5 g/dL (32-36); Mean Corpuscular Hgb 24.3 pg (27.0-32.0); Mean Corpuscular Volume 77.3 fL (81-99); Mean Platelet Vol. 9.3 fl (6.2-12.0); Monocyte# 1.25 X10^3/uL; Monocyte% 8.7 % (0-10); NRBC Flagged by Analyzer 0.1 % (0-5); Neutrophil % 73.9 % (47-70); Platelet Count 327 K/mm3 (150-450); RBC Distribution Width CV 16.7 % (11.6-14.6); RBC Distribution Width SD 45.3 fl (35.1-43.9); White Blood Count 14.4 K/mm3 (4.4-11.0)
[2024-04-26 08:03] LABS: Anion Gap 6 (5-15); BUN 10 mg/dL (7-18); BUN/Creat Ratio 24.1 RATIO (10-20); Chloride 101 mmol/L (98-107); Creatinine, Serum 0.42 mg/dL (0.55-1.02); EST Glomerular Filtration Rate 155 mL/min (>60); Est Glom Filt Rate - Afr Amer 188 mL/min (>60); Estimated Creatinine Clearance 48.05 ml/min; Glucose 111 mg/dL (74-106); Potassium 2.9 mmol/L (3.5-5.1); Sodium Level 135 mmol/L (136-145)
--- NOTE | 2024-04-26 08:10 | PN.HOSP_ITS ---
Reason for Visit Reason for Visit: Diagnoses Sepsis, unspecified organism (04/20/24) Obesity, class 1 (04/20/24) Hypokalemia (04/20/24) Pneumonia, unspecified organism (04/20/24) Acute respiratory failure with hypoxia (04/20/24) Acute cholecystitis (04/20/24) Acute cholecystitis with chronic cholecystitis (04/20/24) Cholecystitis, unspecified (04/20/24) Other abnormalities of breathing (04/20/24) Nausea with vomiting, unspecified (04/20/24) Difficulty in walking, not elsewhere classified (04/20/24) Weakness (04/20/24) Abnormal levels of other serum enzymes (04/20/24) Subjective Subjective Still on Arivo has been using incentive spirometer. Objective Data Objective Data Vital Signs: Vital Signs Temp Pulse Resp BP Pulse Ox O2 Del Method O2 Flow Rate 37.1 C 91 22 H 114/84 H 95 Airvo 50 04/26/24 04:40 04/26/24 05:37 04/26/24 04:40 04/26/24 04:40 04/26/24 07:45 04/26/24 07:45 04/26/24 07:45 FiO2 50 04/26/24 07:45 Oxygen Flow Rate (L/min) 50 Oxygen Delivery Method Airvo Weight: 72.1 kg Body Mass Index (BMI) 33.3 Intake & Output: Intake and Output for Last 24 Hours 04/24/24 04/25/24 04/26/24 23:59 23:59 23:59 Intake Total 800 / 800 1200 / 1200 100 / 100 Output Total 2190 / 2190 3445 / 3445 600 / 600 Balance -1390 / -1390 -2245 / -2245 -500 / -500 Lab / Micro Data 04/26/24 06:46 04/26/24 12:27 Labs: Laboratory Results - last 24 hr 04/26/24 06:46: WBC 14.4 H, RBC 3.00 L, Hgb 7.3 L, Hct 23.2 L, MCV 77.3 L, MCH 24.3 L, MCHC 31.5 L, RDW Std Deviation 45.3 H, RDW Coeff of [place] 16.7 H, Plt Count 327, MPV 9.3, Immature Gran % (Auto) 2.600 H, Neut % (Auto) 73.9 H, Lymph % (Auto) 13.9 L, [place] % (Auto) 8.7, Eos % (Auto) 0.6, Baso % (Auto) 0.3, A bsolute Neuts (auto) 10.7 H, Absolute Lymphs (auto) 2.00, Nucleated RBC % 0.1, S odium 135 L, Potassium 2.9 L, Chloride 101, Carbon Dioxide 29.0, Anion Gap 6, BUN 10, Creatinine 0.42 L, Estim Creat Clear Calc 48.05, Est GFR (MDRD) Af Amer 188, Est GFR (MDRD) Non-Af 155, BUN/Creatinine Ratio 24.1 H, Glucose 111 H, C alcium 8.0 L Micro: Microbiology 04/20/24 12:41 Fluid - Gallbladder Gram Stain - Final 04/20/24 12:41 Fluid - Gallbladder Body Fluid Culture - Final Escherichia coli Proteus mirabilis 04/20/24 12:41 Fluid - Gallbladder Anaerobic Culture - Preliminary Gram negative librado Anaerobic cocci 04/19/24 17:26 Blood Culture (Wb) - Anticubital Left Blood Culture - Final No growth in 5 days. 04/19/24 17:26 Blood Culture (Wb) - Anticubital Right Blood Culture - Final No growth in 5 days. 04/19/24 23:20 Urine, Clean Catch Urine Culture - Final Culture exhibits no growth. 04/19/24 23:20 Urine Catheter - Anaya Legionella Antigen - Final 04/19/24 23:20 Urine Catheter - Anaya Streptococcus pneumoniae Antigen (M - Final 04/19/24 22:05 Mucosa - Nasopharyngeal Respiratory Panel (PCR) - Final 04/19/24 18:31 Mucosa - Nose SARS-CoV-2, Influenza & RSV (PCR) - Final Physical Exam Const alert and no apparent distress Constitutional Narrative: on Airvo. No respiratory distress. No conversational dyspnea. HEENT head/scalp atraumatic and moist oral mucous membranes Resp normal respiratory effort and no retractions Cardio regular rate, regular rhythm, S1 normal heart sound and S2 normal heart sound GI normal to inspection, nondistended, normoactive bowel sounds, soft to palpation, non-tender and non-distended Extremity General Extremity: edema bilateral upper extremity and lower extremity Neuro Sensorium / Orientation: awake and alert Assessment & Plan Assessment/Plan (1) Acute hypoxemic respiratory failure: (2) Sepsis: (3) Cholecystitis: PLAN: Plan Sepsis secondary to acute cholecystitis * patient is being seen by infectious diseases, patient is currently on ceftriaxone and Flagyl. * patient's gallbladder fluid culture was positive for Proteus and E. coli which are sensitive to the current antibiotics he is receiving. * Cx showing E. coli and Proteus mirabilis acute cholecystitis * patient is not a candidate for cholecystectomy, cholecystotomy tube is in place * pt to follow up with general surgery for eventual cholecystectomy with likely referral to another surgeon. acute respiratory failure secondary to sepsis * multifactorial: CHF, TESSIE, obesity hypoventilation syndrome. * patient remains on Airvo * Continue to strongly encourage IS and acapella. Acute HFpEF * EF 65% from echo from 11/08 * continue furosemide but with no improvements over the past few days will start furosemide drip. anemia * microcytic stable * monitor. * TSH 0.661. Check B12, Folate, iron studies, hemoccult. hypokalemia * 2/2 diuresis * Still low after replacement. Distally magnesium level 1.5. Will replace of both again. VTE prophylaxis: LMWH DW family at bedside. Charges/Coding Visit Charges Inpatient E&M: 27072 Subs Hosp L2
[2024-04-26 08:51] LABS: Vitamin B12 331 pg/mL (211-911)
[2024-04-26 09:02] LABS: Ferritin 93 ng/mL (8-252); Iron 21 ug/dL (50-170); Iron Binding Capacity,Total 269 ug/dL (250-450); Magnesium 1.5 mg/dL (1.6-2.6); PERCENT IRON SATURATION 7.8 % (15.0-55.0)
--- NOTE | 2024-04-26 09:12 | PCM.PN.SRG ---
Subjective Subjective Patient has no new complaints. Patient still remains on Airvo Objective Data Objective Data Vital Signs: Vital Signs Temp Pulse Resp BP Pulse Ox O2 Del Method O2 Flow Rate 99.3 F H 91 18 115/67 95 Airvo 50 04/26/24 08:30 04/26/24 08:30 04/26/24 08:30 04/26/24 08:30 04/26/24 08:30 04/26/24 08:36 04/26/24 08:36 FiO2 51 04/26/24 08:36 Oxygen Flow Rate (L/min) 50 Oxygen Delivery Method Airvo Weight: 158 lb 15.253 oz Body Mass Index (BMI) 33.3 Intake & Output: Intake and Output for Last 24 Hours 04/24/24 04/25/24 04/26/24 23:59 23:59 23:59 Intake Total 800 / 800 1200 / 1200 100 / 100 Output Total 2190 / 2190 3445 / 3445 600 / 600 Balance -1390 / -1390 -2245 / -2245 -500 / -500 Lab / Micro Data 04/26/24 06:46 04/26/24 06:46 Labs: Laboratory Results - last 24 hr 04/26/24 06:46: WBC 14.4 H, RBC 3.00 L, Hgb 7.3 L, Hct 23.2 L, MCV 77.3 L, MCH 24.3 L, MCHC 31.5 L, RDW Std Deviation 45.3 H, RDW Coeff of [place] 16.7 H, Plt Count 327, MPV 9.3, Immature Gran % (Auto) 2.600 H, Neut % (Auto) 73.9 H, Lymph % (Auto) 13.9 L, [place] % (Auto) 8.7, Eos % (Auto) 0.6, Baso % (Auto) 0.3, Absolute Neuts (auto) 10.7 H, Absolute Lymphs (auto) 2.00, Nucleated RBC % 0.1, Sodium 135 L, Potassium 2.9 L, Chloride 101, Carbon Dioxide 29.0, Anion Gap 6, BUN 10, Creatinine 0.42 L, Estim Creat Clear Calc 48.05, Est GFR (MDRD) Af Amer 188, Est GFR (MDRD) Non-Af 155, BUN/Creatinine Ratio 24.1 H, Glucose 111 H, Calcium 8.0 L, Magnesium 1.5 L, Iron 21 L, TIBC 269, Iron Saturation 7.8 L, Ferritin 93, Vitamin B12 331, Folate 15.80 Micro: Microbiology 04/20/24 12:41 Fluid - Gallbladder Gram Stain - Final 04/20/24 12:41 Fluid - Gallbladder Body Fluid Culture - Final Escherichia coli Proteus mirabilis 04/20/24 12:41 Fluid - Gallbladder Anaerobic Culture - Preliminary Gram negative librado Anaerobic cocci 04/19/24 17:26 Blood Culture (Wb) - Anticubital Left Blood Culture - Final No growth in 5 days. 04/19/24 17:26 Blood Culture (Wb) - Anticubital Right Blood Culture - Final No growth in 5 days. 04/19/24 23:20 Urine, Clean Catch Urine Culture - Final Culture exhibits no growth. 04/19/24 23:20 Urine Catheter - Anaya Legionella Antigen - Final 04/19/24 23:20 Urine Catheter - Anaya Streptococcus pneumoniae Antigen (M - Final 04/19/24 22:05 Mucosa - Nasopharyngeal Respiratory Panel (PCR) - Final 04/19/24 18:31 Mucosa - Nose SARS-CoV-2, Influenza & RSV (PCR) - Final Physical Exam Const oriented x3 and no apparent distress Resp normal respiratory effort GI soft to palpation and non-tender Assessment & Plan Assessment/Plan (1) Acute cholecystitis: PLAN: Patient has cholecystostomy tube in place and is tolerating regular diet. She is still on Airvo for her pulmonary status. Okay to DC with cholecystostomy tube in place whenever discharge is appropriate. We are starting the referral process to [facility] For definitive treatment of her gallbladder. Mauricio Zuñiga MD Pager: [facility] [address] [place] [address], [address] [place] [address] Office:
[2024-04-26] MEDS: Potassium Chloride Oral Tablet 20 MEQ 60 MEQ PO ×2 (09:25→17:35)
[2024-04-26] MEDS: Enoxaparin 40 MG/0.4 ML Syringe SC (09:25)
[2024-04-26] MEDS: 0.9% Saline Lock 10 ML Syringe IV ×4 (09:26→22:34)
[2024-04-26] MEDS: Furosemide 40 MG/4 ML Vial IV (10:14)
--- NOTE | 2024-04-26 10:55 | CASEMGMT ---
Discharge Planning A list of HH providers including quality and resource use data and consistent with the patient's preferred geographic region, medical needs, and insurance network was created in [employer] Guide.? This list was provided to the RN NGUYEN. Joy Bansal, Discharge Planning Asst.
[2024-04-26 13:48] LABS: Anion Gap 9 (5-15); BUN 10 mg/dL (7-18); BUN/Creat Ratio 15.6 RATIO (10-20); Calcium,Total 8.4 mg/dL (8.5-10.1); Chloride 98 mmol/L (98-107); Creatinine, Serum 0.64 mg/dL (0.55-1.02); EST Glomerular Filtration Rate 94 mL/min (>60); Est Glom Filt Rate - Afr Amer 114 mL/min (>60); Estimated Creatinine Clearance 48.05 ml/min; Glucose 159 mg/dL (74-106); Potassium 3.1 mmol/L (3.5-5.1); Sodium Level 135 mmol/L (136-145)
[2024-04-26] MEDS: Lactobacillis Acidophilus 1 CAP PO ×3 (13:54→20:42)
[2024-04-26] MEDS: Acetaminophen 325 MG Tablet 650 MG PO (14:01)
--- NOTE | 2024-04-26 14:56 | CASEMGMT ---
Addendum entered by Chinyere Sparrow 04/26/24 15:55: Handoff given to VIKI CEDILLO in PCU. Addendum entered by Chinyere Sparrow 04/26/24 15:07: VIKI CEDILLO into pt room, updated pt on hospitalist response. Pt nurse present in room. RN CM to follow. Original Note: Noted therapy notes from this date. RN NGUYEN into pt room, pt sitting up in chair with airvo on. Pt asks if a hospice consult is appropriate. VIKI CEDILLO made aware that hospitalist would be notified. Updated hospitalist on request. Hospitalist responded that pt was just changed to a lasix drip, if no improvement tomorrow, will consider hospice.
--- NOTE | 2024-04-26 15:10 | NURSING ---
marble supervisor updated order for lasix drip, Dr. Chatman messaged that need order to transfer to PCU, don't do lasix gtt on med surg.
--- NOTE | 2024-04-26 16:21 | NURSING ---
Lasix drip ordered for pt. Tavern Operator and Dr Chatman notified since MS3 is unable to administer lasix drip. Pt status changed to cardiac tele and will be transferred to PCU. Verbal report called to Juana on PCU. Waiting for respiratory therapist to help move pt to PCU
[2024-04-26] MEDS: Magnesium Sulfate 2 GM in Dextrose 5%-Water (100mL Bag) 100 ML IV (17:29)
[2024-04-26] MEDS: Furosemide 500 MG in Empty Viaflex 50 mL 1 EACH CONT INF (19:11)
[2024-04-26] MEDS: MELATONIN 10 MG TABLET 5 MG PO (20:42)
[2024-04-26] MEDS: Ceftriaxone 1 GM/50 ML BAG IV (22:35)
[2024-04-27] VITALS (9 sets, daily range): BP systolic 92–115; BP diastolic 71–88; PULSE 99–107; RESP 18–31; TEMP 36.1–37.4; O2SAT 90–97; BMI 31.8
[2024-04-27] MEDS: 0.9% Saline Lock 10 ML Syringe IV (05:45)
[2024-04-27] MEDS: metroNIDAZOLE 500 MG/100 ML BAG 100 MG IV ×3 (05:46→21:51)
[2024-04-27 07:35] LABS: Absolute Lymphocyte Count 2.32 X10^3/uL (0.83-4.51); Absolute Neutrophil Count 11.5 X10^3/uL (2.0-7.7); Basophil# 0.04 X10^3/uL; Basophil% 0.3 % (0-1); Eosinophil# 0.09 X10^3/uL; Eosinophils% 0.6 % (0-5); Hematocrit 27.1 % (37-47); Hemoglobin 8.6 g/dL (12.0-15.0); Lymphocyte # 2.32 X10^3/ul (0.83-4.51); Mean Corp Hgb Conc 31.7 g/dL (32-36); Mean Corpuscular Hgb 24.4 pg (27.0-32.0); Mean Corpuscular Volume 76.8 fL (81-99); Mean Platelet Vol. 9.3 fl (6.2-12.0); Monocyte# 1.26 X10^3/uL; Monocyte% 8.2 % (0-10); NRBC Flagged by Analyzer 0.1 % (0-5); Neutrophil # 11.45 X10^3/uL (2.7-7.7); Platelet Count 433 K/mm3 (150-450); RBC Distribution Width CV 17.2 % (11.6-14.6); RBC Distribution Width SD 44.8 fl (35.1-43.9); Red Blood Count 3.53 M/mm3 (4.2-5.4); White Blood Count 15.5 K/mm3 (4.4-11.0)
--- NOTE | 2024-04-27 07:45 | PN.HOSP_ITS ---
Reason for Visit Reason for Visit: Diagnoses Sepsis, unspecified organism (04/20/24) Obesity, class 1 (04/20/24) Hypokalemia (04/20/24) Pneumonia, unspecified organism (04/20/24) Acute respiratory failure with hypoxia (04/20/24) Acute cholecystitis (04/20/24) Acute cholecystitis with chronic cholecystitis (04/20/24) Cholecystitis, unspecified (04/20/24) Other abnormalities of breathing (04/20/24) Nausea with vomiting, unspecified (04/20/24) Difficulty in walking, not elsewhere classified (04/20/24) Weakness (04/20/24) Abnormal levels of other serum enzymes (04/20/24) Subjective Subjective Feels well. No new complaints. Weaned oxygen down to high-flow. Objective Data Objective Data Vital Signs: Vital Signs Temp Pulse Resp BP Pulse Ox O2 Del Method O2 Flow Rate 37.1 C 101 H 18 105/75 92 High Flow 10 04/27/24 04:06 04/27/24 04:06 04/27/24 04:06 04/27/24 04:06 04/27/24 04:06 04/27/24 04:06 04/27/24 04:06 FiO2 50 04/26/24 14:17 Oxygen Flow Rate (L/min) 10 Oxygen Delivery Method High Flow Weight: 68.8 kg Body Mass Index (BMI) 31.8 Intake & Output: Intake and Output for Last 24 Hours 04/25/24 04/26/24 04/27/24 23:59 23:59 23:59 Intake Total 1200 / 1200 454 / 454 100 / 100 Output Total 3445 / 3445 4480 / 4480 1640 / 1640 Balance -2245 / -2245 -4026 / -4026 -1540 / -1540 Lab / Micro Data 04/27/24 07:16 04/27/24 07:16 Labs: Laboratory Results - last 24 hr 04/26/24 06:46: Sodium 135 L, Potassium 2.9 L, Chloride 101, Carbon Dioxide 29.0, Anion Gap 6, BUN 10, Creatinine 0.42 L, Estim Creat Clear Calc 48.05, Est GFR (MDRD) Af Amer 188, Est GFR (MDRD) Non-Af 155, BUN/Creatinine Ratio 24.1 H, Glucose 111 H, Calcium 8.0 L, Magnesium 1.5 L, Iron 21 L, TIBC 269, Iron Saturation 7.8 L, Ferritin 93, Vitamin B12 331, Folate 15.80 04/26/24 12:27: Sodium 135 L, Potassium 3.1 L, Chloride 98, Carbon Dioxide 28.0, Anion Gap 9, BUN 10, Creatinine 0.64, Estim Creat Clear Calc 48.05, Est GFR (MDRD) Af Amer 114, Est GFR (MDRD) Non-Af 94, BUN/Creatinine Ratio 15.6, Glucose 159 H, Calcium 8.4 L 04/27/24 07:16: WBC 15.5 H, RBC 3.53 L, Hgb 8.6 L, Hct 27.1 L, MCV 76.8 L, MCH 24.4 L, MCHC 31.7 L, RDW Std Deviation 44.8 H, RDW Coeff of [place] 17.2 H, Plt Count 433, MPV 9.3, Immature Gran % (Auto) 1.900 H, Neut % (Auto) 74.0 H, Lymph % (Auto) 15.0 L, [place] % (Auto) 8.2, Eos % (Auto) 0.6, Baso % (Auto) 0.3, A bsolute Neuts (auto) 11.5 H, Absolute Lymphs (auto) 2.32, Nucleated RBC % 0.1 Micro: Microbiology 04/20/24 12:41 Fluid - Gallbladder Gram Stain - Final 04/20/24 12:41 Fluid - Gallbladder Body Fluid Culture - Final Escherichia coli Proteus mirabilis 04/20/24 12:41 Fluid - Gallbladder Anaerobic Culture - Preliminary Gram negative librado Anaerobic cocci 04/19/24 17:26 Blood Culture (Wb) - Anticubital Left Blood Culture - Final No growth in 5 days. 04/19/24 17:26 Blood Culture (Wb) - Anticubital Right Blood Culture - Final No growth in 5 days. 04/19/24 23:20 Urine, Clean Catch Urine Culture - Final Culture exhibits no growth. 04/19/24 23:20 Urine Catheter - Anaya Legionella Antigen - Final 04/19/24 23:20 Urine Catheter - Anaya Streptococcus pneumoniae Antigen (M - Final 04/19/24 22:05 Mucosa - Nasopharyngeal Respiratory Panel (PCR) - Final 04/19/24 18:31 Mucosa - Nose SARS-CoV-2, Influenza & RSV (PCR) - Final Physical Exam Const alert and no apparent distress HEENT head/scalp atraumatic and moist oral mucous membranes Resp normal respiratory effort and no retractions Resp Narrative: coarse BS bilaterally. Cardio regular rate, regular rhythm, S1 normal heart sound and S2 normal heart sound GI normal to inspection, nondistended, normoactive bowel sounds, soft to palpation and non-tender Extremity Extremity Narrative: decreased upper and lower extremity edema. Assessment & Plan Assessment/Plan (1) Acute hypoxemic respiratory failure: (2) Sepsis: (3) Cholecystitis: PLAN: Plan Sepsis secondary to acute cholecystitis * patient is being seen by infectious diseases, patient is currently on ceftriaxone and Flagyl. * patient's gallbladder fluid culture was positive for Proteus and E. coli which are sensitive to the current antibiotics he is receiving. * Cx showing E. coli and Proteus mirabilis acute cholecystitis * patient is not a candidate for cholecystectomy, cholecystotomy tube is in place * pt to follow up with general surgery for eventual cholecystectomy with likely referral to another surgeon. acute respiratory failure secondary to sepsis * multifactorial: CHF, TESSIE, obesity hypoventilation syndrome. * patient has weaned down to 15liters high flow oxygen. * Continue to strongly encourage IS and acapella. Acute HFpEF * EF 65% from echo from 11/08 * continue furosemide gtt. anemia * microcytic stable * monitor. * TSH 0.661. Check B12, Folate, iron studies, hemoccult. hypokalemia * 2/2 diuresis * Still low after replacement. Distally magnesium level 1.5. Will replace of both again. VTE prophylaxis: LMWH DW family at bedside. Charges/Coding Visit Charges Inpatient E&M: 48756 Subs Hosp L2
[2024-04-27 08:23] LABS: Anion Gap 6 (5-15); BUN 8 mg/dL (7-18); Calcium,Total 8.5 mg/dL (8.5-10.1); Chloride 95 mmol/L (98-107); EST Glomerular Filtration Rate 125 mL/min (>60); Est Glom Filt Rate - Afr Amer 151 mL/min (>60); Estimated Creatinine Clearance 46.92 ml/min; Glucose 120 mg/dL (74-106); Sodium Level 136 mmol/L (136-145)
[2024-04-27] MEDS: Lactobacillis Acidophilus 1 CAP PO ×4 (09:33→21:51)
[2024-04-27] MEDS: Enoxaparin 40 MG/0.4 ML Syringe SC (09:34)
[2024-04-27] MEDS: Cholecalciferol (Vit D3) 125 MCG CAPSULE (5,000 UNITS) PO (09:34)
[2024-04-27] MEDS: Ensure Plus High Protein 120 ML LIQUID PO (09:34)
[2024-04-27] MEDS: Potassium Chloride Oral Tablet 20 MEQ 60 MEQ PO (12:18)
--- NOTE | 2024-04-27 13:47 | PCM.PN.ID ---
Physical Exam Narrative Feeling ok, still some dyspnea, no abd pain Const alert and no apparent distress General Appearance: cooperative Resp Auscultation: diminished lung sounds Cardio regular rate and regular rhythm GI soft to palpation, non-tender and non-distended Extremity General Extremity: Negative for edema Skin no rashes or lesions noted ID ID: Route of nutrition/ use of supplements: [] Nutritional Intake: [] IV Site: [] Anaya Catheter: [] Assessment & Plan Assessment/Plan (1) Sepsis: (2) Acute cholecystitis: PLAN: sepsis due to acute cholecystitis - javier tube placed 04/20. Cont ceftriaxone and flagyl. Fluid cx with ecoli and proteus. Feeling better, fever improved, wbc better, O2 improved. Will follow
[2024-04-27] MEDS: MELATONIN 10 MG TABLET 5 MG PO (21:51)
[2024-04-28] VITALS (15 sets, daily range): BP systolic 95–117; BP diastolic 70–92; PULSE 102–118; RESP 24–36; TEMP 36.2–37.9; O2SAT 91–100; BMI 33.0
[2024-04-28] MEDS: Furosemide 500 MG in Empty Viaflex 50 mL 1 EACH CONT INF (00:40)
[2024-04-28] MEDS: Ceftriaxone 1 GM/50 ML BAG IV ×2 (00:40→22:21)
[2024-04-28] MEDS: metroNIDAZOLE 500 MG/100 ML BAG 100 MG IV ×3 (05:10→21:06)
[2024-04-28 06:41] LABS: Absolute Lymphocyte Count 1.56 X10^3/uL (0.83-4.51); Absolute Neutrophil Count 15.5 X10^3/uL (2.0-7.7); Basophil# 0.05 X10^3/uL; Basophil% 0.3 % (0-1); Eosinophil# 0.02 X10^3/uL; Eosinophils% 0.1 % (0-5); Hematocrit 27.6 % (37-47); Hemoglobin 8.8 g/dL (12.0-15.0); Lymphocyte # 1.56 X10^3/ul (0.83-4.51); Lymphocyte % 8.3 % (19-41); Mean Corp Hgb Conc 31.9 g/dL (32-36); Mean Corpuscular Hgb 24.5 pg (27.0-32.0); Mean Corpuscular Volume 76.9 fL (81-99); Mean Platelet Vol. 9.4 fl (6.2-12.0); Monocyte% 7.4 % (0-10); NRBC Flagged by Analyzer 0.2 % (0-5); Neutrophil # 15.54 X10^3/uL (2.7-7.7); Neutrophil % 82.2 % (47-70); Platelet Count 585 K/mm3 (150-450); RBC Distribution Width CV 17.9 % (11.6-14.6); Red Blood Count 3.59 M/mm3 (4.2-5.4); White Blood Count 18.9 K/mm3 (4.4-11.0)
[2024-04-28 07:24] LABS: Anion Gap 10 (5-15); BUN 9 mg/dL (7-18); BUN/Creat Ratio 16.8 RATIO (10-20); Calcium,Total 8.8 mg/dL (8.5-10.1); Chloride 89 mmol/L (98-107); Creatinine, Serum 0.54 mg/dL (0.55-1.02); EST Glomerular Filtration Rate 115 mL/min (>60); Est Glom Filt Rate - Afr Amer 140 mL/min (>60); Estimated Creatinine Clearance 47.78 ml/min; Glucose 163 mg/dL (74-106); Potassium 2.9 mmol/L (3.5-5.1); Sodium Level 135 mmol/L (136-145)
--- NOTE | 2024-04-28 08:51 | PN.HOSP_ITS ---
Reason for Visit Reason for Visit: Diagnoses Sepsis, unspecified organism (04/20/24) Obesity, class 1 (04/20/24) Hypokalemia (04/20/24) Pneumonia, unspecified organism (04/20/24) Acute respiratory failure with hypoxia (04/20/24) Acute cholecystitis (04/20/24) Acute cholecystitis with chronic cholecystitis (04/20/24) Cholecystitis, unspecified (04/20/24) Other abnormalities of breathing (04/20/24) Nausea with vomiting, unspecified (04/20/24) Difficulty in walking, not elsewhere classified (04/20/24) Weakness (04/20/24) Abnormal levels of other serum enzymes (04/20/24) Subjective Subjective Placed back on Airvo Objective Data Objective Data Vital Signs: Vital Signs Temp Pulse Resp BP Pulse Ox O2 Del Method O2 Flow Rate 36.7 C 107 H 30 H 95/70 94 Airvo 50 04/28/24 05:00 04/28/24 05:15 04/28/24 05:15 04/28/24 05:00 04/28/24 08:10 04/28/24 08:18 04/28/24 08:10 FiO2 88 04/28/24 08:10 Oxygen Flow Rate (L/min) 50 Oxygen Delivery Method Airvo Weight: 71.3 kg Body Mass Index (BMI) 33.0 Intake & Output: Intake and Output for Last 24 Hours 04/26/24 04/27/24 04/28/24 23:59 23:59 23:59 Intake Total 454 / 454 660 / 660 179.48 / 179.48 Output Total 4480 / 4480 3315 / 3615 300 / 300 Balance -4026 / -4026 -2655 / -2955 -120.52 / -120.52 Lab / Micro Data 04/28/24 05:41 04/28/24 05:41 Labs: Laboratory Results - last 24 hr 04/28/24 05:41: WBC 18.9 H, RBC 3.59 L, Hgb 8.8 L, Hct 27.6 L, MCV 76.9 L, MCH 24.5 L, MCHC 31.9 L, RDW Std Deviation 45.0 H, RDW Coeff of [place] 17.9 H, Plt Count 585 H, MPV 9.4, Immature Gran % (Auto) 1.700 H, Neut % (Auto) 82.2 H, L ymph % (Auto) 8.3 L, [place] % (Auto) 7.4, Eos % (Auto) 0.1, Baso % (Auto) 0.3, A bsolute Neuts (auto) 15.5 H, Absolute Lymphs (auto) 1.56, Nucleated RBC % 0.2, S odium 135 L, Potassium 2.9 L, Chloride 89 L, Carbon Dioxide 36.0 H, Anion Gap 10, BUN 9, Creatinine 0.54 L, Estim Creat Clear Calc 47.78, Est GFR (MDRD) Af Amer 140, Est GFR (MDRD) Non-Af 115, BUN/Creatinine Ratio 16.8, Glucose 163 H, Calcium 8.8 Micro: Microbiology 04/20/24 12:41 Fluid - Gallbladder Gram Stain - Final 04/20/24 12:41 Fluid - Gallbladder Body Fluid Culture - Final Escherichia coli Proteus mirabilis 04/20/24 12:41 Fluid - Gallbladder Anaerobic Culture - Preliminary Gram negative librado Anaerobic cocci 04/19/24 17:26 Blood Culture (Wb) - Anticubital Left Blood Culture - Final No growth in 5 days. 04/19/24 17:26 Blood Culture (Wb) - Anticubital Right Blood Culture - Final No growth in 5 days. 04/19/24 23:20 Urine, Clean Catch Urine Culture - Final Culture exhibits no growth. 04/19/24 23:20 Urine Catheter - Anaya Legionella Antigen - Final 04/19/24 23:20 Urine Catheter - Anaya Streptococcus pneumoniae Antigen (M - Final 04/19/24 22:05 Mucosa - Nasopharyngeal Respiratory Panel (PCR) - Final 04/19/24 18:31 Mucosa - Nose SARS-CoV-2, Influenza & RSV (PCR) - Final Physical Exam Const Constitutional Narrative: listless. opens eyes to voice. Weak. HEENT head/scalp atraumatic and moist oral mucous membranes Resp normal respiratory effort, no retractions, no use of accessory muscles and clear to auscultation bilaterally Cardio regular rate, regular rhythm, S1 normal heart sound and S2 normal heart sound GI normal to inspection, nondistended, normoactive bowel sounds, soft to palpation, non-tender and non-distended Extremity Extremity Narrative: decreased edema Assessment & Plan Assessment/Plan (1) Acute hypoxemic respiratory failure: (2) Sepsis: (3) Cholecystitis: PLAN: Plan Sepsis secondary to acute cholecystitis * patient is being seen by infectious diseases, patient is currently on ceftriaxone and Flagyl. * patient's gallbladder fluid culture was positive for Proteus and E. coli which are sensitive to the current antibiotics he is receiving. * Cx showing E. coli and Proteus mirabilis acute cholecystitis * patient is not a candidate for cholecystectomy, cholecystotomy tube is in place * pt to follow up with general surgery for eventual cholecystectomy with likely referral to another surgeon. acute respiratory failure secondary to sepsis * multifactorial: CHF, TESSIE, obesity hypoventilation syndrome. * still on Airvo despite adequate diuresis. * Continue to strongly encourage IS and acapella. * CXR appears improved, but overall the patient appears worse. Acute HFpEF * EF 65% from echo from 11/08 * continue furosemide gtt. anemia * microcytic stable * monitor. * TSH 0.661. Check B12, Folate, iron studies, hemoccult. hypokalemia * 2/2 diuresis * Still low after replacement. Distally magnesium level 1.5. Will replace of both again. VTE prophylaxis: LMWH Advance care planning: Spent additional 20 minutes talking with the family and explained that though her x-ray looks better, her edema looks better, she looks overall worse with marked tachypnea, lethargy. They would like to speak with hospice. Hospice has been consulted and will be meeting with the patient's family on the . Charges/Coding Visit Charges Inpatient E&M: 53391 Subs Hosp L2 Procedures Hospitalists Procedures: 65656 Advncd Care Plan 30 Min
[2024-04-28] MEDS: Cholecalciferol (Vit D3) 125 MCG CAPSULE (5,000 UNITS) PO (09:36)
[2024-04-28] MEDS: Enoxaparin 40 MG/0.4 ML Syringe SC (09:36)
[2024-04-28] MEDS: Lactobacillis Acidophilus 1 CAP PO ×4 (09:36→22:20)
[2024-04-28] MEDS: Nystatin Powder 15gm Bottle 1 APPLIC TOPICAL ×2 (09:37→22:23)
[2024-04-28] MEDS: Menthol/Lanolin/Calamine/Znox 113 GM Tube 1 APPLIC TOPICAL ×3 (09:37→22:22)
[2024-04-28] MEDS: Potassium Chloride Oral Tablet 20 MEQ 40 MEQ PO ×2 (09:39→16:45)
[2024-04-28] MEDS: Ensure Plus High Protein 120 ML LIQUID PO (09:43)
--- NOTE | 2024-04-28 10:50 | PCM.PN.ID ---
Physical Exam Narrative Feeling about the same, still high O2 reqs, no abd pain, no fever Const alert and no apparent distress General Appearance: cooperative Resp Auscultation: diminished lung sounds Cardio regular rate and regular rhythm GI soft to palpation, non-tender and non-distended Skin no rashes or lesions noted ID ID: Route of nutrition/ use of supplements: [] Nutritional Intake: [] IV Site: [] Anaya Catheter: [] Assessment & Plan Assessment/Plan (1) Sepsis: (2) Acute cholecystitis: PLAN: sepsis due to acute cholecystitis - javier tube placed 04/20. Cont ceftriaxone and flagyl. Fluid cx with ecoli and proteus. Feeling better, fever resolved, wbc better, O2 requirements remain high. May benefit from pulm eval. Will follow
--- NOTE | 2024-04-28 11:15 | RAD_ITS ---
EXAM: XR CHEST, 1 VIEW CLINICAL INDICATION: respiratory failure TECHNIQUE: Frontal view of the chest. COMPARISON: 04/24/2024. FINDINGS: LUNGS AND PLEURAL SPACES: Calcified granuloma left lower lung. Probable slight bilateral pleural effusions improved compared to the previous exam. Low lung volumes limit the exam. Subsegmental atelectasis in the bases. No pneumothorax. HEART: Unremarkable. Cardiac silhouette not enlarged. MEDIASTINUM: Central airways and mediastinal contour are unremarkable. BONES/JOINTS: Unremarkable. No acute fracture. SOFT TISSUES: Unremarkable. RAD/Chest 1 View (Portable) IMPRESSION: 1. Probable slight bilateral pleural effusions improved compared to the previous exam. 2. Low lung volumes limit the exam. Subsegmental atelectasis in the bases. Electronically Signed: Edouard Ngo MD at 22:34 EST ,
--- NOTE | 2024-04-28 12:21 | CASEMGMT ---
SW was informed that patient's family would like to talk with Hospice. SW spoke with patient's and one of their sons. They confirmed they would like to talk with Hospice. Patient's other son, Ilan would need to be present. They do not have phones so they have to call a neighbor to get a hold of Ilan to see when he can be here at [facility]. RODRIGO told family RODRIGO will check back in a bit to see if they have a time. Zakiya Henry FINANCE INSURANCE MANAGERRocio MAXWELL
--- NOTE | 2024-04-28 14:31 | CASEMGMT ---
SW went back to patient's room. They have not heard from patient's son Ilan yet. SW asked if they definitely need Ilan to be present for the Hospice meeting. Family said that he does not have to be here. SW let them know SW will call Hospice to make a referral. SW called Hospice and made a referral. They will call SW back with a time. Zakiya Henry DRUGLESS PHYSICIAN ALISSA
--- NOTE | 2024-04-28 14:42 | CASEMGMT ---
SW received a call from Hospice and they will meet with patient and family tomorrow between 930 and 10a. SW notified nurse who was going to notify family. SW also notified charge authorizer and physician. Plan: Meet with Hospice tomorrow between 930 and 10a. Zakiya Henry AIRPORT OPERATIONS OFFICERRocio MAXWELL
[2024-04-28] MEDS: 0.9% Saline Lock 10 ML Syringe IV (21:06)
[2024-04-28] MEDS: MELATONIN 10 MG TABLET 5 MG PO (22:20)
[2024-04-29] VITALS (10 sets, daily range): BP systolic 99–120; BP diastolic 77–93; PULSE 109–117; RESP 31–42; TEMP 36.7–37.6; O2SAT 91–98; BMI 31.6
[2024-04-29] MEDS: metroNIDAZOLE 500 MG/100 ML BAG 100 MG IV ×3 (06:01→21:02)
--- NOTE | 2024-04-29 08:12 | PN.HOSP_ITS ---
Reason for Visit Reason for Visit: Diagnoses Sepsis, unspecified organism (04/20/24) Obesity, class 1 (04/20/24) Hypokalemia (04/20/24) Pneumonia, unspecified organism (04/20/24) Acute respiratory failure with hypoxia (04/20/24) Acute cholecystitis (04/20/24) Acute cholecystitis with chronic cholecystitis (04/20/24) Cholecystitis, unspecified (04/20/24) Other abnormalities of breathing (04/20/24) Nausea with vomiting, unspecified (04/20/24) Difficulty in walking, not elsewhere classified (04/20/24) Weakness (04/20/24) Abnormal levels of other serum enzymes (04/20/24) Subjective Subjective Still on Airvo. More alert today. Denies shortness of breath. Denies abdominal pain. Objective Data Objective Data Vital Signs: Vital Signs Temp Pulse Resp BP Pulse Ox O2 Del Method O2 Flow Rate 36.7 C 113 H 31 H 100/78 93 Airvo 50 04/29/24 04:00 04/29/24 04:00 04/29/24 04:00 04/29/24 04:00 04/29/24 04:00 04/29/24 07:43 04/29/24 04:00 FiO2 82 04/29/24 04:00 Oxygen Flow Rate (L/min) 50 Oxygen Delivery Method Airvo Weight: 68.6 kg Body Mass Index (BMI) 31.6 Intake & Output: Intake and Output for Last 24 Hours 04/27/24 04/28/24 04/29/24 23:59 23:59 23:59 Intake Total 660 / 660 1029.48 / 1149.48 220 / 220 Output Total 3315 / 3615 1250 / 1550 1240 / 1240 Balance -2655 / -2955 -220.52 / -400.52 -1020 / -1020 Lab / Micro Data 04/28/24 05:41 04/28/24 05:41 Micro: Microbiology 04/20/24 12:41 Fluid - Gallbladder Gram Stain - Final 04/20/24 12:41 Fluid - Gallbladder Body Fluid Culture - Final Escherichia coli Proteus mirabilis 04/20/24 12:41 Fluid - Gallbladder Anaerobic Culture - Preliminary Gram negative librado Anaerobic cocci 04/19/24 17:26 Blood Culture (Wb) - Anticubital Left Blood Culture - Final No growth in 5 days. 04/19/24 17:26 Blood Culture (Wb) - Anticubital Right Blood Culture - Final No growth in 5 days. 04/19/24 23:20 Urine, Clean Catch Urine Culture - Final Culture exhibits no growth. 04/19/24 23:20 Urine Catheter - Anaya Legionella Antigen - Final 04/19/24 23:20 Urine Catheter - Anaya Streptococcus pneumoniae Antigen (M - Final 04/19/24 22:05 Mucosa - Nasopharyngeal Respiratory Panel (PCR) - Final 04/19/24 18:31 Mucosa - Nose SARS-CoV-2, Influenza & RSV (PCR) - Final Physical Exam Const alert and no apparent distress HEENT head/scalp atraumatic and moist oral mucous membranes Resp normal respiratory effort and no retractions Resp Narrative: coarse BS bilaterally. Cardio regular rate, regular rhythm, S1 normal heart sound and S2 normal heart sound GI normal to inspection, nondistended, normoactive bowel sounds, soft to palpation, non-tender and non-distended Extremity normal to inspection and full ROM Neuro Sensorium / Orientation: awake and alert Assessment & Plan Assessment/Plan (1) Acute hypoxemic respiratory failure: (2) Sepsis: (3) Cholecystitis: PLAN: Plan Sepsis secondary to acute cholecystitis * patient is being seen by infectious diseases, patient is currently on ceftriaxone and Flagyl. * patient's gallbladder fluid culture was positive for Proteus and E. coli which are sensitive to the current antibiotics he is receiving. * Cx showing E. coli and Proteus mirabilis acute cholecystitis * patient is not a candidate for cholecystectomy, cholecystotomy tube is in place * pt to follow up with general surgery for eventual cholecystectomy with likely referral to another surgeon. acute respiratory failure secondary to sepsis * multifactorial: CHF, TESSIE, obesity hypoventilation syndrome. * still on Airvo despite adequate diuresis. * Continue to strongly encourage IS and acapella. * CXR appears improved, but overall the patient appears worse. Acute HFpEF * EF 65% from echo from 11/08 * continue furosemide gtt. anemia * microcytic stable * monitor. * TSH 0.661. Check B12, Folate, iron studies, hemoccult. hypokalemia * 2/2 diuresis * Still low after replacement. Distally magnesium level 1.5. Will replace of both again. VTE prophylaxis: LMWH 04/28: spoke with the family and explained that though her x-ray looks better, her edema looks better, she looks overall worse with marked tachypnea, lethargy. They would like to speak with hospice. Hospice has been consulted and will be meeting with the patient's family on the . 04/29: family met with hospice and the plan is for the pt to go home with hospice on 04/30 so supplies can be arranged. She is gato, but they have a generator to use for the condensers. DW family at bedside. Charges/Coding Visit Charges Inpatient E&M: 66659 Subs Hosp L2
[2024-04-29] MEDS: Cholecalciferol (Vit D3) 125 MCG CAPSULE (5,000 UNITS) PO (09:12)
[2024-04-29] MEDS: Lactobacillis Acidophilus 1 CAP PO ×4 (09:12→22:47)
[2024-04-29] MEDS: Enoxaparin 40 MG/0.4 ML Syringe SC (09:12)
[2024-04-29] MEDS: Potassium Chloride Oral Tablet 20 MEQ 40 MEQ PO ×2 (09:12→17:36)
[2024-04-29] MEDS: Nystatin Powder 15gm Bottle 1 APPLIC TOPICAL (09:13)
[2024-04-29] MEDS: Menthol/Lanolin/Calamine/Znox 113 GM Tube 1 APPLIC TOPICAL (13:23)
--- NOTE | 2024-04-29 15:44 | CASEMGMT ---
Social Work Pt to discharge home with hospice services tomorrow. [facility] is unable to provide transportation. Phone call placed to [facility] and they cannot accomodate Airvo but can accoodate up to 25L oxygen through non rebreather mask or nasal canula. SW inquired if pt's spouse can ride home with pt in the ambulance and dispatcher will request that of crew picking patient up. Transportation arranged for 1pm forklift picker on Thursday via cot. Physician and nursing updated. Plan: Home on 04/30 with [facility] services. Transportation machine set up at [facility]pm by [facility]. MARGARITO Dahl
--- NOTE | 2024-04-29 16:39 | CASEMGMT ---
Addendum entered by Zakiya Henry 04/29/24 16:43: SW also notified charge entry. Zakiya MAXWELL Original Note: Family was notified that transport will be here tomorrow at 1p to flower buncher or picker patient. They were notified that it was requested that patient's ride in the squad. Zakiya MAXWELL
--- NOTE | 2024-04-29 21:25 | CPS ---
water bag replaced on AIRVO
[2024-04-29] MEDS: MELATONIN 10 MG TABLET 5 MG PO (22:46)
[2024-04-29] MEDS: Ceftriaxone 1 GM/50 ML BAG IV (22:46)
[2024-04-30] VITALS (7 sets, daily range): BP systolic 87–118; BP diastolic 47–97; PULSE 103–118; RESP 26–39; TEMP 36.8–37.2; O2SAT 90–99; BMI 30.3
[2024-04-30] MEDS: Furosemide 500 MG in Empty Viaflex 50 mL 1 EACH CONT INF (02:40)
[2024-04-30] MEDS: metroNIDAZOLE 500 MG/100 ML BAG 100 MG IV (05:57)
[2024-04-30] MEDS: Lactobacillis Acidophilus 1 CAP PO (09:01)
[2024-04-30] MEDS: Nystatin Powder 15gm Bottle 1 APPLIC TOPICAL (09:02)
[2024-04-30] MEDS: Enoxaparin 40 MG/0.4 ML Syringe SC (09:02)
[2024-04-30] MEDS: Cholecalciferol (Vit D3) 125 MCG CAPSULE (5,000 UNITS) PO (09:03)
--- NOTE | 2024-04-30 11:32 | DS.PCM_ITS ---
Providers Date of Admission: 04/20/24 Primary Care Physician: Dr. Homer Roberts, Consultations 04/19/24 22:26 Consult: Infectious Disease Routine Consulting Provider: Bautista Rangel Reason for Consult: Recurrent PNA with Sepsis criteria. EMERGENT Consult: No Notified: Yes Date Notified: 04/19/24 Time Notified: 22:26 Method of Notification: Text 04/20/24 07:59 Consult: General Surgery Routine Consulting Provider: Mauricio Zuñiga Reason for Consult: bad gallbladder EMERGENT Consult: No Notified: Yes Date Notified: 04/20/24 Time Notified: 07:59 Method of Notification: Text 04/28/24 04:18 Consult: [facility] / Pulmonary Medicine Routine Consulting Provider: [facility]/Pulmonary Med Reason for Consult: increase in oxygen demands EMERGENT Consult: No Notified: Yes Date Notified: 04/28/24 Time Notified: 07:58 Method of Notification: Text Reason For Visit: SOB Diagnosis Discharge Diagnosis (1) Acute hypoxemic respiratory failure: Status: Acute Code(s): J96.01 - Acute respiratory failure with hypoxia (2) Sepsis: Status: Resolved Code(s): A41.9 - Sepsis, unspecified organism (3) Cholecystitis: Status: Resolved Code(s): K81.9 - Cholecystitis, unspecified Plan Sepsis secondary to acute cholecystitis * patient is being seen by infectious diseases, patient is currently on ceftriaxone and Flagyl. * patient's gallbladder fluid culture was positive for Proteus and E. coli which are sensitive to the current antibiotics he is receiving. * Cx showing E. coli and Proteus mirabilis acute cholecystitis * patient is not a candidate for cholecystectomy, cholecystotomy tube is in place * pt to follow up with general surgery for eventual cholecystectomy with likely referral to another surgeon. acute respiratory failure secondary to sepsis * multifactorial: CHF, TESSIE, obesity hypoventilation syndrome. * still on Airvo despite adequate diuresis. * Continue to strongly encourage IS and acapella. * CXR appears improved, but overall the patient appears worse. Acute HFpEF * EF 65% from echo from 11/08 * continue furosemide gtt. anemia * microcytic stable * monitor. * TSH 0.661. Check B12, Folate, iron studies, hemoccult. hypokalemia * 2/2 diuresis * Still low after replacement. Distally magnesium level 1.5. Will replace of both again. VTE prophylaxis: LMWH 04/28: spoke with the family and explained that though her x-ray looks better, her edema looks better, she looks overall worse with marked tachypnea, lethargy. They would like to speak with hospice. Hospice has been consulted and will be meeting with the patient's family on the . 04/29: family met with hospice and the plan is for the pt to go home with hospice on 04/30 so supplies can be arranged. She is gato, but they have a generator to use for the condensers. DW family at bedside. Medications at Discharge Home Medications lorazepam 2 mg/mL oral concentrate 1 mg (0.5 mL) PO Q6H PRN anxiety #30 mL 04/30/24 morphine 10 mg/5 mL oral solution 10 mg (5 mL) PO Q4H PRN dyspnea 5 days #100 mL 04/30/24 Hospital Course Operations None Procedures - (Cholecystotomy tube) Summary of Care Provided Minutes Spent on Discharge: 35 Hospital Course: Patient had acute cholecystitis and was deemed not a candidate for surgery so underwent a cholecystotomy tube. Patient's hospitalization was complicated by respiratory failure requiring Airvo. Patient was diuresed with Lasix and then boluses and then and IV infusion but despite that she did have improvements of her edema and pulmonary vascular congestion on her chest x-ray but her condition continued to deteriorate. The family wished to discuss with hospice and hospice was consulted and saw the patient on the . Plan is for the patient to go home today with hospice services. Patient will have arrangements made for condenser's at home. Patient's family has a generator so they be using that as they are [place]. Weight / BMI Weight Weight: 65.8 kg Body Mass Index (BMI) 30.3 ABG / Lab / Microbiology Data 04/28/24 05:41 04/28/24 05:41 Microbiology: Microbiology 04/20/24 12:41 Fluid - Gallbladder Gram Stain - Final 04/20/24 12:41 Fluid - Gallbladder Body Fluid Culture - Final Escherichia coli Proteus mirabilis 04/20/24 12:41 Fluid - Gallbladder Anaerobic Culture - Preliminary Gram negative librado Anaerobic cocci 04/19/24 17:26 Blood Culture (Wb) - Anticubital Left Blood Culture - Final No growth in 5 days. 04/19/24 17:26 Blood Culture (Wb) - Anticubital Right Blood Culture - Final No growth in 5 days. 04/19/24 23:20 Urine, Clean Catch Urine Culture - Final Culture exhibits no growth. 04/19/24 23:20 Urine Catheter - Anaya Legionella Antigen - Final 04/19/24 23:20 Urine Catheter - Anaya Streptococcus pneumoniae Antigen (M - Final 04/19/24 22:05 Mucosa - Nasopharyngeal Respiratory Panel (PCR) - Final 04/19/24 18:31 Mucosa - Nose SARS-CoV-2, Influenza & RSV (PCR) - Final Radiography Diagnostic Testing: Radiology Impression Chest X-Ray 04/28/24 11:15 IMPRESSION: 1. Probable slight bilateral pleural effusions improved compared to the previous exam. 2. Low lung volumes limit the exam. Subsegmental atelectasis in the bases. Electronically Signed: Edouard Ngo MD at 22:34 EST , D/C Instructions Discharge Diet: No restrictions DC O2, CPAP, BIPAP Needs PSN CPAP & BiPAP: BiPAP & CPAP Settings per PSN Mode AIRVO 04/30/24 06:26 Bipap Delivery Device Nasal Pillows 04/30/24 06:26 Fraction of Inspired Oxygen ( 80 04/30/24 08:58 FIO2) Total Flow Rate 50 04/30/24 06:26 Additional Home O2 Discharge instructions: Yes Type of respiratory needs?: Oxygen (25) Oxygen frequency: Continuous Continuous oxygen liters per minute: 25 DC home with Oxygen: Yes Home O2 Review: I have reviewed the oxygen testing, and the patient qualifies for home oxygen equipment and portability. The patient is mobile in the home and the community. Meaningful Use Info Meaningful Use Meaningful Use Diagnoses (Choose all that apply): None applicable Ischemic Stroke Statin Dosing Therapy Reference: STATIN DOSE THERAPY REFERENCE: * Patients > 75 years receive moderate or high dose statin therapy. * Patients 75 years or YOUNGER should receive HIGH intensity statin dose unless contraindicated. You will be required to document reason for non-treatment if statin daily dose does not meet guidelines. HIGH DOSE STATIN THERAPY DAILY Atorvastatin > than or = to 40 mg Rosuvastatin > than or = to 20 mg Amlodipine + Atorvastatin > than or = to 2.5/40 mg Ezetimibe + Simvastatin 10/80 mg Simvastatin 80mg Discharge Plan Admission Admit Date/Time: 04/20/24 01:02 Primary Reason for Your Visit: cholecystitis. respiratory failure. Attending Provider: Andres Chatman Primary Care Provider: Homer Roberts Consulting Providers: Santosh Meyers; Karlos Murray; Mauricio Zuñiga; Bautista Rangel Discharge Orders/Prescriptions Prescriptions: New morphine 10 mg/5 mL solution 10 mg PO Q4H PRN (Reason: dyspnea) 5 Days Qty: 100 0RF lorazepam 2 mg/mL concentrate 1 mg PO Q6H PRN (Reason: anxiety) Qty: 30 0RF Discontinued amlodipine 10 mg tablet 10 mg PO DAILY Referrals / Follow Up: Homer Roberts DO [Primary Care Provider] - Disposition Disposition (needs filled in before D/C Order can be placed): Hospice in Home Charges/Coding Visit Charges Inpatient E&M: 10511 Disch Hosp >30min
== END 2024-04-30 15:11 | disposition hospice, home (50) | DRG 871 ==
LOC: ED 17:26 → PCU 04-20 07:18 → ICU 04-20 09:23 → MS3 04-23 11:42 → PCU 04-26 16:45
PROVIDERS: Internal Medicine; Admitting Provider Internal Medicine; Emergency Provider Emergency Medicine; PCP Family Medicine
DX: A41.51 Sepsis due to Escherichia coli [E. coli] (principal); J96.01 Acute respiratory failure with hypoxia; I50.31 Acute diastolic (congestive) heart failure; E66.2 Morbid (severe) obesity with alveolar hypoventilation; J98.11 Atelectasis; K80.00 Calculus of gallbladder with acute cholecystitis without obstruction; Z66 Do not resuscitate; I11.0 Hypertensive heart disease with heart failure; D50.9 Iron deficiency anemia, unspecified; A41.59 Other Gram-negative sepsis; E87.6 Hypokalemia; M19.90 Unspecified osteoarthritis, unspecified site; R26.2 Difficulty in walking, not elsewhere classified; Z68.31 Body mass index [BMI] 31.0-31.9, adult; T50.2X5A Adverse effect of carbonic-anhydrase inhibitors, benzothiadiazides and other diuretics, initial encounter; E66.811 Obesity, class 1; R53.1 Weakness; R74.8 Abnormal levels of other serum enzymes; Z96.89 Presence of other specified functional implants; Z87.81 Personal history of (healed) traumatic fracture; Z87.19 Personal history of other diseases of the digestive system; Z86.19 Personal history of other infectious and parasitic diseases; Z79.899 Other long term (current) drug therapy
CPT/HCPCS: 20501; 36415; 36600; 71045; 71046; 71275; 74176; 77012; 80048; 80053; 81001; 82550; 82607; 82728; 82746; 82803; 83540; 83550; 83605; 83735; 83880; 84443; 84484; 85014; 85018; 85025; 85027; 85379; 85610; 85730; 87040; 87070; 87075; 87077; 87086; 87186; 87205; 87449; 87631; 87633; 93005; 93970; 94660; 94762; 97110; 97162; 97166; 97530; 97535; 97802; 97803; 99156; 99157; 99285; J2020; J7030; J7040; J7050; Q9967; A4216; J1940